=== PATIENT | female | born 1960 | race African-American/Black ===

== ENCOUNTER 2016-10-16 10:02 | Emergency (ER) | payer BC, MEDICARE ==
[~2016-10-16] VITALS: Ht 170.2 cm; Wt 81.6 kg
[~2016-10-16 10:02] MED LIST: ALBU2.5V5 NEB; ASPI325T8 PO; CEPH-264 PO; CRESTOR40 MG PO; DULO60CA6 PO; FENO145T PO; FLUT1DIS3 IH; IPRA3AMP IH; LOSA100T6 PO; METF-620 PO; METO25TA4 PO; MONT10TA9 PO; OMEP20CA5 PO; OMEP40CA5 PO; SITA100T PO; TRAM-48 PO
--- NOTE | 2016-10-16 10:22 | PHYS DOC ---
Past Medical History Past Medical History: Asthma, CAD, Diabetes-Type II, Hypertension Past Surgical History: Other Additional Past Surgical Histo: Back surgery, stents x2 Alcohol Use: Occasionally Drug Use: None, Marijuana Adult General Chief Complaint Chief Complaint: UPPER EXTREMITY PAIN HPI HPI Patient is a 56 year old female presenting to the emergency department for evaluation of right shoulder and elbow pain status post falling yesterday at approximately 7 PM. That one of her grandchildren who was running in front of her and she actually tripped over her grandchild and hit the wall with her shoulder and then fell down to the ground striking her elbow. She says it has been painful since that time but has not taken anything for pain. She says that the pain is achy. There is no deformity and she denies any weakness numbness or tingling. Review of Systems Review of Systems Constitutional: Denies fever or chills [] Cardiovascular: No additional information not addressed in HPI [] GI: Denies abdominal pain, nausea, vomiting, bloody stools or diarrhea [] Musculoskeletal: Denies back pain. + joint pain [] Integument: Denies abrasions/lacs Neurologic: Denies headache, focal weakness or sensory changes [] Current Medications Current Medications Current Medications Medications (Trade) Dose Ordered Sig/Carlton Start Time Stop Time Status Last Admin Dose Admin Ibuprofen (Motrin) 800 mg 1X ONCE 10/16/16 10:30 10/16/16 10:31 DC 10/16/16 10:36 800 MG Oxycodone/ Acetaminophen (Percocet 5/325) 2 tab 1X ONCE 10/16/16 10:30 10/16/16 10:31 DC 10/16/16 10:35 2 TAB Allergies Allergies Allergies Coded Allergies Type Severity Reaction Last Updated Verified No Known Drug Allergies 07/23/15 No Physical Exam Physical Exam Constitutional: Well developed, well nourished, no acute distress, non-toxic appearance. [] HENT: Normocephalic, atraumatic, bilateral external ears normal, oropharynx moist, no oral exudates, nose normal. [] Eyes: PERRLA, EOMI, conjunctiva normal, no discharge. [] Neck: Normal range of motion, no tenderness, supple, no stridor. [] Cardiovascular:Heart rate regular rhythm, no murmur [] Lungs & Thorax: Bilateral breath sounds clear to auscultation [] Abdomen: Bowel sounds normal, soft, no tenderness, no masses, no pulsatile masses. [] Skin: Warm, dry, no erythema, no rash. [] Extremities: Pain to palpation of right shoulder and right elbow but there is no deformity. She has limited range of motion due to pain. She is neurovascularly intact distally. Neurologic: Alert and oriented X 3, normal motor function, normal sensory function, no focal deficits noted. [] Current Patient Data Vital Signs Vital Signs Date Time Temp Pulse Resp B/P (MAP) Pulse Ox O2 Delivery O2 Flow Rate FiO2 10/16/16 10:07 98.3 66 12 98 Room Air 98.3 EKG EKG [] Radiology/Procedures Radiology/Procedures Indication: Injury to the right elbow. Time of exam 10:28 AM 3 views of the right elbow were obtained. The alignment is normal. No fracture, dislocation or effusion is detected. Impression: No acute bony abnormality is detected. DICTATED and SIGNED BY: CYNDIE LINCOLN MD DATE: 10/16/16 1035 Indication: Fall and injury to the right shoulder. Time of exam 10:28 AM The glenohumeral and acromioclavicular alignment are normal. The acromiohumeral space is normal. No fracture or dislocation is seen. Impression: No acute bony abnormality is detected. DICTATED and SIGNED BY: CYNDIE LINCOLN MD DATE: 10/16/16 1036 Course & Med Decision Making Course & Med Decision Making Patient's physical exam is quite unremarkable and her x-rays are negative as well status post mechanical fall so she'll be treated with NSAIDs rice and short course of [place]. Patient aware and agreeable with plan. Dragon Disclaimer Dragon Disclaimer This electronic medical record was generated, in whole or in part, using a voice recognition dictation system. Departure Departure Impression: Primary Impression: Shoulder sprain Additional Impression: Elbow strain Disposition: 01 HOME, SELF-CARE Condition: GOOD Referrals: LESTER RAMIREZ CLAM GROWER (PCP) Patient Instructions: Shoulder Sprain Additional Instructions: TAKE 400MG OF IBUPROFEN EVERY 6 HOURS AND THE NORCO FOR BREAKTHROUGH PAIN. REST YOUR ARM, PUT ICE ON IT, ELEVATE IT. FOLLOW WITH PCP IF NOT IMPROVED LATER THIS WEEK. THANK YOU! Scripts Hydrocodone/Apap 5-325 (NORCO 5-325 TABLET) 1 Each Tablet 1 TAB PO PRN Q6HRS Y for PAIN, #10 TAB 0 Refills Prov: POPPY ORTEGA DO 10/16/16 Problem Qualifiers Primary Impression: Shoulder sprain Encounter type: initial encounter Shoulder sprain type: unspecified sprain Laterality: right Qualified Codes: S43.401A - Unspecified sprain of right shoulder joint, initial encounter POPPY ORTEGA DO Oct 16, 2016 10:22
[2016-10-16] MEDS ORDERED: IBUPROFEN 800 MG TABLET. PO ONE (10:30)
[2016-10-16] MEDS ORDERED: oxyCODONE/APAP 5/325 1 TAB TABLET PO ONE (10:30)
--- NOTE | 2016-10-16 10:38 | RAD ---
Indication: Injury to the right elbow. Time of exam 10:28 AM 3 views of the right elbow were obtained. The alignment is normal. No fracture, dislocation or effusion is detected. Impression: No acute bony abnormality is detected.
--- NOTE | 2016-10-16 10:39 | RAD ---
Indication: Fall and injury to the right shoulder. Time of exam 10:28 AM The glenohumeral and acromioclavicular alignment are normal. The acromiohumeral space is normal. No fracture or dislocation is seen. Impression: No acute bony abnormality is detected.
[2016-10-16] MEDS ORDERED: HYDR-971 PO (10:44)
[2016-10-16 11:00] VITALS: BP 178/93
== END 2016-10-16 11:02 | disposition home or self-care (01) ==
LOC: ER 10:02
DX: S43.401A Unspecified sprain of right shoulder joint, initial encounter (principal); S46.911A Strain of unspecified muscle, fascia and tendon at shoulder and upper arm level, right arm, initial encounter; J45.909 Unspecified asthma, uncomplicated; F12.10 Cannabis abuse, uncomplicated; I25.10 Atherosclerotic heart disease of native coronary artery without angina pectoris; E11.9 Type 2 diabetes mellitus without complications; I10 Essential (primary) hypertension; W18.39XA Other fall on same level, initial encounter; Y93.02 Activity, running; Y92.89 Other specified places as the place of occurrence of the external cause; Y99.8 Other external cause status
CPT/HCPCS: 73030; 73080; 99284

== ENCOUNTER → 2017-07-31 | Outpatient (CLI) | payer BC, MEDICARE | END | disposition home or self-care (01) | LOC: US 07:12 | DX: I25.10 Atherosclerotic heart disease of native coronary artery without angina pectoris (principal); I08.1 Rheumatic disorders of both mitral and tricuspid valves; I27.20 Pulmonary hypertension, unspecified; I10 Essential (primary) hypertension; M79.605 Pain in left leg; M79.604 Pain in right leg | CPT/HCPCS: 93306; 93925 ==

== ENCOUNTER 2018-02-19 14:14 | Inpatient (IN) | payer BC, MEDICARE ==
[~2018-02-19] VITALS: Ht 170.2 cm; Wt 83.9 kg
[2018-02-19] VITALS (9 sets, daily range): BP systolic 103–227; BP diastolic 49–115
[~2018-02-19 14:14] MED LIST changes: -AMLO10TA6 PO; -CLOP75TA PO; -EVOL140S SQ; -GABA-586 PO; -HYDR-2869 PO; -INSU100I13 SQ; -LOSARTAN POTASSIUM 50 MG TABLET. PO ONE; -METO50TA6 PO; -OMEG1CAP6 PO; -REGADENOSON 0.4 MG/5 ML DISP.SYRIN. IV ONE; -TIZA4TAB PO
[2018-02-19] MEDS ORDERED: amLODIPine BESYLATE 5 MG TABLET PO ONE (14:45)
[2018-02-19] MEDS ORDERED: cloNIDine HCL 0.1 MG TABLET PO ONE (14:45)
[2018-02-19 15:11] LABS: BASO # 0.1 x10^3/uL (0.0-0.2); BASO % 1 % (0-3); EOS # 0.1 x10^3/uL (0.0-0.7); EOS % 1 % (0-3); HEMATOCRIT 41.7 % (36.0-47.0); HEMOGLOBIN 14.6 g/dL (12.0-15.5); LYMPH % 19 % (24-48); MEAN CORPUSCULAR HEMOGLOBIN 32 pg (25-35); MEAN CORPUSCULAR HGB CONC 35 g/dL (31-37); MEAN CORPUSCULAR VOLUME 92 fL (79-100); MONO # 0.5 x10^3/uL (0.0-1.1); MONO % 5 % (0-9); NEUT # 7.7 x10^3uL (1.8-7.7); NEUT % 73 % (31-73); PLATELET COUNT 366 x10^3/uL (140-400); RED BLOOD COUNT 4.53 x10^6/uL (3.50-5.40); RED CELL DISTRIBUTION WIDTH 13.2 % (11.5-14.5); WHITE BLOOD COUNT 10.5 x10^3/uL (4.0-11.0)
--- NOTE | 2018-02-19 15:13 | EKG ---
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
[2018-02-19 15:23] LABS: CREATININE 0.9 mg/dL (0.6-1.0); GFR 78.1; POTASSIUM 3.6 mmol/L (3.5-5.1)
[2018-02-19 15:28] LABS: ALBUMIN 3.7 g/dL (3.4-5.0); ALBUMIN/GLOBULIN RATIO 0.9 (1.0-1.7); TOTAL BILIRUBIN 0.3 mg/dL (0.2-1.0)
[2018-02-19] MEDS ORDERED: LABETALOL 20 MG/4 ML DISP.SYRIN. IVP ONE (15:30)
--- NOTE | 2018-02-19 16:52 | PHYS DOC ---
Past Medical History Past Medical History: Diabetes-Type II, High Cholesterol, Hypertension, MT Past Surgical History: Other Additional Past Surgical Histo: CARDIAC STENTS Alcohol Use: Occasionally Drug Use: None Adult General Chief Complaint Chief Complaint: HYPERTENSION HPI HPI Patient is a 57 year old female who is referred to the ER for blood pressure. Patient was getting a stress test today patient tells me that she was referred by for a which she tells me his routine stress test due to her prior heart attack. She says she is not having any chest pain no shortness of breath no headache no numbness tingling or weakness she actually feels fine at the blood pressure was 230 systolic so she was referred to the emergency room. Patient says that she ran out of one of her blood pressure medications otherwise no other exacerbating or alleviating factors. Symptoms are now unchanged Review of Systems Review of Systems Constitutional: Denies fever or chills [] GI: Denies abdominal pain, nausea, vomiting, bloody stools or diarrhea [] : Denies dysuria or hematuria [] Musculoskeletal: Denies back pain or joint pain [] Integument: Denies rash or skin lesions [] Neurologic: Denies headache, focal weakness or sensory changes [] Endocrine: Denies polyuria or polydipsia [] All other systems were reviewed and found to be within normal limits, except as documented in this note. Current Medications Current Medications Current Medications Medications (Trade) Dose Ordered Sig/Carlton Start Time Stop Time Status Last Admin Dose Admin Amlodipine Besylate (Norvasc) 10 mg 1X ONCE 02/19/18 14:45 02/19/18 14:46 DC 02/19/18 15:07 10 MG Clonidine HCl (Catapres) 0.1 mg 1X ONCE 02/19/18 14:45 02/19/18 14:46 DC 02/19/18 15:06 0.1 MG Labetalol HCl (Normodyne Iv Push) 20 mg 1X ONCE 02/19/18 15:30 02/19/18 15:31 DC 02/19/18 15:36 20 MG Allergies Allergies Allergies Coded Allergies Type Severity Reaction Last Updated Verified No Known Drug Allergies 07/23/15 No Physical Exam Physical Exam Constitutional: Well developed, well nourished, no acute distress, non-toxic appearance. [] HENT: Normocephalic, atraumatic, bilateral external ears normal, oropharynx moist, no oral exudates, nose normal. [] Eyes: PERRLA, EOMI, conjunctiva normal, no discharge. [] Neck: Normal range of motion, no tenderness, supple, no stridor. [] Cardiovascular:Heart rate regular rhythm, no murmur [] Lungs & Thorax: Bilateral breath sounds clear to auscultation [] Abdomen: Bowel sounds normal, soft, no tenderness, no masses, no pulsatile masses. [] Skin: Warm, dry, no erythema, no rash. [] Back: No tenderness, no CVA tenderness. [] Extremities: No tenderness, no cyanosis, no clubbing, ROM intact, no edema. [] Neurologic: Alert and oriented X 3, normal motor function, normal sensory function, no focal deficits noted. [] Psychologic: Affect normal, judgement normal, mood normal. [] Current Patient Data Vital Signs Vital Signs Date Time Temp Pulse Resp B/P (MAP) Pulse Ox O2 Delivery O2 Flow Rate FiO2 02/19/18 15:37 70 18 99 02/19/18 15:36 254/144 02/19/18 14:29 98.2 Room Air 98.2 Lab Values Laboratory Tests Test 02/19/18 15:02 White Blood Count 10.5 x10^3/uL (4.0-11.0) Red Blood Count 4.53 x10^6/uL (3.50-5.40) Hemoglobin 14.6 g/dL (12.0-15.5) Hematocrit 41.7 % (36.0-47.0) Mean Corpuscular Volume 92 fL (79-100) Mean Corpuscular Hemoglobin 32 pg (25-35) Mean Corpuscular Hemoglobin Concent 35 g/dL (31-37) Red Cell Distribution Width 13.2 % (11.5-14.5) Platelet Count 366 x10^3/uL (140-400) Neutrophils (%) (Auto) 73 % (31-73) Lymphocytes (%) (Auto) 19 % (24-48) L Monocytes (%) (Auto) 5 % (0-9) Eosinophils (%) (Auto) 1 % (0-3) Basophils (%) (Auto) 1 % (0-3) Neutrophils # (Auto) 7.7 x10^3uL (1.8-7.7) Lymphocytes # (Auto) 2.0 x10^3/uL (1.0-4.8) Monocytes # (Auto) 0.5 x10^3/uL (0.0-1.1) Eosinophils # (Auto) 0.1 x10^3/uL (0.0-0.7) Basophils # (Auto) 0.1 x10^3/uL (0.0-0.2) Sodium Level 141 mmol/L (136-145) Potassium Level 3.6 mmol/L (3.5-5.1) Chloride Level 102 mmol/L (98-107) Carbon Dioxide Level 26 mmol/L (21-32) Anion Gap 13 (6-14) Blood Urea Nitrogen 9 mg/dL (7-20) Creatinine 0.9 mg/dL (0.6-1.0) Estimated GFR (Cockcroft-Gault) 78.1 BUN/Creatinine Ratio 10 (6-20) Glucose Level 243 mg/dL (70-99) H Calcium Level 10.0 mg/dL (8.5-10.1) Total Bilirubin 0.3 mg/dL (0.2-1.0) Aspartate Amino Transferase (AST) 36 U/L (15-37) Alanine Aminotransferase (ALT) 37 U/L (14-59) Alkaline Phosphatase 82 U/L (46-116) Troponin I Quantitative < 0.017 ng/mL (0.000-0.055) Total Protein 8.0 g/dL (6.4-8.2) Albumin 3.7 g/dL (3.4-5.0) Albumin/Globulin Ratio 0.9 (1.0-1.7) L Laboratory Tests 02/19/18 15:02 Laboratory Tests 02/19/18 15:02 EKG EKG [] Interpretation Time: EKG shows a sinus rhythm rate of 62 there are T-wave inversions in V4 through V6 compared to previous EKG noted March 16, 2017 these changes are markedly improved. No STEMI is seen Radiology/Procedures Radiology/Procedures [] Course & Med Decision Making Course & Med Decision Making Pertinent Labs and Imaging studies reviewed. (See chart for details) []57 yo f with cc of elevated bp up to 250/140. Patient came from stress test but has no symptoms she is not having any chest pain or shortness of breath troponin is negative I tried oral agents they really did not touch the blood pressure so added ideations with improvement at this time to 210 systolic given the severe elevation and lack of response to oral agents in the emergency room I have consulted with Dr. Marli wheeler admitted to the hospitalist service for blood pressure control and cardiology consultation. Dragon Disclaimer Dragon Disclaimer This electronic medical record was generated, in whole or in part, using a voice recognition dictation system. Departure Departure Impression: Primary Impression: Hypertensive urgency Disposition: ADMITTED INPATIENT Admitting Physician: Fátima Munoz Condition: STABLE Referrals: LETSER RAMIREZ NP (PCP) VI ARANA MD Feb 19, 2018 16:52
[2018-02-19] MEDS ORDERED: METF10007 PO (18:18)
[2018-02-19] MEDS ORDERED: GABA-586 PO (18:18)
[2018-02-19] MEDS ORDERED: CLOP75TA PO (18:18)
[2018-02-19] MEDS ORDERED: TIZA4TAB PO (18:18)
[2018-02-19] MEDS ORDERED: INSU100V13 SQ (18:18)
[2018-02-19] MEDS: MONTELUKAST SODIUM 10 MG TABLET. PO SCH (20:49)
[2018-02-19] MEDS: ATORVASTATIN CALCIUM 40 MG TABLET. PO SCH (20:50)
[2018-02-19] MEDS: GABAPENTIN 300 MG CAPSULE. PO SCH (20:50)
[2018-02-19] MEDS: tiZANidine 4 MG TABLET. PO SCH (20:50)
[2018-02-19] MEDS: INSULIN GLARGINE 300 UNITS/3 ML INSULN.PEN. SQ SCH (20:57)
[2018-02-19] MEDS ORDERED: METOPROLOL TART IMMED RELEASE 25 MG TABLET. PO SCH (21:00)
[2018-02-19] MEDS: diphenhydrAMINE HCL 25 MG CAPSULE PO PRN (21:32)
[2018-02-19] MEDS: ACETAMINOPHEN 325 MG TABLET. PO PRN (21:32)
--- NOTE | 2018-02-19 22:39 | HP ---
ADMIT DATE: 02/19/2018 CHIEF COMPLAINT: Hypertension. HISTORY OF PRESENT ILLNESS: The patient is a pleasant 57-year-old female who was undergoing a stress test earlier today. While she was getting the stress test, they noted her pressure was high. She was told to go to the ER. When she hit the ER sure enough her pressure was 250/150. I have discussed the case with the ER physician. We are going to start some IV antihypertensives and consult Cardiology. PAST MEDICAL HISTORY: Hypertension, noncompliance, coronary disease, myocardial infarction, cardiac stents, diabetes. ALLERGIES: None. FAMILY HISTORY: Coronary disease. SOCIAL HISTORY: She does not drink, smoke or take drugs. MEDICATIONS: Reviewed. Please refer to the MRAD. REVIEW OF SYSTEMS: GENERAL: No history of weight change, weakness or fevers. SKIN: No bruising, hair changes or rashes. EYES: No blurred, double or loss of vision. NOSE AND THROAT: No history of nosebleeds, hoarseness or sore throat. HEART: No history of palpitations, chest pain or shortness of breath on exertion. LUNGS: Denies cough, hemoptysis, wheezing or shortness of breath. GASTROINTESTINAL: Denies changes in appetite, nausea, vomiting, diarrhea or constipation. GENITOURINARY: No history of frequency, urgency, hesitancy or nocturia. NEUROLOGIC: She complains of headache. PSYCHIATRIC: No history of panic, anxiety or depression. ENDOCRINE: No history of heat or cold intolerance, polyuria or polydipsia. EXTREMITIES: Denies muscle weakness, joint pain, pain on walking or stiffness. PHYSICAL EXAMINATION: VITAL SIGNS: Temperature afebrile, pulse 80, respirations 18, blood pressure was as high as 254/144. We have now got it down to 221/115. GENERAL: She is alert, cooperative. Her family is present. HEART: Normal S1, S2. LUNGS: Clear. ABDOMEN: Soft. EXTREMITIES: No edema. SKIN: No rash. ENDOCRINE: No thyromegaly. LYMPHATICS: No cervical nodes. HEMATOPOIETIC: No bruising. LABORATORY DATA: Hematology is normal. Electrolytes are normal. ASSESSMENT AND PLAN: Malignant hypertension. The patient has been admitted. We will start IV Lasix, IV Cardizem. Consult Cardiology, serial enzymes, serial EKGs, cardiac monitoring, home meds. MARLENE HINSON DO DR: Zana JOB#: [id number] / [id number]
[2018-02-20] VITALS (29 sets, daily range): BP systolic 119–197; BP diastolic 60–101
[2018-02-20] MEDS ORDERED: ACETAMINOPHEN/CODEINE 300/30MG TABLET. PO PRN (07:45)
[2018-02-20] MEDS ORDERED: ACETAMINOPHEN 500 MG TABLET PO PRN (07:45)
[2018-02-20] MEDS ORDERED: DEXTROSE 50% 25 GM / 50ML DISP.SYRIN. IV PRN (07:45)
[2018-02-20] MEDS ORDERED: ONDANSETRON ODT 4 MG TAB.RAPDIS. PO PRN (07:45)
[2018-02-20] MEDS ORDERED: ONDANSETRON PF 4 MG/2 ML VIAL. IV PRN (07:45)
[2018-02-20] MEDS ORDERED: metFORMIN 500 MG TABLET PO SCH (08:00)
--- NOTE | 2018-02-20 08:30 | PDOC2 ---
ELLIS CHISHOLM DEPARTMENT STORE SALESPERSON 02/20/18 0830: CARDIAC CONSULT DATE OF CONSULT Date of Consult DATE: 02/20/18 TIME: 08:18 REASON FOR CONSULT Reason for Consult: Hypertensive urgency REFERRING PHYSICIAN Referring Physician: Catina SOURCE Source: Chart review, Patient HISTORY OF PRESENT ILLNESS HISTORY OF PRESENT ILLNESS This is pleasant 57 yo female admitted for complains of chest pain and high BP. She had a stress test yesterday since she has been having exertional CP and MCLEAN when she was seen recently in cardiology office. Her SBP was in the 200s and she has missed her losartan in about 2 months since she ran out. She has CAD and stents in the past and otherwise she has been taking her other medications including ASA and plavix. She does not have any routine exercise and does not really follow her DM diet. She does take statin but take fenofibrate and repatha. Upon admission she was started on cardene which she is off now. Denies any palpitations, nausea or vomiting. Presently she is sitting up in chair without any complaints and her BP is better. At this time her stress test wa noted to be abnormal. PAST MEDICAL HISTORY Past Medical History Cardiovascular: CAD, HTN, Hyperlipidemia Pulmonary: Asthma, COPD CENTRAL NERVOUS SYSTEM: Other (No pertinent history) GI: GERD Psych: Anxiety Musculoskeletal: low back pain, Osteoarthritis Rheumatologic: No pertinent hx Infectious disease: No pertinent hx ENT: Allergic Rhinitis Renal/: No pertinent hx Endocrine: Diabetes (2) Dermatology: No pertinent hx PAST SURGICAL HISTORY Past Surgical History s/p PCI/stents x 2 in 2009; lumbar laminectomy, PCI 2017 FAMILY HISTORY Family History: Heart Disease SOCIAL HISTORY Social History Smoke: quit ALCOHOL: occasional Drugs: Marijuana yes, cocaine she denies Lives: with Family CURRENT MEDICATIONS CURRENT MEDICATIONS Current Medications Medications (Trade) Dose Ordered Sig/Carlton Route PRN Reason Start Time Stop Time Status Last Admin Dose Admin Amlodipine Besylate (Norvasc) 10 mg 1X ONCE PO 02/19/18 14:45 02/19/18 14:46 DC 02/19/18 15:07 Clonidine HCl (Catapres) 0.1 mg 1X ONCE PO 02/19/18 14:45 02/19/18 14:46 DC 02/19/18 15:06 Labetalol HCl (Normodyne Iv Push) 20 mg 1X ONCE IVP 02/19/18 15:30 02/19/18 15:31 DC 02/19/18 15:36 Nicardipine HCl 50 mg/Sodium Chloride 270 ml @ 27 mls/hr CONT PRN IV SEE I/O RECORD 02/19/18 17:45 02/19/18 23:01 Metoprolol Tartrate (Lopressor) 25 mg BID PO 02/19/18 21:00 02/19/18 20:49 Gabapentin (Neurontin) 300 mg TID PO 02/19/18 21:00 02/19/18 20:50 Insulin Glargine (Lantus) 10 units QHS SQ 02/19/18 21:00 02/19/18 20:57 Montelukast Sodium (Singulair) 10 mg QHS PO 02/19/18 21:00 02/19/18 20:49 Atorvastatin Calcium (Lipitor) 80 mg QHS PO 02/19/18 21:00 02/19/18 20:50 Tizanidine HCl (Zanaflex) 4 mg TID PO 02/19/18 21:00 02/19/18 20:50 Acetaminophen (Tylenol) 325 mg PRN QHS PRN PO MILD PAIN / TEMP 02/19/18 21:15 02/19/18 21:32 Diphenhydramine HCl (Benadryl) 25 mg PRN QHS PRN PO SLEEP 02/19/18 21:15 02/19/18 21:32 ALLERGIES ALLERGIES: Coded Allergies: No Known Drug Allergies (Unverified , 07/23/15) ROS Review of System 14 point ROS evaluated with pertinent positives noted per HPI PHYSICAL EXAM General: Alert, Oriented X3, Cooperative, No acute distress HEENT: Atraumatic, Mucous membr. moist/pink Lungs: Clear to auscultation, Normal air movement Heart: Regular rate (SR), Normal S1, Normal S2, Other (2/6 systolic murmur to LLs border) Abdomen: Soft, No tenderness Extremities: No cyanosis, No edema Skin: No breakdown, No significant lesion Neuro: Normal speech, Sensation intact Psych/Mental Status: Mental status NL, Mood NL MUSCULOSKELETAL: Osteoarthritic changes both hands VITALS VITALS Vital Signs Date Time Temp Pulse Resp B/P (MAP) Pulse Ox O2 Delivery O2 Flow Rate FiO2 02/20/18 07:35 Room Air 02/20/18 07:00 68 18 177/90 (119) 97 02/20/18 04:00 98.4 98.4 LABS Lab: Laboratory Tests Test 02/19/18 15:02 02/19/18 16:55 02/19/18 19:10 02/19/18 20:53 White Blood Count 10.5 x10^3/uL (4.0-11.0) Red Blood Count 4.53 x10^6/uL (3.50-5.40) Hemoglobin 14.6 g/dL (12.0-15.5) Hematocrit 41.7 % (36.0-47.0) Mean Corpuscular Volume 92 fL (79-100) Mean Corpuscular Hemoglobin 32 pg (25-35) Mean Corpuscular Hemoglobin Concent 35 g/dL (31-37) Red Cell Distribution Width 13.2 % (11.5-14.5) Platelet Count 366 x10^3/uL (140-400) Neutrophils (%) (Auto) 73 % (31-73) Lymphocytes (%) (Auto) 19 % (24-48) Monocytes (%) (Auto) 5 % (0-9) Eosinophils (%) (Auto) 1 % (0-3) Basophils (%) (Auto) 1 % (0-3) Neutrophils # (Auto) 7.7 x10^3uL (1.8-7.7) Lymphocytes # (Auto) 2.0 x10^3/uL (1.0-4.8) Monocytes # (Auto) 0.5 x10^3/uL (0.0-1.1) Eosinophils # (Auto) 0.1 x10^3/uL (0.0-0.7) Basophils # (Auto) 0.1 x10^3/uL (0.0-0.2) Sodium Level 141 mmol/L (136-145) Potassium Level 3.6 mmol/L (3.5-5.1) Chloride Level 102 mmol/L (98-107) Carbon Dioxide Level 26 mmol/L (21-32) Anion Gap 13 (6-14) Blood Urea Nitrogen 9 mg/dL (7-20) Creatinine 0.9 mg/dL (0.6-1.0) Estimated GFR (Cockcroft-Gault) 78.1 BUN/Creatinine Ratio 10 (6-20) Glucose Level 243 mg/dL (70-99) Calcium Level 10.0 mg/dL (8.5-10.1) Total Bilirubin 0.3 mg/dL (0.2-1.0) Aspartate Amino Transf (AST/SGOT) 36 U/L (15-37) Alanine Aminotransferase (ALT/SGPT) 37 U/L (14-59) Alkaline Phosphatase 82 U/L (46-116) Troponin I Quantitative < 0.017 ng/mL (0.000-0.055) < 0.017 ng/mL (0.000-0.055) Total Protein 8.0 g/dL (6.4-8.2) Albumin 3.7 g/dL (3.4-5.0) Albumin/Globulin Ratio 0.9 (1.0-1.7) Group A Streptococcus Rapid Negative (NEGATIVE) Glucose (Fingerstick) 245 mg/dL (70-99) Test 02/19/18 22:10 02/20/18 05:37 Troponin I Quantitative < 0.017 ng/mL (0.000-0.055) Glucose (Fingerstick) 208 mg/dL (70-99) ECHOCARDIOGRAM ECHOCARDIOGRAM <Conclusion> The left ventricular systolic function is normal. The ejection fraction is estimated at 55-60%. There is normal LV segmental wall motion. Trace to mild mitral regurgitation. Mild tricuspid regurgitation. There is mild pulmonary hypertension. The PA pressure was estimated at 34 mmHg. There is no evidence of significant pericardial effusion. DATE: 07/31/17 1032 STRESS TEST STRESS TEST Conclusion 1. Abnormal resting EKG with ST segment changes with exertion that are suggestive but not diagnostic of ischemia. 2. Nuclear imaging suggests a small area of reversible ischemia in the inferior wall. 3. Normal left ventricular systolic function with an ejection fraction of 69%. 4. Moderate to moderately high risk Lexiscan nuclear stress test suggestive of reversible ischemia in the inferior wall. 5. Of note the patient has had uncontrolled hypertension which can affect the accuracy of the test. DATE: 02/19/18 1435 HEART CATH HEART CATH Conclusion 1. Two-vessel coronary artery disease. 2. Successful context PCI/stents placement to bifurcation lesion involving the left anterior descending artery/diagonal branch. 3. Successful PCI/stent placement to the right coronary artery. Recommendations 1. Aspirin 325 mg daily 2. Plavix 75 mg daily for preferably 1 year 3. Cardiovascular risk factor modification. DATE: 03/17/17 1230 ASSESSMENT/PLAN ASSESSMENT/PLAN 1. Accelerated HTN: 2 months off losartan 2. Chest pain UA features/abnormal MPI 3. CAD: multiple stents with latest as above. report 4. DM2: BG uncontrolled 5. HLP 6. COPD 7. Suspect CKD2 Recommendations 1. DC cardene, restart losartan and metoprolol. Hydralazine PRN 2. LHC today, discussed risks and benefits and agreeable to proceed. Hold metformin for 48 hours post LHC. 3. No allergy to statin. DC home fenofibrate and start on statin. Continue with home repatha 4. ASA/plavix. 5. Marijuana cessation and discussed compliance. BLANCA CANALES MD 02/20/18 1524: CARDIAC CONSULT ASSESSMENT/PLAN ASSESSMENT/PLAN Patient seen and examined. Agree with NEWSSTAND VENDOR's assessment and plan. Accelerated hypertension secondary to noncompliance Resume losartan in addition to metoprolol and stopped Cardene infusion Chest pain with typical features concerning for unstable angina and Lexiscan nuclear stress test positive for inferior wall ischemia Plan for cardiac catheterization and possible angioplasty Thank you for your consultation ELLIS CHISHOLM APRN Feb 20, 2018 08:30 BLANCA CANALES MD Feb 20, 2018 15:24
[2018-02-20] MEDS: DULoxetine HCL 30 MG CAPSULE.DR PO SCH (08:38)
[2018-02-20] MEDS: FENOFIBRATE,MICRONIZED 134 MG CAPSULE PO SCH (08:38)
[2018-02-20] MEDS: GABAPENTIN 300 MG CAPSULE. PO SCH ×3 (08:38→20:34)
--- NOTE | 2018-02-20 08:38 | PDOC ---
PROGRESS NOTES Chief Complaint Chief Complaint Hypertensive urgency Dyslipidemia on statin Diabetes on insulin History of Present Illness History of Present Illness Nicardipine drip off for one and half hours and systolic is 170s, patient asymptomatic Patient has been nothing by mouth for either cardiac tests today She was undergoing the stress test, claims after the dye, her blood pressure shot up She is currently asymptomatic She admits she ran out of losartan for 2 months PLAN: Maintain nothing by mouth until cardiac Rounds Home meds have reconciled including losartan and other meds Sliding scale insulin high-dose Okay to transfer out of ICU when blood pressure is better, and okay with cardiology Vitals Vitals Vital Signs Date Time Temp Pulse Resp B/P (MAP) Pulse Ox O2 Delivery O2 Flow Rate FiO2 02/20/18 07:35 Room Air 02/20/18 07:00 68 18 177/90 (119) 97 02/20/18 04:00 98.4 98.4 Physical Exam General: Alert, Oriented X3, Cooperative, No acute distress Heart: Regular rate, Normal S1, Normal S2, No murmurs Lungs: Clear, Other Abdomen: Normal bowel sounds, Soft, No tenderness Extremities: No clubbing, No cyanosis, No edema Skin: No rashes, No breakdown, No significant lesion Labs LABS Laboratory Tests Test 02/19/18 15:02 02/19/18 16:55 02/19/18 19:10 02/19/18 20:53 White Blood Count 10.5 x10^3/uL (4.0-11.0) Red Blood Count 4.53 x10^6/uL (3.50-5.40) Hemoglobin 14.6 g/dL (12.0-15.5) Hematocrit 41.7 % (36.0-47.0) Mean Corpuscular Volume 92 fL (79-100) Mean Corpuscular Hemoglobin 32 pg (25-35) Mean Corpuscular Hemoglobin Concent 35 g/dL (31-37) Red Cell Distribution Width 13.2 % (11.5-14.5) Platelet Count 366 x10^3/uL (140-400) Neutrophils (%) (Auto) 73 % (31-73) Lymphocytes (%) (Auto) 19 % (24-48) Monocytes (%) (Auto) 5 % (0-9) Eosinophils (%) (Auto) 1 % (0-3) Basophils (%) (Auto) 1 % (0-3) Neutrophils # (Auto) 7.7 x10^3uL (1.8-7.7) Lymphocytes # (Auto) 2.0 x10^3/uL (1.0-4.8) Monocytes # (Auto) 0.5 x10^3/uL (0.0-1.1) Eosinophils # (Auto) 0.1 x10^3/uL (0.0-0.7) Basophils # (Auto) 0.1 x10^3/uL (0.0-0.2) Sodium Level 141 mmol/L (136-145) Potassium Level 3.6 mmol/L (3.5-5.1) Chloride Level 102 mmol/L (98-107) Carbon Dioxide Level 26 mmol/L (21-32) Anion Gap 13 (6-14) Blood Urea Nitrogen 9 mg/dL (7-20) Creatinine 0.9 mg/dL (0.6-1.0) Estimated GFR (Cockcroft-Gault) 78.1 BUN/Creatinine Ratio 10 (6-20) Glucose Level 243 mg/dL (70-99) Calcium Level 10.0 mg/dL (8.5-10.1) Total Bilirubin 0.3 mg/dL (0.2-1.0) Aspartate Amino Transf (AST/SGOT) 36 U/L (15-37) Alanine Aminotransferase (ALT/SGPT) 37 U/L (14-59) Alkaline Phosphatase 82 U/L (46-116) Troponin I Quantitative < 0.017 ng/mL (0.000-0.055) < 0.017 ng/mL (0.000-0.055) Total Protein 8.0 g/dL (6.4-8.2) Albumin 3.7 g/dL (3.4-5.0) Albumin/Globulin Ratio 0.9 (1.0-1.7) Group A Streptococcus Rapid Negative (NEGATIVE) Glucose (Fingerstick) 245 mg/dL (70-99) Test 02/19/18 22:10 02/20/18 05:37 02/20/18 08:25 Troponin I Quantitative < 0.017 ng/mL (0.000-0.055) Glucose (Fingerstick) 208 mg/dL (70-99) 232 mg/dL (70-99) Review of Systems Review of Systems A 14 point ROS was completed with the following noted as positive: Other systems reviewed and negative. \CONSTITUTIONAL: No fever or chills EYES: No recent changes SKIN: No rash or itching CARDIOVASCULAR: No chest pain, syncope, palpitations, or edema RESPIRATORY: No SOB or cough GASTROINTESTINAL: No nausea, vomiting or abdominal pain NEUROLOGICAL: No headaches or weakness ENDOCRINE: No cold or heat intolerance GENITOURINARY: No urgency or frequency of urination MUSCULOSKELETAL: No back pain or joint pain LYMPHATICS: No enlarged lymph nodes PSYCHIATRIC: No anxiety or depression Assessment and Plan Assessmemt and Plan Problems Medical Problems: (1) Hypertensive urgency Status: Acute Comment Review of Relevant I have reviewed the following items jd (where applicable) has been applied. Labs Laboratory Tests Test 02/19/18 15:02 02/19/18 16:55 02/19/18 19:10 02/19/18 20:53 White Blood Count 10.5 x10^3/uL (4.0-11.0) Red Blood Count 4.53 x10^6/uL (3.50-5.40) Hemoglobin 14.6 g/dL (12.0-15.5) Hematocrit 41.7 % (36.0-47.0) Mean Corpuscular Volume 92 fL (79-100) Mean Corpuscular Hemoglobin 32 pg (25-35) Mean Corpuscular Hemoglobin Concent 35 g/dL (31-37) Red Cell Distribution Width 13.2 % (11.5-14.5) Platelet Count 366 x10^3/uL (140-400) Neutrophils (%) (Auto) 73 % (31-73) Lymphocytes (%) (Auto) 19 % (24-48) Monocytes (%) (Auto) 5 % (0-9) Eosinophils (%) (Auto) 1 % (0-3) Basophils (%) (Auto) 1 % (0-3) Neutrophils # (Auto) 7.7 x10^3uL (1.8-7.7) Lymphocytes # (Auto) 2.0 x10^3/uL (1.0-4.8) Monocytes # (Auto) 0.5 x10^3/uL (0.0-1.1) Eosinophils # (Auto) 0.1 x10^3/uL (0.0-0.7) Basophils # (Auto) 0.1 x10^3/uL (0.0-0.2) Sodium Level 141 mmol/L (136-145) Potassium Level 3.6 mmol/L (3.5-5.1) Chloride Level 102 mmol/L (98-107) Carbon Dioxide Level 26 mmol/L (21-32) Anion Gap 13 (6-14) Blood Urea Nitrogen 9 mg/dL (7-20) Creatinine 0.9 mg/dL (0.6-1.0) Estimated GFR (Cockcroft-Gault) 78.1 BUN/Creatinine Ratio 10 (6-20) Glucose Level 243 mg/dL (70-99) Calcium Level 10.0 mg/dL (8.5-10.1) Total Bilirubin 0.3 mg/dL (0.2-1.0) Aspartate Amino Transf (AST/SGOT) 36 U/L (15-37) Alanine Aminotransferase (ALT/SGPT) 37 U/L (14-59) Alkaline Phosphatase 82 U/L (46-116) Troponin I Quantitative < 0.017 ng/mL (0.000-0.055) < 0.017 ng/mL (0.000-0.055) Total Protein 8.0 g/dL (6.4-8.2) Albumin 3.7 g/dL (3.4-5.0) Albumin/Globulin Ratio 0.9 (1.0-1.7) Group A Streptococcus Rapid Negative (NEGATIVE) Glucose (Fingerstick) 245 mg/dL (70-99) Test 02/19/18 22:10 02/20/18 05:37 02/20/18 08:25 Troponin I Quantitative < 0.017 ng/mL (0.000-0.055) Glucose (Fingerstick) 208 mg/dL (70-99) 232 mg/dL (70-99) Laboratory Tests Test 02/19/18 15:02 02/19/18 16:55 02/19/18 19:10 02/19/18 20:53 White Blood Count 10.5 x10^3/uL (4.0-11.0) Red Blood Count 4.53 x10^6/uL (3.50-5.40) Hemoglobin 14.6 g/dL (12.0-15.5) Hematocrit 41.7 % (36.0-47.0) Mean Corpuscular Volume 92 fL (79-100) Mean Corpuscular Hemoglobin 32 pg (25-35) Mean Corpuscular Hemoglobin Concent 35 g/dL (31-37) Red Cell Distribution Width 13.2 % (11.5-14.5) Platelet Count 366 x10^3/uL (140-400) Neutrophils (%) (Auto) 73 % (31-73) Lymphocytes (%) (Auto) 19 % (24-48) Monocytes (%) (Auto) 5 % (0-9) Eosinophils (%) (Auto) 1 % (0-3) Basophils (%) (Auto) 1 % (0-3) Neutrophils # (Auto) 7.7 x10^3uL (1.8-7.7) Lymphocytes # (Auto) 2.0 x10^3/uL (1.0-4.8) Monocytes # (Auto) 0.5 x10^3/uL (0.0-1.1) Eosinophils # (Auto) 0.1 x10^3/uL (0.0-0.7) Basophils # (Auto) 0.1 x10^3/uL (0.0-0.2) Sodium Level 141 mmol/L (136-145) Potassium Level 3.6 mmol/L (3.5-5.1) Chloride Level 102 mmol/L (98-107) Carbon Dioxide Level 26 mmol/L (21-32) Anion Gap 13 (6-14) Blood Urea Nitrogen 9 mg/dL (7-20) Creatinine 0.9 mg/dL (0.6-1.0) Estimated GFR (Cockcroft-Gault) 78.1 BUN/Creatinine Ratio 10 (6-20) Glucose Level 243 mg/dL (70-99) Calcium Level 10.0 mg/dL (8.5-10.1) Total Bilirubin 0.3 mg/dL (0.2-1.0) Aspartate Amino Transf (AST/SGOT) 36 U/L (15-37) Alanine Aminotransferase (ALT/SGPT) 37 U/L (14-59) Alkaline Phosphatase 82 U/L (46-116) Troponin I Quantitative < 0.017 ng/mL (0.000-0.055) < 0.017 ng/mL (0.000-0.055) Total Protein 8.0 g/dL (6.4-8.2) Albumin 3.7 g/dL (3.4-5.0) Albumin/Globulin Ratio 0.9 (1.0-1.7) Group A Streptococcus Rapid Negative (NEGATIVE) Glucose (Fingerstick) 245 mg/dL (70-99) Test 02/19/18 22:10 02/20/18 05:37 02/20/18 08:25 Troponin I Quantitative < 0.017 ng/mL (0.000-0.055) Glucose (Fingerstick) 208 mg/dL (70-99) 232 mg/dL (70-99) Medications Current Medications Amlodipine Besylate (Norvasc) 10 mg 1X ONCE PO Last administered on 02/19/18at 15:07; Start 02/19/18 at 14:45; Stop 02/19/18 at 14:46; Status DC Clonidine HCl (Catapres) 0.1 mg 1X ONCE PO Last administered on 02/19/18at 15: 06; Start 02/19/18 at 14:45; Stop 02/19/18 at 14:46; Status DC Labetalol HCl (Normodyne Iv Push) 20 mg 1X ONCE IVP Last administered on at 15:36; Start 02/19/18 at 15:30; Stop 02/19/18 at 15:31; Status DC Labetalol HCl (Normodyne Iv Push) 20 mg PRN Q3HRS PRN IVP HYPERTENSION, SEE COMMENTS; Start 02/19/18 at 16:15 Nicardipine HCl 50 mg/Sodium Chloride 270 ml @ 27 mls/hr CONT PRN IV SEE I/O RECORD Last administered on 02/19/18at 23:01; Start 02/19/18 at 17:45 Aspirin (Christina Aspirin) 325 mg DAILY PO ; Start 02/20/18 at 09:00 Clopidogrel Bisulfate (Plavix) 75 mg DAILY PO ; Start 02/20/18 at 09:00 Furosemide (Lasix) 40 mg DAILY PO ; Start 02/20/18 at 09:00 Metoprolol Tartrate (Lopressor) 25 mg BID PO Last administered on 02/19/18at 20: 49; Start 02/19/18 at 21:00 Duloxetine HCl (Cymbalta) 60 mg DAILY PO ; Start 02/20/18 at 09:00 Fenofibrate (Lofibra) 134 mg DAILY PO ; Start 02/20/18 at 09:00 Gabapentin (Neurontin) 300 mg TID PO Last administered on 02/19/18at 20:50; Start 02/19/18 at 21:00 Insulin Glargine (Lantus) 10 units QHS SQ Last administered on 02/19/18at 20:57 ; Start 02/19/18 at 21:00 Losartan Potassium (Cozaar) 100 mg DAILY PO ; Start 02/20/18 at 09:00 Metformin HCl (Glucophage) 1,000 mg BIDWMEALS PO ; Start 02/20/18 at 08:00 Non-Formulary Medication (Metformin Hcl ) 1,000 mg BIDWMEALS PO ; Start at 08:00; Status UNV Montelukast Sodium (Singulair) 10 mg QHS PO Last administered on 02/19/18at 20: 49; Start 02/19/18 at 21:00 Pantoprazole Sodium (Protonix) 40 mg DAILYAC PO ; Start 02/20/18 at 07:30 Potassium Chloride (Klor-Con) 20 meq DAILYWBKFT PO ; Start 02/20/18 at 08:00 Atorvastatin Calcium (Lipitor) 80 mg QHS PO Last administered on 02/19/18at 20: 50; Start 02/19/18 at 21:00 Linagliptin (Tradjenta) 5 mg DAILY PO ; Start 02/20/18 at 09:00 Tizanidine HCl (Zanaflex) 4 mg TID PO Last administered on 02/19/18at 20:50; Start 02/19/18 at 21:00 Acetaminophen (Tylenol) 325 mg PRN QHS PRN PO MILD PAIN / TEMP Last administered on 02/19/18 21:32; Start 02/19/18 at 21:15 Diphenhydramine HCl (Benadryl) 25 mg PRN QHS PRN PO SLEEP Last administered on 02/19/18at 21:32; Start 02/19/18 at 21:15 Acetaminophen (Tylenol) 500 mg PRN Q6HRS PRN PO MILD PAIN / TEMP; Start at 07:45 Acetaminophen/ Codeine Phosphate (Tylenol #3) 1 tab PRN Q6HRS PRN PO PAIN; Start 02/20/18 at 07:45 Ondansetron HCl (Zofran) 4 mg PRN Q6HRS PRN IV NAUSEA/VOMITING; Start 02/20/18 at 07:45 Ondansetron HCl (Zofran Odt) 4 mg PRN Q6HRS PRN PO NAUSEA/VOMITING; Start 02/20 at 07:45 Insulin Human Lispro (HumaLOG) 0-9 UNITS TIDWMEALS SQ ; Start 02/20/18 at 08:00 Dextrose (Dextrose 50%-Water Syringe) 12.5 gm PRN Q15MIN PRN IV SEE COMMENTS; Start 02/20/18 at 07:45 Metoprolol Tartrate (Lopressor) 50 mg BID PO ; Start 02/20/18 at 09:00 Clopidogrel Bisulfate (Plavix) 75 mg DAILYWBKFT PO ; Start 02/21/18 at 08:00 Aspirin (Ecotrin) 81 mg DAILYWBKFT PO ; Start 02/21/18 at 08:00; Status UNV Fenofibrate (Lofibra) 54 mg DAILY PO ; Start 02/20/18 at 09:00; Status UNV Losartan Potassium (Cozaar) 100 mg DAILY PO ; Start 02/20/18 at 09:00; Status UNV Hydralazine HCl (Apresoline) 50 mg PRN Q6HRS PRN PO ELEVATED BP, SEE COMMENTS; Start 02/20/18 at 08:30; Status UNV Active Scripts Active Omeprazole 40 Mg Capsule.dr 1 Cap PO DAILY Losartan Potassium 100 Mg Tablet 100 Mg PO DAILY Metoprolol Tartrate 25 Mg Tablet 1 Tab PO BID Crestor (Rosuvastatin Calcium) 40 Mg Tablet 40 Mg PO HS Metformin Hcl 1,000 Mg Tablet 1 Tab PO BID Tricor (Fenofibrate Nanocrystallized) 145 Mg Tablet 1 Tab PO DAILY Januvia (Sitagliptin Phosphate) 100 Mg Tablet 1 Tab PO DAILY Aspirin 325 Mg Tablet 1 Tab PO DAILY Cymbalta (Duloxetine Hcl) 60 Mg Capsule.dr 1 Cap PO DAILY Reported Levemir (Insulin Detemir) 100 Unit/1 Ml Vial 10 Unit SQ QHS Gabapentin 300 Mg Capsule 300 Mg PO TID Tizanidine Hcl 4 Mg Tablet 4 Mg PO TID Clopidogrel (Clopidogrel Bisulfate) 75 Mg Tablet 75 Mg PO DAILY Metformin Hcl 1,000 Mg Tablet 1,000 Mg PO BIDWMEALS Potassium Chloride 20 Meq Tablet.er 20 Meq PO DAILY Take one daily while taking Lasix Lasix (Furosemide) 40 Mg Tablet 1 Tab PO DAILY 30 Days Montelukast Sodium Tablet (Montelukast Sodium) 10 Mg Tablet 1 Tab PO DAILY Vitals/I & O Vital Sign - Last 24 Hours 02/19/18 02/19/18 02/19/18 02/19/18 14:29 14:58 15:06 15:07 Temp 98.2 98.2 Pulse 68 66 71 65 Resp 14 20 B/P (MAP) 248/115 (159) 250/119 250/119 Pulse Ox 98 94 O2 Delivery Room Air 02/19/18 02/19/18 02/19/18 02/19/18 15:24 15:36 15:37 15:47 Pulse 66 64 70 76 Resp 19 18 18 B/P (MAP) 254/144 Pulse Ox 99 99 98 02/19/18 02/19/18 02/19/18 02/19/18 15:57 16:07 16:17 16:27 Pulse 76 68 70 64 Resp 20 18 19 18 Pulse Ox 95 96 97 97 02/19/18 02/19/18 02/19/18 02/19/18 16:30 16:37 16:47 17:00 Temp 98.2 98.2 Pulse 60 70 64 64 Resp 17 16 17 16 B/P (MAP) 227/98 (141) Pulse Ox 96 98 100 99 O2 Delivery Room Air 02/19/18 02/19/18 02/19/18 02/19/18 17:45 18:00 18:12 18:15 Pulse 74 80 75 Resp 17 20 17 B/P (MAP) 221/115 (150) 202/101 (134) 186/88 (120) Pulse Ox 99 98 98 O2 Delivery Room Air Room Air Room Air Room Air 02/19/18 02/19/18 02/19/18 02/19/18 18:30 19:00 20:00 20:00 Temp 98.6 98.6 Pulse 78 72 70 Resp 19 21 23 B/P (MAP) 153/63 (93) 153/63 (93) 127/57 (80) Pulse Ox 93 93 95 O2 Delivery Room Air Room Air Room Air Room Air 02/19/18 02/19/18 02/19/18 02/20/18 20:49 21:00 22:00 00:00 Pulse 76 76 62 Resp 36 28 B/P (MAP) 168/78 168/78 (108) 103/49 (67) Pulse Ox 99 97 O2 Delivery Room Air Room Air Room Air 02/20/18 02/20/18 02/20/18 02/20/18 00:00 01:00 02:00 03:00 Temp 98.5 98.5 Pulse 57 58 60 58 Resp 12 18 19 18 B/P (MAP) 133/69 (90) 131/69 (89) 135/70 (91) 143/72 (95) Pulse Ox 95 96 96 98 O2 Delivery Room Air Room Air Room Air Room Air 02/20/18 02/20/18 02/20/18 02/20/18 04:00 04:00 05:00 06:00 Temp 98.4 98.4 Pulse 62 63 62 Resp 20 19 18 B/P (MAP) 167/96 (119) 156/69 (98) 157/95 (115) Pulse Ox 98 95 98 O2 Delivery Room Air Room Air Room Air Room Air 02/20/18 02/20/18 07:00 07:35 Pulse 68 Resp 18 B/P (MAP) 177/90 (119) Pulse Ox 97 O2 Delivery Room Air Room Air Intake and Output 02/19/18 02/19/18 02/20/18 15:00 23:00 07:00 Intake Total 240 ml 640 ml Output Total 0 ml Balance 240 ml 640 ml DELFIN RODAS MD Feb 20, 2018 08:38
[2018-02-20] MEDS: LINAGLIPTIN 5 MG TABLET PO SCH (08:41)
[2018-02-20] MEDS: CLOPIDOGREL BISULFATE 75 MG TABLET PO SCH (08:41)
[2018-02-20] MEDS: POTASSIUM CHLORIDE 20 MEQ TABLET.ER. PO SCH (08:41)
[2018-02-20] MEDS: tiZANidine 4 MG TABLET. PO SCH ×3 (08:42→20:34)
[2018-02-20] MEDS: PANTOPRAZOLE 40 MG TABLET.DR. PO SCH (08:42)
[2018-02-20] MEDS: LOSARTAN POTASSIUM 50 MG TABLET. PO SCH (08:42)
[2018-02-20] MEDS: FUROSEMIDE 40 MG TABLET. PO SCH (08:43)
[2018-02-20] MEDS: METOPROLOL TART IMMED RELEASE 50 MG TABLET. PO SCH ×2 (08:50→20:35)
[2018-02-20] MEDS: INSULIN LISPRO 300 UNITS/3 ML INSULN.PEN. SQ SCH ×3 (08:52→17:36)
[2018-02-20] MEDS ORDERED: FENOFIBRATE 54 MG TABLET. PO SCH (09:00)
[2018-02-20] MEDS ORDERED: ASPIRIN ENTERIC COATED 81 MG TABLET.DR. PO SCH (09:00)
[2018-02-20] MEDS ORDERED: LOSARTAN POTASSIUM 50 MG TABLET. PO SCH (09:00)
[2018-02-20] MEDS ORDERED: ASPIRIN 325 MG TABLET PO SCH (09:00)
[2018-02-20 09:25] LABS: CHOLESTEROL/HDL RATIO 6.6
[2018-02-20 09:44] LABS: BARBITURATES NEG (NEG); BENZODIAZEPINES NEG (NEG); CANNABINOIDS POS (NEG); COCAINE NEG (NEG); METHADONE NEG (NEG); OPIATES NEG (NEG); PHENCYCLIDINE NEG (NEG)
[2018-02-20 09:48] LABS: AMPHETAMINE/METHAMPHETAMINE NEG (NEG)
[2018-02-20] MEDS ORDERED: IODIXANOL 320 MG/ML 100 ML VIAL. ONE (13:32)
[2018-02-20] MEDS ORDERED: LIDOCAINE 1% PF 2 ML VIAL. ONE (13:32)
[2018-02-20] MEDS ORDERED: fentaNYL PF VIAL 100 MCG/2 ML VIAL ONE (14:24)
[2018-02-20] MEDS ORDERED: NITROGLYCERIN 200 MCG/2 ML SYRINGE FOR CATH/VASC LAB. ONE (14:25)
[2018-02-20] MEDS ORDERED: MIDAZOLAM HCL/PF 2 MG/2 ML VIAL. ONE (14:25)
[2018-02-20] MEDS ORDERED: VERAPAMIL 5 MG/2 ML VIAL. ONE (14:25)
[2018-02-20] MEDS ORDERED: HEPARIN for IV BOLUS 10,000 UNIT/10 ML VIAL. ONE (14:25)
[2018-02-20] MEDS ORDERED: BIVALIRUDIN 250 MG VIAL. IV ONE ×2 (14:51→15:00)
[2018-02-20] MEDS ORDERED: IODIXANOL 320 MG/ML 100 ML VIAL. IART ONE (15:00)
[2018-02-20] MEDS ORDERED: NITROGLYCERIN 200 MCG/2 ML SYRINGE FOR CATH/VASC LAB. IART ONE (15:00)
[2018-02-20] MEDS ORDERED: LIDOCAINE 1% PF 2 ML VIAL. INJ ONE (15:00)
[2018-02-20] MEDS ORDERED: HEPARIN for IV BOLUS 10,000 UNIT/10 ML VIAL. IART ONE (15:00)
[2018-02-20] MEDS ORDERED: VERAPAMIL 5 MG/2 ML VIAL. IART ONE (15:00)
[2018-02-20] MEDS ORDERED: fentaNYL PF VIAL 100 MCG/2 ML VIAL IV ONE (15:00)
[2018-02-20] MEDS ORDERED: MIDAZOLAM HCL/PF 2 MG/2 ML VIAL. IV ONE (15:00)
--- NOTE | 2018-02-20 15:22 | PDOC ---
MODERATE SEDATION ASSESSMENT RISKS/ALTERNATIVES Risks/Alternatives Risks and alternatives of this type of sedation and procedure discussed with: RISK/ALTERNATIVES: Patient H & P ON CHART H & P H & P on chart and reviewed for co-morbid conditions and appropriate labs. H&P ON CHART: Yes STATUS PREG STATUS ASSESSED: N/A MEDS/ALLERGIES REVIEWED Meds/Allergies Reviewed Medications and Allergies including time and route of recently administered narcotics and sedatives. MEDS/ALLERGIES REVIEWED: Yes ASA RATING ASA RATING: III AIRWAY ASSESSMENT Airway Assessment Airway patency, oral function limitations, presence of caps, crowns, dentures, partials, and ability to extend neck assessed. AIRWAY ASSESSMENT: Yes MALLAMPATI SCORE MALLAMPATI SCORE: II PRE-SEDATION ASSESSMENT PRE-SEDATION ASSESSMENT: Yes BLANCA CANALES MD Feb 20, 2018 15:22
[2018-02-20] MEDS ORDERED: ACETAMINOPHEN 325 MG TABLET. PO PRN (15:30)
[2018-02-20] MEDS ORDERED: NITROGLYCERIN SUBLINGUAL 0.4 MG BOTTLE OF 25. SL PRN (15:30)
--- NOTE | 2018-02-20 16:02 | CARD ---
MR#: [id number] Date of Study: 02/20/2018 Ordering Physician: BLANCA VILLAFANA, Referring Physician: MARLENE HINSON Tech: RT Bozena (R) [place] APPROVED REPORT Technologist: RT Bozena (R) [place] Nurse: Carlotta Barron R.N. Procedure(s) performed: 1. Left heart catheterization, selective coronary angiography and left ventr iculography via right transradial approach 2. Successful PCI/drug eluting stent placement to the right coronary artery Moderate sedation: 35 min INDICATION The indication(s) include : Unstable angina and positive stress test. PROCEDURE NARRATIVE After explaining the risks, benefits and alternative options, informed consent was obtained from maria luisa ent. Patient was brought to the cardiac Tow Motor Operator and right wrist was prepped and draped in the usual fashion after confirming a positive modified Albert's test. Arterial access was obtained in the righ t radial artery and a 6 [place] sheath was inserted. 6 [place] Antoine catheter was used to perform alyx ective angiography of the left and right coronary arteries. 6 [place] pigtail catheter was used to pe rform left ventriculography. The following findings were noted. FINDINGS 1. Hemodynamics: Left ventricular end-diastolic pressure of 11 mmHg. No pullback gradient across th e aortic valve. 2. Left ventriculography: Normal left ventricle systolic function with ejection fraction estimated at 60%. No significant mitral regurgitation seen. 3. Coronary angiography: a. The left main coronary artery arose from the left sinus of Valsalva, gave rise to the left anteri or descending and left circumflex arteries and did not show any significant stenosis. b. The left anterior descending artery showed patent previously placed stents in the mid and distal segments. There was a 40% bifurcation lesion noted in between the 2 stents and involving the ostium o f the diagonal branch. c. The left circumflex artery showed 30% stenosis involving a large second obtuse marginal branch. d. The right coronary artery was a large and dominant vessel arising from the right sinus of Valsalv a that showed 80% stenosis involving the midsegment and patent stent in the mid to distal segment. INTERVENTION The right coronary artery was engaged with a 6 [place] JR4 guide catheter and the stenosis in the mids egment was crossed with a 0.014 inch ServiceMesh guidewire. This was directly treated with a 3.5 x 12 mm resolute sloane drug-eluting stent. Follow-up angiography showed resolution of the stenosis to 0 % with JAMIA-3 distal flow. Patient tolerated the procedure well. Hemostasis was achieved using TR ban d. There were no immediate complications. Conclusion 1. 80% stenosis involving the midsegment of the right coronary artery. The previously placed stents in the right coronary and the left anterior descending arteries were patent. 2. Successful PCI/drug eluting stent placement to the right coronary artery. 3. Normal left ventricle systolic function with ejection fraction estimated at 60%. Recommendations 1. Aspirin 325 mg daily 2. Plavix 75 mg daily for preferably one year 3. Cardiovascular risk factor modification Signed by : Blanca Villafana, Electronically Approved : 02/20/2018 16:02:05
[2018-02-20] MEDS: IV 1/2 NORMAL SALINE 1,000 ML IV SCH (17:28)
[2018-02-20] MEDS: LABETALOL 20 MG/4 ML DISP.SYRIN. IVP PRN ×2 (18:29→18:35)
[2018-02-20] MEDS: MONTELUKAST SODIUM 10 MG TABLET. PO SCH (20:34)
[2018-02-20] MEDS: ATORVASTATIN CALCIUM 40 MG TABLET. PO SCH (20:34)
[2018-02-20] MEDS: INSULIN GLARGINE 300 UNITS/3 ML INSULN.PEN. SQ SCH (20:44)
[2018-02-20] MEDS ORDERED: EVOL140S SQ (20:54)
[2018-02-20] MEDS ORDERED: ATORVASTATIN CALCIUM 40 MG TABLET. PO SCH (21:00)
[2018-02-20] MEDS: ACETAMINOPHEN 325 MG TABLET. PO PRN (22:43)
[2018-02-20] MEDS: diphenhydrAMINE HCL 25 MG CAPSULE PO PRN (22:43)
[2018-02-21 03:00] VITALS: BP 191/91
[2018-02-21 03:30] VITALS: BP 191/91
[2018-02-21] MEDS: IV 1/2 NORMAL SALINE 1,000 ML IV SCH (03:31)
[2018-02-21 04:42] VITALS: BP 165/81
[2018-02-21] MEDS: PANTOPRAZOLE 40 MG TABLET.DR. PO SCH (06:11)
[2018-02-21 06:12] VITALS: BP 182/86
[2018-02-21] MEDS: LABETALOL 20 MG/4 ML DISP.SYRIN. IVP PRN (06:23)
[2018-02-21] MEDS ORDERED: CLOPIDOGREL BISULFATE 75 MG TABLET PO SCH (08:00)
[2018-02-21] MEDS ORDERED: ASPIRIN ENTERIC COATED 325 MG TABLET.DR. PO SCH (08:00)
[2018-02-21 08:04] VITALS: BP 173/88
[2018-02-21] MEDS: DULoxetine HCL 30 MG CAPSULE.DR PO SCH (08:34)
[2018-02-21] MEDS: GABAPENTIN 300 MG CAPSULE. PO SCH (08:34)
[2018-02-21] MEDS: LINAGLIPTIN 5 MG TABLET PO SCH (08:35)
[2018-02-21] MEDS: tiZANidine 4 MG TABLET. PO SCH (08:35)
[2018-02-21] MEDS: LOSARTAN POTASSIUM 50 MG TABLET. PO SCH (08:35)
[2018-02-21] MEDS: CLOPIDOGREL BISULFATE 75 MG TABLET PO SCH (08:35)
[2018-02-21] MEDS: FUROSEMIDE 40 MG TABLET. PO SCH (08:35)
[2018-02-21] MEDS: FENOFIBRATE,MICRONIZED 134 MG CAPSULE PO SCH (08:36)
[2018-02-21] MEDS: METOPROLOL TART IMMED RELEASE 50 MG TABLET. PO SCH (08:36)
[2018-02-21] MEDS: POTASSIUM CHLORIDE 20 MEQ TABLET.ER. PO SCH (08:36)
[2018-02-21] MEDS: INSULIN LISPRO 300 UNITS/3 ML INSULN.PEN. SQ SCH ×2 (08:43→12:37)
[2018-02-21] MEDS ORDERED: amLODIPine BESYLATE 10 MG TABLET PO SCH (09:00)
[2018-02-21 09:44] LABS: CALCIUM 10.1 mg/dL (8.5-10.1); CREATININE 0.8 mg/dL (0.6-1.0); GFR 89.1; MAGNESIUM 1.9 mg/dL (1.8-2.4); POTASSIUM 3.7 mmol/L (3.5-5.1)
--- NOTE | 2018-02-21 09:54 | PDOC ---
PROGRESS NOTES Chief Complaint Chief Complaint Hypertensive urgency Dyslipidemia on statin Diabetes on insulin, uncontrolled s/p LHC - CAD x 1 more stent (4 stents total now) - 02/20 History of Present Illness History of Present Illness Nicardipine drip off - out of ICU 02/20/18 The blood pressure still systolic 180s Patient asymptomatic Status post LHC and 02/20 and 1 stent deployed Patient wants to go home as it is [birth year] today Blood sugars also on the high side 250s-on Levemir 10 units subcutaneous daily at bedtime and pills throughout the day PLAN: Make hydralazine 50 by mouth 3 times a day scheduled Increase Levemir to 15 daily at bedtime Await cardiology Rounds Blood pressure still high Vitals Vitals Vital Signs Date Time Temp Pulse Resp B/P (MAP) Pulse Ox O2 Delivery O2 Flow Rate FiO2 02/21/18 08:36 66 02/21/18 08:35 173/88 02/21/18 06:12 97.6 16 98 Room Air 97.6 02/20/18 18:10 2.0 Physical Exam General: Alert, Oriented X3, Cooperative, No acute distress Heart: Regular rate (SR), Normal S1, Normal S2, Other (2/6 systolic murmur to LLs border) Lungs: Clear, Other Abdomen: Soft, No tenderness Extremities: No cyanosis, No edema Skin: No breakdown, No significant lesion Labs LABS Laboratory Tests Test 02/20/18 12:36 02/20/18 17:10 02/20/18 20:01 02/21/18 07:56 Glucose (Fingerstick) 182 mg/dL (70-99) 240 mg/dL (70-99) 188 mg/dL (70-99) 206 mg/dL (70-99) Test 02/21/18 08:55 Sodium Level 138 mmol/L (136-145) Potassium Level 3.7 mmol/L (3.5-5.1) Chloride Level 101 mmol/L (98-107) Carbon Dioxide Level 27 mmol/L (21-32) Anion Gap 10 (6-14) Blood Urea Nitrogen 10 mg/dL (7-20) Creatinine 0.8 mg/dL (0.6-1.0) Estimated GFR (Cockcroft-Gault) 89.1 Glucose Level 222 mg/dL (70-99) Calcium Level 10.1 mg/dL (8.5-10.1) Magnesium Level 1.9 mg/dL (1.8-2.4) Review of Systems Review of Systems A 14 point ROS was completed with the following noted as positive: Other systems reviewed and negative. \CONSTITUTIONAL: No fever or chills EYES: No recent changes SKIN: No rash or itching CARDIOVASCULAR: No chest pain, syncope, palpitations, or edema RESPIRATORY: No SOB or cough GASTROINTESTINAL: No nausea, vomiting or abdominal pain NEUROLOGICAL: No headaches or weakness ENDOCRINE: No cold or heat intolerance GENITOURINARY: No urgency or frequency of urination MUSCULOSKELETAL: No back pain or joint pain LYMPHATICS: No enlarged lymph nodes PSYCHIATRIC: No anxiety or depression Assessment and Plan Assessmemt and Plan Problems Medical Problems: (1) Hypertensive urgency Status: Acute Comment Review of Relevant I have reviewed the following items jd (where applicable) has been applied. Labs Laboratory Tests Test 02/19/18 15:02 02/19/18 16:55 02/19/18 17:38 02/19/18 19:10 White Blood Count 10.5 x10^3/uL (4.0-11.0) Red Blood Count 4.53 x10^6/uL (3.50-5.40) Hemoglobin 14.6 g/dL (12.0-15.5) Hematocrit 41.7 % (36.0-47.0) Mean Corpuscular Volume 92 fL (79-100) Mean Corpuscular Hemoglobin 32 pg (25-35) Mean Corpuscular Hemoglobin Concent 35 g/dL (31-37) Red Cell Distribution Width 13.2 % (11.5-14.5) Platelet Count 366 x10^3/uL (140-400) Neutrophils (%) (Auto) 73 % (31-73) Lymphocytes (%) (Auto) 19 % (24-48) Monocytes (%) (Auto) 5 % (0-9) Eosinophils (%) (Auto) 1 % (0-3) Basophils (%) (Auto) 1 % (0-3) Neutrophils # (Auto) 7.7 x10^3uL (1.8-7.7) Lymphocytes # (Auto) 2.0 x10^3/uL (1.0-4.8) Monocytes # (Auto) 0.5 x10^3/uL (0.0-1.1) Eosinophils # (Auto) 0.1 x10^3/uL (0.0-0.7) Basophils # (Auto) 0.1 x10^3/uL (0.0-0.2) Sodium Level 141 mmol/L (136-145) Potassium Level 3.6 mmol/L (3.5-5.1) Chloride Level 102 mmol/L (98-107) Carbon Dioxide Level 26 mmol/L (21-32) Anion Gap 13 (6-14) Blood Urea Nitrogen 9 mg/dL (7-20) Creatinine 0.9 mg/dL (0.6-1.0) Estimated GFR (Cockcroft-Gault) 78.1 BUN/Creatinine Ratio 10 (6-20) Glucose Level 243 mg/dL (70-99) Calcium Level 10.0 mg/dL (8.5-10.1) Total Bilirubin 0.3 mg/dL (0.2-1.0) Aspartate Amino Transf (AST/SGOT) 36 U/L (15-37) Alanine Aminotransferase (ALT/SGPT) 37 U/L (14-59) Alkaline Phosphatase 82 U/L (46-116) Troponin I Quantitative < 0.017 ng/mL (0.000-0.055) < 0.017 ng/mL (0.000-0.055) Total Protein 8.0 g/dL (6.4-8.2) Albumin 3.7 g/dL (3.4-5.0) Albumin/Globulin Ratio 0.9 (1.0-1.7) Group A Streptococcus Rapid Negative (NEGATIVE) Nasal Screen MRSA (PCR) Negative (Negative) Test 02/19/18 20:53 02/19/18 22:10 02/20/18 05:37 02/20/18 08:25 Glucose (Fingerstick) 245 mg/dL (70-99) 208 mg/dL (70-99) 232 mg/dL (70-99) Troponin I Quantitative < 0.017 ng/mL (0.000-0.055) Test 02/20/18 08:55 02/20/18 09:15 02/20/18 12:36 02/20/18 17:10 Triglycerides Level 338 mg/dL (0-150) Cholesterol Level 292 mg/dL (0-200) LDL Cholesterol, Calculated 180 mg/dL (0-100) VLDL Cholesterol, Calculated 68 mg/dL (0-40) Non-HDL Cholesterol Calculated 248 mg/dL (0-129) HDL Cholesterol 44 mg/dL (40-60) Cholesterol/HDL Ratio 6.6 Urine Opiates Screen Neg (NEG) Urine Methadone Screen Neg (NEG) Urine Barbiturates Neg (NEG) Urine Phencyclidine Screen Neg (NEG) Urine Amphetamine/Methamphetamine Neg (NEG) Urine Benzodiazepines Screen Neg (NEG) Urine Cocaine Screen Neg (NEG) Urine Cannabinoids Screen Pos (NEG) Urine Ethyl Alcohol Neg (NEG) Glucose (Fingerstick) 182 mg/dL (70-99) 240 mg/dL (70-99) Test 02/20/18 20:01 02/21/18 07:56 02/21/18 08:55 Glucose (Fingerstick) 188 mg/dL (70-99) 206 mg/dL (70-99) Sodium Level 138 mmol/L (136-145) Potassium Level 3.7 mmol/L (3.5-5.1) Chloride Level 101 mmol/L (98-107) Carbon Dioxide Level 27 mmol/L (21-32) Anion Gap 10 (6-14) Blood Urea Nitrogen 10 mg/dL (7-20) Creatinine 0.8 mg/dL (0.6-1.0) Estimated GFR (Cockcroft-Gault) 89.1 Glucose Level 222 mg/dL (70-99) Calcium Level 10.1 mg/dL (8.5-10.1) Magnesium Level 1.9 mg/dL (1.8-2.4) Laboratory Tests Test 02/20/18 12:36 02/20/18 17:10 02/20/18 20:01 02/21/18 07:56 Glucose (Fingerstick) 182 mg/dL (70-99) 240 mg/dL (70-99) 188 mg/dL (70-99) 206 mg/dL (70-99) Test 02/21/18 08:55 Sodium Level 138 mmol/L (136-145) Potassium Level 3.7 mmol/L (3.5-5.1) Chloride Level 101 mmol/L (98-107) Carbon Dioxide Level 27 mmol/L (21-32) Anion Gap 10 (6-14) Blood Urea Nitrogen 10 mg/dL (7-20) Creatinine 0.8 mg/dL (0.6-1.0) Estimated GFR (Cockcroft-Gault) 89.1 Glucose Level 222 mg/dL (70-99) Calcium Level 10.1 mg/dL (8.5-10.1) Magnesium Level 1.9 mg/dL (1.8-2.4) Medications Current Medications Amlodipine Besylate (Norvasc) 10 mg 1X ONCE PO Last administered on 02/19/18at 15:07; Start 02/19/18 at 14:45; Stop 02/19/18 at 14:46; Status DC Clonidine HCl (Catapres) 0.1 mg 1X ONCE PO Last administered on 02/19/18at 15: 06; Start 02/19/18 at 14:45; Stop 02/19/18 at 14:46; Status DC Labetalol HCl (Normodyne Iv Push) 20 mg 1X ONCE IVP Last administered on at 15:36; Start 02/19/18 at 15:30; Stop 02/19/18 at 15:31; Status DC Labetalol HCl (Normodyne Iv Push) 20 mg PRN Q3HRS PRN IVP HYPERTENSION, SEE COMMENTS Last administered on 02/21/18 06:23; Start 02/19/18 at 16:15 Nicardipine HCl 50 mg/Sodium Chloride 270 ml @ 27 mls/hr CONT PRN IV SEE I/O RECORD Last administered on 02/19/18at 23:01; Start 02/19/18 at 17:45; Stop 02/20 at 13:24; Status DC Aspirin (Christina Aspirin) 325 mg DAILY PO Last administered on 02/20/18at 08:41; Start 02/20/18 at 09:00; Stop 02/20/18 at 13:24; Status DC Clopidogrel Bisulfate (Plavix) 75 mg DAILY PO Last administered on 02/21/18at 08:35; Start 02/20/18 at 09:00 Furosemide (Lasix) 40 mg DAILY PO Last administered on 02/21/18at 08:35; Start 02/20/18 at 09:00 Metoprolol Tartrate (Lopressor) 25 mg BID PO Last administered on 02/19/18at 20: 49; Start 02/19/18 at 21:00; Stop 02/20/18 at 08:37; Status DC Duloxetine HCl (Cymbalta) 60 mg DAILY PO Last administered on 02/21/18 08:34 ; Start 02/20/18 at 09:00 Fenofibrate (Lofibra) 134 mg DAILY PO Last administered on 02/21/18at 08:36; Start 02/20/18 at 09:00 Gabapentin (Neurontin) 300 mg TID PO Last administered on 02/21/18 08:34; Start 02/19/18 at 21:00 Insulin Glargine (Lantus) 10 units QHS SQ Last administered on 02/20/18at 20:44 ; Start 02/19/18 at 21:00; Stop 02/21/18 at 08:37; Status DC Losartan Potassium (Cozaar) 100 mg DAILY PO Last administered on 02/21/18 08: 35; Start 02/20/18 at 09:00 Metformin HCl (Glucophage) 1,000 mg BIDWMEALS PO ; Start 02/20/18 at 08:00; Stop 02/20/18 at 12:46; Status DC Non-Formulary Medication (Metformin Hcl ) 1,000 mg BIDWMEALS PO ; Start at 08:00; Status UNV Montelukast Sodium (Singulair) 10 mg QHS PO Last administered on 02/20/18 20: 34; Start 02/19/18 at 21:00 Pantoprazole Sodium (Protonix) 40 mg DAILYAC PO Last administered on at 06:11; Start 02/20/18 at 07:30 Potassium Chloride (Klor-Con) 20 meq DAILYWBKFT PO Last administered on at 08:36; Start 02/20/18 at 08:00 Atorvastatin Calcium (Lipitor) 80 mg QHS PO Last administered on 02/20/18 20: 34; Start 02/19/18 at 21:00 Linagliptin (Tradjenta) 5 mg DAILY PO Last administered on 02/21/18at 08:35; Start 02/20/18 at 09:00 Tizanidine HCl (Zanaflex) 4 mg TID PO Last administered on 02/21/18 08:35; Start 02/19/18 at 21:00 Acetaminophen (Tylenol) 325 mg PRN QHS PRN PO MILD PAIN / TEMP/ INSOMNIA Last administered on 02/20/18at 22:43; Start 02/19/18 at 21:15 Diphenhydramine HCl (Benadryl) 25 mg PRN QHS PRN PO SLEEP Last administered on 02/20/18at 22:43; Start 02/19/18 at 21:15 Acetaminophen (Tylenol) 500 mg PRN Q6HRS PRN PO MILD PAIN / TEMP; Start at 07:45; Status Cancel Acetaminophen/ Codeine Phosphate (Tylenol #3) 1 tab PRN Q6HRS PRN PO PAIN MODERATE; Start 02/20/18 at 07:45 Ondansetron HCl (Zofran) 4 mg PRN Q6HRS PRN IV NAUSEA/VOMITING; Start 02/20/18 at 07:45 Ondansetron HCl (Zofran Odt) 4 mg PRN Q6HRS PRN PO NAUSEA/VOMITING; Start 02/20 at 07:45 Insulin Human Lispro (HumaLOG) 0-9 UNITS TIDWMEALS SQ Last administered on 03/01at 08:43; Start 02/20/18 at 08:00 Dextrose (Dextrose 50%-Water Syringe) 12.5 gm PRN Q15MIN PRN IV SEE COMMENTS; Start 02/20/18 at 07:45 Metoprolol Tartrate (Lopressor) 50 mg BID PO Last administered on 02/21/18at 08 :36; Start 02/20/18 at 09:00 Clopidogrel Bisulfate (Plavix) 75 mg DAILYWBKFT PO ; Start 02/21/18 at 08:00; Status Cancel Aspirin (Ecotrin) 81 mg DAILYWBKFT PO Last administered on 02/20/18at 08:50; Start 02/20/18 at 09:00; Stop 02/20/18 at 13:24; Status DC Fenofibrate (Lofibra) 54 mg DAILY PO ; Start 02/20/18 at 09:00; Stop 02/20/18 at 10:46; Status DC Losartan Potassium (Cozaar) 100 mg DAILY PO ; Start 02/20/18 at 09:00; Status Cancel Hydralazine HCl (Apresoline) 50 mg PRN Q6HRS PRN PO ELEVATED BP, SEE COMMENTS Last administered on 02/21/18at 03:30; Start 02/20/18 at 08:30; Stop 02/21/18 at 08:37; Status DC Atorvastatin Calcium (Lipitor) 40 mg QHS PO ; Start 02/20/18 at 21:00; Status UNV Aspirin (Ecotrin) 325 mg DAILYWBKFT PO Last administered on 02/21/18at 08:34; Start 02/21/18 at 08:00 Iodixanol (Visipaque 320) 100 ml STK-MED ONCE .ROUTE ; Start 02/20/18 at 13:32; Stop 02/20/18 at 13:33; Status DC Lidocaine HCl (Xylocaine-Mpf 1% 2ml Vial) 2 ml STK-MED ONCE .ROUTE ; Start 02/20 at 13:32; Stop 02/20/18 at 13:33; Status DC Heparin Sodium/ Sodium Chloride 500 ml @ As Directed STK-MED ONCE .ROUTE ; Start 02/20/18 at 13:33; Stop 02/20/18 at 13:34; Status DC Fentanyl Citrate (Fentanyl 2ml Vial) 100 mcg STK-MED ONCE .ROUTE ; Start at 14:24; Stop 02/20/18 at 14:25; Status DC Midazolam HCl (Versed) 2 mg STK-MED ONCE .ROUTE ; Start 02/20/18 at 14:25; Stop 02/20/18 at 14:26; Status DC Heparin Sodium (Porcine) (Heparin Sodium) 10,000 unit STK-MED ONCE .ROUTE ; Start 02/20/18 at 14:25; Stop 02/20/18 at 14:26; Status DC Verapamil HCl (Verapamil) 5 mg STK-MED ONCE .ROUTE ; Start 02/20/18 at 14:25; Stop 02/20/18 at 14:26; Status DC Nitroglycerin (Nitroglycerin) 200 mcg STK-MED ONCE .ROUTE ; Start 02/20/18 at 14 :25; Stop 02/20/18 at 14:26; Status DC Bivalirudin (Angiomax) 250 mg STK-MED ONCE IV ; Start 02/20/18 at 14:51; Stop 02/20/18 at 14:52; Status DC Nitroglycerin (Nitroglycerin) 200 mcg 1X ONCE IART Last administered on 15:07; Start 02/20/18 at 15:00; Stop 02/20/18 at 15:10; Status DC Verapamil HCl (Verapamil) 2.5 mg 1X ONCE IART Last administered on 02/20/18at 15:06; Start 02/20/18 at 15:00; Stop 02/20/18 at 15:10; Status DC Heparin Sodium (Porcine) (Heparin Sodium) 2,500 unit 1X ONCE IART Last administered on 02/20/18at 15:07; Start 02/20/18 at 15:00; Stop 02/20/18 at 15:10 ; Status DC Heparin Sodium/ Sodium Chloride (HEPARIN for ARTERIAL LINE FLUSH) 1,000 unit 1X ONCE IART Last administered on 02/20/18at 15:04; Start 02/20/18 at 15:00; Stop 02/20/18 at 15:10; Status DC Midazolam HCl (Versed) 2 mg 1X ONCE IV Last administered on 02/20/18 15:05; Start 02/20/18 at 15:00; Stop 02/20/18 at 15:10; Status DC Fentanyl Citrate (Fentanyl 2ml Vial) 50 mcg 1X ONCE IV Last administered on 15:05; Start 02/20/18 at 15:00; Stop 02/20/18 at 15:10; Status DC Iodixanol (Visipaque 320) 114 ml 1X ONCE IART Last administered on 02/20/18 15:07; Start 02/20/18 at 15:00; Stop 02/20/18 at 15:10; Status DC Bivalirudin (Angiomax) 250 mg 1X ONCE IV Last administered on 02/20/18at 15:06 ; Start 02/20/18 at 15:00; Stop 02/20/18 at 15:10; Status DC Lidocaine HCl (Xylocaine-Mpf 1% 2ml Vial) 1 ml 1X ONCE INJ Last administered on 02/20/18 15:06; Start 02/20/18 at 15:00; Stop 02/20/18 at 15:10; Status DC Sodium Chloride 1,000 ml @ 100 mls/hr Q10H IV Last administered on 02/20/18at 17:28; Start 02/20/18 at 15:22 Acetaminophen (Tylenol) 650 mg PRN Q6HRS PRN PO MILD PAIN / TEMP; Start at 15:30 Nitroglycerin (Nitrostat) 0.4 mg PRN Q5MIN PRN SL CHEST PAIN; Start 02/20/18 at 15:30 Amlodipine Besylate (Norvasc) 10 mg DAILY PO Last administered on 02/21/18at 08 :34; Start 02/21/18 at 09:00 Hydralazine HCl (Apresoline) 50 mg TID PO ; Start 02/21/18 at 09:00 Insulin Glargine (Lantus) 15 units QHS SQ ; Start 02/21/18 at 21:00 Active Scripts Active Omeprazole 40 Mg Capsule.dr 1 Cap PO DAILY Losartan Potassium 100 Mg Tablet 100 Mg PO DAILY Metoprolol Tartrate 25 Mg Tablet 1 Tab PO BID Crestor (Rosuvastatin Calcium) 40 Mg Tablet 40 Mg PO HS Metformin Hcl 1,000 Mg Tablet 1 Tab PO BID Tricor (Fenofibrate Nanocrystallized) 145 Mg Tablet 1 Tab PO DAILY Januvia (Sitagliptin Phosphate) 100 Mg Tablet 1 Tab PO DAILY Aspirin 325 Mg Tablet 1 Tab PO DAILY Cymbalta (Duloxetine Hcl) 60 Mg Capsule.dr 1 Cap PO DAILY Reported Repatha Syringe (Evolocumab) 140 Mg/1 Ml Syringe 140 Mg SQ WEEKLY Levemir (Insulin Detemir) 100 Unit/1 Ml Vial 10 Unit SQ QHS Gabapentin 300 Mg Capsule 300 Mg PO TID Tizanidine Hcl 4 Mg Tablet 4 Mg PO TID Clopidogrel (Clopidogrel Bisulfate) 75 Mg Tablet 75 Mg PO DAILY Metformin Hcl 1,000 Mg Tablet 1,000 Mg PO BIDWMEALS Potassium Chloride 20 Meq Tablet.er 20 Meq PO DAILY Take one daily while taking Lasix Lasix (Furosemide) 40 Mg Tablet 1 Tab PO DAILY 30 Days Montelukast Sodium Tablet (Montelukast Sodium) 10 Mg Tablet 1 Tab PO DAILY Vitals/I & O Vital Sign - Last 24 Hours 02/20/18 02/20/18 02/20/18 02/20/18 10:00 11:00 14:00 15:05 Temp 98.4 98.4 Pulse 54 57 64 Resp 18 18 18 15 B/P (MAP) 124/72 (89) 132/60 (84) 119/66 (83) Pulse Ox 98 98 98 99 O2 Delivery Room Air Room Air Room Air Nasal Cannula O2 Flow Rate 2.0 02/20/18 02/20/18 02/20/18 02/20/18 15:06 15:08 15:26 15:30 Temp 98.7 98.7 Pulse 55 54 54 55 Resp 15 B/P (MAP) 144/92 (109) Pulse Ox 98 98 96 O2 Delivery Nasal Cannula Room Air Room Air O2 Flow Rate 2.0 02/20/18 02/20/18 02/20/18 02/20/18 15:41 15:45 15:55 15:55 Pulse 61 60 61 Resp 16 16 B/P (MAP) 142/86 (104) 155/88 (110) Pulse Ox 96 96 96 O2 Delivery Room Air Room Air Room Air O2 Flow Rate 2.0 2.0 02/20/18 02/20/18 02/20/18 02/20/18 16:10 16:10 16:39 16:40 Pulse 60 63 59 B/P (MAP) 142/80 (100) Pulse Ox 96 96 96 O2 Delivery Room Air Room Air Room Air Room Air O2 Flow Rate 2.0 2.0 02/20/18 02/20/18 02/20/18 02/20/18 16:40 17:10 17:10 18:10 Pulse 59 58 58 66 B/P (MAP) 158/78 (104) 160/101 (120) Pulse Ox 96 96 96 O2 Delivery Room Air Room Air Room Air O2 Flow Rate 2.0 2.0 02/20/18 02/20/18 02/20/18 02/20/18 18:28 18:35 19:00 19:05 Temp 97.9 97.9 Pulse 66 66 63 Resp 18 B/P (MAP) 190/89 190/89 158/76 (103) Pulse Ox 98 O2 Delivery Room Air Room Air 02/20/18 02/20/18 02/20/18 02/20/18 19:16 20:35 21:15 22:35 Temp 98.2 98.2 Pulse 73 68 61 61 Resp 16 B/P (MAP) 178/81 (113) 165/78 171/88 (115) 167/75 (105) Pulse Ox 94 O2 Delivery Room Air 10/10/18 10/10/18 10/10/18 10/10/18 03:00 03:30 03:30 04:42 Temp 97.6 97.6 Pulse 54 64 55 55 Resp 16 B/P (MAP) 191/91 (124) 183/87 191/91 (124) 165/81 (109) Pulse Ox 98 O2 Delivery Room Air 02/21/18 02/21/18 02/21/18 02/21/18 06:12 06:23 08:04 08:34 Temp 97.6 97.6 Pulse 61 61 Resp 16 B/P (MAP) 182/86 (118) 182/86 173/88 (116) 173/88 Pulse Ox 98 O2 Delivery Room Air 02/21/18 02/21/18 08:35 08:36 Pulse 61 66 B/P (MAP) 173/88 Intake and Output 02/20/18 02/20/18 02/21/18 15:00 23:00 07:00 Intake Total 360 ml 240 ml Output Total 400 ml Balance -400 ml 360 ml 240 ml DELFIN RODAS MD Feb 21, 2018 09:54
[2018-02-21] MEDS ORDERED: OMEGA-3 FATTY ACIDS/FISH OIL 1,000 MG CAPSULE. PO SCH (10:00)
--- NOTE | 2018-02-21 10:45 | PDOC ---
CARDIO Progress Notes Date and Time Date of Service 02/21/2018 Time of Evaluation 1010 Subjective Subjective: No Chest Pain, No shortness of breath, No Palpitations Vitals Vitals Vital Signs Date Time Temp Pulse Resp B/P (MAP) Pulse Ox O2 Delivery O2 Flow Rate FiO2 02/21/18 08:36 66 02/21/18 08:35 173/88 02/21/18 08:00 Room Air 02/21/18 06:12 97.6 16 98 97.6 02/20/18 18:10 2.0 Weight Weight [ ] Input and Output Intake and Output Intake and Output 02/21/18 07:00 Intake Total 600 ml Output Total 400 ml Balance 200 ml Intake Oral 600 ml Output Urine Total 400 ml # Voids 3 Laboratory Labs Laboratory Tests Test 02/20/18 12:36 02/20/18 17:10 02/20/18 20:01 02/21/18 07:56 Glucose (Fingerstick) 182 mg/dL (70-99) 240 mg/dL (70-99) 188 mg/dL (70-99) 206 mg/dL (70-99) Test 02/21/18 08:55 Sodium Level 138 mmol/L (136-145) Potassium Level 3.7 mmol/L (3.5-5.1) Chloride Level 101 mmol/L (98-107) Carbon Dioxide Level 27 mmol/L (21-32) Anion Gap 10 (6-14) Blood Urea Nitrogen 10 mg/dL (7-20) Creatinine 0.8 mg/dL (0.6-1.0) Estimated GFR (Cockcroft-Gault) 89.1 Glucose Level 222 mg/dL (70-99) Calcium Level 10.1 mg/dL (8.5-10.1) Magnesium Level 1.9 mg/dL (1.8-2.4) Physical Exam HEENT: Neck Supple W Full Motion Chest: Symmetric LUNGS: Clear to Auscultation Heart: S1S2, RRR (SR) Abdomen: Soft N/T Extremities: No Edema, No Calf Tenderness Neurology: alert, oriented, follow commands Assessment Assessment 1. Accelerated HTN 2. Unstable angina: S/P PCI/DOMITILA to RCA, patent previously placed stents. EF 60% 3. CAD 4. DM2: per PCP 5. HLP 6. COPD: quit smoking 03/2017 7. Suspect CKD2 Recommendations 1. BP remains labile. Unable uptitrate BB due to episodes of bradycardia. Continue current metoprolol. Continue losartan and lasix. Add norvasc. 2. Continue home crestor at 40 mg. Stop fenofibrate Encouraged diet compliance. Dietitian consult. Continue with home repatha. Add fish oil to regimen. 3. ASA/plavix. Cardiac rehab. Encouraged home BP monitoring/diary and discussed parameters and when to call. 4. Marijuana cessation and discussed compliance. 5. Follow up in office in 3-4 weeks. ELLIS CHISHOLM APRN Feb 21, 2018 10:45
[2018-02-21 11:19] VITALS: BP 139/76
[2018-02-21] MEDS ORDERED: OMEG1CAP6 PO (11:51)
[2018-02-21] MEDS ORDERED: AMLO10TA6 PO (11:51)
[2018-02-21] MEDS ORDERED: LOSA100T7 PO (11:51)
[2018-02-21] MEDS ORDERED: INSU100I13 SQ (11:51)
[2018-02-21] MEDS ORDERED: HYDR-2869 PO (11:51)
[2018-02-21] MEDS ORDERED: METO50TA6 PO (11:51)
--- NOTE | 2018-02-21 11:53 | PDOC3 ---
Discharge Summary Visit Information Date of Admission: Feb 19, 2018 Date of Discharge: Feb 21, 2018 Admitting Diagnosis Comment: Hypertensive urgency Dyslipidemia on statin Diabetes on insulin, uncontrolled s/p LHC - CAD x 1 more stent (4 stents total now) - 02/20 Final Diagnosis Problems Medical Problems: (1) Hypertensive urgency Status: Acute Brief Hospital Course Allergies Allergies Coded Allergies Type Severity Reaction Last Updated Verified No Known Drug Allergies 07/23/15 No Vital Signs Vital Signs Date Time Temp Pulse Resp B/P (MAP) Pulse Ox O2 Delivery O2 Flow Rate FiO2 02/21/18 11:19 97.6 64 12 139/76 (97) 100 Room Air 97.6 02/20/18 18:10 2.0 Lab Results Laboratory Tests Test 02/19/18 15:02 02/19/18 16:55 02/19/18 17:38 02/19/18 19:10 White Blood Count 10.5 x10^3/uL (4.0-11.0) Red Blood Count 4.53 x10^6/uL (3.50-5.40) Hemoglobin 14.6 g/dL (12.0-15.5) Hematocrit 41.7 % (36.0-47.0) Mean Corpuscular Volume 92 fL (79-100) Mean Corpuscular Hemoglobin 32 pg (25-35) Mean Corpuscular Hemoglobin Concent 35 g/dL (31-37) Red Cell Distribution Width 13.2 % (11.5-14.5) Platelet Count 366 x10^3/uL (140-400) Neutrophils (%) (Auto) 73 % (31-73) Lymphocytes (%) (Auto) 19 % (24-48) Monocytes (%) (Auto) 5 % (0-9) Eosinophils (%) (Auto) 1 % (0-3) Basophils (%) (Auto) 1 % (0-3) Neutrophils # (Auto) 7.7 x10^3uL (1.8-7.7) Lymphocytes # (Auto) 2.0 x10^3/uL (1.0-4.8) Monocytes # (Auto) 0.5 x10^3/uL (0.0-1.1) Eosinophils # (Auto) 0.1 x10^3/uL (0.0-0.7) Basophils # (Auto) 0.1 x10^3/uL (0.0-0.2) Sodium Level 141 mmol/L (136-145) Potassium Level 3.6 mmol/L (3.5-5.1) Chloride Level 102 mmol/L (98-107) Carbon Dioxide Level 26 mmol/L (21-32) Anion Gap 13 (6-14) Blood Urea Nitrogen 9 mg/dL (7-20) Creatinine 0.9 mg/dL (0.6-1.0) Estimated GFR (Cockcroft-Gault) 78.1 BUN/Creatinine Ratio 10 (6-20) Glucose Level 243 mg/dL (70-99) Calcium Level 10.0 mg/dL (8.5-10.1) Total Bilirubin 0.3 mg/dL (0.2-1.0) Aspartate Amino Transf (AST/SGOT) 36 U/L (15-37) Alanine Aminotransferase (ALT/SGPT) 37 U/L (14-59) Alkaline Phosphatase 82 U/L (46-116) Troponin I Quantitative < 0.017 ng/mL (0.000-0.055) < 0.017 ng/mL (0.000-0.055) Total Protein 8.0 g/dL (6.4-8.2) Albumin 3.7 g/dL (3.4-5.0) Albumin/Globulin Ratio 0.9 (1.0-1.7) Group A Streptococcus Rapid Negative (NEGATIVE) Nasal Screen MRSA (PCR) Negative (Negative) Test 02/19/18 20:53 02/19/18 22:10 02/20/18 05:37 02/20/18 08:25 Glucose (Fingerstick) 245 mg/dL (70-99) 208 mg/dL (70-99) 232 mg/dL (70-99) Troponin I Quantitative < 0.017 ng/mL (0.000-0.055) Test 02/20/18 08:55 02/20/18 09:15 02/20/18 12:36 02/20/18 17:10 Triglycerides Level 338 mg/dL (0-150) Cholesterol Level 292 mg/dL (0-200) LDL Cholesterol, Calculated 180 mg/dL (0-100) VLDL Cholesterol, Calculated 68 mg/dL (0-40) Non-HDL Cholesterol Calculated 248 mg/dL (0-129) HDL Cholesterol 44 mg/dL (40-60) Cholesterol/HDL Ratio 6.6 Urine Opiates Screen Neg (NEG) Urine Methadone Screen Neg (NEG) Urine Barbiturates Neg (NEG) Urine Phencyclidine Screen Neg (NEG) Urine Amphetamine/Methamphetamine Neg (NEG) Urine Benzodiazepines Screen Neg (NEG) Urine Cocaine Screen Neg (NEG) Urine Cannabinoids Screen Pos (NEG) Urine Ethyl Alcohol Neg (NEG) Glucose (Fingerstick) 182 mg/dL (70-99) 240 mg/dL (70-99) Test 02/20/18 20:01 02/21/18 07:56 02/21/18 08:55 02/21/18 11:39 Glucose (Fingerstick) 188 mg/dL (70-99) 206 mg/dL (70-99) 187 mg/dL (70-99) Sodium Level 138 mmol/L (136-145) Potassium Level 3.7 mmol/L (3.5-5.1) Chloride Level 101 mmol/L (98-107) Carbon Dioxide Level 27 mmol/L (21-32) Anion Gap 10 (6-14) Blood Urea Nitrogen 10 mg/dL (7-20) Creatinine 0.8 mg/dL (0.6-1.0) Estimated GFR (Cockcroft-Gault) 89.1 Glucose Level 222 mg/dL (70-99) Calcium Level 10.1 mg/dL (8.5-10.1) Magnesium Level 1.9 mg/dL (1.8-2.4) Laboratory Tests Test 02/20/18 12:36 02/20/18 17:10 02/20/18 20:01 02/21/18 07:56 Glucose (Fingerstick) 182 mg/dL (70-99) 240 mg/dL (70-99) 188 mg/dL (70-99) 206 mg/dL (70-99) Test 02/21/18 08:55 02/21/18 11:39 Sodium Level 138 mmol/L (136-145) Potassium Level 3.7 mmol/L (3.5-5.1) Chloride Level 101 mmol/L (98-107) Carbon Dioxide Level 27 mmol/L (21-32) Anion Gap 10 (6-14) Blood Urea Nitrogen 10 mg/dL (7-20) Creatinine 0.8 mg/dL (0.6-1.0) Estimated GFR (Cockcroft-Gault) 89.1 Glucose Level 222 mg/dL (70-99) Calcium Level 10.1 mg/dL (8.5-10.1) Magnesium Level 1.9 mg/dL (1.8-2.4) Glucose (Fingerstick) 187 mg/dL (70-99) Brief Hospital Course Ms. Roach is a 58 old AA female admitted for chest pain with accelerated hypertension POA. She admitted that she ran out for 2 months of her losartan. She claims she takes rest of her medications including Levemir 10 units daily at bedtime. She underwent LHC needed 1 more stent. She now has a total of 4 stents. I have Rx'd her medications including needing to start Norvasc 10 PICC. Needed to start hydralazine 50 3 times a day. And increasing her beta tobias dose by cards, also I needed to inc her leveir to 15 qhs, Unknown [id number] Concults performed cardiology Procedures performed LH Time discharging to Notes today, 31 minutes greater than 50% DC education counseling and writing Rx'd Patient seen and examined Discharge Information Condition at Discharge: Improved, Stable Disposition/Orders: D/C to Home Scheduled Amlodipine Besylate (Amlodipine Besylate) 10 Mg Tablet, 10 MG PO DAILY for 30 Days, #30 Prescribed by: DELFIN RODAS on 02/21/18 1151 Aspirin (Aspirin) 325 Mg Tablet, 1 TAB PO DAILY, #30 Ref 5 Prescribed by: CAROLYN CABRERA on 06/11/16 1025 Last Action: Continued on 02/19/181818 by KAYLAN ZAVALETA Clopidogrel Bisulfate (Clopidogrel) 75 Mg Tablet, 75 MG PO DAILY for TO PREVENT BLOOD CLOTS, #30 Ref 0 (Reported) Entered as Reported by: KAYLAN ZAVALETA on 02/19/181817 Last Action: Continued on 02/19/181818 by KAYLAN ZAVALETA Duloxetine Hcl (Cymbalta) 60 Mg Capsule., 1 CAP PO DAILY, #30 Ref 3 Prescribed by: CAROLYN CABRERA on 06/11/16 1025 Last Action: Converted on 02/19/181818 by KAYLAN ZAVALETA Evolocumab (Repatha Syringe) 140 Mg/1 Ml Syringe, 140 MG SQ WEEKLY, (Reported) Entered as Reported by: Juan Pablo Benson on 02/20/182053 Last Taken: Unknown Dose on 02/12/18 Last Action: New Order on 02/20/182053 by Juan Pablo Benson Fenofibrate Nanocrystallized (Tricor) 145 Mg Tablet, 1 TAB PO DAILY, #30 Ref 1 Prescribed by: CAROLYN CABRERA on 06/11/16 1025 Last Action: Converted on 02/19/181818 by KAYLAN ZAVALETA Furosemide (Lasix) 40 Mg Tablet, 1 TAB PO DAILY for 30 Days, #30 Ref 1 (Reported ) Entered as Reported by: ALVA GOMES on 03/20/17 1544 Last Action: Continued on 02/19/181818 by KAYLAN ZAVALETA Gabapentin (Gabapentin) 300 Mg Capsule, 300 MG PO TID, (Reported) Entered as Reported by: KAYLAN ZAVALETA on 02/19/181817 Last Action: Converted on 02/19/181818 by KAYLAN ZAVALETA Hydralazine Hcl (Hydralazine Hcl) 50 Mg Tablet, 50 MG PO TID for 30 Days, #90 Prescribed by: DELFIN RODAS on 02/21/18 1151 Insulin Detemir (Levemir) 100 Unit/1 Ml Vial, 10 UNIT SQ QHS, (Reported) Entered as Reported by: KAYLAN ZAVALETA on 02/19/181817 Last Action: Converted on 02/19/181818 by KAYLAN ZAVALETA Insulin Glargine,Hum.rec.anlog (Lantus Solostar) 100 Unit/1 Ml Insuln.pen, 15 UNITS SQ QHS for 7 Days Prescribed by: DELFIN RODAS on 02/21/18 1151 Losartan Potassium (Losartan Potassium) 100 Mg Tablet, 100 MG PO DAILY for 30 Days, #30 Ref 1 Prescribed by: DELFIN RODAS on 02/21/18 1151 Metformin Hcl (Metformin Hcl) 1,000 Mg Tablet, 1 TAB PO BID, #60 Ref 1 Prescribed by: CAROLYN CABRERA on 06/11/16 1025 Last Action: Converted on 02/19/181818 by KAYLAN ZAVALETA Metformin Hcl (Metformin Hcl) 1,000 Mg Tablet, 1,000 MG PO BIDWMEALS, (Reported) Entered as Reported by: KAYLAN ZAVALETA on 10/8/18 1818 Last Action: Converted on 02/19/181818 by KAYLAN ZAVALETA Metoprolol Tartrate (Metoprolol Tartrate) 25 Mg Tablet, 1 TAB PO BID, #60 Ref 1 Prescribed by: CAROLYN CABRERA on 06/11/16 1025 Last Action: Continued on 02/19/181818 by KAYLAN ZAVALETA Metoprolol Tartrate (Metoprolol Tartrate) 50 Mg Tablet, 50 MG PO BID for 30 Days , #60 Prescribed by: DELFIN RODAS on 02/21/18 1151 Montelukast Sodium (Montelukast Sodium Tablet) 10 Mg Tablet, 1 TAB PO DAILY, # 30 Ref 5 (Reported) Entered as Reported by: SALENA SOW on 07/23/15 1317 Last Action: Converted on 02/19/181818 by KAYLAN ZAVALETA [place]-3 Fatty Acids/Fish Oil (Fish Oil 1,000 Mg Capsule) 1 Each Capsule, 1,000 MG PO BIDAFTMEAL for 30 Days Prescribed by: DELFIN RODAS on 02/21/18 1151 Omeprazole (Omeprazole) 40 Mg Capsule.dr, 1 CAP PO DAILY, #30 Ref 3 Prescribed by: CAROLYN CABRERA on 06/11/16 1025 Last Action: Converted on 02/19/181818 by KAYLAN ZAVALETA Potassium Chloride (Potassium Chloride) 20 Meq Tablet.er, 20 MEQ PO DAILY, #30 Ref 1 (Reported) Take one daily while taking Lasix Entered as Reported by: ALVA GOMES on 03/20/17 1544 Last Action: Converted on 02/19/181818 by KAYLAN ZAVALETA Rosuvastatin Calcium (Crestor) 40 Mg Tablet, 40 MG PO HS for FOR CHOLESTEROL, # 30 Ref 1 Prescribed by: CAROLYN CABRERA on 06/11/16 1025 Last Action: Converted on 02/19/181818 by KAYLAN ZAVALETA Sitagliptin Phosphate (Januvia) 100 Mg Tablet, 1 TAB PO DAILY, #30 Ref 5 Prescribed by: CAROLYN CABRERA on 06/11/16 1025 Last Action: Converted on 02/19/181818 by KAYLAN ZAVALETA Tizanidine Hcl (Tizanidine Hcl) 4 Mg Tablet, 4 MG PO TID, (Reported) Entered as Reported by: KAYLAN ZAVALETA on 02/19/181817 Last Action: Converted on 02/19/181818 by DELFIN BARTON MD Feb 21, 2018 11:53
[2018-02-21] MEDS ORDERED: INSULIN GLARGINE 300 UNITS/3 ML INSULN.PEN. SQ SCH (21:00)
== END 2018-02-21 14:02 | disposition home or self-care (01) | DRG 247 ==
LOC: ER 14:14 → 2 NORTH 15:40 → 1 WEST ICU 16:48 → 2 SOUTH 02-20 15:41
PROVIDERS: ADMIT Internal Medicine; ATTEND Internal Medicine
PROC: 027034Z Dilation of Coronary Artery, One Artery with Drug-eluting Intraluminal Device, Percutaneous Approach (ICD-10-PCS; principal; 2018-02-20)
PROC: 4A023N7 Measurement of Cardiac Sampling and Pressure, Left Heart, Percutaneous Approach (ICD-10-PCS; 2018-02-20)
PROC: B2111ZZ Fluoroscopy of Multiple Coronary Arteries using Low Osmolar Contrast (ICD-10-PCS; 2018-02-20)
PROC: B2151ZZ Fluoroscopy of Left Heart using Low Osmolar Contrast (ICD-10-PCS; 2018-02-20)
DX: I16.0 Hypertensive urgency (principal); I25.110 Atherosclerotic heart disease of native coronary artery with unstable angina pectoris; E11.65 Type 2 diabetes mellitus with hyperglycemia; E78.00 Pure hypercholesterolemia, unspecified; E78.5 Hyperlipidemia, unspecified; J44.9 Chronic obstructive pulmonary disease, unspecified; F41.9 Anxiety disorder, unspecified; K21.9 Gastro-esophageal reflux disease without esophagitis; I25.2 Old myocardial infarction; Z79.4 Long term (current) use of insulin; Z91.19 Patient's noncompliance with other medical treatment and regimen; Z95.5 Presence of coronary angioplasty implant and graft; Z79.82 Long term (current) use of aspirin; Z79.02 Long term (current) use of antithrombotics/antiplatelets; Z87.891 Personal history of nicotine dependence
CPT/HCPCS: 36415; 80048; 80053; 80061; 80307; 82962; 83735; 84484; 85025; 87070; 87641; 87880; 92928; 93005; 93458; 96374; 99152; 99153; C1769; C1874; C1887; C1892; J0583; J1644; J1815; J2250; J3010; J3490; J7050; Q0163; 99285-25; G0479; J7030

== ENCOUNTER → 2018-02-19 | Outpatient (CLI) | payer BC, MEDICARE ==
[2017-03-20 14:55] VITALS: BP 134/77
[~2018-02-19] MED LIST changes: +AMLO10TA6 PO; +CLOP75TA PO; +EVOL140S SQ; +FURO-68 PO; +GABA-586 PO; +HYDR-2869 PO; +HYDR-971 PO; +INSU100I13 SQ; +INSU100V13 SQ; -IPRA3AMP IH; +IPRA3AMP29 IH; -LOSA100T6 PO; +LOSA100T7 PO; -METF-620 PO; +METF10007 PO; +METO50TA6 PO; +OMEG1CAP6 PO; +POTA20TA82 PO; +TIZA4TAB PO
--- NOTE | 2018-02-19 11:43 | RAD ---
DATE: 02/19/2018 EXAM: MAMMO LANCE SCREENING BILATERAL HISTORY: Routine screening COMPARISON: 05/12/2014 This study was interpreted with the benefit of Computerized Aided Detection (CAD). Breast Density: HETERO The breast parenchyma is heterogenously dense, which could reduce sensitivity of mammography. Breast parenchyma level C. FINDINGS: 2-D and 3-D tomosynthesis imaging was performed in CC and MLO projections. On right CC tomosynthesis image #16, an 11 mm slightly lobulated is identified inferiomedial. No other suspicious breast densities are seen. Benign type calcification is present in the right. No suspicious microcalcifications are evident. IMPRESSION: Right breast nodule. Sonographic evaluation is suggested. BI-RADS CATEGORY: 0 INCOMPLETE: NEEDS ADDITIONAL IMAGING EVALUATION AND/OR PRIOR MAMMOGRAMS FOR COMPARISON. RECOMMENDED FOLLOW-UP: ADD ADDITIONAL IMAGING PQRS compliance statement: Patient information was entered into a reminder system with a target due date for the next mammogram. Mammography is a sensitive method for finding small breast cancers, but it does not detect them all and is not a substitute for careful clinical examination. A negative mammogram does not negate a clinically suspicious finding and should not result in delay in biopsying a clinically suspicious abnormality. "Our facility is accredited by the [employer] Mammography Program."
== END | disposition home or self-care (01) ==
LOC: MAMMO 09:43
PROVIDERS: ATTEND Nurse Practitioner
DX: Z12.31 Encounter for screening mammogram for malignant neoplasm of breast (principal)
CPT/HCPCS: 77063; 77067

== ENCOUNTER → 2018-02-19 | Outpatient (CLI) | payer BC, MEDICARE ==
[~2018-02-19] MED LIST changes: +LOSARTAN POTASSIUM 50 MG TABLET. PO ONE; +REGADENOSON 0.4 MG/5 ML DISP.SYRIN. IV ONE
[2018-02-19 13:30] VITALS: BP 225/118
--- NOTE | 2018-02-19 14:36 | RAD ---
MR#: [id number] Date of Study: 02/19/2018 Ordering Physician: CHERYL GONZALEZ, Referring Physician: LASHELL LOMBARDI Tech: RT Bo YoR) (N) APPROVED REPORT Test Type: Pharmacological Stress Nurse/Tech: Casie Thacker R.N. Test Indications: CAD follow up Cardiac History: TX x 2, stent x3, htn,asthma,DM Medications: See Electronic Medical Record Medical History: See Electronic Medical Record Resting ECG: SR w/ some ST depression in leads II,III,AVF Resting Heart Rate: 63 bpm Resting Blood Pressure: 186/102mmHg Pretest Chest Pain: No chest pain Nurse/Tech Notes S1S2, lungs CTA Consent: The procedure was explained to the patient in lay terms. Informed consent was witnessed. Francisco eout was entered into [employer]. History and Stress Test performed by RT Sanaz (R) (N) Pharm. Details Pharmacologic stress testing was performed using 0.4mg per 5ml of regadenoson given intravenously ove r 7-10 seconds. Stress Symptoms some SOB, nausea, diaphoretic. Continued to monitor pt's b/p due to continued elevation. called Emmanuelle BECERRIL. pt's b/p had gotten as high as 260/93. pt states that she has been out of her losartan for 2 m onths. we will have pt take her metoprolol and give her a dose of losartan and recheck b/p in 30minut es. if remains >200 will have her go to ER. POST EXERCISE Reason for Termination: Infusion complete Max HR: 113 bpm Max Blood Pressure: 236/105mmHg Blood Pressure response to exercise: Abnormal increase in blood pressure during rest Heart Rate response to exercise: wnl Chest Pain: No. Arrhythmia: No. INTERPRETATION Stress EKG Conclusion: The resting EKG shows a sinus rhythm with ST-T wave changes inferiorly and lat erally. With stress the EKG changes become more prominent. Abnormal resting EKG with stress EKG changes that are suggestive but not diagnostic of ischemia. Imaging Protocol IMAGE PROTOCOL: Rest Tc-99m/stress Tc-99m 1 day Rest: Stress: Viability: Radiopharm.Tc99m LetitglclGw25u Sestamibi Qfxd21oJg 33mCi Duration 13min. 13min. Img Date 02/19/2018 02/19/2018 Inj-Img Wgvw99xzc. 60min. Rest Admin Site:IV - Left AntecubitalAdministrator:Fortino Ling, RT (R)(N) Stress Admin Site: IV - Left AntecubitalAdministrator: BETTIE Maldonado STRESS DATA End Diast. Vol.108.0mlLVEDV index BSA57.0ml End Syst. Vol.34.0mlLVESV index BSA18.0ml Myocardial Vcnq570.0gEject. Pecrpatl63.0% Stress Scores Regional WT1.00Summed WT9.00 Regional WM0.00Summed WM6.00 LV Perfusion The stress scans show an inferior wall defect. The rest scans show a smaller inferior wall defect. Nuclear imaging shows a small area of possible reversible ischemia in the inferior wall. Wall Motion Left ventricular systolic function is normal with an ejection fraction of 69% and a TID of 1.23. LV Perf. Quant 17 Seg. SSS6.00 17 Seg. SRS2.00 17 Seg. SDS4.00 Stress Defect Extent (% LAD)0.00Rest Defect Extent (% LAD)0.00Rev. Defect Extent (% LAD)0.00 Stress Defect Extent (% LCX) 2.50Rest Defect Extent (% LCX)0.00Rev. Defect Extent (% LCX)0.00 Stress Defect Extent (% RCA)20.00Rest Defect Extent (% RCA)8.90Rev. Defect Extent (% RCA)2.20 Stress Defect Extent (% JONATHAN)7.20Rest Defect Extent (% JONATHAN)1.70Rev. Defect Extent (% JONATHAN)1.30 Conclusion 1. Abnormal resting EKG with ST segment changes with exertion that are suggestive but not diagnostic of ischemia. 2. Nuclear imaging suggests a small area of reversible ischemia in the inferior wall. 3. Normal left ventricular systolic function with an ejection fraction of 69%. 4. Moderate to moderately high risk Lexiscan nuclear stress test suggestive of reversible ischemia in the inferior wall. 5. Of note the patient has had uncontrolled hypertension which can affect the accuracy of the test. Signed by : Arturo Holguin MD Electronically Approved : 02/19/2018 14:35:31
== END | disposition home or self-care (01) ==
LOC: NM 11:03
PROVIDERS: ATTEND Internal Medicine Cardiovascular Disease
DX: I25.10 Atherosclerotic heart disease of native coronary artery without angina pectoris (principal); I13.0 Hypertensive heart and chronic kidney disease with heart failure and stage 1 through stage 4 chronic kidney disease, or unspecified chronic kidney disease; E11.22 Type 2 diabetes mellitus with diabetic chronic kidney disease; I50.9 Heart failure, unspecified; N18.9 Chronic kidney disease, unspecified; J45.909 Unspecified asthma, uncomplicated; I25.2 Old myocardial infarction
CPT/HCPCS: 78452; 93017; 96374; 96375; 96376; J2785

== ENCOUNTER → 2018-03-01 | Outpatient (CLI) | payer BC, MEDICARE ==
[2018-02-21 11:19] VITALS: BP 139/76
[~2018-03-01] MED LIST changes: +AMLO10TA6 PO; +CLOP75TA PO; +EVOL140S SQ; +GABA-586 PO; +HYDR-2869 PO; +INSU100I13 SQ; +METO50TA6 PO; +OMEG1CAP6 PO; +TIZA4TAB PO
--- NOTE | 2018-03-01 10:06 | RAD ---
Right breast ultrasound, 02/19/2018: History: Suspicious screening study The lower inner quadrant of the right breast was carefully scanned. At the 6:00 location approximately 1 cm from the nipple there is a small 4 x 5 x 9 mm anechoic structure compatible with a cyst. Its margins are smooth and it is wider than tall. No other abnormality was identified. No sonographic correlate could be established for the small nodule seen mammographically. In retrospect a similar opacity was probably present on 04/21/2014 mammograms, although less well seen on those 2-D images compared to the current 3-D study. IMPRESSION: 1. Small right periareolar cyst. 2. No sonographic correlate for the small nodular opacity seen mammographically. Follow-up right mammography with tomosynthesis in 6 months and bilateral mammograms in one year is suggested. BI-RADS 3-probably benign findings
== END | disposition home or self-care (01) ==
LOC: US 07:43
PROVIDERS: ATTEND Nurse Practitioner
DX: N60.01 Solitary cyst of right breast (principal)
CPT/HCPCS: 76641

== ENCOUNTER 2018-05-27 16:39 | Emergency (ER) | payer BC, MEDICARE ==
[~2018-05-27] VITALS: Ht 170.2 cm; Wt 81.6 kg
[~2018-05-27 16:39] MED LIST changes: -AMLO10TA6 PO; +AMLO10TA8 PO; -GABA-586 PO; +GABA300C18 PO; +HYDR-3164 PO; -HYDR-971 PO; +LOSA100T14 PO; -LOSA100T7 PO; +MONT10TA49 PO; -MONT10TA9 PO; -TIZA4TAB PO; +TIZA4TAB2 PO
[2018-05-27] MEDS ORDERED: IPRATRPIUM/ALBUTEROL 0.5/2.5MG 3 ML NEBU. NEB ONE (17:45)
[2018-05-27] MEDS ORDERED: cloNIDine HCL 0.1 MG TABLET PO ONE (17:45)
[2018-05-27] MEDS ORDERED: predniSONE 10 MG TABLET PO ONE (17:45)
[2018-05-27] MEDS ORDERED: ONDANSETRON ODT 4 MG TAB.RAPDIS. PO ONE (17:45)
--- NOTE | 2018-05-27 18:20 | RAD ---
CT CERVICAL SPINE INDICATION: FELL IN SHOWER TODAY. NECK PAIN
PREVIOUS COMPARISON: None Available. Technique: 2.5 mm contiguous axial images were obtained from the skull base through the cervicothoracic junction in both bone and soft tissue algorithm. Additional sagittal and coronal reconstructions were also performed. FINDINGS: Vertebral body height are maintained. Cervical lordosis is preserved. The lateral masses of C1 are aligned upon C2. No fractures identified. There is straightening of normal cervical lordosis. Moderate intervertebral disc height loss identified in cervical spine particularly at C5-C6 vertebral level. Moderate his identified formation identified C5-C6, C6-C7 vertebral levels. Mild disc bulges identified in the cervical spine throughout The paraspinous soft tissues are unremarkable. Visualized intracranial contents are unremarkable. Lung apices are clear. IMPRESSION: 1. No acute fracture of the cervical spine. Correlate clinically. 2. Moderate degenerative changes cervical spine most at C5-C6, C6-C7 vertebral levels. Electronically signed by: Pito Covington MD (05/27/2018 6:15 PM) [id number]
--- NOTE | 2018-05-27 18:32 | RAD ---
Bilateral rib study including PA chest 05/27/2018. Reason for exam: Pain after falling. Views of the right ribs show no apparent acute fracture. There is suggestion of a healed lateral sixth rib fracture. Views of the left ribs show no apparent fracture or other abnormality. The PA view of the chest shows no infiltrate or effusion. There is a calcified granuloma in the right lower lung. Heart size and pulmonary vascularity appear normal. IMPRESSION: No acute rib abnormality. Electronically signed by: Arturo Leal Jr., MD (05/27/2018 6:27 PM) [facility]
--- NOTE | 2018-05-27 18:42 | PHYS DOC ---
Past Medical History Past Medical History: Diabetes-Type II, High Cholesterol, Hypertension, [place] Past Surgical History: Other Additional Past Surgical Histo: Cardiac stents. Additional Information: Quit in March 2018. Alcohol Use: Occasionally Drug Use: None Adult General Chief Complaint Chief Complaint: MECHANICAL FALL HPI HPI Patient is a 58 year old female who presents with pain to her bilateral rib cage and cervical spine after she fell in the bathtub yesterday. She states that she went straight back. She denies loss of consciousness or any other injury. She denies paresthesias. She denies changes in vision or gait. She has also been having an asthma exacerbation. She has not used her respiratory medications at home today. Review of Systems Review of Systems Constitutional: Denies fever or chills [] Eyes: Denies change in visual acuity, redness, or eye pain [] HENT: Denies nasal congestion or sore throat [] Respiratory: See history of present illness Cardiovascular: No additional information not addressed in HPI [] GI: Denies abdominal pain, nausea, vomiting, bloody stools or diarrhea [] : Denies dysuria or hematuria [] Musculoskeletal: See history of present illness Integument: Denies rash or skin lesions [] Neurologic: Denies headache, focal weakness or sensory changes [] Endocrine: Denies polyuria or polydipsia [] All other systems were reviewed and found to be within normal limits, except as documented in this note. Current Medications Current Medications Current Medications Medications (Trade) Dose Ordered Sig/Carlton Start Time Stop Time Status Last Admin Dose Admin Albuterol/ Ipratropium (Duoneb) 3 ml 1X ONCE 05/27/18 17:45 05/27/18 17:46 DC 05/27/18 17:40 3 ML Clonidine HCl (Catapres) 0.1 mg 1X ONCE 05/27/18 17:45 05/27/18 17:46 DC 05/27/18 17:36 0.1 MG Ondansetron HCl (Zofran Odt) 4 mg 1X ONCE 05/27/18 17:45 05/27/18 17:46 DC 05/27/18 17:37 4 MG Prednisone (Prednisone) 50 mg 1X ONCE 05/27/18 17:45 05/27/18 17:46 DC 05/27/18 17:36 50 MG Allergies Allergies Allergies Coded Allergies Type Severity Reaction Last Updated Verified No Known Drug Allergies 07/23/15 No Physical Exam Physical Exam Constitutional: Well developed, well nourished, no acute distress, non-toxic appearance. [] HENT: Normocephalic, atraumatic, bilateral external ears normal, oropharynx moist, no oral exudates, nose normal. [] Eyes: PERRLA, EOMI, conjunctiva normal, no discharge. [] Neck: Normal range of motion, no tenderness, supple, no stridor. [] Cardiovascular:Heart rate regular rhythm, no murmur [] Lungs & Thorax: Bilateral breath sounds throughout with mild inspiratory wheezes noted to upper lobes Abdomen: Bowel sounds normal, soft, no tenderness, no masses, no pulsatile masses. [] Skin: Warm, dry, no erythema, no rash. [] Back: tenderness to cervical spine with no step-offs or deformities noted, no CVA tenderness. [] Extremities: No tenderness, no cyanosis, no clubbing, ROM intact, no edema. [] Neurologic: Alert and oriented X 3, normal motor function, normal sensory function, no focal deficits noted. [] Psychologic: Affect normal, judgement normal, mood normal. [] Current Patient Data Vital Signs Vital Signs Date Time Temp Pulse Resp B/P (MAP) Pulse Ox O2 Delivery O2 Flow Rate FiO2 05/27/18 19:05 20 96 05/27/18 17:42 Room Air 05/27/18 17:36 77 200/111 05/27/18 17:20 98.5 98.5 EKG EKG [] Radiology/Procedures Radiology/Procedures []PATIENT: JOSIAH TRAORE PACCOUNT: [id number]#: [id number] : 1960 LOCATION: ER AGE: 58 SEX: F EXAM STATUS: REG ER ORD. PHYSICIAN: DEYA COLLIER APRN REASON: fell in shower PROCEDURE: CT CERVICAL SPINE WO CONTRAST CT CERVICAL SPINE INDICATION: FELL IN SHOWER TODAY. NECK PAIN
PREVIOUS COMPARISON: None Available. Technique: 2.5 mm contiguous axial images were obtained from the skull base through the cervicothoracic junction in both bone and soft tissue algorithm. Additional sagittal and coronal reconstructions were also performed. FINDINGS: Vertebral body height are maintained. Cervical lordosis is preserved. The lateral masses of C1 are aligned upon C2. No fractures identified. There is straightening of normal cervical lordosis. Moderate intervertebral disc height loss identified in cervical spine particularly at C5-C6 vertebral level. Moderate his identified formation identified C5-C6, C6-C7 vertebral levels. Mild disc bulges identified in the cervical spine throughout The paraspinous soft tissues are unremarkable. Visualized intracranial contents are unremarkable. Lung apices are clear. IMPRESSION: 1. No acute fracture of the cervical spine. Correlate clinically. 2. Moderate degenerative changes cervical spine most at C5-C6, C6-C7 vertebral levels. Electronically signed by: Pito Covington MD (05/27/2018 6:15 PM) [facility] DICTATED and SIGNED BY: PITO COVINGTON MD DATE: 05/27/181810 PATIENT: JOSIAH TRAORE ACCOUNT: [id number] : 1960 LOCATION: ER AGE: 58 SEX: F EXAM STATUS: REG ER ORD. PHYSICIAN: DEYA COLLIER APRN REASON: fell in shower PROCEDURE: RIBS BILAT & PA CXR 4+V Bilateral rib study including PA chest 05/27/2018. Reason for exam: Pain after falling. Views of the right ribs show no apparent acute fracture. There is suggestion of a healed lateral sixth rib fracture. Views of the left ribs show no apparent fracture or other abnormality. The PA view of the chest shows no infiltrate or effusion. There is a calcified granuloma in the right lower lung. Heart size and pulmonary vascularity appear normal. IMPRESSION: No acute rib abnormality. Electronically signed by: Mushtaq Leal Jr., MD (05/27/2018 6:27 PM) [facility] DICTATED and SIGNED BY: MUSHTAQ LEAL Jr, MD DATE: 05/27/181824 Course & Med Decision Making Course & Med Decision Making Pertinent Labs and Imaging studies reviewed. (See chart for details) []The patient received a breathing treatment and prednisone in the emergency department with resolution of her wheezing. If she states that she feels much better following the treatment. Staff Physician Addendum: I was working in the ER during the course of this patient's visit. I was available for consultation as needed, but I was not directly involved in the care of this patient. Dragon Disclaimer Dragon Disclaimer This electronic medical record was generated, in whole or in part, using a voice recognition dictation system. Departure Departure Impression: Primary Impression: Asthma exacerbation Additional Impression: Contusion Disposition: 01 HOME, SELF-CARE Condition: STABLE Referrals: [facility] [employer] (PCP) Patient Instructions: Asthma, Adult, Contusion Additional Instructions: Take the medication as directed. You may take ibuprofen and Tylenol as well. Follow-up with your primary care provider in 4 days for recheck if not improving or return to the emergency department if worsening. Do not drive or operate heavy machinery while taking the pain medication. Scripts Tramadol Hcl (TRAMADOL HCL) 50 Mg Tablet 50 MG PO Q6HRS PRN for PAIN, #10 TAB Prov: DEYA COLLIER APRN 05/27/18 Prednisone (PREDNISONE) 50 Mg Tablet 1 TAB PO DAILY for asthma, #5 TAB Prov: DEYA COLLIER APRN 05/27/18 Problem Qualifiers DEYA COLLIER APRN May 27, 2018 18:42 VI ARANA MD May 29, 2018 06:22
[2018-05-27] MEDS ORDERED: PRED50TA PO (18:46)
[2018-05-27] MEDS ORDERED: TRAM50TA PO (18:46)
[2018-05-27 19:05] VITALS: BP 165/78
== END 2018-05-27 19:06 | disposition home or self-care (01) ==
LOC: ER 16:39
DX: S10.83XA Contusion of other specified part of neck, initial encounter (principal); S20.212A Contusion of left front wall of thorax, initial encounter; S20.211A Contusion of right front wall of thorax, initial encounter; J45.901 Unspecified asthma with (acute) exacerbation; E11.9 Type 2 diabetes mellitus without complications; E78.00 Pure hypercholesterolemia, unspecified; I10 Essential (primary) hypertension; I25.2 Old myocardial infarction; Z87.891 Personal history of nicotine dependence; W18.2XXA Fall in (into) shower or empty bathtub, initial encounter; Y93.89 Activity, other specified; Y92.89 Other specified places as the place of occurrence of the external cause; Y99.8 Other external cause status
CPT/HCPCS: 71111; 72125; 94640; 99284; J7512; J7620; Q0162

== ENCOUNTER → 2018-09-18 | Outpatient (CLI) | payer BC, MEDICARE, MEDICAID ==
[~2018-09-18] MED LIST changes: -MONT10TA49 PO; +MONT10TA9 PO; +PRED50TA PO; +TIZA4TAB PO; -TIZA4TAB2 PO; +TRAM50TA PO
--- NOTE | 2018-09-18 09:47 | RAD ---
DATE: 09/28/2018 EXAM: MAMMO LANCE DIAG RT HISTORY: 6 month follow-up COMPARISON: 02/19/2018 This study was interpreted with the benefit of Computerized Aided Detection (CAD). Breast Density: HETERO The breast parenchyma is heterogenously dense, which could reduce sensitivity of mammography. Breast parenchyma level C. FINDINGS: A small lobulated nodule is again noted anteromedially in the right breast on CC tomosynthesis images #16. It is unchanged since the previous study. No new or enlarging breast densities are seen. Benign type calcification is present. No suspicious microcalcifications have developed. IMPRESSION: Stable right mammograms. Bilateral mammography in 6 months is suggested. BI-RADS CATEGORY: 3 PROBABLY BENIGN FINDING(S)-SHORT INTERVAL FOLLOW-UP SUGGESTED RECOMMENDED FOLLOW-UP: 6M 6 MONTH FOLLOW-UP PQRS compliance statement: Patient information was entered into a reminder system with a target due date for the next mammogram. Mammography is a sensitive method for finding small breast cancers, but it does not detect them all and is not a substitute for careful clinical examination. A negative mammogram does not negate a clinically suspicious finding and should not result in delay in biopsying a clinically suspicious abnormality. "Our facility is accredited by the [employer] Mammography Program."
== END | disposition home or self-care (01) ==
LOC: MAMMO 08:26
PROVIDERS: ATTEND Nurse Practitioner
DX: N63.10 Unspecified lump in the right breast, unspecified quadrant (principal)
CPT/HCPCS: 77065; G0279; 77061

== ENCOUNTER → 2018-09-18 | Outpatient (CLI) | payer BC ==
--- NOTE | 2018-09-18 11:47 | RAD ---
MR#: [id number] Date of Study: 09/18/2018 Ordering Physician: BLANCA CANALES, Referring Physician: BLANCA CANALES, Tech: Giovanny Frye MBA, RDMS, RVT, RDCS, RTR APPROVED REPORT Patient Location: OUT-PATIENT Indications Claudication:Bilaterally VELOCITY AND DOPPLER WAVEFORM ANALYSIS RIGHT cm/secWaveformSeverity LEFT cm/secWaveform Severity dCFA 128.0BiphasicdCFA 191.0Biphasic Prof Fem Art. 91.0BiphasicProf Fem Art. 79.0Biphasic Fem Art Prox. 169.0TriphasicFem Art Prox. 179.0Triphasic Fem Art Mid. 184.0TriphasicFem Art Mid. 164.0Triphasic Fem Art Dist. 163.0TriphasicFem Art Dist. 178.0Triphasic Pop Art(Fossa) 97.0TriphasicPop Art(AK) 96.0Triphasic SPIRAL RUNNER Prox. 72.0MonophasicPTA Prox. 97.0Monophasic SPIRAL RUNNER Dist. 75.0MonophasicPTA Dist. 113.0Monophasic Per Art Mid. 72.0MonophasicPer Art Mid. 107.0Monophasic JOSE R Prox. 75.0MonophasicATA Prox. 42.0Biphasic DPA 105MonophasicDPA 92Monophasic Image Findings Grayscale images of the lower extremity arterial vessels do not reveal any significant obstructive pl aque. On the right the common femoral and superficial femoral artery velocities are mostly triphasic and bi phasic without any significant velocity acceleration. The popliteal artery velocities within normal l imits in a biphasic wave pattern. Below the knee there is three-vessel runoff with adequate velocitie s but in a monophasic wave pattern suggestive of diffuse adventitial disease but no focal intralumina l stenosis. On the left velocities are mildly elevated in the common femoral and superficial femoral arteries but overall less than 50% stenosis. There is mostly monophasic waveforms at the level of the popliteal a rtery and below the knee but there is three-vessel patency. Probable diffuse 50% stenosis involving t he posterior tibial and peroneal vessels. Probable 50% stenosis involving the anterior tibial artery. There is normal velocities noted at the level of the dorsalis pedis. Critical Notification Critical Value: No <Conclusion> 1. No focal high-grade obstruction noted bilaterally in the above knee vessels. 2. There is three-vessel runoff bilaterally below the knee with likely diffuse disease involving the left lower extremity but no focal high-grade stenosis identified. Signed by : Servando Alegre, Electronically Approved : 09/18/2018 11:46:50
== END | disposition home or self-care (01) ==
LOC: US 10:00
PROVIDERS: ATTEND Internal Medicine Cardiovascular Disease
DX: M79.604 Pain in right leg (principal); M79.605 Pain in left leg
CPT/HCPCS: 93925

== ENCOUNTER 2019-02-17 11:14 | Inpatient (IN) | payer MEDICARE, MEDICAID ==
[~2019-02-17] VITALS: Ht 170.2 cm; Wt 76.9 kg
[~2019-02-17 11:14] MED LIST changes: +MONT10TA49 PO; -MONT10TA9 PO; +OMEP40CA45 PO; -OMEP40CA5 PO; -TIZA4TAB PO; +TIZA4TAB2 PO
[2019-02-17] MEDS ORDERED: ONDANSETRON PF 4 MG/2 ML VIAL. IV ONE (11:30)
[2019-02-17] MEDS ORDERED: IV NORMAL SALINE 1000ML BAG 1,000 ML IV ONE (11:30)
[2019-02-17] MEDS ORDERED: ASPIRIN 325 MG TABLET PO ONE (11:30)
[2019-02-17] MEDS ORDERED: ALBUTEROL SULFATE 2.5 MG/3 ML NEBU. NEB ONE (11:30)
--- NOTE | 2019-02-17 11:57 | PHYS DOC ---
Past Medical History Past Medical History: Asthma, Diabetes-Type II, High Cholesterol, Hypertension, AR Past Surgical History: Other Additional Past Surgical Histo: Cardiac stents, BACK Alcohol Use: Occasionally Drug Use: Marijuana Adult General Chief Complaint Chief Complaint: CHEST PAIN HPI HPI Patient is a 58 year old AA female, accompanied by her , who presents to the emergency department with complaints of chest pain since last night. Patient states the pain is substernal and feels like pressure. She states she has had nausea, vomiting, diarrhea, and diaphoresis for the last 3 days. She also reports shortness of breath with the chest pain. Patient states she was a former smoker but quit smoking 4 years ago. She reports a history of 2 previous heart attacks, states that these symptoms are not similar to the symptoms that she had when she had her heart attacks. Patient states she has had 4 stents and takes Plavix, however she has been unable to take any of her medication for the last 2 days due to the nausea, vomiting, and diarrhea. She currently rates her pain a 10 out of 10 on the pain scale, there are no alleviating or exacerbating factors. Review of Systems Review of Systems Constitutional: Denies fever or chills [] Eyes: Denies change in visual acuity, redness, or eye pain [] HENT: Denies nasal congestion or sore throat [] Respiratory: Denies cough; reports SOA Cardiovascular: No additional information not addressed in HPI [] GI: See HPI : Denies dysuria or hematuria [] Musculoskeletal: Denies back pain or joint pain [] Integument: Denies rash or skin lesions [] Neurologic: Denies headache Complete systems were reviewed and found to be within normal limits, except as documented in this note. Current Medications Current Medications Current Medications Medications (Trade) Dose Ordered Sig/Carlton Start Time Stop Time Status Last Admin Dose Admin Albuterol Sulfate (Ventolin Neb Soln) 2.5 mg 1X ONCE 02/17/19 11:30 02/17/19 11:36 DC 02/17/19 11:44 2.5 MG Aspirin (Christina Aspirin) 325 mg 1X ONCE 02/17/19 11:30 02/17/19 11:36 DC 02/17/19 11:57 325 MG Heparin Sodium (Porcine) (Heparin Sodium) 1,950 unit PRN Q6HRS PRN 02/17/19 12:15 02/17/19 22:08 1,950 UNIT Heparin Sodium/ Dextrose 500 ml @ 0 mls/hr CONT PRN 02/17/19 12:15 02/17/19 13:35 18.5 MLS/HR Nitroglycerin (Nitrostat) 0.4 mg PRN Q5MIN PRN 02/17/19 11:30 02/17/19 13:05 0.4 MG Ondansetron HCl (Zofran) 4 mg 1X ONCE 02/17/19 11:30 02/17/19 11:36 DC 02/17/19 11:57 4 MG Sodium Chloride 1,000 ml @ 1,000 mls/hr 1X ONCE 02/17/19 11:30 02/17/19 12:29 DC 02/17/19 11:57 1,000 MLS/HR Allergies Allergies Allergies Coded Allergies Type Severity Reaction Last Updated Verified No Known Drug Allergies 07/23/15 No Physical Exam Physical Exam Constitutional: Well developed, well nourished, moderate distress, ill appearance. [] HENT: Normocephalic, atraumatic, bilateral external ears normal, oropharynx moist, no oral exudates, nose normal. [] Eyes: PERRLA, EOMI, conjunctiva normal, no discharge. [] Neck: Normal range of motion, no stridor. [] Cardiovascular:Heart rate regular rhythm, no murmur [] Lungs & Thorax: Bilateral breath sounds coarse with wheezes throughout all martin Abdomen: Bowel sounds normal, soft, LUQ and RUQ TTP, no guarding, no rebound tenderness, no masses, no pulsatile masses. [] Skin: Warm, diaphoretic, no erythema, no rash. [] Back: No tenderness Extremities: No cyanosis, ROM intact, no edema. [] Neurologic: Alert and oriented X 3, no focal deficits noted. [] Psychologic: Affect normal, judgement normal, mood normal. [] Current Patient Data Vital Signs Vital Signs Date Time Temp Pulse Resp B/P (MAP) Pulse Ox O2 Delivery O2 Flow Rate FiO2 02/17/19 13:00 98 16 185/97 (126) 92 Room Air 02/17/19 11:27 98.0 98.0 Lab Values Laboratory Tests Test 02/17/19 11:32 02/17/19 11:37 02/17/19 12:11 02/17/19 12:25 White Blood Count 10.7 x10^3/uL (4.0-11.0) Red Blood Count 4.78 x10^6/uL (3.50-5.40) Hemoglobin 15.7 g/dL (12.0-15.5) H Hematocrit 44.7 % (36.0-47.0) Mean Corpuscular Volume 94 fL (79-100) Mean Corpuscular Hemoglobin 33 pg (25-35) Mean Corpuscular Hemoglobin Concent 35 g/dL (31-37) Red Cell Distribution Width 13.0 % (11.5-14.5) Platelet Count 392 x10^3/uL (140-400) Neutrophils (%) (Auto) 81 % (31-73) H Lymphocytes (%) (Auto) 14 % (24-48) L Monocytes (%) (Auto) 5 % (0-9) Eosinophils (%) (Auto) 1 % (0-3) Basophils (%) (Auto) 1 % (0-3) Neutrophils # (Auto) 8.6 x10^3/uL (1.8-7.7) H Lymphocytes # (Auto) 1.5 x10^3/uL (1.0-4.8) Monocytes # (Auto) 0.5 x10^3/uL (0.0-1.1) Eosinophils # (Auto) 0.1 x10^3/uL (0.0-0.7) Basophils # (Auto) 0.1 x10^3/uL (0.0-0.2) POC Troponin I 0.00 ng/ml (<0.08) Sodium Level 141 mmol/L (136-145) Potassium Level 2.9 mmol/L (3.5-5.1) *L Chloride Level 101 mmol/L (98-107) Carbon Dioxide Level 26 mmol/L (21-32) Anion Gap 14 (6-14) Blood Urea Nitrogen 5 mg/dL (7-20) L Creatinine 0.7 mg/dL (0.6-1.0) Estimated GFR (Cockcroft-Gault) 104.0 BUN/Creatinine Ratio 7 (6-20) Glucose Level 304 mg/dL (70-99) H Calcium Level 9.7 mg/dL (8.5-10.1) Magnesium Level 1.8 mg/dL (1.8-2.4) Total Bilirubin 0.5 mg/dL (0.2-1.0) Aspartate Amino Transferase (AST) 20 U/L (15-37) Alanine Aminotransferase (ALT) 21 U/L (14-59) Alkaline Phosphatase 88 U/L (46-116) Total Protein 7.5 g/dL (6.4-8.2) Albumin 3.7 g/dL (3.4-5.0) Albumin/Globulin Ratio 1.0 (1.0-1.7) Creatine Kinase 53 U/L (26-192) Creatine Kinase MB (Mass) 0.7 ng/mL (0.0-3.6) Creatine Kinase MB Relative Index % (0-4) Test 02/17/19 12:37 Prothrombin Time 13.3 SEC (11.7-14.0) Prothrombin Time INR 1.0 (0.8-1.1) Activated Partial Thromboplast Time 27 SEC (24-38) Troponin I Quantitative < 0.017 ng/mL (0.000-0.055) Laboratory Tests 02/17/19 11:32 Laboratory Tests 02/17/19 12:11 EKG EKG 1124-SR with PACs, rate 89, no STEMI read by Dr. Leavitt[] Radiology/Procedures Radiology/Procedures PROCEDURE: CHEST AP ONLY AP portable chest radiograph 02/17/2019 Clinical History: Chest pain, shortness of breath and cough for one week. An AP erect portable digital radiograph of the chest was obtained. Comparison study is dated 03/16/2017. The cardiac silhouette is borderline enlarged. The thoracic aorta is tortuous. Atherosclerotic calcification thoracic aorta is seen. The ET and NG tube have been removed. A 1.5 cm nodular opacity is seen within the right lower lobe which appears more prominent when compared to the previous study. No acute pulmonary infiltrate is seen. No pneumothorax or pleural effusion is noted. Degenerative changes are seen involving the thoracic spine and both shoulders. IMPRESSION: 1. No acute pulmonary infiltrate is seen. 2. 1.5 cm nodular opacity is seen involving the right lower lobe.[] Course & Med Decision Making Course & Med Decision Making Pertinent Labs and Imaging studies reviewed. (See chart for details) dx: chest pain, nausea, vomiting, diarrhea, hypokalemia 1205- Spoke with Dr. McSweyn will admit patient to hospitalist and initiate CV heparin drip protocol 1320- Spoke with Dr. Bautista who is the admitting physician, and care was assumed following discussion of patient. Patient's vital signs stable. Patient remains afebrile, appears nontoxic, respirations even and unlabored. Patient will be admitted to the med/tele floor. Patient's case and plan of care also discussed with Dr.Kousha Torre Disclaimer Nicho Disclaimer This electronic medical record was generated, in whole or in part, using a voice recognition dictation system. Departure Departure Impression: Primary Impression: Chest pain Additional Impressions: Hypokalemia Nausea vomiting and diarrhea Disposition: ADMITTED INPATIENT Admitting Physician: KASANDRA (Lily) Referrals: LESTER RAMIREZ QUALITY CONTROL OPERATOR (PCP) Problem Qualifiers Primary Impression: Chest pain Chest pain type: unspecified Qualified Codes: R07.9 - Chest pain, unspecified JUNO PORTILLO [employer] ENGINE[employer] Feb 17, 2019 11:57
[2019-02-17] MEDS: NITROGLYCERIN SUBLINGUAL 0.4 MG BOTTLE OF 25. SL PRN ×3 (11:58→13:05)
--- NOTE | 2019-02-17 12:03 | RAD ---
AP portable chest radiograph 02/17/2019 Clinical History: Chest pain, shortness of breath and cough for one week. An AP erect portable digital radiograph of the chest was obtained. Comparison study is dated 03/16/2017. The cardiac silhouette is borderline enlarged. The thoracic aorta is tortuous. Atherosclerotic calcification thoracic aorta is seen. The ET and NG tube have been removed. A 1.5 cm nodular opacity is seen within the right lower lobe which appears more prominent when compared to the previous study. No acute pulmonary infiltrate is seen. No pneumothorax or pleural effusion is noted. Degenerative changes are seen involving the thoracic spine and both shoulders. IMPRESSION: 1. No acute pulmonary infiltrate is seen. 2. 1.5 cm nodular opacity is seen involving the right lower lobe. Electronically signed by: Fer Tate MD (02/17/2019 12:00 PM) [facility]
[2019-02-17 12:06] LABS: BASO # 0.1 x10^3/uL (0.0-0.2); BASO % 1 % (0-3); EOS # 0.1 x10^3/uL (0.0-0.7); EOS % 1 % (0-3); HEMATOCRIT 44.7 % (36.0-47.0); HEMOGLOBIN 15.7 g/dL (12.0-15.5); LYMPH # 1.5 x10^3/uL (1.0-4.8); LYMPH % 14 % (24-48); MEAN CORPUSCULAR HEMOGLOBIN 33 pg (25-35); MEAN CORPUSCULAR HGB CONC 35 g/dL (31-37); MEAN CORPUSCULAR VOLUME 94 fL (79-100); MONO # 0.5 x10^3/uL (0.0-1.1); MONO % 5 % (0-9); NEUT # 8.6 x10^3/uL (1.8-7.7); NEUT % 81 % (31-73); PLATELET COUNT 392 x10^3/uL (140-400); RED BLOOD COUNT 4.78 x10^6/uL (3.50-5.40); WHITE BLOOD COUNT 10.7 x10^3/uL (4.0-11.0)
[2019-02-17] MEDS ORDERED: HEPARIN 25,000UTS/500ML PREMIX 500 ML IV PRN (12:15)
[2019-02-17 13:06] LABS: ALBUMIN 3.7 g/dL (3.4-5.0); CALCIUM 9.7 mg/dL (8.5-10.1); CREATININE 0.7 mg/dL (0.6-1.0); MAGNESIUM 1.8 mg/dL (1.8-2.4); TOTAL BILIRUBIN 0.5 mg/dL (0.2-1.0); TOTAL PROTEIN 7.5 g/dL (6.4-8.2)
--- NOTE | 2019-02-17 13:06 | PDOC1 ---
History and Physical Date of Admission Date of Admission DATE: 02/17/19 TIME: 13:04 Identification/Chief Complaint Chief Complaint Vomiting Source Source: Patient History of Present Illness History of Present Illness Ms Roach is a 58 yo AA female w/ PMHx CAD s/p stents x2 2009 and x2 2016 and x1 to RCA 02/2018, HTN, HLD, asthma/COPD, GERD, Anxiety, chronic low back pain, allergic rhinitis, DM2 who presents to the emergency department with complaints of chest pain since last night. Patient states the pain is substernal and feels like pressure. She states she has had nausea, vomiting, diarrhea, and diaphoresis for the last 3 days. She also reports shortness of breath with the chest pain. She also endorses diffuse myalgias. She has been unable to take any of her medication for the last 2 days due to the nausea, vomiting, and diarrhea. She currently rates her pain a 10 out of 10 on the pain scale, there are no alleviating or exacerbating factors Labs significant for a potassium of 2.9 and glucose in the 304. Troponin negative. CXR shows 1.5 cm right sided nodule previously noted. BP on my evaluation is 225/105. Past Medical History Cardiovascular: CAD, HTN, Hyperlipidemia Pulmonary: Asthma, COPD CENTRAL NERVOUS SYSTEM: Other GI: GERD Psych: Anxiety Musculoskeletal: low back pain, Osteoarthritis Rheumatologic: No pertinent hx Infectious disease: No pertinent hx Renal/: No pertinent hx Endocrine: Diabetes Past Surgical History Past Surgical History: Other Family History Family History: Heart Disease Social History Smoke: Quit ALCOHOL: none Drugs: Marijuana Current Medications Current Medications Current Medications Aspirin (Christina Aspirin) 325 mg 1X ONCE PO Last administered on 02/17/19at 11:57; Start 02/17/19 at 11:30; Stop 02/17/19 at 11:36; Status DC Nitroglycerin (Nitrostat) 0.4 mg PRN Q5MIN PRN SL CHEST PAIN Last administered on 02/17/19at 12:41; Start 02/17/19 at 11:30 Albuterol Sulfate (Ventolin Neb Soln) 2.5 mg 1X ONCE NEB Last administered on 02/17/19at 11:44; Start 02/17/19 at 11:30; Stop 02/17/19 at 11:36; Status DC Ondansetron HCl (Zofran) 4 mg 1X ONCE IV Last administered on 02/17/19at 11:57; Start 02/17/19 at 11:30; Stop 02/17/19 at 11:36; Status DC Sodium Chloride 1,000 ml @ 1,000 mls/hr 1X ONCE IV Last administered on 02/17/19at 11:57; Start 02/17/19 at 11:30; Stop 02/17/19 at 12:29; Status DC Heparin Sodium/ Dextrose 500 ml @ 0 mls/hr CONT PRN IV PER PROTOCOL; Start 02/17/19 at 12:15 Heparin Sodium (Porcine) (Heparin Sodium) 1,950 unit PRN Q6HRS PRN IV FOR UFH LEVEL LESS THAN 0.2; Start 02/17/19 at 12:15 Active Scripts Active Tramadol Hcl 50 Mg Tablet 50 Mg PO Q6HRS PRN Prednisone 50 Mg Tablet 1 Tab PO DAILY Lantus Solostar (Insulin Glargine,Hum.rec.anlog) 100 Unit/1 Ml Insuln.pen 15 Units SQ QHS 7 Days Amlodipine Besylate 10 Mg Tablet 10 Mg PO DAILY 30 Days Metoprolol Tartrate 50 Mg Tablet 50 Mg PO BID 30 Days Fish Oil 1,000 Mg Capsule ([place]-3 Fatty Acids/Fish Oil) 1 Each Capsule 1,000 Mg PO BIDAFTMEAL 30 Days Losartan Potassium 100 Mg Tablet 100 Mg PO DAILY 30 Days Omeprazole 40 Mg Capsule.dr 1 Cap PO DAILY Metoprolol Tartrate 25 Mg Tablet 1 Tab PO BID Crestor (Rosuvastatin Calcium) 40 Mg Tablet 40 Mg PO HS Metformin Hcl 1,000 Mg Tablet 1 Tab PO BID Januvia (Sitagliptin Phosphate) 100 Mg Tablet 1 Tab PO DAILY Aspirin 325 Mg Tablet 1 Tab PO DAILY Cymbalta (Duloxetine Hcl) 60 Mg Capsule.dr 1 Cap PO DAILY Reported Repatha Syringe (Evolocumab) 140 Mg/1 Ml Syringe 140 Mg SQ WEEKLY Levemir (Insulin Detemir) 100 Unit/1 Ml Vial 10 Unit SQ QHS Gabapentin (Gabapentin) 300 Mg Capsule 300 Mg PO TID Tizanidine Hcl 4 Mg Tablet 4 Mg PO TID Clopidogrel (Clopidogrel Bisulfate) 75 Mg Tablet 75 Mg PO DAILY Metformin Hcl 1,000 Mg Tablet 1,000 Mg PO BIDWMEALS Potassium Chloride 20 Meq Tablet.er 20 Meq PO DAILY Take one daily while taking Lasix Lasix (Furosemide) 40 Mg Tablet 1 Tab PO DAILY 30 Days Montelukast Sodium Tablet (Montelukast Sodium) 10 Mg Tablet 1 Tab PO DAILY Allergies Allergies: Coded Allergies: No Known Drug Allergies (Unverified , 07/23/15) ROS General: YES: Chills, Fatigue, Malaise, Appetite; No: Night Sweats, Other PSYCHOLOGICAL ROS: YES: Anxiety; No: Behavioral Disorder, Concentration difficultie, Decreased libido, Depression, Disorientation, Hallucinations, Hostility, Irritablity, Memory difficulties, Mood Swings, Obsessive thoughts, Physical abuse, Sexual abuse, Sleep disturbances, Suicidal ideation, Other Eyes: Yes Itchy Eyes; No Blurry vision, No Decreased vision, No Double vision, No Dry eyes, No Excessive tearing, No Eye Pain, No Loss of vision, No Photophobia, No Scotomata, No Uses contacts, No Uses glasses, No Other HEENT: YES: Nasal congestion, Nasal discharge; No: Heacaches, Visual Changes, Hearing change, Oral lesions, Sinus pain, Sore Throat, Epistaxis, Sneezing, Snoring, Tinnitus, Vertigo, Vocal changes, Other ALLERGY AND IMMUNOLOGY: YES: Nasal Congestion, Post Nasal Drip, Seasonal Allergies; No: Hives, Insect Bite Sensitivity, Itchy/Watery Eyes, Other Hematological and Lymphatic: No: Bleeding Problems, Blood Clots, Blood Transfusions, Brusing, Night Sweats, Pallor, Swollen Lymph Nodes, Other ENDOCRINE: No: Breast Changes, Galactorrhea, Hair Pattern Changes, Hot Flashes, Malaise/lethargy, Mood Swings, Palpitations, Polydipsia/polyuria, Skin Changes, Temperature Intolerance, Unexpected Weight Changes, Other Breast: No New/Changing Breast Lumps, No Nipple changes, No Nipple discharge, No Other Respiratory: YES: Cough, Shortness of breath, SOB with excertion, Tachypnea, Wheezing; No: Hemoptysis, Orthopnea, Pleuritic Pain, Sputum Changes, Stridor, Other Cardiovascular: yes Chest Pain; No Palpitations, No Orthopnea, No Paroxysmal Noc. Dyspnea, No Edema, No Lt Headedness, No Other Gastrointestinal: Yes Nausea, Yes Vomiting, Yes Diarrhea; No Abdominal Pain, No Constipation, No Melena, No Hematochezia, No Other Genitourinary: No Dysuria, No Frequency, No Incontinence, No Hematuria, No Retention, No Discharge, No Urgency, No Pain, No Flank Pain, No Other, No , No , No , No , No , No , No Musculoskeletal: No Gait Disturbance, No Joint Pain, No Joint Stiffness, No Joint Swelling, No Muscle Pain, No Muscular Weakness, No Pain In:, No Swelling In:, No Other Neurological: No Behavorial Changes, No Bowel/Bladder ControlChng, No Confusion, No Dizziness, No Gait Disturbance, No Headaches, No Impaired Coord/balance, No Memory Loss, No Numbness/Tingling, No Seizures, No Speech Problems, No Tremors, No Visual Changes, No Weakness, No Other Skin: No Dry Skin, No Eczema, No Hair Changes, No Lumps, No Mole Changes, No Mottling, No Nail Changes, No Pruritus, No Rash, No Skin Lesion Changes, No Other, No Acne Physical Exam General: Alert, Oriented X3, Cooperative, No acute distress HEENT: Atraumatic, PERRLA, EOMI, Mucous membr. moist/pink Lungs: Other (Scattered wheezes) Heart: S1S2, RRR, no gallops, no murmurs Abdomen: Normal bowel sounds, Soft, No tenderness, No hepatosplenomegaly, No masses Rectal Exam: not examined Extremities: No clubbing, No cyanosis, No edema, Normal pulses, No tenderness/swelling Skin: No rashes, No breakdown, No significant lesion Neuro: Normal gait, Normal speech, Strength at 5/5 X4 ext, Normal tone, Sensation intact, Cranial nerves 3-12 NL, Reflexes 2+ Psych/Mental Status: Mental status NL, Mood NL Vitals Vitals Vital Signs Date Time Temp Pulse Resp B/P (MAP) Pulse Ox O2 Delivery O2 Flow Rate FiO2 02/17/19 12:41 98 187/83 02/17/19 11:46 95 Room Air 02/17/19 11:27 98.0 22 98.0 Labs Labs Laboratory Tests Test 02/17/19 11:32 02/17/19 11:37 White Blood Count 10.7 x10^3/uL (4.0-11.0) Red Blood Count 4.78 x10^6/uL (3.50-5.40) Hemoglobin 15.7 g/dL (12.0-15.5) Hematocrit 44.7 % (36.0-47.0) Mean Corpuscular Volume 94 fL (79-100) Mean Corpuscular Hemoglobin 33 pg (25-35) Mean Corpuscular Hemoglobin Concent 35 g/dL (31-37) Red Cell Distribution Width 13.0 % (11.5-14.5) Platelet Count 392 x10^3/uL (140-400) Neutrophils (%) (Auto) 81 % (31-73) Lymphocytes (%) (Auto) 14 % (24-48) Monocytes (%) (Auto) 5 % (0-9) Eosinophils (%) (Auto) 1 % (0-3) Basophils (%) (Auto) 1 % (0-3) Neutrophils # (Auto) 8.6 x10^3/uL (1.8-7.7) Lymphocytes # (Auto) 1.5 x10^3/uL (1.0-4.8) Monocytes # (Auto) 0.5 x10^3/uL (0.0-1.1) Eosinophils # (Auto) 0.1 x10^3/uL (0.0-0.7) Basophils # (Auto) 0.1 x10^3/uL (0.0-0.2) Bedside Troponin I 0.00 ng/ml (<0.08) Laboratory Tests Test 02/17/19 11:32 02/17/19 11:37 White Blood Count 10.7 x10^3/uL (4.0-11.0) Red Blood Count 4.78 x10^6/uL (3.50-5.40) Hemoglobin 15.7 g/dL (12.0-15.5) Hematocrit 44.7 % (36.0-47.0) Mean Corpuscular Volume 94 fL (79-100) Mean Corpuscular Hemoglobin 33 pg (25-35) Mean Corpuscular Hemoglobin Concent 35 g/dL (31-37) Red Cell Distribution Width 13.0 % (11.5-14.5) Platelet Count 392 x10^3/uL (140-400) Neutrophils (%) (Auto) 81 % (31-73) Lymphocytes (%) (Auto) 14 % (24-48) Monocytes (%) (Auto) 5 % (0-9) Eosinophils (%) (Auto) 1 % (0-3) Basophils (%) (Auto) 1 % (0-3) Neutrophils # (Auto) 8.6 x10^3/uL (1.8-7.7) Lymphocytes # (Auto) 1.5 x10^3/uL (1.0-4.8) Monocytes # (Auto) 0.5 x10^3/uL (0.0-1.1) Eosinophils # (Auto) 0.1 x10^3/uL (0.0-0.7) Basophils # (Auto) 0.1 x10^3/uL (0.0-0.2) Bedside Troponin I 0.00 ng/ml (<0.08) Images Images CXR - 1. No acute pulmonary infiltrate is seen. 2. 1.5 cm nodular opacity is seen involving the right lower lobe. VTE Prophylaxis Ordered VTE Prophylaxis Devices: Yes VTE Pharmacological Prophylaxi: Yes Assessment/Plan Assessment/Plan A/P: HTN urgency - will start on IV labetalol. Nausea control for her home med administration Nausea, vomiting, and diarrhea - could be gastroenteritis. Supportive care, anti-emetics Hypokalemia - will give IV, po, check mag. Trend Myalgias - could be cardia, electrolyte related, will check flu swab Chest pain - has some UA features/abnormal MPI previously. Will consult cardiology. They have advised heparin GTT CAD - multiple stents with latest 02/2018 to RCA as above DM2 - uncontrolled. Will place on basal bolus plus regimen HLD - on repatha. Will cont every monday COPD - with an acute exacerbation, will order nebs Pulmonary nodule - noted previously, counseled on f/u CT outpatient FEN - ADA diet PPX - heparin GTT FULL CODE Dispo - inpatient for chest pain/ACS KAELA CRAFT MD Feb 17, 2019 13:06
[2019-02-17 13:08] LABS: PROTHROMBIN TIME PATIENT 13.3 SEC (11.7-14.0)
[2019-02-17 13:12] LABS: POTASSIUM 2.9 mmol/L (3.5-5.1)
[2019-02-17 13:14] LABS: CREATINE KINASE 53 U/L (26-192)
[2019-02-17] MEDS ORDERED: ONDANSETRON PF 4 MG/2 ML VIAL. IV PRN ×2 (13:15→16:45)
[2019-02-17] MEDS: HEPARIN for IV BOLUS 10,000 UNIT/10 ML VIAL. IV PRN ×2 (13:29→22:08)
[2019-02-17 15:00] VITALS: BP 207/101
[2019-02-17 15:34] LABS: BILIRUBIN,URINE SMALL (NEG); CLARITY,URINE CLEAR; COLOR,URINE YELLOW; NITRITE,URINE NEGATIVE (NEG); PROTEIN,URINE 100 mg/dL (NEG-TRACE)
[2019-02-17 15:39] LABS: BARBITURATES NEG (NEG); BENZODIAZEPINES NEG (NEG); CANNABINOIDS POS (NEG); COCAINE NEG (NEG); METHADONE NEG (NEG); OPIATES NEG (NEG); PHENCYCLIDINE NEG (NEG)
[2019-02-17 15:41] LABS: AMPHETAMINE/METHAMPHETAMINE NEG (NEG)
[2019-02-17 15:44] LABS: BACTERIA,URINE FEW /HPF (0-FEW); RBC,URINE TNTC /HPF (0-2); SQUAMOUS EPITHELIAL CELL,UR MOD /LPF
[2019-02-17] MEDS ORDERED: LABETALOL 20 MG/4 ML DISP.SYRIN. IVP PRN (16:45)
[2019-02-17] MEDS ORDERED: MAGNESIUM SULFATE 2GM 50 ML IV ONE (17:00)
[2019-02-17] MEDS: OMEGA-3 FATTY ACIDS/FISH OIL 1,000 MG CAPSULE. PO SCH (17:15)
[2019-02-17] MEDS: traMADol 50 MG TABLET PO PRN (17:15)
[2019-02-17] MEDS: guaiFENesin DM 200MG/20MG 10 ML SYRUP PO PRN (17:15)
[2019-02-17] MEDS: amLODIPine BESYLATE 10 MG TABLET PO SCH (17:16)
[2019-02-17] MEDS: POTASSIUM CHLORIDE 10MEQ 100 ML IV SCH ×4 (17:22→20:00)
[2019-02-17 17:30] VITALS: BP 212/105
[2019-02-17] MEDS ORDERED: DEXTROSE 50% 25 GM / 50ML DISP.SYRIN. IV PRN (17:45)
[2019-02-17 19:12] VITALS: BP 219/152
[2019-02-17] MEDS ORDERED: MORPHINE SULFATE 2 MG/ML VIAL. IV PRN (19:45)
[2019-02-17] MEDS ORDERED: hydrALAZINE 20 MG/ML VIAL. IVP PRN (19:45)
[2019-02-17] MEDS: IPRATRPIUM/ALBUTEROL 0.5/2.5MG 3 ML NEBU. NEB SCH (20:00)
[2019-02-17 20:13] VITALS: BP 216/99
[2019-02-17] MEDS: ATORVASTATIN CALCIUM 40 MG TABLET. PO SCH (20:21)
[2019-02-17] MEDS: GABAPENTIN 300 MG CAPSULE. PO SCH (20:21)
[2019-02-17] MEDS: METOPROLOL TART IMMED RELEASE 50 MG TABLET. PO SCH (20:22)
[2019-02-17] MEDS: MONTELUKAST SODIUM 10 MG TABLET. PO SCH (20:22)
[2019-02-17 20:23] LABS: INFLUENZA A PATIENT NEGATIVE (NEGATIVE); INFLUENZA B PATIENT NEGATIVE (NEGATIVE)
[2019-02-17] MEDS: INSULIN LISPRO 300 UNITS/3 ML VIAL. SQ SCH (20:36)
[2019-02-17] MEDS: INSULIN GLARGINE SYRINGE. SQ SCH (20:37)
[2019-02-17 22:14] VITALS: BP 161/53
[2019-02-18] MEDS: traMADol 50 MG TABLET PO PRN ×2 (00:33→18:07)
[2019-02-18 02:38] VITALS: BP 178/88
[2019-02-18 05:02] LABS: HEMATOCRIT 42.7 % (36.0-47.0); HEMOGLOBIN 14.8 g/dL (12.0-15.5); RED BLOOD COUNT 4.55 x10^6/uL (3.50-5.40); WHITE BLOOD COUNT 10.2 x10^3/uL (4.0-11.0)
[2019-02-18 05:41] LABS: ANION GAP 15 (6-14); BLOOD UREA NITROGEN 7 mg/dL (7-20); CALCIUM 9.7 mg/dL (8.5-10.1); CARBON DIOXIDE 24 mmol/L (21-32); CHLORIDE 102 mmol/L (98-107); CHOLESTEROL 298 mg/dL (0-200); CREATININE 0.7 mg/dL (0.6-1.0); GLUCOSE 355 mg/dL (70-99); HDLC 41 mg/dL (40-60); MAGNESIUM 2.3 mg/dL (1.8-2.4); POTASSIUM 3.2 mmol/L (3.5-5.1); SODIUM 141 mmol/L (136-145); TRIGLYCERIDES 624 mg/dL (0-150); VLDLC 125 mg/dL (0-40)
[2019-02-18 05:44] LABS: CHOLESTEROL/HDL RATIO 7.3
[2019-02-18] MEDS ORDERED: POTASSIUM CHLORIDE 20 MEQ TABLET.ER. PO ONE (06:30)
[2019-02-18 07:00] VITALS: BP 181/86
--- NOTE | 2019-02-18 07:14 | EKG ---
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
[2019-02-18] MEDS: IPRATRPIUM/ALBUTEROL 0.5/2.5MG 3 ML NEBU. NEB SCH ×4 (07:23→19:58)
[2019-02-18] MEDS: DULoxetine HCL 30 MG CAPSULE.DR PO SCH (09:01)
[2019-02-18] MEDS: ASPIRIN 325 MG TABLET PO SCH (09:01)
[2019-02-18] MEDS: CLOPIDOGREL BISULFATE 75 MG TABLET PO SCH (09:01)
[2019-02-18] MEDS: METOPROLOL TART IMMED RELEASE 50 MG TABLET. PO SCH ×3 (09:02→21:17)
[2019-02-18] MEDS: GABAPENTIN 300 MG CAPSULE. PO SCH ×3 (09:02→21:16)
[2019-02-18] MEDS: amLODIPine BESYLATE 10 MG TABLET PO SCH (09:02)
[2019-02-18] MEDS: LOSARTAN POTASSIUM 50 MG TABLET. PO SCH (09:03)
[2019-02-18] MEDS: PANTOPRAZOLE 40 MG TABLET.DR. PO SCH (09:03)
[2019-02-18] MEDS: LINAGLIPTIN 5 MG TABLET PO SCH (09:03)
[2019-02-18] MEDS: guaiFENesin DM 200MG/20MG 10 ML SYRUP PO PRN ×2 (09:07→21:17)
[2019-02-18] MEDS: HEPARIN for IV BOLUS 10,000 UNIT/10 ML VIAL. IV PRN (09:16)
[2019-02-18] MEDS: INSULIN LISPRO 300 UNITS/3 ML VIAL. SQ SCH ×4 (09:16→21:29)
--- NOTE | 2019-02-18 09:30 | EKG ---
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
[2019-02-18 11:00] VITALS: BP 187/103
--- NOTE | 2019-02-18 11:24 | PDOC2 ---
SAUMYAKALEB TRIVEDI LORNE 02/18/19 1124: CARDIAC CONSULT DATE OF CONSULT Date of Consult DATE: 02/18/19 TIME: 11:15 REASON FOR CONSULT Reason for Consult: Chest pain Hypokalemia REFERRING PHYSICIAN Referring Physician: January Bang APRN SOURCE Source: Chart review, Patient HISTORY OF PRESENT ILLNESS HISTORY OF PRESENT ILLNESS This is a 58 yo female who presented secondary to chest pain, pressure, shortness of breath, and cough. Patient reports that she was around grandson a few weeks ago who had a cold/congestion/cough. A few days later, she developed that same. Has had persistent cough productive of green sputum and significant wheezing. Over the last couple of days, has noticed some pressure in her central chest that is worsened with coughing. No dizziness, diaphoresis, palpitations, or nausea/vomiting. PAST MEDICAL HISTORY Cardiovascular: CAD, HTN, Hyperlipidemia Pulmonary: Asthma GI: GERD Musculoskeletal: Osteoarthritis Endocrine: Diabetes PAST SURGICAL HISTORY Past Surgical History PCI/stent FAMILY HISTORY Family History: Diabetes, Hypertension SOCIAL HISTORY Smoke: Quit ALCOHOL: none Drugs: Marijuana Lives: with Family CURRENT MEDICATIONS CURRENT MEDICATIONS Current Medications Medications (Trade) Dose Ordered Sig/Carlton Route PRN Reason Start Time Stop Time Status Last Admin Dose Admin Aspirin (Christina Aspirin) 325 mg 1X ONCE PO 02/17/19 11:30 02/17/19 11:36 DC 02/17/19 11:57 Nitroglycerin (Nitrostat) 0.4 mg PRN Q5MIN PRN SL CHEST PAIN 02/17/19 11:30 02/17/19 13:05 Albuterol Sulfate (Ventolin Neb Soln) 2.5 mg 1X ONCE NEB 02/17/19 11:30 02/17/19 11:36 DC 02/17/19 11:44 Ondansetron HCl (Zofran) 4 mg 1X ONCE IV 02/17/19 11:30 02/17/19 11:36 DC 02/17/19 11:57 Sodium Chloride 1,000 ml @ 1,000 mls/hr 1X ONCE IV 02/17/19 11:30 02/17/19 12:29 DC 02/17/19 11:57 Heparin Sodium/ Dextrose 500 ml @ 0 mls/hr CONT PRN IV PER PROTOCOL 02/17/19 12:15 02/17/19 13:35 Heparin Sodium (Porcine) (Heparin Sodium) 1,950 unit PRN Q6HRS PRN IV FOR UFH LEVEL LESS THAN 0.2 02/17/19 12:15 02/18/19 09:16 Potassium Chloride/Water 100 ml @ 100 mls/hr Q1H IV 02/17/19 17:00 02/17/19 20:59 DC 02/17/19 18:32 Labetalol HCl (Normodyne Iv Push) 10 mg PRN Q4HRS PRN IVP HYPERTENSION 02/17/19 16:45 02/17/19 17:17 Amlodipine Besylate (Norvasc) 10 mg DAILY PO 02/17/19 17:00 02/18/19 09:02 Aspirin (Christina Aspirin) 325 mg DAILY PO 02/18/19 09:00 02/18/19 09:01 Clopidogrel Bisulfate (Plavix) 75 mg DAILY PO 02/18/19 09:00 02/18/19 09:01 Gabapentin (Neurontin) 300 mg TID PO 02/17/19 21:00 02/18/19 09:02 Metoprolol Tartrate (Lopressor) 50 mg BID PO 02/17/19 21:00 02/18/19 09:02 Montelukast Sodium (Singulair) 10 mg QHS PO 02/17/19 21:00 02/17/19 20:22 Fish Oil (Fish Oil) 1,000 mg BIDAFTMEAL PO 02/17/19 18:00 02/17/19 17:15 Tramadol HCl (Ultram) 50 mg PRN Q6HRS PRN PO PAIN 02/17/19 16:45 02/18/19 00:33 Duloxetine HCl (Cymbalta) 60 mg DAILY PO 02/18/19 09:00 02/18/19 09:01 Insulin Glargine (Lantus Syringe) 15 unit QHS SQ 02/17/19 21:00 02/17/19 20:37 Losartan Potassium (Cozaar) 100 mg DAILY PO 02/18/19 09:00 02/18/19 09:03 Pantoprazole Sodium (Protonix) 40 mg DAILYAC PO 02/18/19 07:30 02/18/19 09:03 Atorvastatin Calcium (Lipitor) 80 mg QHS PO 02/17/19 21:00 02/17/19 20:21 Linagliptin (Tradjenta) 5 mg DAILY PO 02/18/19 09:00 02/18/19 09:03 Guaifenesin (Robitussin Dm) 10 ml PRN Q6HRS PRN PO COUGH 02/17/19 16:45 02/18/19 09:07 Magnesium Sulfate 50 ml @ 25 mls/hr 1X ONCE IV 02/17/19 17:00 02/17/19 18:59 DC 02/17/19 17:21 Ondansetron HCl (Zofran) 4 mg PRN Q6HRS PRN IV NAUSEA/VOMITING 02/17/19 16:45 02/17/19 20:45 Albuterol/ Ipratropium (Duoneb) 3 ml RTQID NEB 02/17/19 20:00 02/18/19 07:23 Insulin Human Lispro (HumaLOG) 0-9 UNITS TIDACHC SQ 02/17/19 21:00 02/18/19 09:16 Morphine Sulfate (Morphine Sulfate) 2 mg PRN Q2HR PRN IV PAIN 02/17/19 19:45 02/17/19 20:23 Hydralazine HCl (Apresoline Inj) 10 mg PRN Q4HRS PRN IVP ELEVATED BP, SEE COMMENTS 02/17/19 19:45 02/17/19 20:22 Potassium Chloride (Klor-Con) 40 meq 1X ONCE PO 02/18/19 06:30 02/18/19 06:37 DC 02/18/19 06:43 ALLERGIES ALLERGIES: Coded Allergies: No Known Drug Allergies (Unverified , 07/23/15) ROS Review of System 14 point ROS conducted with pertinent positives noted above in HPI. PHYSICAL EXAM General: Alert, Oriented X3, Cooperative, No acute distress HEENT: Atraumatic, Mucous membr. moist/pink Lungs: Other (wheezing, rhonchi throughout ) Heart: Regular rate, Normal S1, Normal S2 Abdomen: Soft, No tenderness Extremities: No edema, Normal pulses Skin: No significant lesion Neuro: Normal speech, Sensation intact Psych/Mental Status: Mental status NL, Mood NL MUSCULOSKELETAL: Osteoarthritic changes both hands VITALS/I&O VITALS/I&O: Vital Signs Date Time Temp Pulse Resp B/P (MAP) Pulse Ox O2 Delivery O2 Flow Rate FiO2 02/18/19 09:03 80 181/86 02/18/19 08:00 Room Air 02/18/19 07:25 94 02/18/19 07:00 98.1 16 98.1 I & O 02/17/19 02/17/19 02/18/19 15:00 23:00 07:00 Intake Total 505 ml 540 ml Output Total 250 ml 750 ml Balance 255 ml -210 ml LABS Lab: Laboratory Tests Test 02/17/19 11:32 02/17/19 11:37 02/17/19 12:11 02/17/19 12:25 White Blood Count 10.7 x10^3/uL (4.0-11.0) Red Blood Count 4.78 x10^6/uL (3.50-5.40) Hemoglobin 15.7 g/dL (12.0-15.5) H Hematocrit 44.7 % (36.0-47.0) Mean Corpuscular Volume 94 fL (79-100) Mean Corpuscular Hemoglobin 33 pg (25-35) Mean Corpuscular Hemoglobin Concent 35 g/dL (31-37) Red Cell Distribution Width 13.0 % (11.5-14.5) Platelet Count 392 x10^3/uL (140-400) Neutrophils (%) (Auto) 81 % (31-73) H Lymphocytes (%) (Auto) 14 % (24-48) L Monocytes (%) (Auto) 5 % (0-9) Eosinophils (%) (Auto) 1 % (0-3) Basophils (%) (Auto) 1 % (0-3) Neutrophils # (Auto) 8.6 x10^3/uL (1.8-7.7) H Lymphocytes # (Auto) 1.5 x10^3/uL (1.0-4.8) Monocytes # (Auto) 0.5 x10^3/uL (0.0-1.1) Eosinophils # (Auto) 0.1 x10^3/uL (0.0-0.7) Basophils # (Auto) 0.1 x10^3/uL (0.0-0.2) POC Troponin I 0.00 ng/ml (<0.08) Sodium Level 141 mmol/L (136-145) Potassium Level 2.9 mmol/L (3.5-5.1) *L Chloride Level 101 mmol/L (98-107) Carbon Dioxide Level 26 mmol/L (21-32) Anion Gap 14 (6-14) Blood Urea Nitrogen 5 mg/dL (7-20) L Creatinine 0.7 mg/dL (0.6-1.0) Estimated GFR (Cockcroft-Gault) 104.0 BUN/Creatinine Ratio 7 (6-20) Glucose Level 304 mg/dL (70-99) H Calcium Level 9.7 mg/dL (8.5-10.1) Magnesium Level 1.8 mg/dL (1.8-2.4) Total Bilirubin 0.5 mg/dL (0.2-1.0) Aspartate Amino Transferase (AST) 20 U/L (15-37) Alanine Aminotransferase (ALT) 21 U/L (14-59) Alkaline Phosphatase 88 U/L (46-116) Total Protein 7.5 g/dL (6.4-8.2) Albumin 3.7 g/dL (3.4-5.0) Albumin/Globulin Ratio 1.0 (1.0-1.7) Creatine Kinase 53 U/L (26-192) Creatine Kinase MB (Mass) 0.7 ng/mL (0.0-3.6) Creatine Kinase MB Relative Index % (0-4) Test 02/17/19 12:37 02/17/19 15:00 02/17/19 16:14 02/17/19 18:45 Prothrombin Time 13.3 SEC (11.7-14.0) Prothrombin Time INR 1.0 (0.8-1.1) Activated Partial Thromboplast Time 27 SEC (24-38) Troponin I Quantitative < 0.017 ng/mL (0.000-0.055) < 0.017 ng/mL (0.000-0.055) Urine Collection Type Unknown Urine Color Yellow Urine Clarity Clear Urine pH 7.0 Urine Specific [place] 1.025 Urine Protein 100 mg/dL (NEG-TRACE) Urine Glucose (UA) 500 mg/dL (NEG) Urine Ketones (Stick) 15 mg/dL (NEG) Urine Blood Moderate (NEG) Urine Nitrite Negative (NEG) Urine Bilirubin Small (NEG) Urine Urobilinogen Dipstick 1.0 mg/dL (0.2 mg/dL) Urine Leukocyte Esterase Small (NEG) Urine RBC Tntc /HPF (0-2) Urine WBC 5-10 /HPF (0-4) Urine Squamous Epithelial Cells Mod /LPF Urine Bacteria Few /HPF (0-FEW) Urine Mucus Mod /LPF Urine Opiates Screen Neg (NEG) Urine Methadone Screen Neg (NEG) Urine Barbiturates Neg (NEG) Urine Phencyclidine Screen Neg (NEG) Urine Amphetamine/Methamphetamine Neg (NEG) Urine Benzodiazepines Screen Neg (NEG) Urine Cocaine Screen Neg (NEG) Urine Cannabinoids Screen Pos (NEG) Urine Ethyl Alcohol Neg (NEG) Glucose (Fingerstick) 249 mg/dL (70-99) H Test 02/17/19 19:45 02/17/19 20:25 02/17/19 21:10 02/18/19 04:00 Influenza Type A Antigen Negative (NEGATIVE) Influenza Type B Antigen Negative (NEGATIVE) Glucose (Fingerstick) 309 mg/dL (70-99) H Heparin Anti-Xa Act, Unfractionated < 0.10 IU/mL (0.30-0.70) L White Blood Count 10.2 x10^3/uL (4.0-11.0) Red Blood Count 4.55 x10^6/uL (3.50-5.40) Hemoglobin 14.8 g/dL (12.0-15.5) Hematocrit 42.7 % (36.0-47.0) Mean Corpuscular Volume 94 fL (79-100) Mean Corpuscular Hemoglobin 33 pg (25-35) Mean Corpuscular Hemoglobin Concent 35 g/dL (31-37) Red Cell Distribution Width 13.0 % (11.5-14.5) Platelet Count 364 x10^3/uL (140-400) Sodium Level 141 mmol/L (136-145) Potassium Level 3.2 mmol/L (3.5-5.1) L Chloride Level 102 mmol/L (98-107) Carbon Dioxide Level 24 mmol/L (21-32) Anion Gap 15 (6-14) H Blood Urea Nitrogen 7 mg/dL (7-20) Creatinine 0.7 mg/dL (0.6-1.0) Estimated GFR (Cockcroft-Gault) 104.0 Glucose Level 355 mg/dL (70-99) H Calcium Level 9.7 mg/dL (8.5-10.1) Magnesium Level 2.3 mg/dL (1.8-2.4) Triglycerides Level 624 mg/dL (0-150) H Cholesterol Level 298 mg/dL (0-200) H LDL Cholesterol, Calculated mg/dL (0-100) VLDL Cholesterol, Calculated 125 mg/dL (0-40) H Non-HDL Cholesterol Calculated 257 mg/dL (0-129) H HDL Cholesterol 41 mg/dL (40-60) Cholesterol/HDL Ratio 7.3 Test 02/18/19 04:40 02/18/19 07:34 02/18/19 07:53 Troponin I Quantitative < 0.017 ng/mL (0.000-0.055) Heparin Anti-Xa Act, Unfractionated 0.12 IU/mL (0.30-0.70) L Glucose (Fingerstick) 287 mg/dL (70-99) H Laboratory Tests 02/17/19 11:32 02/18/19 04:00 Laboratory Tests 02/17/19 12:11 02/18/19 04:00 ECHOCARDIOGRAM ECHOCARDIOGRAM <Conclusion> The left ventricular systolic function is normal. The ejection fraction is estimated at 55-60%. There is normal LV segmental wall motion. Trace to mild mitral regurgitation. Mild tricuspid regurgitation. There is mild pulmonary hypertension. The PA pressure was estimated at 34 mmHg. There is no evidence of significant pericardial effusion. DATE: 07/31/17 1032 STRESS TEST STRESS TEST Conclusion 1. Abnormal resting EKG with ST segment changes with exertion that are suggestive but not diagnostic of ischemia. 2. Nuclear imaging suggests a small area of reversible ischemia in the inferior wall. 3. Normal left ventricular systolic function with an ejection fraction of 69%. 4. Moderate to moderately high risk Lexiscan nuclear stress test suggestive of reversible ischemia in the inferior wall. 5. Of note the patient has had uncontrolled hypertension which can affect the accuracy of the test. DATE: 02/19/18 1435 HEART CATH HEART CATH FINDINGS 1. Hemodynamics: Left ventricular end-diastolic pressure of 11 mmHg. No pullback gradient across the aortic valve. 2. Left ventriculography: Normal left ventricle systolic function with ejection fraction estimated at 60%. No significant mitral regurgitation seen. 3. Coronary angiography: a. The left main coronary artery arose from the left sinus of Valsalva, gave rise to the left anterior descending and left circumflex arteries and did not show any significant stenosis. b. The left anterior descending artery showed patent previously placed stents in the mid and distal segments. There was a 40% bifurcation lesion noted in b etween the 2 stents and involving the ostium of the diagonal branch. c. The left circumflex artery showed 30% stenosis involving a large second obtuse marginal branch. d. The right coronary artery was a large and dominant vessel arising from the right sinus of Valsalva that showed 80% stenosis involving the midsegment and patent stent in the mid to distal segment. Conclusion 1. 80% stenosis involving the midsegment of the right coronary artery. The previously placed stents in the right coronary and the left anterior descending arteries were patent. 2. Successful PCI/drug eluting stent placement to the right coronary artery. 3. Normal left ventricle systolic function with ejection fraction estimated at 60%. Recommendations 1. Aspirin 325 mg daily 2. Plavix 75 mg daily for preferably one year 3. Cardiovascular risk factor modification DATE: 02/20/18 1602 ASSESSMENT/PLAN ASSESSMENT/PLAN 1. Chest pain, atypical. AMI ruled out. Most probably pleuritic in nature 2. CAD s/p PCI/stent to the RCA 3. Hypertension; elevated 4. Hyperlipidemia; statin, Repatha 5. Diabetes, II; as per PCP 6. Hypokalemia; replaced 7. Marijuana use; discussed/encouraged cessation Recommendations Discontinue heparin gtt Echo to assess LV systolic function Secondary prevention Supportive care. If echo WNL, may discharge from a CV standpoint and continue with outpatient MPI later this week as previously scheduled. BLANCA CANALES MD 02/18/192022: CARDIAC CONSULT ASSESSMENT/PLAN ASSESSMENT/PLAN Patient seen and examined. Agree with MANAGER CODING's assessment and plan. CP with atypical features and probably pleuritic CT ruled out Plan outpatient MPI to rule out ischemia as previously scheduled Thank you for your consultation KALEB KERNS APRN Feb 18, 2019 11:24 BLANCA CANALES MD Feb 18, 2019 20:23
[2019-02-18] MEDS: POTASSIUM CHLORIDE 20 MEQ TABLET.ER. PO SCH (12:06)
[2019-02-18] MEDS: OMEGA-3 FATTY ACIDS/FISH OIL 1,000 MG CAPSULE. PO SCH ×2 (12:06→18:05)
[2019-02-18] MEDS ORDERED: ANTI-COAG MONITOR BY PHARMACY. MC PRN (13:00)
[2019-02-18] MEDS ORDERED: guaiFENesin/CODEINE 100mg/10mg PO (13:34)
[2019-02-18] MEDS: guaiFENesin/CODEINE 100mg/10mg 5 ML LIQUID PO PRN (13:54)
--- NOTE | 2019-02-18 13:55 | PDOC ---
PROGRESS NOTES Chief Complaint Chief Complaint cough, burning pain, acute viral bronchitis, HTN urgency - s/p IV labetalol. Nausea, vomiting, and diarrhea - gastroenteritis. Hypokalemia - replaced Myalgias - viral Chest pain - bronchitis CAD - multiple stents with latest 02/2018 to RCA as above DM2 - uncontrolled. Will place on basal bolus plus regimen HLD - on atha. Will cont every monday COPD - with an acute exacerbation, will order nebs Pulmonary nodule - noted previously, counseled on f/u CT outpatient History of Present Illness History of Present Illness CV team has ordered echo, no ACS htn persists, with pulm complaint and cough, add codeine cough med cont current she is ambulatory, try to DC soon Vitals Vitals Vital Signs Date Time Temp Pulse Resp B/P (MAP) Pulse Ox O2 Delivery O2 Flow Rate FiO2 02/18/19 11:32 Room Air 02/18/19 11:00 98.1 76 16 187/103 (131) 96 98.1 Physical Exam General: Alert, Oriented X3, Cooperative, No acute distress Lungs: Clear, Other Abdomen: Normal bowel sounds, Soft, No tenderness, No hepatosplenomegaly, No masses Extremities: No clubbing, No cyanosis, No edema, Normal pulses, No tenderness/swelling Skin: No rashes, No breakdown, No significant lesion Labs LABS Laboratory Tests Test 02/17/19 15:00 02/17/19 16:14 02/17/19 18:45 02/17/19 19:45 Urine Collection Type Unknown Urine Color Yellow Urine Clarity Clear Urine pH 7.0 Urine Specific Ivel 1.025 Urine Protein 100 mg/dL (NEG-TRACE) Urine Glucose (UA) 500 mg/dL (NEG) Urine Ketones (Stick) 15 mg/dL (NEG) Urine Blood Moderate (NEG) Urine Nitrite Negative (NEG) Urine Bilirubin Small (NEG) Urine Urobilinogen Dipstick 1.0 mg/dL (0.2 mg/dL) Urine Leukocyte Esterase Small (NEG) Urine RBC Tntc /HPF (0-2) Urine WBC 5-10 /HPF (0-4) Urine Squamous Epithelial Cells Mod /LPF Urine Bacteria Few /HPF (0-FEW) Urine Mucus Mod /LPF Urine Opiates Screen Neg (NEG) Urine Methadone Screen Neg (NEG) Urine Barbiturates Neg (NEG) Urine Phencyclidine Screen Neg (NEG) Urine Amphetamine/Methamphetamine Neg (NEG) Urine Benzodiazepines Screen Neg (NEG) Urine Cocaine Screen Neg (NEG) Urine Cannabinoids Screen Pos (NEG) Urine Ethyl Alcohol Neg (NEG) Glucose (Fingerstick) 249 mg/dL (70-99) Troponin I Quantitative < 0.017 ng/mL (0.000-0.055) Influenza Type A Antigen Negative (NEGATIVE) Influenza Type B Antigen Negative (NEGATIVE) Test 02/17/19 20:25 02/17/19 21:10 02/18/19 04:00 02/18/19 04:40 Glucose (Fingerstick) 309 mg/dL (70-99) Heparin Anti-Xa Act, Unfractionated < 0.10 IU/mL (0.30-0.70) White Blood Count 10.2 x10^3/uL (4.0-11.0) Red Blood Count 4.55 x10^6/uL (3.50-5.40) Hemoglobin 14.8 g/dL (12.0-15.5) Hematocrit 42.7 % (36.0-47.0) Mean Corpuscular Volume 94 fL (79-100) Mean Corpuscular Hemoglobin 33 pg (25-35) Mean Corpuscular Hemoglobin Concent 35 g/dL (31-37) Red Cell Distribution Width 13.0 % (11.5-14.5) Platelet Count 364 x10^3/uL (140-400) Sodium Level 141 mmol/L (136-145) Potassium Level 3.2 mmol/L (3.5-5.1) Chloride Level 102 mmol/L (98-107) Carbon Dioxide Level 24 mmol/L (21-32) Anion Gap 15 (6-14) Blood Urea Nitrogen 7 mg/dL (7-20) Creatinine 0.7 mg/dL (0.6-1.0) Estimated GFR (Cockcroft-Gault) 104.0 Glucose Level 355 mg/dL (70-99) Calcium Level 9.7 mg/dL (8.5-10.1) Magnesium Level 2.3 mg/dL (1.8-2.4) Triglycerides Level 624 mg/dL (0-150) Cholesterol Level 298 mg/dL (0-200) LDL Cholesterol, Calculated mg/dL (0-100) VLDL Cholesterol, Calculated 125 mg/dL (0-40) Non-HDL Cholesterol Calculated 257 mg/dL (0-129) HDL Cholesterol 41 mg/dL (40-60) Cholesterol/HDL Ratio 7.3 Troponin I Quantitative < 0.017 ng/mL (0.000-0.055) Test 02/18/19 07:34 02/18/19 07:53 02/18/19 11:57 Heparin Anti-Xa Act, Unfractionated 0.12 IU/mL (0.30-0.70) Glucose (Fingerstick) 287 mg/dL (70-99) 209 mg/dL (70-99) Assessment and Plan Assessmemt and Plan Problems Medical Problems: (1) Chest pain Status: Acute (2) Hypokalemia Status: Acute (3) Nausea vomiting and diarrhea Status: Acute Comment Review of Relevant I have reviewed the following items jd (where applicable) has been applied. Labs Laboratory Tests Test 02/17/19 11:32 02/17/19 11:37 02/17/19 12:11 02/17/19 12:25 White Blood Count 10.7 x10^3/uL (4.0-11.0) Red Blood Count 4.78 x10^6/uL (3.50-5.40) Hemoglobin 15.7 g/dL (12.0-15.5) Hematocrit 44.7 % (36.0-47.0) Mean Corpuscular Volume 94 fL (79-100) Mean Corpuscular Hemoglobin 33 pg (25-35) Mean Corpuscular Hemoglobin Concent 35 g/dL (31-37) Red Cell Distribution Width 13.0 % (11.5-14.5) Platelet Count 392 x10^3/uL (140-400) Neutrophils (%) (Auto) 81 % (31-73) Lymphocytes (%) (Auto) 14 % (24-48) Monocytes (%) (Auto) 5 % (0-9) Eosinophils (%) (Auto) 1 % (0-3) Basophils (%) (Auto) 1 % (0-3) Neutrophils # (Auto) 8.6 x10^3/uL (1.8-7.7) Lymphocytes # (Auto) 1.5 x10^3/uL (1.0-4.8) Monocytes # (Auto) 0.5 x10^3/uL (0.0-1.1) Eosinophils # (Auto) 0.1 x10^3/uL (0.0-0.7) Basophils # (Auto) 0.1 x10^3/uL (0.0-0.2) Bedside Troponin I 0.00 ng/ml (<0.08) Sodium Level 141 mmol/L (136-145) Potassium Level 2.9 mmol/L (3.5-5.1) Chloride Level 101 mmol/L (98-107) Carbon Dioxide Level 26 mmol/L (21-32) Anion Gap 14 (6-14) Blood Urea Nitrogen 5 mg/dL (7-20) Creatinine 0.7 mg/dL (0.6-1.0) Estimated GFR (Cockcroft-Gault) 104.0 BUN/Creatinine Ratio 7 (6-20) Glucose Level 304 mg/dL (70-99) Calcium Level 9.7 mg/dL (8.5-10.1) Magnesium Level 1.8 mg/dL (1.8-2.4) Total Bilirubin 0.5 mg/dL (0.2-1.0) Aspartate Amino Transf (AST/SGOT) 20 U/L (15-37) Alanine Aminotransferase (ALT/SGPT) 21 U/L (14-59) Alkaline Phosphatase 88 U/L (46-116) Total Protein 7.5 g/dL (6.4-8.2) Albumin 3.7 g/dL (3.4-5.0) Albumin/Globulin Ratio 1.0 (1.0-1.7) Creatine Kinase 53 U/L (26-192) Creatine Kinase MB (Mass) 0.7 ng/mL (0.0-3.6) Creatine Kinase MB Relative Index % (0-4) Test 02/17/19 12:37 02/17/19 15:00 02/17/19 16:14 02/17/19 18:45 Prothrombin Time 13.3 SEC (11.7-14.0) Prothromb Time International Ratio 1.0 (0.8-1.1) Activated Partial Thromboplast Time 27 SEC (24-38) Troponin I Quantitative < 0.017 ng/mL (0.000-0.055) < 0.017 ng/mL (0.000-0.055) Urine Collection Type Unknown Urine Color Yellow Urine Clarity Clear Urine pH 7.0 Urine Specific Ivel 1.025 Urine Protein 100 mg/dL (NEG-TRACE) Urine Glucose (UA) 500 mg/dL (NEG) Urine Ketones (Stick) 15 mg/dL (NEG) Urine Blood Moderate (NEG) Urine Nitrite Negative (NEG) Urine Bilirubin Small (NEG) Urine Urobilinogen Dipstick 1.0 mg/dL (0.2 mg/dL) Urine Leukocyte Esterase Small (NEG) Urine RBC Tntc /HPF (0-2) Urine WBC 5-10 /HPF (0-4) Urine Squamous Epithelial Cells Mod /LPF Urine Bacteria Few /HPF (0-FEW) Urine Mucus Mod /LPF Urine Opiates Screen Neg (NEG) Urine Methadone Screen Neg (NEG) Urine Barbiturates Neg (NEG) Urine Phencyclidine Screen Neg (NEG) Urine Amphetamine/Methamphetamine Neg (NEG) Urine Benzodiazepines Screen Neg (NEG) Urine Cocaine Screen Neg (NEG) Urine Cannabinoids Screen Pos (NEG) Urine Ethyl Alcohol Neg (NEG) Glucose (Fingerstick) 249 mg/dL (70-99) Test 02/17/19 19:45 02/17/19 20:25 02/17/19 21:10 02/18/19 04:00 Influenza Type A Antigen Negative (NEGATIVE) Influenza Type B Antigen Negative (NEGATIVE) Glucose (Fingerstick) 309 mg/dL (70-99) Heparin Anti-Xa Act, Unfractionated < 0.10 IU/mL (0.30-0.70) White Blood Count 10.2 x10^3/uL (4.0-11.0) Red Blood Count 4.55 x10^6/uL (3.50-5.40) Hemoglobin 14.8 g/dL (12.0-15.5) Hematocrit 42.7 % (36.0-47.0) Mean Corpuscular Volume 94 fL (79-100) Mean Corpuscular Hemoglobin 33 pg (25-35) Mean Corpuscular Hemoglobin Concent 35 g/dL (31-37) Red Cell Distribution Width 13.0 % (11.5-14.5) Platelet Count 364 x10^3/uL (140-400) Sodium Level 141 mmol/L (136-145) Potassium Level 3.2 mmol/L (3.5-5.1) Chloride Level 102 mmol/L (98-107) Carbon Dioxide Level 24 mmol/L (21-32) Anion Gap 15 (6-14) Blood Urea Nitrogen 7 mg/dL (7-20) Creatinine 0.7 mg/dL (0.6-1.0) Estimated GFR (Cockcroft-Gault) 104.0 Glucose Level 355 mg/dL (70-99) Calcium Level 9.7 mg/dL (8.5-10.1) Magnesium Level 2.3 mg/dL (1.8-2.4) Triglycerides Level 624 mg/dL (0-150) Cholesterol Level 298 mg/dL (0-200) LDL Cholesterol, Calculated mg/dL (0-100) VLDL Cholesterol, Calculated 125 mg/dL (0-40) Non-HDL Cholesterol Calculated 257 mg/dL (0-129) HDL Cholesterol 41 mg/dL (40-60) Cholesterol/HDL Ratio 7.3 Test 02/18/19 04:40 02/18/19 07:34 02/18/19 07:53 02/18/19 11:57 Troponin I Quantitative < 0.017 ng/mL (0.000-0.055) Heparin Anti-Xa Act, Unfractionated 0.12 IU/mL (0.30-0.70) Glucose (Fingerstick) 287 mg/dL (70-99) 209 mg/dL (70-99) Laboratory Tests Test 02/17/19 15:00 02/17/19 16:14 02/17/19 18:45 02/17/19 19:45 Urine Collection Type Unknown Urine Color Yellow Urine Clarity Clear Urine pH 7.0 Urine Specific Ivel 1.025 Urine Protein 100 mg/dL (NEG-TRACE) Urine Glucose (UA) 500 mg/dL (NEG) Urine Ketones (Stick) 15 mg/dL (NEG) Urine Blood Moderate (NEG) Urine Nitrite Negative (NEG) Urine Bilirubin Small (NEG) Urine Urobilinogen Dipstick 1.0 mg/dL (0.2 mg/dL) Urine Leukocyte Esterase Small (NEG) Urine RBC Tntc /HPF (0-2) Urine WBC 5-10 /HPF (0-4) Urine Squamous Epithelial Cells Mod /LPF Urine Bacteria Few /HPF (0-FEW) Urine Mucus Mod /LPF Urine Opiates Screen Neg (NEG) Urine Methadone Screen Neg (NEG) Urine Barbiturates Neg (NEG) Urine Phencyclidine Screen Neg (NEG) Urine Amphetamine/Methamphetamine Neg (NEG) Urine Benzodiazepines Screen Neg (NEG) Urine Cocaine Screen Neg (NEG) Urine Cannabinoids Screen Pos (NEG) Urine Ethyl Alcohol Neg (NEG) Glucose (Fingerstick) 249 mg/dL (70-99) Troponin I Quantitative < 0.017 ng/mL (0.000-0.055) Influenza Type A Antigen Negative (NEGATIVE) Influenza Type B Antigen Negative (NEGATIVE) Test 02/17/19 20:25 02/17/19 21:10 02/18/19 04:00 02/18/19 04:40 Glucose (Fingerstick) 309 mg/dL (70-99) Heparin Anti-Xa Act, Unfractionated < 0.10 IU/mL (0.30-0.70) White Blood Count 10.2 x10^3/uL (4.0-11.0) Red Blood Count 4.55 x10^6/uL (3.50-5.40) Hemoglobin 14.8 g/dL (12.0-15.5) Hematocrit 42.7 % (36.0-47.0) Mean Corpuscular Volume 94 fL (79-100) Mean Corpuscular Hemoglobin 33 pg (25-35) Mean Corpuscular Hemoglobin Concent 35 g/dL (31-37) Red Cell Distribution Width 13.0 % (11.5-14.5) Platelet Count 364 x10^3/uL (140-400) Sodium Level 141 mmol/L (136-145) Potassium Level 3.2 mmol/L (3.5-5.1) Chloride Level 102 mmol/L (98-107) Carbon Dioxide Level 24 mmol/L (21-32) Anion Gap 15 (6-14) Blood Urea Nitrogen 7 mg/dL (7-20) Creatinine 0.7 mg/dL (0.6-1.0) Estimated GFR (Cockcroft-Gault) 104.0 Glucose Level 355 mg/dL (70-99) Calcium Level 9.7 mg/dL (8.5-10.1) Magnesium Level 2.3 mg/dL (1.8-2.4) Triglycerides Level 624 mg/dL (0-150) Cholesterol Level 298 mg/dL (0-200) LDL Cholesterol, Calculated mg/dL (0-100) VLDL Cholesterol, Calculated 125 mg/dL (0-40) Non-HDL Cholesterol Calculated 257 mg/dL (0-129) HDL Cholesterol 41 mg/dL (40-60) Cholesterol/HDL Ratio 7.3 Troponin I Quantitative < 0.017 ng/mL (0.000-0.055) Test 02/18/19 07:34 02/18/19 07:53 02/18/19 11:57 Heparin Anti-Xa Act, Unfractionated 0.12 IU/mL (0.30-0.70) Glucose (Fingerstick) 287 mg/dL (70-99) 209 mg/dL (70-99) Medications Current Medications Aspirin (Christina Aspirin) 325 mg 1X ONCE PO Last administered on 02/17/19 11:57; Start 02/17/19 at 11:30; Stop 02/17/19 at 11:36; Status DC Nitroglycerin (Nitrostat) 0.4 mg PRN Q5MIN PRN SL CHEST PAIN Last administered on 02/17/19at 13:05; Start 02/17/19 at 11:30 Albuterol Sulfate (Ventolin Neb Soln) 2.5 mg 1X ONCE NEB Last administered on 02/17/19at 11:44; Start 02/17/19 at 11:30; Stop 02/17/19 at 11:36; Status DC Ondansetron HCl (Zofran) 4 mg 1X ONCE IV Last administered on 02/17/19at 11:57; Start 02/17/19 at 11:30; Stop 02/17/19 at 11:36; Status DC Sodium Chloride 1,000 ml @ 1,000 mls/hr 1X ONCE IV Last administered on 02/17/19at 11:57; Start 02/17/19 at 11:30; Stop 02/17/19 at 12:29; Status DC Heparin Sodium/ Dextrose 500 ml @ 0 mls/hr CONT PRN IV PER PROTOCOL Last administered on 02/17/19at 13:35; Start 02/17/19 at 12:15 Heparin Sodium (Porcine) (Heparin Sodium) 1,950 unit PRN Q6HRS PRN IV FOR UFH LEVEL LESS THAN 0.2 Last administered on 02/18/19at 09:16; Start 02/17/19 at 12:15 Ondansetron HCl (Zofran) 4 mg PRN Q8HRS PRN IV NAUSEA/VOMITING; Start 02/17/19 at 13:15; Stop 02/17/19 at 16:44; Status DC Potassium Chloride/Water 100 ml @ 100 mls/hr Q1H IV Last administered on 02/17/19 18:32; Start 02/17/19 at 17:00; Stop 02/17/19 at 20:59; Status DC Labetalol HCl (Normodyne Iv Push) 10 mg PRN Q4HRS PRN IVP HYPERTENSION Last administered on 02/17/19 17:17; Start 02/17/19 at 16:45 Amlodipine Besylate (Norvasc) 10 mg DAILY PO Last administered on 02/18/19 09:02; Start 02/17/19 at 17:00 Aspirin (Christina Aspirin) 325 mg DAILY PO Last administered on 02/18/19 09:01; Start 02/18/19 at 09:00 Clopidogrel Bisulfate (Plavix) 75 mg DAILY PO Last administered on 02/18/19 09:01; Start 02/18/19 at 09:00 Gabapentin (Neurontin) 300 mg TID PO Last administered on 02/18/19 09:02; Start 02/17/19 at 21:00 Metoprolol Tartrate (Lopressor) 50 mg BID PO Last administered on 02/18/19 09:02; Start 02/17/19 at 21:00; Stop 02/18/19 at 13:28; Status DC Montelukast Sodium (Singulair) 10 mg QHS PO Last administered on 02/17/19 20:22; Start 02/17/19 at 21:00 Fish Oil (Fish Oil) 1,000 mg BIDAFTMEAL PO Last administered on 02/18/19 12:06; Start 02/17/19 at 18:00 Tramadol HCl (Ultram) 50 mg PRN Q6HRS PRN PO PAIN Last administered on 02/18/19 00:33; Start 02/17/19 at 16:45 Duloxetine HCl (Cymbalta) 60 mg DAILY PO Last administered on 02/18/19 09:01; Start 02/18/19 at 09:00 Non-Formulary Medication (Evolocumab (Repatha Syringe)) 140 mg Tu SQ ; Start 02/19/19 at 09:00; Status UNV Insulin Glargine (Lantus Syringe) 15 unit QHS SQ Last administered on 02/17/19 20:37; Start 02/17/19 at 21:00 Losartan Potassium (Cozaar) 100 mg DAILY PO Last administered on 02/18/19 09:03; Start 02/18/19 at 09:00 Pantoprazole Sodium (Protonix) 40 mg DAILYAC PO Last administered on 02/18/19 09:03; Start 02/18/19 at 07:30 Potassium Chloride (Klor-Con) 20 meq DAILYWBKFT PO Last administered on 02/18/19 12:06; Start 02/18/19 at 08:00 Atorvastatin Calcium (Lipitor) 80 mg QHS PO Last administered on 02/17/19 20:21; Start 02/17/19 at 21:00 Linagliptin (Tradjenta) 5 mg DAILY PO Last administered on 02/18/19 09:03; Start 02/18/19 at 09:00 Guaifenesin (Robitussin Dm) 10 ml PRN Q6HRS PRN PO COUGH Last administered on 02/18/19 09:07; Start 02/17/19 at 16:45 Magnesium Sulfate 50 ml @ 25 mls/hr 1X ONCE IV Last administered on 02/17/19 17:21; Start 02/17/19 at 17:00; Stop 02/17/19 at 18:59; Status DC Ondansetron HCl (Zofran) 4 mg PRN Q6HRS PRN IV NAUSEA/VOMITING Last administered on 02/17/19 20:45; Start 02/17/19 at 16:45 Albuterol/ Ipratropium (Duoneb) 3 ml RTQID NEB Last administered on 02/18/19 11:30; Start 02/17/19 at 20:00 Insulin Human Lispro (HumaLOG) 0-9 UNITS TIDACHC SQ Last administered on 02/18/19 09:16; Start 02/17/19 at 21:00 Dextrose (Dextrose 50%-Water Syringe) 12.5 gm PRN Q15MIN PRN IV SEE COMMENTS; Start 02/17/19 at 17:45 Morphine Sulfate (Morphine Sulfate) 2 mg PRN Q2HR PRN IV PAIN Last administered on 02/17/19at 20:23; Start 02/17/19 at 19:45 Hydralazine HCl (Apresoline Inj) 10 mg PRN Q4HRS PRN IVP ELEVATED BP, SEE COMMENTS Last administered on 02/17/19at 20:22; Start 02/17/19 at 19:45 Potassium Chloride (Klor-Con) 40 meq 1X ONCE PO Last administered on 02/18/19at 06:43; Start 02/18/19 at 06:30; Stop 02/18/19 at 06:37; Status DC Info (Anti-Coagulation Monitoring By Pharmacy) 1 each PRN DAILY PRN MC SEE COMMENTS; Start 02/18/19 at 13:00 Metoprolol Tartrate (Lopressor) 100 mg BID PO ; Start 02/18/19 at 14:00 Hydralazine HCl (Apresoline) 25 mg 1X ONCE PO ; Start 02/18/19 at 14:00; Stop 02/18/19 at 14:01 Guaifenesin/ Codeine Phosphate (Robitussin Ac) 10 ml PRN Q6HRS PRN PO COUGH; Start 02/18/19 at 13:45 Active Scripts Active [guaiFENesin/CODEINE 100mg/10mg] 5 ML Liquid 10 Ml PO PRN Q6HRS PRN Tramadol Hcl 50 Mg Tablet 50 Mg PO Q6HRS PRN Lantus Solostar (Insulin Glargine,Hum.rec.anlog) 100 Unit/1 Ml Insuln.pen 15 Units SQ QHS 7 Days Amlodipine Besylate 10 Mg Tablet 10 Mg PO DAILY 30 Days Metoprolol Tartrate 50 Mg Tablet 50 Mg PO BID 30 Days Fish Oil 1,000 Mg Capsule ([place]-3 Fatty Acids/Fish Oil) 1 Each Capsule 1,000 Mg PO BIDAFTMEAL 30 Days Losartan Potassium 100 Mg Tablet 100 Mg PO DAILY 30 Days Omeprazole 40 Mg Capsule.dr 1 Cap PO DAILY Crestor (Rosuvastatin Calcium) 40 Mg Tablet 40 Mg PO HS Januvia (Sitagliptin Phosphate) 100 Mg Tablet 1 Tab PO DAILY Aspirin 325 Mg Tablet 1 Tab PO DAILY Cymbalta (Duloxetine Hcl) 60 Mg Capsule.dr 1 Cap PO DAILY Reported Repatha Syringe (Evolocumab) 140 Mg/1 Ml Syringe 140 Mg SQ WEEKLY Gabapentin (Gabapentin) 300 Mg Capsule 300 Mg PO TID Tizanidine Hcl 4 Mg Tablet 4 Mg PO TID Clopidogrel (Clopidogrel Bisulfate) 75 Mg Tablet 75 Mg PO DAILY Metformin Hcl 1,000 Mg Tablet 1,000 Mg PO BIDWMEALS Potassium Chloride 20 Meq Tablet.er 20 Meq PO DAILY Take one daily while taking Lasix Lasix (Furosemide) 40 Mg Tablet 1 Tab PO DAILY 30 Days Montelukast Sodium Tablet (Montelukast Sodium) 10 Mg Tablet 1 Tab PO DAILY Vitals/I & O Vital Sign - Last 24 Hours 02/17/19 02/17/19 02/17/19 02/17/19 14:00 14:20 14:45 15:00 Temp 98.7 98.7 Pulse 94 96 85 Resp 15 15 16 B/P (MAP) 197/99 (131) 188/92 (124) 207/101 (136) Pulse Ox 94 96 92 O2 Delivery Room Air Room Air Room Air Room Air 02/17/19 02/17/19 02/17/19 02/17/19 17:15 17:16 17:17 17:30 Pulse 85 85 65 Resp 20 B/P (MAP) 225/105 225/105 212/105 (140) O2 Delivery Room Air Room Air 02/17/19 02/17/19 02/17/19 02/17/19 18:15 19:12 20:00 20:13 Temp 98.0 98.0 Pulse 79 82 Resp 20 20 B/P (MAP) 219/152 (174) 216/99 (138) Pulse Ox 92 94 O2 Delivery Room Air Room Air Room Air 02/17/19 02/17/19 02/17/19 02/17/19 20:22 20:22 20:23 20:53 Pulse 82 82 B/P (MAP) 216/99 216/99 Pulse Ox 94 94 O2 Delivery Room Air Room Air 02/17/19 02/18/19 02/18/19 02/18/19 22:14 00:33 01:33 02:38 Temp 98.0 98.1 98.0 98.1 Pulse 70 82 Resp 22 20 B/P (MAP) 161/53 (89) 178/88 (118) Pulse Ox 90 90 91 O2 Delivery Room Air Room Air Room Air Room Air 02/18/19 02/18/19 02/18/19 02/18/19 07:00 07:25 08:00 09:02 Temp 98.1 98.1 Pulse 80 80 Resp 16 B/P (MAP) 181/86 (117) 181/86 Pulse Ox 92 94 O2 Delivery Room Air Room Air Room Air 02/18/19 02/18/19 02/18/19 02/18/19 09:02 09:03 11:00 11:32 Temp 98.1 98.1 Pulse 80 80 76 Resp 16 B/P (MAP) 181/86 181/86 187/103 (131) Pulse Ox 96 O2 Delivery Room Air Room Air Intake and Output 02/17/19 02/17/19 02/18/19 14:59 22:59 06:59 Intake Total 505 ml 540 ml Output Total 250 ml 750 ml Balance 255 ml -210 ml CAROLYN CABRERA MD Feb 18, 2019 13:54
[2019-02-18] MEDS ORDERED: hydrALAZINE 25 MG TABLET PO ONE (14:00)
--- NOTE | 2019-02-18 14:23 | NUR ---
SS following for discharge planning. SS reviewed pt chart. Pt is from home and is currently on room air. Discharge order on the chart for home with self care.
--- NOTE | 2019-02-18 16:00 | PDOC3 ---
Discharge Summary Visit Information Date of Admission: Feb 17, 2019 Date of Discharge: Feb 18, 2019 Final Diagnosis cough, burning pain, acute viral bronchitis, HTN urgency - s/p IV labetalol. Nausea, vomiting, and diarrhea - gastroenteritis. Hypokalemia - replaced Myalgias - viral Chest pain - bronchitis CAD - multiple stents with latest 02/2018 to RCA as above DM2 - uncontrolled. Will place on basal bolus plus regimen HLD - on atha. Will cont every monday COPD - with an acute exacerbation, will order nebs Pulmonary nodule - noted previously, counseled on f/u CT outpatient Problems Medical Problems: (1) Chest pain Status: Acute (2) Hypokalemia Status: Acute (3) Nausea vomiting and diarrhea Status: Acute Brief Hospital Course Allergies Allergies Coded Allergies Type Severity Reaction Last Updated Verified No Known Drug Allergies 07/23/15 No Vital Signs Vital Signs Date Time Temp Pulse Resp B/P (MAP) Pulse Ox O2 Delivery O2 Flow Rate FiO2 02/18/19 14:11 80 177/85 02/18/19 11:32 Room Air 02/18/19 11:00 98.1 16 96 98.1 Lab Results Laboratory Tests Test 02/17/19 11:32 02/17/19 11:37 02/17/19 12:11 02/17/19 12:25 White Blood Count 10.7 x10^3/uL (4.0-11.0) Red Blood Count 4.78 x10^6/uL (3.50-5.40) Hemoglobin 15.7 g/dL (12.0-15.5) Hematocrit 44.7 % (36.0-47.0) Mean Corpuscular Volume 94 fL (79-100) Mean Corpuscular Hemoglobin 33 pg (25-35) Mean Corpuscular Hemoglobin Concent 35 g/dL (31-37) Red Cell Distribution Width 13.0 % (11.5-14.5) Platelet Count 392 x10^3/uL (140-400) Neutrophils (%) (Auto) 81 % (31-73) Lymphocytes (%) (Auto) 14 % (24-48) Monocytes (%) (Auto) 5 % (0-9) Eosinophils (%) (Auto) 1 % (0-3) Basophils (%) (Auto) 1 % (0-3) Neutrophils # (Auto) 8.6 x10^3/uL (1.8-7.7) Lymphocytes # (Auto) 1.5 x10^3/uL (1.0-4.8) Monocytes # (Auto) 0.5 x10^3/uL (0.0-1.1) Eosinophils # (Auto) 0.1 x10^3/uL (0.0-0.7) Basophils # (Auto) 0.1 x10^3/uL (0.0-0.2) Bedside Troponin I 0.00 ng/ml (<0.08) Sodium Level 141 mmol/L (136-145) Potassium Level 2.9 mmol/L (3.5-5.1) Chloride Level 101 mmol/L (98-107) Carbon Dioxide Level 26 mmol/L (21-32) Anion Gap 14 (6-14) Blood Urea Nitrogen 5 mg/dL (7-20) Creatinine 0.7 mg/dL (0.6-1.0) Estimated GFR (Cockcroft-Gault) 104.0 BUN/Creatinine Ratio 7 (6-20) Glucose Level 304 mg/dL (70-99) Calcium Level 9.7 mg/dL (8.5-10.1) Magnesium Level 1.8 mg/dL (1.8-2.4) Total Bilirubin 0.5 mg/dL (0.2-1.0) Aspartate Amino Transf (AST/SGOT) 20 U/L (15-37) Alanine Aminotransferase (ALT/SGPT) 21 U/L (14-59) Alkaline Phosphatase 88 U/L (46-116) Total Protein 7.5 g/dL (6.4-8.2) Albumin 3.7 g/dL (3.4-5.0) Albumin/Globulin Ratio 1.0 (1.0-1.7) Creatine Kinase 53 U/L (26-192) Creatine Kinase MB (Mass) 0.7 ng/mL (0.0-3.6) Creatine Kinase MB Relative Index % (0-4) Test 02/17/19 12:37 02/17/19 15:00 02/17/19 16:14 02/17/19 18:45 Prothrombin Time 13.3 SEC (11.7-14.0) Prothromb Time International Ratio 1.0 (0.8-1.1) Activated Partial Thromboplast Time 27 SEC (24-38) Troponin I Quantitative < 0.017 ng/mL (0.000-0.055) < 0.017 ng/mL (0.000-0.055) Urine Collection Type Unknown Urine Color Yellow Urine Clarity Clear Urine pH 7.0 Urine Specific [place] 1.025 Urine Protein 100 mg/dL (NEG-TRACE) Urine Glucose (UA) 500 mg/dL (NEG) Urine Ketones (Stick) 15 mg/dL (NEG) Urine Blood Moderate (NEG) Urine Nitrite Negative (NEG) Urine Bilirubin Small (NEG) Urine Urobilinogen Dipstick 1.0 mg/dL (0.2 mg/dL) Urine Leukocyte Esterase Small (NEG) Urine RBC Tntc /HPF (0-2) Urine WBC 5-10 /HPF (0-4) Urine Squamous Epithelial Cells Mod /LPF Urine Bacteria Few /HPF (0-FEW) Urine Mucus Mod /LPF Urine Opiates Screen Neg (NEG) Urine Methadone Screen Neg (NEG) Urine Barbiturates Neg (NEG) Urine Phencyclidine Screen Neg (NEG) Urine Amphetamine/Methamphetamine Neg (NEG) Urine Benzodiazepines Screen Neg (NEG) Urine Cocaine Screen Neg (NEG) Urine Cannabinoids Screen Pos (NEG) Urine Ethyl Alcohol Neg (NEG) Glucose (Fingerstick) 249 mg/dL (70-99) Test 02/17/19 19:45 02/17/19 20:25 02/17/19 21:10 02/18/19 04:00 Influenza Type A Antigen Negative (NEGATIVE) Influenza Type B Antigen Negative (NEGATIVE) Glucose (Fingerstick) 309 mg/dL (70-99) Heparin Anti-Xa Act, Unfractionated < 0.10 IU/mL (0.30-0.70) White Blood Count 10.2 x10^3/uL (4.0-11.0) Red Blood Count 4.55 x10^6/uL (3.50-5.40) Hemoglobin 14.8 g/dL (12.0-15.5) Hematocrit 42.7 % (36.0-47.0) Mean Corpuscular Volume 94 fL (79-100) Mean Corpuscular Hemoglobin 33 pg (25-35) Mean Corpuscular Hemoglobin Concent 35 g/dL (31-37) Red Cell Distribution Width 13.0 % (11.5-14.5) Platelet Count 364 x10^3/uL (140-400) Sodium Level 141 mmol/L (136-145) Potassium Level 3.2 mmol/L (3.5-5.1) Chloride Level 102 mmol/L (98-107) Carbon Dioxide Level 24 mmol/L (21-32) Anion Gap 15 (6-14) Blood Urea Nitrogen 7 mg/dL (7-20) Creatinine 0.7 mg/dL (0.6-1.0) Estimated GFR (Cockcroft-Gault) 104.0 Glucose Level 355 mg/dL (70-99) Calcium Level 9.7 mg/dL (8.5-10.1) Magnesium Level 2.3 mg/dL (1.8-2.4) Triglycerides Level 624 mg/dL (0-150) Cholesterol Level 298 mg/dL (0-200) LDL Cholesterol, Calculated mg/dL (0-100) VLDL Cholesterol, Calculated 125 mg/dL (0-40) Non-HDL Cholesterol Calculated 257 mg/dL (0-129) HDL Cholesterol 41 mg/dL (40-60) Cholesterol/HDL Ratio 7.3 Test 02/18/19 04:40 02/18/19 07:34 02/18/19 07:53 02/18/19 11:57 Troponin I Quantitative < 0.017 ng/mL (0.000-0.055) Heparin Anti-Xa Act, Unfractionated 0.12 IU/mL (0.30-0.70) Glucose (Fingerstick) 287 mg/dL (70-99) 209 mg/dL (70-99) Laboratory Tests Test 02/17/19 16:14 02/17/19 18:45 02/17/19 19:45 02/17/19 20:25 Glucose (Fingerstick) 249 mg/dL (70-99) 309 mg/dL (70-99) Troponin I Quantitative < 0.017 ng/mL (0.000-0.055) Influenza Type A Antigen Negative (NEGATIVE) Influenza Type B Antigen Negative (NEGATIVE) Test 02/17/19 21:10 02/18/19 04:00 02/18/19 04:40 02/18/19 07:34 Heparin Anti-Xa Act, Unfractionated < 0.10 IU/mL (0.30-0.70) 0.12 IU/mL (0.30-0.70) White Blood Count 10.2 x10^3/uL (4.0-11.0) Red Blood Count 4.55 x10^6/uL (3.50-5.40) Hemoglobin 14.8 g/dL (12.0-15.5) Hematocrit 42.7 % (36.0-47.0) Mean Corpuscular Volume 94 fL (79-100) Mean Corpuscular Hemoglobin 33 pg (25-35) Mean Corpuscular Hemoglobin Concent 35 g/dL (31-37) Red Cell Distribution Width 13.0 % (11.5-14.5) Platelet Count 364 x10^3/uL (140-400) Sodium Level 141 mmol/L (136-145) Potassium Level 3.2 mmol/L (3.5-5.1) Chloride Level 102 mmol/L (98-107) Carbon Dioxide Level 24 mmol/L (21-32) Anion Gap 15 (6-14) Blood Urea Nitrogen 7 mg/dL (7-20) Creatinine 0.7 mg/dL (0.6-1.0) Estimated GFR (Cockcroft-Gault) 104.0 Glucose Level 355 mg/dL (70-99) Calcium Level 9.7 mg/dL (8.5-10.1) Magnesium Level 2.3 mg/dL (1.8-2.4) Triglycerides Level 624 mg/dL (0-150) Cholesterol Level 298 mg/dL (0-200) LDL Cholesterol, Calculated mg/dL (0-100) VLDL Cholesterol, Calculated 125 mg/dL (0-40) Non-HDL Cholesterol Calculated 257 mg/dL (0-129) HDL Cholesterol 41 mg/dL (40-60) Cholesterol/HDL Ratio 7.3 Troponin I Quantitative < 0.017 ng/mL (0.000-0.055) Test 02/18/19 07:53 02/18/19 11:57 Glucose (Fingerstick) 287 mg/dL (70-99) 209 mg/dL (70-99) Brief Hospital Course Ms. Reed is a 58 old female, admit with new cough, burning chest pain, severe chest pain with cough, better with more aggresive anti-tussives CV team has ordered echo, no ACS htn persists, with pulm complaint and cough, add codeine cough med Discharge Information Condition at Discharge: Improved Follow Up: Weeks Disposition/Orders: D/C to Home Scheduled Amlodipine Besylate (Amlodipine Besylate) 10 Mg Tablet, 10 MG PO DAILY for 30 Days, #30 Prescribed by: DELFIN RODAS on 02/21/18 1151 Last Action: Continued on 02/17/191642 by KAELA CRAFT MD Aspirin (Aspirin) 325 Mg Tablet, 1 TAB PO DAILY, #30 Ref 5 Prescribed by: CAROLYN CABRERA on 06/11/16 1025 Last Action: Continued on 02/17/191642 by KAELA CRAFT MD Clopidogrel Bisulfate (Clopidogrel) 75 Mg Tablet, 75 MG PO DAILY for TO PREVENT BLOOD CLOTS, #30 Ref 0 (Reported) Entered as Reported by: KAYLAN ZAVALETA on 02/19/181817 Last Action: Continued on 02/17/191642 by KAELA CRAFT MD Duloxetine Hcl (Cymbalta) 60 Mg Capsule.dr, 1 CAP PO DAILY, #30 Ref 3 Prescribed by: CAROLYN CABRREA on 06/11/16 1025 Last Action: Converted on 02/17/191642 by KAELA CRAFT MD Evolocumab (Repatha Syringe) 140 Mg/1 Ml Syringe, 140 MG SQ WEEKLY, (Reported) Entered as Reported by: Juan Pablo Benson on 02/20/182053 Last Action: Converted on 02/17/191642 by KAELA CRAFT MD Furosemide (Lasix) 40 Mg Tablet, 1 TAB PO DAILY for 30 Days, #30 Ref 1 (Reported) Entered as Reported by: ALVA GOMES on 03/20/171543 Gabapentin (Gabapentin ) 300 Mg Capsule, 300 MG PO TID, (Reported) Entered as Reported by: KAYLAN ZAVALETA on 02/19/181817 Last Action: Continued on 02/17/191642 by KAELA CRAFT MD Insulin Glargine,Hum.rec.anlog (Lantus Solostar) 100 Unit/1 Ml Insuln.pen, 15 UNITS SQ QHS for 7 Days Prescribed by: DELFIN RODAS on 02/21/18 115 Last Action: Converted on 02/17/191642 by KAELA CRAFT MD Losartan Potassium (Losartan Potassium) 100 Mg Tablet, 100 MG PO DAILY for 30 Days, #30 Ref 1 Prescribed by: DELFIN RODAS on 02/21/181150 Last Action: Converted on 02/17/191642 by KAELA CRAFT MD Metformin Hcl (Metformin Hcl) 1,000 Mg Tablet, 1,000 MG PO BIDWMEALS, (Reported) Entered as Reported by: KAYLAN AZVALETA on 02/19/188 Metoprolol Tartrate (Metoprolol Tartrate) 50 Mg Tablet, 50 MG PO BID for 30 Days, #60 Prescribed by: DELFIN RODAS on 02/21/18 115 Last Action: Continued on 02/17/191642 by KAELA CRAFT MD Montelukast Sodium (Montelukast Sodium Tablet ) 10 Mg Tablet, 1 TAB PO DAILY, #30 Ref 5 (Reported) Entered as Reported by: SALENA SOW on 07/23/15 1317 Last Action: Continued on 02/17/191642 by KAELA CRAFT MD [place]-3 Fatty Acids/Fish Oil (Fish Oil 1,000 Mg Capsule) 1 Each Capsule, 1,000 MG PO BIDAFTMEAL for 30 Days Prescribed by: DELFIN RODAS on 02/21/18 115 Last Action: Continued on 02/17/191642 by KAELA CRAFT MD Omeprazole (Omeprazole) 40 Mg Capsule.dr, 1 CAP PO DAILY, #30 Ref 3 Prescribed by: CAROLYN CABRERA on 06/11/16 1025 Last Action: Converted on 02/17/191642 by KAELA CRAFT MD Potassium Chloride (Potassium Chloride) 20 Meq Tablet.er, 20 MEQ PO DAILY, #30 Ref 1 (Reported) Take one daily while taking Lasix Entered as Reported by: ALVA GOMES on 03/20/17 1544 Last Action: Converted on 02/17/191642 by KAELA CRAFT MD Rosuvastatin Calcium (Crestor) 40 Mg Tablet, 40 MG PO HS for FOR CHOLESTEROL, #30 Ref 1 Prescribed by: CAROLYN CABRERA on 06/11/16 1025 Last Action: Converted on 02/17/191642 by KAELA CRAFT MD Sitagliptin Phosphate (Januvia) 100 Mg Tablet, 1 TAB PO DAILY, #30 Ref 5 Prescribed by: CRAOLYN CABRERA on 06/11/16 1025 Last Action: Converted on 02/17/191642 by KAELA CRAFT MD Tizanidine Hcl (Tizanidine Hcl) 4 Mg Tablet, 4 MG PO TID, (Reported) Entered as Reported by: KAYLAN ZAVALETA on 02/19/18 1818 Scheduled PRN Tramadol Hcl (Tramadol Hcl) 50 Mg Tablet, 50 MG PO Q6HRS PRN for PAIN, #10 Prescribed by: DEYA COLLIER APRN on 05/27/18 1846 Last Action: Continued on 02/17/191642 by KAELA CRAFT MD [guaiFENesin/CODEINE 100mg/10mg] 5 ML LIQUID, 10 ML PO PRN Q6HRS PRN for COUGH, #60 Prescribed by: CAROLYN CABRERA on 02/18/19 1334 Patient Instructions Patient Instructions > 30 mn face to face CAROLYN CABRERA MD Feb 18, 2019 16:00
[2019-02-18 19:44] VITALS: BP 139/87
[2019-02-18] MEDS: MONTELUKAST SODIUM 10 MG TABLET. PO SCH (21:16)
[2019-02-18] MEDS: ATORVASTATIN CALCIUM 40 MG TABLET. PO SCH (21:16)
[2019-02-18] MEDS: INSULIN GLARGINE SYRINGE. SQ SCH (21:25)
[2019-02-18 23:05] VITALS: BP 140/88
[2019-02-19] MEDS: guaiFENesin/CODEINE 100mg/10mg 5 ML LIQUID PO PRN ×3 (01:50→16:11)
[2019-02-19 02:28] VITALS: BP 141/67
[2019-02-19 07:00] VITALS: BP 174/80
[2019-02-19] MEDS: IPRATRPIUM/ALBUTEROL 0.5/2.5MG 3 ML NEBU. NEB SCH ×3 (08:03→15:42)
[2019-02-19] MEDS: CLOPIDOGREL BISULFATE 75 MG TABLET PO SCH (08:47)
[2019-02-19] MEDS: METOPROLOL TART IMMED RELEASE 50 MG TABLET. PO SCH (08:47)
[2019-02-19] MEDS: ASPIRIN 325 MG TABLET PO SCH (08:47)
[2019-02-19] MEDS: LOSARTAN POTASSIUM 50 MG TABLET. PO SCH (08:47)
[2019-02-19] MEDS: LINAGLIPTIN 5 MG TABLET PO SCH (08:47)
[2019-02-19] MEDS: OMEGA-3 FATTY ACIDS/FISH OIL 1,000 MG CAPSULE. PO SCH (08:47)
[2019-02-19] MEDS: GABAPENTIN 300 MG CAPSULE. PO SCH ×2 (08:47→12:52)
[2019-02-19] MEDS: POTASSIUM CHLORIDE 20 MEQ TABLET.ER. PO SCH (08:48)
[2019-02-19] MEDS: PANTOPRAZOLE 40 MG TABLET.DR. PO SCH (08:48)
[2019-02-19] MEDS: DULoxetine HCL 30 MG CAPSULE.DR PO SCH (08:48)
[2019-02-19] MEDS: amLODIPine BESYLATE 10 MG TABLET PO SCH (08:48)
[2019-02-19] MEDS: INSULIN LISPRO 300 UNITS/3 ML VIAL. SQ SCH ×2 (08:53→12:56)
[2019-02-19] MEDS ORDERED: FLU VAX QS 2019-20 (36MOS+)/PF 0.5 ML SYRINGE. VAX IM ONE (09:00)
[2019-02-19] MEDS ORDERED: EVOLOCUMAB 140 MG SQ SCH (09:00)
[2019-02-19] MEDS ORDERED: ACETAMINOPHEN 325 MG TABLET. PO PRN (10:30)
[2019-02-19 11:00] VITALS: BP 155/72
--- NOTE | 2019-02-19 11:22 | PDOC ---
[employer] [facility] PROGRESS NOTE Chief Complaint Chief Complaint Cough HTN urgency Nausea, vomiting, and diarrhea Hypokalemia Myalgias Chest pain CAD DM2 HLD COPD Pulmonary nodule History of Present Illness History of Present Illness 02/19/19 Pt seen and examined Pt was wheezing and coughing throughout our visit this morning She has been feeling better and was consulted with pulm and they are fine with discharging and managing her respiratory conditions outpatient EF = 60% DW RN CV team has ordered echo, no ACS htn persists, with pulm complaint and cough, add codeine cough med cont current she is ambulatory, try to DC soon Vitals/I&O Vitals/I&O: Vital Signs Date Time Temp Pulse Resp B/P (MAP) Pulse Ox O2 Delivery O2 Flow Rate FiO2 02/19/19 11:00 97.8 57 16 155/72 (99) 94 Room Air 97.8 I & O 02/18/19 02/18/19 02/19/19 15:00 23:00 07:00 Intake Total 475 ml 300 ml 800 ml Output Total 250 ml Balance 225 ml 300 ml 800 ml Physical Exam General: Alert, Oriented X3, Cooperative, No acute distress Heart: Regular rate, Normal S1, Normal S2 Lungs: Clear, Other Abdomen: Soft, No tenderness Extremities: No edema, Normal pulses Skin: No significant lesion Labs Labs: Laboratory Tests Test 02/18/19 11:57 02/18/19 17:14 02/18/19 21:21 02/19/19 07:28 Glucose (Fingerstick) 209 mg/dL (70-99) 168 mg/dL (70-99) 208 mg/dL (70-99) 174 mg/dL (70-99) Review of Systems Review of Systems: Denies n/v/d Denies chest pain Assessment and Plan Assessmemt and Plan Problems Medical Problems: (1) Chest pain Status: Acute (2) Hypokalemia Status: Acute (3) Nausea vomiting and diarrhea Status: Acute Assessment Chest pain Hypokalemia N/v/d Htn CAD DM2 COPD Plan Outpatient follow up Cardiac monitoring ADA diet DVT prophylaxis Full code Discharge okyudy gibson pulm Comment Review of Relevant I have reviewed the following items jd (where applicable) has been applied. Medications: Current Medications Medications (Trade) Dose Ordered Sig/Carlton Route PRN Reason Start Time Stop Time Status Last Admin Dose Admin Metoprolol Tartrate (Lopressor) 100 mg BID PO 02/18/19 14:00 02/19/19 08:47 Hydralazine HCl (Apresoline) 25 mg 1X ONCE PO 02/18/19 14:00 02/18/19 14:01 DC 02/18/19 14:11 Guaifenesin/ Codeine Phosphate (Robitussin Ac) 10 ml PRN Q6HRS PRN PO COUGH 02/18/19 13:45 02/19/19 08:45 Influenza Virus Vaccine Quadrival (Afluria Quad 2018- (3yr Up) Syringe) 0.5 ml ONCE ONCE VAX IM 02/19/19 09:00 02/19/19 09:01 DC 02/19/19 10:18 Acetaminophen (Tylenol) 650 mg PRN Q6HRS PRN PO PAIN 02/19/19 10:30 02/19/19 10:51 MARLENE HINSON III DO Feb 19, 2019 11:22
--- NOTE | 2019-02-19 14:02 | CARD ---
MR#: [id number] Date of Study: 02/19/2019 Ordering Physician: KALEB KERNS, Referring Physician: KALEB KERNS, Tech: Terri Krause APPROVED REPORT EXAM: Two-dimensional and M-mode echocardiogram with Doppler and color Doppler. Other Information Quality : AverageHR: 58bpm INDICATION COPD Cardiac Disease: CAD Chest Pain RISK FACTORS Smoking 2D DIMENSIONS Left Atrium(2D)3.4 (1.6-4.0cm)IVSd1.9 (0.7-1.1cm) Aortic Root(2D)3.4 (2.0-3.7cm)LVDd5.0 (3.9-5.9cm) LVOT Diameter2.1 (1.8-2.4cm)PWd1.3 (0.7-1.1cm) LVDs3.1 (2.5-4.0cm)LVEF(%)75.0 (>50%) Aortic Valve AoV Peak Irvin.123.0cm/sAoV VTI26.9cm AO Peak GR.6.0mmHgLVOT Peak Irvin.105.8cm/s LVOT VTI 23.43cmAO Mean GR.4mmHg Mitral Valve MV E Qxkfyfez16.5cm/sMV DECEL [id number] MV A Iudkozte16.9cm/sMV [id number] E/A Ratio0.9MVA (PHT)2.95cm2 TDI E/Lateral E'9.7E/Medial E'10.7 Pulmonary Valve PV Peak Yyeijiaw66.1cm/sPV Peak Grad.3mmHg Tricuspid Valve TR P. Iknioujk229he/sTR Peak Gr.21mmHg Pulmonary Vein S1 Codtmnqk14.2cm/sD2 Jczossid67.7cm/s PVa [id number] LEFT VENTRICLE The left ventricle is normal size. There is moderate to severe concentric left ventricular hypertroph y. The left ventricular systolic function is normal and the ejection fraction is within normal range. The Ejection Fraction is >55%. There is normal LV segmental wall motion. Transmitral Doppler flow pa ttern is Grade I-abnormal relaxation pattern. RIGHT VENTRICLE The right ventricle is normal size. There is normal right ventricular wall thickness. The right ventr icular systolic function is normal. ATRIA The left atrium size is normal. The right atrium size is normal. The interatrial septum is intact wit h no evidence for an atrial septal defect or patent foramen ovale as noted on 2-D or Doppler imaging. AORTIC VALVE The aortic valve is thickened but opens well. Doppler and Color Flow revealed no significant aortic r egurgitation. There is no significant aortic valvular stenosis. MITRAL VALVE The mitral valve is normal in structure and function. There is no evidence of mitral valve prolapse. There is no mitral valve stenosis. Doppler and Color-flow revealed trace mitral regurgitation. TRICUSPID VALVE The tricuspid valve is normal in structure and function. Doppler and Color Flow revealed trace tricus pid regurgitation with an estimated PAP of 25 mmHg. There is no tricuspid valve stenosis. PULMONIC VALVE The pulmonic valve is not well visualized. Doppler and Color Flow revealed no pulmonic valvular regur gitation. There is no pulmonic valvular stenosis. GREAT VESSELS The aortic root is normal in size. The IVC is normal in size and collapses >50% with inspiration. PERICARDIAL EFFUSION There is no evidence of significant pericardial effusion. Critical Notification Critical Value: No <Conclusion> There is moderate to severe concentric left ventricular hypertrophy. The left ventricular systolic function is normal and the ejection fraction is within normal range. Th e Ejection Fraction is >55%. There is normal LV segmental wall motion. Signed by : Servando Alegre, Electronically Approved : 02/19/2019 14:02:27
[2019-02-19 15:20] VITALS: BP 131/74
[2019-02-19] MEDS ORDERED: METO100T7 PO (15:37)
--- NOTE | 2019-02-19 16:28 | NUR ---
Discharge Note: JOSIAH TRAORE [address] Discharge instructions and discharge home medications reviewed with Patient and a copy given. All questions have been answered and understanding verbalized.
--- NOTE | 2019-02-22 08:56 | DS ---
DATE OF DISCHARGE: 02/19/2019 ADMISSION DIAGNOSIS: Chest pain. DISCHARGE DIAGNOSES: Resolving atypical chest pain with bronchitis, resolving hypokalemia, and resolving nausea and vomiting. HOSPITAL COURSE: The patient is a pleasant 59-year-old female who presented with chest pain. She was also noted to be hypokalemic and had some nausea and vomiting. We did consult Pulmonary and Cardiology. Did serial enzymes, serial EKGs, and cardiac monitoring. We gave her IV antibiotics for her bronchitis. Over the next few days, she improved. We discharged to home with close outpatient followup. DISPOSITION: Home. ACTIVITY: As tolerated. DIET: Low sodium. MEDICATIONS: Please see the MRAD. TOTAL TIME: 33 minutes. MARLENE HINSON DO DR: LETI/saul JOB#: [id number] / [id number]
== END 2019-02-19 16:41 | disposition home or self-care (01) | DRG 641 ==
LOC: ER 11:14 → 2 SOUTH 13:04
PROVIDERS: ADMIT Internal Medicine; ATTEND Internal Medicine
DX: E87.6 Hypokalemia (principal); J44.1 Chronic obstructive pulmonary disease with (acute) exacerbation; J44.0 Chronic obstructive pulmonary disease with (acute) lower respiratory infection; J20.8 Acute bronchitis due to other specified organisms; I16.0 Hypertensive urgency; K52.9 Noninfective gastroenteritis and colitis, unspecified; E11.65 Type 2 diabetes mellitus with hyperglycemia; E78.00 Pure hypercholesterolemia, unspecified; E78.5 Hyperlipidemia, unspecified; F12.90 Cannabis use, unspecified, uncomplicated; F41.9 Anxiety disorder, unspecified; G89.29 Other chronic pain; I10 Essential (primary) hypertension; I25.10 Atherosclerotic heart disease of native coronary artery without angina pectoris; I25.2 Old myocardial infarction; K21.9 Gastro-esophageal reflux disease without esophagitis; Z79.02 Long term (current) use of antithrombotics/antiplatelets; Z82.49 Family history of ischemic heart disease and other diseases of the circulatory system; Z83.3 Family history of diabetes mellitus; Z87.891 Personal history of nicotine dependence; Z95.5 Presence of coronary angioplasty implant and graft; M19.90 Unspecified osteoarthritis, unspecified site
CPT/HCPCS: 36415; 71045; 80048; 80053; 80061; 80307; 81001; 82553; 82962; 83735; 84484; 85025; 85027; 85520; 85610; 85730; 87086; 87804; 90471; 90686; 93005; 93306; 94640; 94760; 96361; 96365; 96375; J0360; J1644; J1815; J2270; J2405; J3475; J3480; J3490; J7030; J7613; J7620; 99285-25; G0378

== ENCOUNTER → 2019-02-25 | Outpatient (CLI) | payer MEDICARE, MEDICAID ==
[2019-02-19 15:20] VITALS: BP 131/74
[~2019-02-25] MED LIST changes: +METO100T7 PO; +REGADENOSON 0.4 MG/5 ML DISP.SYRIN. IV ONE; +guaiFENesin/CODEINE 100mg/10mg PO
--- NOTE | 2019-02-25 14:28 | RAD ---
MR#: [id number] Date of Study: 02/25/2019 Ordering Physician: BLANCA CANALES, Referring Physician: LASHELL LOMBARDI Tech: BURAK Coleman, ERLIN (R) (N) APPROVED REPORT Test Type: Pharmacological Stress Nurse/Tech: Casie Thacker R.N. Test Indications: CAD Cardiac History: MN, stents,HTN, asthma Medications: See Electronic Medical Record Medical History: See Electronic Medical Record Resting ECG: SB w/ inverted T waves in leads AVL, V2. very slight elevation in AVR. ST depressi on in leads II,III, AVF, V4-V6 Resting Heart Rate: 57 bpm Resting Blood Pressure: 201/94mmHg Pretest Chest Pain: No chest pain Nurse/Tech Notes S1S2, lungs- wheezing throughout. congested cough. pt states that she is just getting over Bronchitis . Consent: The procedure was explained to the patient in lay terms. Informed consent was witnessed. Francisco eout was entered into [facility]. History and Stress Test performed by RT Bo YoR) (N) Pharm. Details Pharmacologic stress testing was performed using 0.4mg per 5ml of regadenoson given intravenously ove r 7-10 seconds. Stress Symptoms SOB, diaphoretic, nausea POST EXERCISE Reason for Termination: Infusion complete Max HR: 84 bpm Max Blood Pressure: 195/94mmHg Blood Pressure response to exercise: Normal blood pressure response during stress. Heart Rate response to exercise: wnl Chest Pain: No. Arrhythmia: No. ST Change: Yes. above noted abnormal ST changes deepened INTERPRETATION Stress EKG Conclusion: SR with LVH and repolarization. Imaging Protocol IMAGE PROTOCOL: Rest Tc-99m/stress Tc-99m 1 day Rest: Stress: Viability: Radiopharm.Tc99m CqjigirdbCm99n Sestamibi Ttte00aGz 32mCi Img Date 02/25/2019 02/25/2019 Inj-Img Urpu12wyg. 60min. Rest Admin Site:IV - Left AntecubitalAdministrator:RT Bo YoR)(N) Stress Admin Site: IV - Left AntecubitalAdministrator: Fortino Ling, RT (R)(N) STRESS DATA End Diast. Vol.93.0mlLVEDV index BSA50.0ml End Syst. Vol.31.0mlLVESV index BSA17.0ml Myocardial Xzlv298.0gEject. Fernxenk49.0% Stress Scores Regional WT1.00Summed WT14.00 Regional WM0.00Summed WM1.00 The rest and stress images show normal perfusion, normal contraction and thickening. LV Perf. Quant 17 Seg. SSS0.00 17 Seg. SRS0.00 17 Seg. SDS0.00 Stress Defect Extent (% LAD)0.00Rest Defect Extent (% LAD)0.00Rev. Defect Extent (% LAD)0.00 Stress Defect Extent (% LCX) 0.00Rest Defect Extent (% LCX)0.00Rev. Defect Extent (% LCX)0.00 Stress Defect Extent (% RCA)0.00Rest Defect Extent (% RCA)0.00Rev. Defect Extent (% RCA)0.00 Stress Defect Extent (% JONATHAN)0.00Rest Defect Extent (% JONATHAN)0.00Rev. Defect Extent (% JONATHAN)0.00 Other Information Quality:Average Risk Assessment: Low Risk Conclusion 1. No evidence of EKG changes with stress testing. Baseline EKG with SR and LVH with repolarization c hanges 2. Normal perfusion at stress/rest. 3. Low risk study. 4. EF > 60%. Signed by : Servando Alegre, Electronically Approved : 02/25/2019 14:28:01
== END | disposition home or self-care (01) ==
LOC: NM 08:14
PROVIDERS: ATTEND Internal Medicine Cardiovascular Disease
DX: I25.10 Atherosclerotic heart disease of native coronary artery without angina pectoris (principal); I10 Essential (primary) hypertension; J45.909 Unspecified asthma, uncomplicated; I25.2 Old myocardial infarction; Z95.5 Presence of coronary angioplasty implant and graft
CPT/HCPCS: 78452; 93017; A9500; J2785

== ENCOUNTER 2019-11-13 12:42 | Inpatient (IN) | payer MEDICARE, MEDICAID ==
[~2019-11-13] VITALS: Ht 170.2 cm; Wt 76.5 kg
[~2019-11-13 12:42] MED LIST changes: -EVOL140S SQ; +EVOL140S2 SQ; +POTA20TA4 PO; -POTA20TA82 PO; -REGADENOSON 0.4 MG/5 ML DISP.SYRIN. IV ONE
[2019-11-13] MEDS ORDERED: ONDANSETRON PF 4 MG/2 ML VIAL. ONE (12:44)
[2019-11-13] MEDS ORDERED: HEPARIN for IV BOLUS 10,000 UNIT/10 ML VIAL. ONE (12:45)
[2019-11-13] MEDS ORDERED: HEPARIN for ARTERIAL LINE 1,500 ML ONE (12:45)
[2019-11-13] MEDS ORDERED: LIDOCAINE 1% Multi-Dose 20 ML VIAL. ONE (12:45)
[2019-11-13] MEDS ORDERED: IODIXANOL 320 MG/ML 100 ML VIAL. ONE (12:45)
--- NOTE | 2019-11-13 12:55 | PHYS DOC ---
Past Medical History Past Medical History: Asthma, Diabetes-Type II, High Cholesterol, Hypertension, MA Past Surgical History: Other Additional Past Surgical Histo: Cardiac stents, BACK Smoking Status: Former Smoker Alcohol Use: Occasionally Drug Use: Marijuana General Adult HPI: HPI: 59 yo M PMH CAD (4 stents, on plavix), DM, HTN, and HLD sent to the ED brought in by EMS as a STEMI alert with concerns for ST elevations in V1 and V2. In ED patient states she woke up around 3:00 this morning with nausea and nonbloody nonbilious vomiting. Around 930 this morning complaints of bilateral upper chest pressure, diaphoresis and shortness of air, reports same symptoms from past MIs. EMS gave 324 chewable aspirin and 4 mg of Zofran. Reports her last MA was here 2 years ago. Admits to thc use, no cocaine use. Shortly after patient received IV Zofran her chest pain almost revolved and she was smiling, no longer in distress. Review of systems: No associated fever, chills, neck pain, headache, sore throat, cough, abdominal or back pain, leg swelling, rash, hemoptysis, or neurologic deficits. Heart Score: HEART Score for Chest Pain: HEART Score for Chest Pain Response (Comments) Value History Highly Suspicious [address] Depression 2 Age >45 - < 65 1 Risk Factors >3 Risk Factors or Hx CAD 2 Troponin < Normal Limit 0 Total 7 Risk Factors: Risk Factors: DM, Current or recent (<one month) smoker, HTN, HLP, family history of CAD, obesity. Risk Scores: Score 0 - 3: 2.5% MACE over next 6 weeks - Discharge Home Score 4 - 6: 20.3% MACE over next 6 weeks - Admit for Clinical Observation Score 7 - 10: 72.7% MACE over next 6 weeks - Early Invasive Strategies Allergies: Allergies: Allergies Coded Allergies Type Severity Reaction Last Updated Verified No Known Drug Allergies 07/23/15 No Physical Exam: PE: Constitutional: Diaphoretic, nauseous and dry heaving, hypertensive HENT: Normocephalic, atraumatic, bilateral external ears normal, oropharynx moist, no oral exudates, nose normal. [] Eyes:EOMI, conjunctiva normal, no discharge. [] Neck: Normal range of motion, no tenderness, supple, no stridor. [] Cardiovascular:Heart rate regular rhythm, no murmur [] Lungs & Thorax: Bilateral breath sounds clear to auscultation [] Abdomen: Bowel sounds normal, soft, no tenderness, no masses, no pulsatile masses. [] Skin: Warm, dry, no erythema, no rash. [] Back: No tenderness, no CVA tenderness. [] Extremities: No tenderness, no cyanosis, no clubbing, ROM intact, no edema. [] Neurologic: Alert and oriented X 3, normal motor function, normal sensory function, no focal deficits noted. [] Psychologic: Affect normal, judgement normal, mood normal. [] EKG: EKG: Prenotification EKG concerning for normal sinus rhythm at 82 bpm, no axis deviation, ST elevations V1 and V2 with reciprocal changes V3 through V6 and lead I, otherwise normal intervals EKG in ED with normal sinus rhythm at 69 bpm, no axis deviation, QTC 469, no significant ST elevations with T wave inversions V3 through V6, 1 and aVL Both EKGs compared with patient's EKG from February 2019, T wave inversions in V3 and V6 seen -similar to today's EKG although ST elevations in V1 and V2 are more pronounced Radiology/Procedures: Radiology/Procedures: IMAGING REPORT Signed PATIENT: JOSIAH TRAORE PACCOUNT: [id number] : 1960 LOCATION: ER AGE: 59 SEX: F EXAM STATUS: PRE ER ORD. PHYSICIAN: CHARLES MENDEZ DO REASON: cp PROCEDURE: PORTABLE CHEST 1V EXAM: CHEST 1 VIEW History: Chest pain COMPARISON: 02/17/2019 TECHNIQUE: Single portable radiograph of the chest FINDINGS: The cardiac silhouette is unremarkable. 1.5 cm nodule identified in the right lung base similar to prior exam. The costophrenic sulci are clear and well demarcated. IMPRESSION: 1.5 cm nodule identified in the right lung base. Consider follow-up CT chest. Electronically signed by: Pito Covington MD (11/13/2019 1:11 PM) [id number] DICTATED and SIGNED BY: PITO COVINGTON MD DATE: 11/13/19 1311 IMAGING REPORT Signed PATIENT: JOSIAH TRAORE PACCOUNT: [id number] : 1960 LOCATION: ER AGE: 59 SEX: F EXAM STATUS: REG ER ORD. PHYSICIAN: CHARLES MENDEZ DO REASON: cp, abd pain PROCEDURE: CT ANGIO CHEST ABD PELVIS CT ANGIO CHEST ABD PELVIS INDICATION: cp, abd pain COMPARISON STUDY: 01/13/2012. TECHNIQUE: Unenhanced axial images were obtained through the chest, abdomen, and pelvis. Following the uneventful administration of a bolus of intravenous contrast, 100 mL Omnipaque 350, thin section axial CT images were obtained through the chest, abdomen, and pelvis using the CT aorta protocol. Bilateral oblique thin section multiplanar reconstructions were obtained through the aorta. 3-D and MIP images were also obtained. PQRS compliance statement: One or more of the following individualized dose reduction techniques were utilized for this examination: 1. Automated exposure control 2. Adjustment of the mA and/or kV according to patient size 3. Use of iterative reconstruction technique FINDINGS: No mediastinal hemorrhage or periaortic fluid collection. No evidence of intramural hematoma. No evidence of aortic dissection or aneurysm. Mild aortic atherosclerotic disease. Left thyroid nodules measuring up to 1 cm, not requiring further evaluation based on size criteria. No axillary or supraclavicular lymphadenopathy. No mediastinal, hilar or retrocrural lymphadenopathy. Normal cardiac size. Coronary artery atherosclerotic disease. No pericardial effusion. The pulmonary arteries are within normal limits. No pulmonary mass or consolidation. Stable right lower lobe nodule with benign pattern central calcification. Normal central airways. The pleural spaces are normal. The liver, gallbladder, spleen, pancreas, and adrenal glands are unremarkable. There is no significant mesenteric or retroperitoneal adenopathy identified. There is no evidence of free intraperitoneal fluid or pneumoperitoneum. Mild colonic diverticulosis. Moderate right hydroureteronephrosis with a 1.1 x 0.7 x 1.6 cm calculus (AP by TV by CC) in the mid ureter. Additional nonobstructive bilateral renal calculi measuring up to 7 mm on the right and 3 mm on the left. Bladder is unremarkable. Retroflexed uterus. There is no significant pelvic ascites. No significant iliac or inguinal adenopathy is identified. Degenerative changes of the spine. IMPRESSION: 1. No aortic intramural hematoma, dissection, or aneurysm. 2. Moderate right hydroureteronephrosis with a 1.1 x 0.7 x 1.6 cm calculus in the mid ureter. 3. Additional bilateral nonobstructive renal calculi. 4. Colonic diverticulosis. Electronically signed by: Diane Delatorre MD (11/13/2019 2:41 PM) [id number] DICTATED and SIGNED BY: DIANE DELATORRE MD DATE: 11/13/19 1441 Impression: EMR was reviewed and patient had a pharmacological stress test in February 2019 with a EF above 60%, no ischemia. Dr. Stephens, wood patternmaker present in the ED and reviewed her case, stemi downgraded. Is recommending nitroglycerin drip for blood pressure, heparin bolus and heparin infusion. CTA chest/abdomen/pelvis with no dissection or aneurysm (pt reported right upper abdominal pain after morphine), right hydronephrosis with mid ureteral nephrolithiasis. Patient on nitro infusion for hypertensive urgency, possible nstemi although first troponin negative. WIll admit to tele-CV for further medical management. Patient agrees with this plan. Critical care time was 30 minutes which includes time at bedside, spent in discussion of patient's care with specialist and/or family members, with interpretation of laboratory and/or radiological studies and is exclusive of procedures. Course & Med Decision Making: Course & Med Decision Making Pertinent Labs and Imaging studies reviewed. (See chart for details) [] Dragon Disclaimer: Dragon Disclaimer: This electronic medical record was generated, in whole or in part, using a voice recognition dictation system. Departure Departure Impression: Primary Impression: Chest pain Additional Impressions: Hypokalemia Hypomagnesemia Hydronephrosis, right Hypertensive urgency Disposition: ADMITTED INPATIENT Admitting Physician: KASANDRA (Dr. Marx) Condition: GUARDED Referrals: LESTER RAMIREZ HIGH PRESSURE FIRER (PCP) Justicifation of Admission Dx: Justifications for Admission: Justification of Admission Dx: Yes Angina: Unstable Variant Hypertension: Symp at Rest MA: Acute NSTEMI CHARLES MENDEZ DO Nov 13, 2019 12:55
[2019-11-13] MEDS ORDERED: IV NORMAL SALINE 1000ML BAG 1,000 ML IV SCH (12:59)
[2019-11-13] MEDS ORDERED: MORPHINE SULFATE 4 MG/ML VIAL. IV/SQ PRN (13:00)
[2019-11-13] MEDS ORDERED: ONDANSETRON PF 4 MG/2 ML VIAL. IVP ONE (13:00)
[2019-11-13 13:13] LABS: BASO # 0.1 x10^3/uL (0.0-0.2); BASO % 1 % (0-3); EOS % 0 % (0-3); HEMATOCRIT 46.4 % (36.0-47.0); HEMOGLOBIN 16.4 g/dL (12.0-15.5); LYMPH # 1.8 x10^3/uL (1.0-4.8); LYMPH % 17 % (24-48); MEAN CORPUSCULAR HEMOGLOBIN 33 pg (25-35); MEAN CORPUSCULAR HGB CONC 35 g/dL (31-37); MEAN CORPUSCULAR VOLUME 93 fL (79-100); MONO # 0.3 x10^3/uL (0.0-1.1); MONO % 2 % (0-9); NEUT # 8.4 x10^3/uL (1.8-7.7); NEUT % 79 % (31-73); PLATELET COUNT 450 x10^3/uL (140-400); RED BLOOD COUNT 4.97 x10^6/uL (3.50-5.40); RED CELL DISTRIBUTION WIDTH 12.4 % (11.5-14.5); WHITE BLOOD COUNT 10.6 x10^3/uL (4.0-11.0)
--- NOTE | 2019-11-13 13:14 | RAD ---
EXAM: CHEST 1 VIEW History: Chest pain COMPARISON: 02/17/2019 TECHNIQUE: Single portable radiograph of the chest FINDINGS: The cardiac silhouette is unremarkable. 1.5 cm nodule identified in the right lung base similar to prior exam. The costophrenic sulci are clear and well demarcated. IMPRESSION: 1.5 cm nodule identified in the right lung base. Consider follow-up CT chest. Electronically signed by: Pito Covington MD (11/13/2019 1:11 PM) [id number]
[2019-11-13] MEDS ORDERED: NITROGLYCERIN PREMIX 250 ML IV ONE (13:15)
[2019-11-13] MEDS ORDERED: HEPARIN 25,000UTS/250ML PREMIX 250 ML IV ONE (13:15)
[2019-11-13] MEDS ORDERED: HEPARIN for IV BOLUS 10,000 UNIT/10 ML VIAL. IV ONE (13:15)
[2019-11-13] MEDS: NITROGLYCERIN SUBLINGUAL 0.4 MG BOTTLE OF 25. SL PRN ×3 (13:27→13:44)
[2019-11-13 13:29] LABS: CALCIUM 10.3 mg/dL (8.5-10.1); GFR 68.7; POTASSIUM 3.1 mmol/L (3.5-5.1)
[2019-11-13 13:34] LABS: ALBUMIN/GLOBULIN RATIO 0.9 (1.0-1.7); MAGNESIUM 1.4 mg/dL (1.8-2.4); TOTAL BILIRUBIN 0.3 mg/dL (0.2-1.0); TOTAL PROTEIN 8.5 g/dL (6.4-8.2)
[2019-11-13 13:36] LABS: PROTHROMBIN TIME PATIENT 12.9 SEC (11.7-14.0)
[2019-11-13] MEDS ORDERED: IOHEXOL 350 MG/ML 100 ML VIAL. IV ONE (13:45)
[2019-11-13] MEDS ORDERED: CONTRAST GIVEN. MC PRN (14:00)
--- NOTE | 2019-11-13 14:44 | RAD ---
CT ANGIO CHEST ABD PELVIS INDICATION: cp, abd pain COMPARISON STUDY: 01/13/2012. TECHNIQUE: Unenhanced axial images were obtained through the chest, abdomen, and pelvis. Following the uneventful administration of a bolus of intravenous contrast, 100 mL Omnipaque 350, thin section axial CT images were obtained through the chest, abdomen, and pelvis using the CT aorta protocol. Bilateral oblique thin section multiplanar reconstructions were obtained through the aorta. 3-D and MIP images were also obtained. PQRS compliance statement: One or more of the following individualized dose reduction techniques were utilized for this examination: 1. Automated exposure control 2. Adjustment of the mA and/or kV according to patient size 3. Use of iterative reconstruction technique FINDINGS: No mediastinal hemorrhage or periaortic fluid collection. No evidence of intramural hematoma. No evidence of aortic dissection or aneurysm. Mild aortic atherosclerotic disease. Left thyroid nodules measuring up to 1 cm, not requiring further evaluation based on size criteria. No axillary or supraclavicular lymphadenopathy. No mediastinal, hilar or retrocrural lymphadenopathy. Normal cardiac size. Coronary artery atherosclerotic disease. No pericardial effusion. The pulmonary arteries are within normal limits. No pulmonary mass or consolidation. Stable right lower lobe nodule with benign pattern central calcification. Normal central airways. The pleural spaces are normal. The liver, gallbladder, spleen, pancreas, and adrenal glands are unremarkable. There is no significant mesenteric or retroperitoneal adenopathy identified. There is no evidence of free intraperitoneal fluid or pneumoperitoneum. Mild colonic diverticulosis. Moderate right hydroureteronephrosis with a 1.1 x 0.7 x 1.6 cm calculus (AP by TV by CC) in the mid ureter. Additional nonobstructive bilateral renal calculi measuring up to 7 mm on the right and 3 mm on the left. Bladder is unremarkable. Retroflexed uterus. There is no significant pelvic ascites. No significant iliac or inguinal adenopathy is identified. Degenerative changes of the spine. IMPRESSION: 1. No aortic intramural hematoma, dissection, or aneurysm. 2. Moderate right hydroureteronephrosis with a 1.1 x 0.7 x 1.6 cm calculus in the mid ureter. 3. Additional bilateral nonobstructive renal calculi. 4. Colonic diverticulosis. Electronically signed by: Brandon Delatorre MD (11/13/2019 2:41 PM) [id number]
[2019-11-13] MEDS ORDERED: POTASSIUM CHLORIDE 20 MEQ TABLET.ER. PO ONE (15:00)
[2019-11-13] MEDS ORDERED: MAGNESIUM SULFATE 2GM 50 ML IV ONE (15:00)
--- NOTE | 2019-11-13 15:39 | PDOC2 ---
CONSULT Date of Consult Date of Consult DATE: 11/13/19 TIME: 15:30 Reason for Consult Reason for Consult: Abdominal and chest pressure, shortness of breath Referring Physician Referring Physician: Identification/Chief Complaint Chief Complaint Shortness of breath and nausea Source Source: Chart review, Patient History of Present Illness Reason for Visit: The patient is a 59-year-old female with a history of coronary disease and previous stenting who reports developing nausea and epigastric distress earlier today. This progressed to shortness of breath and she was brought emergently to the emergency room. Initially in the emergency room the patient appeared quite short of breath and dyspneic. She however was given Zofran and her symptoms largely resolved. Her EKG shows a sinus rhythm with lateral T wave depression. On review of previous EKGs this was quite similar. After initial treatment the patient denied chest pain but was mildly tender to palpation in the upper abdomen in the left lower quadrant. Troponin was normal at 0.017. White count was 10.6. The patient has a history of coronary disease with previous stenting. Most recent catheterization was approximately 2 years ago at which time a stent was placed to the right coronary artery. To previously placed stents in the left anterior descending were patent. Patient also also has a history of hypertension and hyperlipidemia and is followed through our office. Past Medical History Cardiovascular: CAD, HTN, Hyperlipidemia Pulmonary: Asthma CENTRAL NERVOUS SYSTEM: Other GI: GERD Psych: Anxiety Musculoskeletal: Osteoarthritis Rheumatologic: No pertinent hx Infectious disease: No pertinent hx Renal/: No pertinent hx Endocrine: Diabetes Past Surgical History Past Surgical History: Other (Coronary stents.) Family History Family History: Diabetes, Hypertension Social History Quit ALCOHOL: occassional Drugs: Marijuana Lives: with Family Current Problem List Problem List Problems Medical Problems: (1) Chest pain Status: Acute (2) Hydronephrosis, right Status: Acute (3) Hypokalemia Status: Acute (4) Hypomagnesemia Status: Acute Current Medications Current Medications Current Medications Nitroglycerin (Nitrostat) 0.4 mg PRN Q5MIN PRN SL CP RATING > 1/10 Last administered on 11/13/19at 13:44; Start 11/13/19 at 13:00; Stop 11/14/19 at 12:59 Morphine Sulfate (Morphine Sulfate) 4 mg PRN Q15MIN PRN IV/SQ PAIN GREATER THAN 3/10 Last administered on 11/13/19at 13:26; Start 11/13/19 at 13:00; Stop 11/14/19 at 12:59 Sodium Chloride 1,000 ml @ 100 mls/hr Q10H IV Last administered on 11/13/19at 13:19; Start 11/13/19 at 12:59; Stop 11/13/19 at 22:58 Ondansetron HCl (Zofran) 4 mg 1X ONCE IVP Last administered on 11/13/19at 13:19; Start 11/13/19 at 13:00; Stop 11/13/19 at 13:02; Status DC Heparin Sodium (Porcine) (Heparin Sodium) 4,000 unit 1X ONCE IV Last administered on 11/13/19at 13:22; Start 11/13/19 at 13:15; Stop 11/13/19 at 13:16; Status DC Heparin Sodium/ Dextrose 250 ml @ 9.36 mls/hr 1X ONCE IV Last administered on 11/13/19at 13:25; Start 11/13/19 at 13:15; Stop 11/14/19 at 15:57 Nitroglycerin/ Dextrose 250 ml @ 3 mls/hr 1X ONCE IV Last administered on 11/13/19at 14:19; Start 11/13/19 at 13:15; Stop 11/17/19 at 00:34 Iohexol (Omnipaque 350 Mg/ml) 100 ml 1X ONCE IV Last administered on 11/13/19at 14:08; Start 11/13/19 at 13:45; Stop 11/13/19 at 13:46; Status DC Info (CONTRAST GIVEN -- Rx MONITORING) 1 each PRN DAILY PRN MC SEE COMMENTS; Start 11/13/19 at 14:00; Stop 11/15/19 at 13:59 Ondansetron HCl (Zofran) 4 mg STK-MED ONCE .ROUTE ; Start 11/13/19 at 12:44; Stop 11/13/19 at 14:22; Status DC Heparin Sodium (Porcine) (Heparin Sodium) 10,000 unit STK-MED ONCE .ROUTE ; Start 11/13/19 at 12:45; Stop 11/13/19 at 14:22; Status DC Iodixanol (Visipaque 320) 100 ml STK-MED ONCE .ROUTE ; Start 11/13/19 at 12:45; Stop 11/13/19 at 14:22; Status DC Lidocaine HCl (Lidocaine 1% 20ml Vial) 20 ml STK-MED ONCE .ROUTE ; Start 11/13/19 at 12:45; Stop 11/13/19 at 14:22; Status DC Heparin Sodium/ Sodium Chloride 1,500 ml @ As Directed STK-MED ONCE .ROUTE ; Start 11/13/19 at 12:45; Stop 11/13/19 at 14:22; Status DC Potassium Chloride (Klor-Con) 40 meq 1X ONCE PO Last administered on 11/13/19at 15:26; Start 11/13/19 at 15:00; Stop 11/13/19 at 15:01; Status DC Magnesium Sulfate 50 ml @ 25 mls/hr 1X ONCE IV Last administered on 11/13/19at 15:25; Start 11/13/19 at 15:00; Stop 11/13/19 at 16:59 Active Scripts Active [guaiFENesin/CODEINE 100mg/10mg] 5 ML Liquid 10 Ml PO PRN Q6HRS PRN Tramadol Hcl 50 Mg Tablet 50 Mg PO Q6HRS PRN Lantus Solostar (Insulin Glargine,Hum.rec.anlog) 100 Unit/1 Ml Insuln.pen 15 Units SQ QHS 7 Days Amlodipine Besylate 10 Mg Tablet 10 Mg PO DAILY 30 Days Fish Oil 1,000 Mg Capsule ([place]-3 Fatty Acids/Fish Oil) 1 Each Capsule 1,000 Mg PO BIDAFTMEAL 30 Days Losartan Potassium 100 Mg Tablet 100 Mg PO DAILY 30 Days Omeprazole 40 Mg Capsule.dr 1 Cap PO DAILY Crestor (Rosuvastatin Calcium) 40 Mg Tablet 40 Mg PO HS Januvia (Sitagliptin Phosphate) 100 Mg Tablet 1 Tab PO DAILY Aspirin 325 Mg Tablet 1 Tab PO DAILY Cymbalta (Duloxetine Hcl) 60 Mg Capsule.dr 1 Cap PO DAILY Reported Metoprolol Tartrate 100 Mg Tablet 1 Tab PO BID Repatha Syringe (Evolocumab) 140 Mg/1 Ml Syringe 140 Mg SQ WEEKLY Gabapentin (Gabapentin) 300 Mg Capsule 300 Mg PO TID Tizanidine Hcl 4 Mg Tablet 4 Mg PO TID Clopidogrel (Clopidogrel Bisulfate) 75 Mg Tablet 75 Mg PO DAILY Metformin Hcl 1,000 Mg Tablet 1,000 Mg PO BIDWMEALS Potassium Chloride 20 Meq Tablet.er 20 Meq PO DAILY Take one daily while taking Lasix Lasix (Furosemide) 40 Mg Tablet 1 Tab PO DAILY 30 Days Montelukast Sodium Tablet (Montelukast Sodium) 10 Mg Tablet 1 Tab PO DAILY Allergies Allergies: Coded Allergies: No Known Drug Allergies (Unverified , 07/23/15) ROS General: YES: Fatigue Respiratory: YES: Shortness of breath Cardiovascular: yes Chest Pain Gastrointestinal: Yes Nausea, Yes Abdominal Pain Physical Exam General: mild distress HEENT: Atraumatic Lungs: Clear to auscultation Heart: Regular rate Abdomen: Other (Mild tenderness in the epigastric and left lower quadrants.) Vitals VITALS Vital Signs Date Time Temp Pulse Resp B/P (MAP) Pulse Ox O2 Delivery O2 Flow Rate FiO2 11/13/19 14:23 74 181/86 (117) 94 Room Air 11/13/19 13:26 16 2.0 11/13/19 12:42 97.6 97.6 Labs Labs Laboratory Tests Test 11/13/19 13:02 White Blood Count 10.6 x10^3/uL (4.0-11.0) Red Blood Count 4.97 x10^6/uL (3.50-5.40) Hemoglobin 16.4 g/dL (12.0-15.5) Hematocrit 46.4 % (36.0-47.0) Mean Corpuscular Volume 93 fL (79-100) Mean Corpuscular Hemoglobin 33 pg (25-35) Mean Corpuscular Hemoglobin Concent 35 g/dL (31-37) Red Cell Distribution Width 12.4 % (11.5-14.5) Platelet Count 450 x10^3/uL (140-400) Neutrophils (%) (Auto) 79 % (31-73) Lymphocytes (%) (Auto) 17 % (24-48) Monocytes (%) (Auto) 2 % (0-9) Eosinophils (%) (Auto) 0 % (0-3) Basophils (%) (Auto) 1 % (0-3) Neutrophils # (Auto) 8.4 x10^3/uL (1.8-7.7) Lymphocytes # (Auto) 1.8 x10^3/uL (1.0-4.8) Monocytes # (Auto) 0.3 x10^3/uL (0.0-1.1) Eosinophils # (Auto) 0.0 x10^3/uL (0.0-0.7) Basophils # (Auto) 0.1 x10^3/uL (0.0-0.2) Prothrombin Time 12.9 SEC (11.7-14.0) Prothromb Time International Ratio 1.0 (0.8-1.1) Sodium Level 136 mmol/L (136-145) Potassium Level 3.1 mmol/L (3.5-5.1) Chloride Level 96 mmol/L (98-107) Carbon Dioxide Level 26 mmol/L (21-32) Anion Gap 14 (6-14) Blood Urea Nitrogen 13 mg/dL (7-20) Creatinine 1.0 mg/dL (0.6-1.0) Estimated GFR (Cockcroft-Gault) 68.7 BUN/Creatinine Ratio 13 (6-20) Glucose Level 385 mg/dL (70-99) Calcium Level 10.3 mg/dL (8.5-10.1) Magnesium Level 1.4 mg/dL (1.8-2.4) Total Bilirubin 0.3 mg/dL (0.2-1.0) Aspartate Amino Transf (AST/SGOT) 34 U/L (15-37) Alanine Aminotransferase (ALT/SGPT) 27 U/L (14-59) Alkaline Phosphatase 85 U/L (46-116) Troponin I Quantitative < 0.017 ng/mL (0.000-0.055) JB-Efh-C-Type Natriuretic Peptide 37 pg/mL (0-124) Total Protein 8.5 g/dL (6.4-8.2) Albumin 4.0 g/dL (3.4-5.0) Albumin/Globulin Ratio 0.9 (1.0-1.7) Laboratory Tests Test 11/13/19 13:02 White Blood Count 10.6 x10^3/uL (4.0-11.0) Red Blood Count 4.97 x10^6/uL (3.50-5.40) Hemoglobin 16.4 g/dL (12.0-15.5) Hematocrit 46.4 % (36.0-47.0) Mean Corpuscular Volume 93 fL (79-100) Mean Corpuscular Hemoglobin 33 pg (25-35) Mean Corpuscular Hemoglobin Concent 35 g/dL (31-37) Red Cell Distribution Width 12.4 % (11.5-14.5) Platelet Count 450 x10^3/uL (140-400) Neutrophils (%) (Auto) 79 % (31-73) Lymphocytes (%) (Auto) 17 % (24-48) Monocytes (%) (Auto) 2 % (0-9) Eosinophils (%) (Auto) 0 % (0-3) Basophils (%) (Auto) 1 % (0-3) Neutrophils # (Auto) 8.4 x10^3/uL (1.8-7.7) Lymphocytes # (Auto) 1.8 x10^3/uL (1.0-4.8) Monocytes # (Auto) 0.3 x10^3/uL (0.0-1.1) Eosinophils # (Auto) 0.0 x10^3/uL (0.0-0.7) Basophils # (Auto) 0.1 x10^3/uL (0.0-0.2) Prothrombin Time 12.9 SEC (11.7-14.0) Prothromb Time International Ratio 1.0 (0.8-1.1) Sodium Level 136 mmol/L (136-145) Potassium Level 3.1 mmol/L (3.5-5.1) Chloride Level 96 mmol/L (98-107) Carbon Dioxide Level 26 mmol/L (21-32) Anion Gap 14 (6-14) Blood Urea Nitrogen 13 mg/dL (7-20) Creatinine 1.0 mg/dL (0.6-1.0) Estimated GFR (Cockcroft-Gault) 68.7 BUN/Creatinine Ratio 13 (6-20) Glucose Level 385 mg/dL (70-99) Calcium Level 10.3 mg/dL (8.5-10.1) Magnesium Level 1.4 mg/dL (1.8-2.4) Total Bilirubin 0.3 mg/dL (0.2-1.0) Aspartate Amino Transf (AST/SGOT) 34 U/L (15-37) Alanine Aminotransferase (ALT/SGPT) 27 U/L (14-59) Alkaline Phosphatase 85 U/L (46-116) Troponin I Quantitative < 0.017 ng/mL (0.000-0.055) GN-Eja-U-Type Natriuretic Peptide 37 pg/mL (0-124) Total Protein 8.5 g/dL (6.4-8.2) Albumin 4.0 g/dL (3.4-5.0) Albumin/Globulin Ratio 0.9 (1.0-1.7) Images Images Chest x-ray shows no acute changes. Assessment/Plan Assessment/Plan 1. Shortness of breath, abdominal discomfort, chest discomfort. The patient was initially quite short of breath on admission but this has resolved. Her chest pain has also largely resolved and is she is now complaining more of abdominal discomfort. Initial troponin is normal. EKG does show ST depression laterally this was present on a previous EKG. Initial CT results showed no acute abnormalities in the chest or abdomen. At this time will continue on heparin drip. Will control blood pressure with IV nitro. Will rule out for myocardial infarction. We will recheck an echocardiogram. 2. History of coronary disease. Most recent stenting 2 years ago as above. Continue as above. Will rule out for myocardial infarction. Will check an echo. 3. Abdominal discomfort as above. CT scan. Possible GI evaluation. 4. Hypertension. Significantly elevated on admission to greater than 200. Started on IV nitroglycerin. 5. Hyperlipidemia. Patient treated with PCSK9 inhibitors. Will check lab. 6. Diabetes mellitus. As per the primary service. Thank you for allowing us to participate in the care of your patient. MUSHTAQ PEREYRA MD Nov 13, 2019 15:39
--- NOTE | 2019-11-13 15:57 | EKG ---
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
[2019-11-13] MEDS ORDERED: traMADol 50 MG TABLET PO PRN (16:45)
[2019-11-13] MEDS ORDERED: guaiFENesin/CODEINE 100mg/10mg 5 ML LIQUID PO PRN (17:00)
[2019-11-13 18:00] VITALS: BP 193/91
[2019-11-13] MEDS: INSULIN GLARGINE SYRINGE. SQ SCH ×2 (18:45→23:45)
[2019-11-13] MEDS ORDERED: DEXTROSE 50% 25 GM / 50ML DISP.SYRIN. IV PRN (18:45)
--- NOTE | 2019-11-13 19:07 | PDOC1 ---
History and Physical Date of Admission Date of Admission DATE: 11/13/19 TIME: 19:04 History of Present Illness History of Present Illness Ms. Tran, huey 59 yo M PMH CAD (4 stents, on plavix), DM, HTN, and HLD sent to the ED brought in by EMS. She woke at 0300 with nausea and vomting an dpossible chest pain, She started as a code STEMI alert from EMS with concerns for ST elevations in V1 and V2. her EKG does have some changes, pt seen by Dr. Stephens in the ER urgently on presentation Shortly after patient received IV Zofran her chest pain almost revolved. she would like to try to eat some tonight, feels better Past Medical History Cardiovascular: CAD, HTN, Hyperlipidemia Pulmonary: Asthma CENTRAL NERVOUS SYSTEM: Other GI: GERD Psych: Anxiety Musculoskeletal: Osteoarthritis Rheumatologic: No pertinent hx Infectious disease: No pertinent hx Renal/: No pertinent hx Endocrine: Diabetes Past Surgical History Past Surgical History: Other (Coronary stents.) Family History Family History: Diabetes, Hypertension Social History Smoke: No ALCOHOL: occassional Drugs: Marijuana Current Problem List Problem List Problems Medical Problems: (1) Chest pain Status: Acute (2) Hydronephrosis, right Status: Acute (3) Hypertensive urgency Status: Acute (4) Hypokalemia Status: Acute (5) Hypomagnesemia Status: Acute Current Medications Current Medications Current Medications Nitroglycerin (Nitrostat) 0.4 mg PRN Q5MIN PRN SL CP RATING > 1/10 Last administered on 11/13/19at 13:44; Start 11/13/19 at 13:00; Stop 11/14/19 at 12:59 Morphine Sulfate (Morphine Sulfate) 4 mg PRN Q15MIN PRN IV/SQ PAIN GREATER THAN 3/10 Last administered on 11/13/19at 13:26; Start 11/13/19 at 13:00; Stop 11/14/19 at 12:59 Sodium Chloride 1,000 ml @ 100 mls/hr Q10H IV Last administered on 11/13/19at 13:19; Start 11/13/19 at 12:59; Stop 11/13/19 at 22:58 Ondansetron HCl (Zofran) 4 mg 1X ONCE IVP Last administered on 11/13/19at 13:19; Start 11/13/19 at 13:00; Stop 11/13/19 at 13:02; Status DC Heparin Sodium (Porcine) (Heparin Sodium) 4,000 unit 1X ONCE IV Last administered on 11/13/19at 13:22; Start 11/13/19 at 13:15; Stop 11/13/19 at 13:16; Status DC Heparin Sodium/ Dextrose 250 ml @ 9.36 mls/hr 1X ONCE IV Last administered on 11/13/19at 13:25; Start 11/13/19 at 13:15; Stop 11/14/19 at 15:57 Nitroglycerin/ Dextrose 250 ml @ 3 mls/hr 1X ONCE IV Last administered on 11/13/19at 14:19; Start 11/13/19 at 13:15; Stop 11/17/19 at 00:34 Iohexol (Omnipaque 350 Mg/ml) 100 ml 1X ONCE IV Last administered on 11/13/19at 14:08; Start 11/13/19 at 13:45; Stop 11/13/19 at 13:46; Status DC Info (CONTRAST GIVEN -- Rx MONITORING) 1 each PRN DAILY PRN MC SEE COMMENTS; Start 11/13/19 at 14:00; Stop 11/15/19 at 13:59 Ondansetron HCl (Zofran) 4 mg STK-MED ONCE .ROUTE ; Start 11/13/19 at 12:44; Stop 11/13/19 at 14:22; Status DC Heparin Sodium (Porcine) (Heparin Sodium) 10,000 unit STK-MED ONCE .ROUTE ; Start 11/13/19 at 12:45; Stop 11/13/19 at 14:22; Status DC Iodixanol (Visipaque 320) 100 ml STK-MED ONCE .ROUTE ; Start 11/13/19 at 12:45; Stop 11/13/19 at 14:22; Status DC Lidocaine HCl (Lidocaine 1% 20ml Vial) 20 ml STK-MED ONCE .ROUTE ; Start 11/13/19 at 12:45; Stop 11/13/19 at 14:22; Status DC Heparin Sodium/ Sodium Chloride 1,500 ml @ As Directed STK-MED ONCE .ROUTE ; Start 11/13/19 at 12:45; Stop 11/13/19 at 14:22; Status DC Potassium Chloride (Klor-Con) 40 meq 1X ONCE PO Last administered on 11/13/19at 15:26; Start 11/13/19 at 15:00; Stop 11/13/19 at 15:01; Status DC Magnesium Sulfate 50 ml @ 25 mls/hr 1X ONCE IV Last administered on 11/13/19at 15:25; Start 11/13/19 at 15:00; Stop 11/13/19 at 16:59; Status DC Amlodipine Besylate (Norvasc) 10 mg DAILY PO ; Start 11/14/19 at 09:00 Aspirin (Christina Aspirin) 325 mg DAILY PO ; Start 11/14/19 at 09:00 Clopidogrel Bisulfate (Plavix) 75 mg DAILY PO ; Start 11/14/19 at 09:00 Furosemide (Lasix) 40 mg DAILY PO ; Start 11/14/19 at 09:00 Gabapentin (Neurontin) 300 mg TID PO ; Start 11/13/19 at 21:00 Montelukast Sodium (Singulair) 10 mg DAILY PO ; Start 11/14/19 at 09:00 Fish Oil (Fish Oil) 1,000 mg BIDAFTMEAL PO ; Start 11/13/19 at 18:00 Potassium Chloride (Klor-Con) 20 meq DAILY PO ; Start 11/14/19 at 09:00 Tizanidine HCl (Zanaflex) 4 mg TID PO ; Start 11/13/19 at 21:00 Tramadol HCl (Ultram) 50 mg PRN Q6HRS PRN PO PAIN; Start 11/13/19 at 16:45 Duloxetine HCl (Cymbalta) 60 mg DAILY PO ; Start 11/14/19 at 09:00 Insulin Glargine (Lantus Syringe) 15 unit QHS SQ ; Start 11/13/19 at 21:00; Stop 11/13/19 at 18:33; Status DC Losartan Potassium (Cozaar) 100 mg DAILY PO ; Start 11/14/19 at 09:00 Metoprolol Tartrate (Lopressor) 100 mg BID PO ; Start 11/13/19 at 21:00 Pantoprazole Sodium (Protonix) 40 mg DAILYAC PO ; Start 11/14/19 at 07:30 Atorvastatin Calcium (Lipitor) 80 mg QHS PO ; Start 11/13/19 at 21:00 Linagliptin (Tradjenta) 5 mg DAILY PO ; Start 11/14/19 at 09:00 Guaifenesin/ Codeine Phosphate (Robitussin Ac) 10 ml PRN Q6HRS PRN PO COUGH; Start 11/13/19 at 17:00 Insulin Glargine (Lantus Syringe) 26 unit QHS SQ ; Start 11/13/19 at 18:45 Insulin Human Lispro (HumaLOG) 0-5 UNITS TIDWMEALS SQ ; Start 11/14/19 at 08:00 Dextrose (Dextrose 50%-Water Syringe) 12.5 gm PRN Q15MIN PRN IV SEE COMMENTS; Start 11/13/19 at 18:45 Active Scripts Active [guaiFENesin/CODEINE 100mg/10mg] 5 ML Liquid 10 Ml PO PRN Q6HRS PRN Tramadol Hcl 50 Mg Tablet 50 Mg PO Q6HRS PRN Lantus Solostar (Insulin Glargine,Hum.rec.anlog) 100 Unit/1 Ml Insuln.pen 15 Units SQ QHS 7 Days Amlodipine Besylate 10 Mg Tablet 10 Mg PO DAILY 30 Days Fish Oil 1,000 Mg Capsule (Nazareth-3 Fatty Acids/Fish Oil) 1 Each Capsule 1,000 Mg PO BIDAFTMEAL 30 Days Losartan Potassium 100 Mg Tablet 100 Mg PO DAILY 30 Days Omeprazole 40 Mg Capsule.dr 1 Cap PO DAILY Crestor (Rosuvastatin Calcium) 40 Mg Tablet 40 Mg PO HS Januvia (Sitagliptin Phosphate) 100 Mg Tablet 1 Tab PO DAILY Aspirin 325 Mg Tablet 1 Tab PO DAILY Cymbalta (Duloxetine Hcl) 60 Mg Capsule.dr 1 Cap PO DAILY Reported Metoprolol Tartrate 100 Mg Tablet 1 Tab PO BID Repatha Syringe (Evolocumab) 140 Mg/1 Ml Syringe 140 Mg SQ WEEKLY Gabapentin (Gabapentin) 300 Mg Capsule 300 Mg PO TID Tizanidine Hcl 4 Mg Tablet 4 Mg PO TID Clopidogrel (Clopidogrel Bisulfate) 75 Mg Tablet 75 Mg PO DAILY Metformin Hcl 1,000 Mg Tablet 1,000 Mg PO BIDWMEALS Potassium Chloride (Potassium Chloride) 20 Meq Tablet.er 20 Meq PO DAILY Take one daily while taking Lasix Lasix (Furosemide) 40 Mg Tablet 1 Tab PO DAILY 30 Days Montelukast Sodium Tablet (Montelukast Sodium) 10 Mg Tablet 1 Tab PO DAILY Allergies Allergies: Coded Allergies: No Known Drug Allergies (Unverified , 07/23/15) ROS Review of System No associated fever, chills, neck pain, headache, sore throat, cough, abdominal or back pain, leg swelling, rash, hemoptysis, or neurologic deficits. General: No: Chills, Night Sweats, Fatigue, Malaise, Appetite, Other PSYCHOLOGICAL ROS: No: Anxiety, Behavioral Disorder, Concentration difficultie, Decreased libido, Depression, Disorientation, Hallucinations, Hostility, Irritablity, Memory difficulties, Mood Swings, Obsessive thoughts, Physical abuse, Sexual abuse, Sleep disturbances, Suicidal ideation, Other Eyes: No Blurry vision, No Decreased vision, No Double vision, No Dry eyes, No Excessive tearing, No Eye Pain, No Itchy Eyes, No Loss of vision, No Photophobia, No Scotomata, No Uses contacts, No Uses glasses, No Other HEENT: No: Heacaches, Visual Changes, Hearing change, Nasal congestion, Nasal discharge, Oral lesions, Sinus pain, Sore Throat, Epistaxis, Sneezing, Snoring, Tinnitus, Vertigo, Vocal changes, Other Respiratory: No: Cough, Hemoptysis, Orthopnea, Pleuritic Pain, Shortness of breath, SOB with excertion, Sputum Changes, Stridor, Tachypnea, Wheezing, Other Cardiovascular: yes Chest Pain; No Palpitations, No Orthopnea, No Paroxysmal Noc. Dyspnea, No Edema, No Lt Headedness, No Other Gastrointestinal: Yes Nausea, Yes Vomiting, Yes Diarrhea; No Abdominal Pain, No Constipation, No Melena, No Hematochezia, No Other Genitourinary: No Dysuria, No Frequency, No Incontinence, No Hematuria, No Retention, No Discharge, No Urgency, No Pain, No Flank Pain, No Other, No , No , No , No , No , No , No Musculoskeletal: Yes Joint Pain (back), Yes Joint Stiffness; No Gait Disturbance, No Joint Swelling, No Muscle Pain, No Muscular Weakness, No Pain In:, No Swelling In:, No Other Neurological: No Behavorial Changes, No Bowel/Bladder ControlChng, No Con fusion, No Dizziness, No Gait Disturbance, No Headaches, No Impaired Coord/balance, No Memory Loss, No Numbness/Tingling, No Seizures, No Speech Problems, No Tremors, No Visual Changes, No Weakness, No Other Skin: No Dry Skin, No Eczema, No Hair Changes, No Lumps, No Mole Changes, No Mottling, No Nail Changes, No Pruritus, No Rash, No Skin Lesion Changes, No O ther, No Acne Physical Exam General: Alert, Oriented X3, Cooperative, No acute distress, mild distress HEENT: Atraumatic, PERRLA Lungs: Clear to auscultation Heart: S1S2, RRR Extremities: No clubbing, No edema, Normal pulses Skin: No rashes Neuro: Normal gait, Normal speech, Normal tone, Sensation intact Psych/Mental Status: Mental status NL, Mood NL Vitals Vitals Vital Signs Date Time Temp Pulse Resp B/P (MAP) Pulse Ox O2 Delivery O2 Flow Rate FiO2 11/13/19 18:09 Room Air 2.0 11/13/19 18:00 97.6 75 18 193/91 (125) 98 97.6 Labs Labs Laboratory Tests Test 11/13/19 13:02 11/13/19 17:18 White Blood Count 10.6 x10^3/uL (4.0-11.0) Red Blood Count 4.97 x10^6/uL (3.50-5.40) Hemoglobin 16.4 g/dL (12.0-15.5) Hematocrit 46.4 % (36.0-47.0) Mean Corpuscular Volume 93 fL (79-100) Mean Corpuscular Hemoglobin 33 pg (25-35) Mean Corpuscular Hemoglobin Concent 35 g/dL (31-37) Red Cell Distribution Width 12.4 % (11.5-14.5) Platelet Count 450 x10^3/uL (140-400) Neutrophils (%) (Auto) 79 % (31-73) Lymphocytes (%) (Auto) 17 % (24-48) Monocytes (%) (Auto) 2 % (0-9) Eosinophils (%) (Auto) 0 % (0-3) Basophils (%) (Auto) 1 % (0-3) Neutrophils # (Auto) 8.4 x10^3/uL (1.8-7.7) Lymphocytes # (Auto) 1.8 x10^3/uL (1.0-4.8) Monocytes # (Auto) 0.3 x10^3/uL (0.0-1.1) Eosinophils # (Auto) 0.0 x10^3/uL (0.0-0.7) Basophils # (Auto) 0.1 x10^3/uL (0.0-0.2) Prothrombin Time 12.9 SEC (11.7-14.0) Prothromb Time International Ratio 1.0 (0.8-1.1) Sodium Level 136 mmol/L (136-145) Potassium Level 3.1 mmol/L (3.5-5.1) Chloride Level 96 mmol/L (98-107) Carbon Dioxide Level 26 mmol/L (21-32) Anion Gap 14 (6-14) Blood Urea Nitrogen 13 mg/dL (7-20) Creatinine 1.0 mg/dL (0.6-1.0) Estimated GFR (Cockcroft-Gault) 68.7 BUN/Creatinine Ratio 13 (6-20) Glucose Level 385 mg/dL (70-99) Calcium Level 10.3 mg/dL (8.5-10.1) Magnesium Level 1.4 mg/dL (1.8-2.4) Total Bilirubin 0.3 mg/dL (0.2-1.0) Aspartate Amino Transf (AST/SGOT) 34 U/L (15-37) Alanine Aminotransferase (ALT/SGPT) 27 U/L (14-59) Alkaline Phosphatase 85 U/L (46-116) Troponin I Quantitative < 0.017 ng/mL (0.000-0.055) HO-Osk-V-Type Natriuretic Peptide 37 pg/mL (0-124) Total Protein 8.5 g/dL (6.4-8.2) Albumin 4.0 g/dL (3.4-5.0) Albumin/Globulin Ratio 0.9 (1.0-1.7) Glucose (Fingerstick) 262 mg/dL (70-99) Laboratory Tests Test 11/13/19 13:02 11/13/19 17:18 White Blood Count 10.6 x10^3/uL (4.0-11.0) Red Blood Count 4.97 x10^6/uL (3.50-5.40) Hemoglobin 16.4 g/dL (12.0-15.5) Hematocrit 46.4 % (36.0-47.0) Mean Corpuscular Volume 93 fL (79-100) Mean Corpuscular Hemoglobin 33 pg (25-35) Mean Corpuscular Hemoglobin Concent 35 g/dL (31-37) Red Cell Distribution Width 12.4 % (11.5-14.5) Platelet Count 450 x10^3/uL (140-400) Neutrophils (%) (Auto) 79 % (31-73) Lymphocytes (%) (Auto) 17 % (24-48) Monocytes (%) (Auto) 2 % (0-9) Eosinophils (%) (Auto) 0 % (0-3) Basophils (%) (Auto) 1 % (0-3) Neutrophils # (Auto) 8.4 x10^3/uL (1.8-7.7) Lymphocytes # (Auto) 1.8 x10^3/uL (1.0-4.8) Monocytes # (Auto) 0.3 x10^3/uL (0.0-1.1) Eosinophils # (Auto) 0.0 x10^3/uL (0.0-0.7) Basophils # (Auto) 0.1 x10^3/uL (0.0-0.2) Prothrombin Time 12.9 SEC (11.7-14.0) Prothromb Time International Ratio 1.0 (0.8-1.1) Sodium Level 136 mmol/L (136-145) Potassium Level 3.1 mmol/L (3.5-5.1) Chloride Level 96 mmol/L (98-107) Carbon Dioxide Level 26 mmol/L (21-32) Anion Gap 14 (6-14) Blood Urea Nitrogen 13 mg/dL (7-20) Creatinine 1.0 mg/dL (0.6-1.0) Estimated GFR (Cockcroft-Gault) 68.7 BUN/Creatinine Ratio 13 (6-20) Glucose Level 385 mg/dL (70-99) Calcium Level 10.3 mg/dL (8.5-10.1) Magnesium Level 1.4 mg/dL (1.8-2.4) Total Bilirubin 0.3 mg/dL (0.2-1.0) Aspartate Amino Transf (AST/SGOT) 34 U/L (15-37) Alanine Aminotransferase (ALT/SGPT) 27 U/L (14-59) Alkaline Phosphatase 85 U/L (46-116) Troponin I Quantitative < 0.017 ng/mL (0.000-0.055) RE-Svw-E-Type Natriuretic Peptide 37 pg/mL (0-124) Total Protein 8.5 g/dL (6.4-8.2) Albumin 4.0 g/dL (3.4-5.0) Albumin/Globulin Ratio 0.9 (1.0-1.7) Glucose (Fingerstick) 262 mg/dL (70-99) VTE Prophylaxis Ordered VTE Prophylaxis Devices: No VTE Pharmacological Prophylaxi: Yes Assessment/Plan Assessment/Plan nausea and vomiting, diarrhea, acute viral GI likely chest pain, marked hx of CAD, changes to EKG, r/o ACS, heparin gtt per CV consujlt Dm2, insulin, admit Justicifation of Admission Dx: Justifications for Admission: Justification of Admission Dx: Yes Angina: Unstable Variant Hypertension: Symp at Rest NE: Acute NSTEMI CAROLYN CABRERA MD Nov 13, 2019 19:07
[2019-11-13] MEDS: OMEGA-3 FATTY ACIDS/FISH OIL 1,000 MG CAPSULE. PO SCH (19:29)
[2019-11-13] MEDS: HEPARIN 25,000UTS/250ML PREMIX 250 ML IV PRN (19:33)
[2019-11-13] MEDS: tiZANidine 4 MG TABLET. PO SCH (21:00)
[2019-11-13] MEDS ORDERED: INSULIN GLARGINE SYRINGE. SQ SCH (21:00)
[2019-11-13] MEDS: METOPROLOL TART IMMED RELEASE 50 MG TABLET. PO SCH (21:37)
[2019-11-13] MEDS: GABAPENTIN 300 MG CAPSULE. PO SCH (21:38)
[2019-11-13] MEDS: ATORVASTATIN CALCIUM 40 MG TABLET. PO SCH (21:38)
[2019-11-13 23:00] VITALS: BP 189/90
[2019-11-13] MEDS: ONDANSETRON PF 4 MG/2 ML VIAL. IVP PRN (23:33)
[2019-11-14] MEDS ORDERED: amLODIPine BESYLATE 10 MG TABLET PO ONE (01:00)
[2019-11-14] MEDS: HEPARIN for IV BOLUS 10,000 UNIT/10 ML VIAL. IV PRN ×2 (02:02→08:19)
[2019-11-14] MEDS: HEPARIN 25,000UTS/250ML PREMIX 250 ML IV PRN (02:05)
[2019-11-14 03:19] VITALS: BP 158/49
[2019-11-14 07:00] VITALS: BP 191/77
[2019-11-14 07:11] LABS: BASO # 0.1 x10^3/uL (0.0-0.2); BASO % 1 % (0-3); EOS # 0.1 x10^3/uL (0.0-0.7); EOS % 1 % (0-3); HEMATOCRIT 45.5 % (36.0-47.0); HEMOGLOBIN 15.8 g/dL (12.0-15.5); LYMPH # 3.5 x10^3/uL (1.0-4.8); LYMPH % 36 % (24-48); MEAN CORPUSCULAR HEMOGLOBIN 33 pg (25-35); MEAN CORPUSCULAR HGB CONC 35 g/dL (31-37); MEAN CORPUSCULAR VOLUME 94 fL (79-100); MONO # 0.5 x10^3/uL (0.0-1.1); MONO % 5 % (0-9); NEUT # 5.5 x10^3/uL (1.8-7.7); NEUT % 57 % (31-73); PLATELET COUNT 422 x10^3/uL (140-400); RED BLOOD COUNT 4.85 x10^6/uL (3.50-5.40); RED CELL DISTRIBUTION WIDTH 12.5 % (11.5-14.5); WHITE BLOOD COUNT 9.7 x10^3/uL (4.0-11.0)
[2019-11-14 07:22] LABS: ANION GAP 10 (6-14); BLOOD UREA NITROGEN 10 mg/dL (7-20); CALCIUM 9.4 mg/dL (8.5-10.1); CARBON DIOXIDE 28 mmol/L (21-32); CHLORIDE 100 mmol/L (98-107); CHOLESTEROL 258 mg/dL (0-200); GFR 68.7; GLUCOSE 233 mg/dL (70-99); HDLC 47 mg/dL (40-60); SODIUM 138 mmol/L (136-145); TRIGLYCERIDES 571 mg/dL (0-150)
[2019-11-14 07:27] LABS: CHOLESTEROL/HDL RATIO 5.5; POTASSIUM 2.7 mmol/L (3.5-5.1)
[2019-11-14 07:29] LABS: VLDLC 114 mg/dL (0-40)
[2019-11-14] MEDS ORDERED: POTASSIUM CHLORIDE 20 MEQ TABLET.ER. PO ONE ×2 (08:15→09:00)
[2019-11-14] MEDS: ASPIRIN 325 MG TABLET PO SCH (08:25)
--- NOTE | 2019-11-14 08:25 | EKG ---
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
[2019-11-14] MEDS: LINAGLIPTIN 5 MG TABLET PO SCH (08:28)
[2019-11-14] MEDS: METOPROLOL TART IMMED RELEASE 50 MG TABLET. PO SCH ×2 (08:28→20:57)
[2019-11-14] MEDS: GABAPENTIN 300 MG CAPSULE. PO SCH ×3 (08:28→20:57)
[2019-11-14] MEDS: LOSARTAN POTASSIUM 50 MG TABLET. PO SCH (08:29)
[2019-11-14] MEDS: MONTELUKAST SODIUM 10 MG TABLET. PO SCH (08:29)
[2019-11-14] MEDS: DULoxetine HCL 30 MG CAPSULE.DR PO SCH (08:30)
[2019-11-14] MEDS: OMEGA-3 FATTY ACIDS/FISH OIL 1,000 MG CAPSULE. PO SCH ×2 (08:30→17:22)
[2019-11-14] MEDS: PANTOPRAZOLE 40 MG TABLET.DR. PO SCH (08:30)
[2019-11-14] MEDS: CLOPIDOGREL BISULFATE 75 MG TABLET PO SCH (08:31)
[2019-11-14] MEDS: tiZANidine 4 MG TABLET. PO SCH ×3 (08:31→20:57)
[2019-11-14] MEDS: amLODIPine BESYLATE 10 MG TABLET PO SCH (08:31)
[2019-11-14] MEDS: POTASSIUM CHLORIDE 10MEQ 100 ML IV SCH ×2 (08:38→10:38)
[2019-11-14] MEDS: INSULIN LISPRO 300 UNITS/3 ML VIAL. SQ SCH ×3 (08:41→17:23)
[2019-11-14] MEDS: POTASSIUM CHLORIDE 20 MEQ TABLET.ER. PO SCH (08:42)
[2019-11-14] MEDS ORDERED: FUROSEMIDE 40 MG TABLET. PO SCH (09:00)
[2019-11-14 10:53] VITALS: BP 101/61
[2019-11-14] MEDS ORDERED: LOPERAMIDE 2 MG CAPSULE PO PRN (11:30)
[2019-11-14] MEDS ORDERED: NICOTINE 21MG PATCH. TD PRN (11:30)
--- NOTE | 2019-11-14 11:30 | PDOC ---
PROGRESS NOTES Chief Complaint Chief Complaint nausea and vomiting, diarrhea, acute viral GI likely diarrhea for weeks, she reports black, but hgb is high chest pain, improved, Dm2, insulin, running high, A1c pending History of Present Illness History of Present Illness CV team von will consult GI, diarrhea is worse, she reports weeks of problmes, story is different than she gave me last night hypokalemia, hypomag, replace, Vitals Vitals Vital Signs Date Time Temp Pulse Resp B/P (MAP) Pulse Ox O2 Delivery O2 Flow Rate FiO2 11/14/19 10:53 97.9 61 16 101/61 (74) 99 Room Air 97.9 11/13/19 20:00 2.0 Physical Exam General: Alert, Oriented X3, Cooperative, No acute distress, mild distress Heart: Regular rate Lungs: Clear, Other Abdomen: Other (Mild tenderness in the epigastric and left lower quadrants.) Extremities: No clubbing, No edema, Normal pulses Skin: No rashes Labs LABS Laboratory Tests Test 11/13/19 13:02 11/13/19 17:18 11/13/19 21:15 11/13/19 23:38 White Blood Count 10.6 x10^3/uL (4.0-11.0) Red Blood Count 4.97 x10^6/uL (3.50-5.40) Hemoglobin 16.4 g/dL (12.0-15.5) Hematocrit 46.4 % (36.0-47.0) Mean Corpuscular Volume 93 fL (79-100) Mean Corpuscular Hemoglobin 33 pg (25-35) Mean Corpuscular Hemoglobin Concent 35 g/dL (31-37) Red Cell Distribution Width 12.4 % (11.5-14.5) Platelet Count 450 x10^3/uL (140-400) Neutrophils (%) (Auto) 79 % (31-73) Lymphocytes (%) (Auto) 17 % (24-48) Monocytes (%) (Auto) 2 % (0-9) Eosinophils (%) (Auto) 0 % (0-3) Basophils (%) (Auto) 1 % (0-3) Neutrophils # (Auto) 8.4 x10^3/uL (1.8-7.7) Lymphocytes # (Auto) 1.8 x10^3/uL (1.0-4.8) Monocytes # (Auto) 0.3 x10^3/uL (0.0-1.1) Eosinophils # (Auto) 0.0 x10^3/uL (0.0-0.7) Basophils # (Auto) 0.1 x10^3/uL (0.0-0.2) Prothrombin Time 12.9 SEC (11.7-14.0) Prothromb Time International Ratio 1.0 (0.8-1.1) Sodium Level 136 mmol/L (136-145) Potassium Level 3.1 mmol/L (3.5-5.1) Chloride Level 96 mmol/L (98-107) Carbon Dioxide Level 26 mmol/L (21-32) Anion Gap 14 (6-14) Blood Urea Nitrogen 13 mg/dL (7-20) Creatinine 1.0 mg/dL (0.6-1.0) Estimated GFR (Cockcroft-Gault) 68.7 BUN/Creatinine Ratio 13 (6-20) Glucose Level 385 mg/dL (70-99) Calcium Level 10.3 mg/dL (8.5-10.1) Magnesium Level 1.4 mg/dL (1.8-2.4) Total Bilirubin 0.3 mg/dL (0.2-1.0) Aspartate Amino Transf (AST/SGOT) 34 U/L (15-37) Alanine Aminotransferase (ALT/SGPT) 27 U/L (14-59) Alkaline Phosphatase 85 U/L (46-116) Troponin I Quantitative < 0.017 ng/mL (0.000-0.055) TH-Ymq-O-Type Natriuretic Peptide 37 pg/mL (0-124) Total Protein 8.5 g/dL (6.4-8.2) Albumin 4.0 g/dL (3.4-5.0) Albumin/Globulin Ratio 0.9 (1.0-1.7) Glucose (Fingerstick) 262 mg/dL (70-99) 187 mg/dL (70-99) Heparin Anti-Xa Act, Unfractionated < 0.10 IU/mL (0.30-0.70) Test 11/14/19 06:50 11/14/19 07:12 White Blood Count 9.7 x10^3/uL (4.0-11.0) Red Blood Count 4.85 x10^6/uL (3.50-5.40) Hemoglobin 15.8 g/dL (12.0-15.5) Hematocrit 45.5 % (36.0-47.0) Mean Corpuscular Volume 94 fL (79-100) Mean Corpuscular Hemoglobin 33 pg (25-35) Mean Corpuscular Hemoglobin Concent 35 g/dL (31-37) Red Cell Distribution Width 12.5 % (11.5-14.5) Platelet Count 422 x10^3/uL (140-400) Neutrophils (%) (Auto) 57 % (31-73) Lymphocytes (%) (Auto) 36 % (24-48) Monocytes (%) (Auto) 5 % (0-9) Eosinophils (%) (Auto) 1 % (0-3) Basophils (%) (Auto) 1 % (0-3) Neutrophils # (Auto) 5.5 x10^3/uL (1.8-7.7) Lymphocytes # (Auto) 3.5 x10^3/uL (1.0-4.8) Monocytes # (Auto) 0.5 x10^3/uL (0.0-1.1) Eosinophils # (Auto) 0.1 x10^3/uL (0.0-0.7) Basophils # (Auto) 0.1 x10^3/uL (0.0-0.2) Heparin Anti-Xa Act, Unfractionated 0.12 IU/mL (0.30-0.70) Sodium Level 138 mmol/L (136-145) Potassium Level 2.7 mmol/L (3.5-5.1) Chloride Level 100 mmol/L (98-107) Carbon Dioxide Level 28 mmol/L (21-32) Anion Gap 10 (6-14) Blood Urea Nitrogen 10 mg/dL (7-20) Creatinine 1.0 mg/dL (0.6-1.0) Estimated GFR (Cockcroft-Gault) 68.7 Glucose Level 233 mg/dL (70-99) Calcium Level 9.4 mg/dL (8.5-10.1) Magnesium Level 1.9 mg/dL (1.8-2.4) Troponin I Quantitative < 0.017 ng/mL (0.000-0.055) Triglycerides Level 571 mg/dL (0-150) Cholesterol Level 258 mg/dL (0-200) LDL Cholesterol, Calculated mg/dL (0-100) VLDL Cholesterol, Calculated 114 mg/dL (0-40) Non-HDL Cholesterol Calculated 211 mg/dL (0-129) HDL Cholesterol 47 mg/dL (40-60) Cholesterol/HDL Ratio 5.5 Glucose (Fingerstick) 279 mg/dL (70-99) Assessment and Plan Assessmemt and Plan Problems Medical Problems: (1) Chest pain Status: Acute (2) Hydronephrosis, right Status: Acute (3) Hypertensive urgency Status: Acute (4) Hypokalemia Status: Acute (5) Hypomagnesemia Status: Acute Comment Review of Relevant I have reviewed the following items jd (where applicable) has been applied. Labs Laboratory Tests Test 11/13/19 13:02 11/13/19 17:18 11/13/19 21:15 11/13/19 23:38 White Blood Count 10.6 x10^3/uL (4.0-11.0) Red Blood Count 4.97 x10^6/uL (3.50-5.40) Hemoglobin 16.4 g/dL (12.0-15.5) Hematocrit 46.4 % (36.0-47.0) Mean Corpuscular Volume 93 fL (79-100) Mean Corpuscular Hemoglobin 33 pg (25-35) Mean Corpuscular Hemoglobin Concent 35 g/dL (31-37) Red Cell Distribution Width 12.4 % (11.5-14.5) Platelet Count 450 x10^3/uL (140-400) Neutrophils (%) (Auto) 79 % (31-73) Lymphocytes (%) (Auto) 17 % (24-48) Monocytes (%) (Auto) 2 % (0-9) Eosinophils (%) (Auto) 0 % (0-3) Basophils (%) (Auto) 1 % (0-3) Neutrophils # (Auto) 8.4 x10^3/uL (1.8-7.7) Lymphocytes # (Auto) 1.8 x10^3/uL (1.0-4.8) Monocytes # (Auto) 0.3 x10^3/uL (0.0-1.1) Eosinophils # (Auto) 0.0 x10^3/uL (0.0-0.7) Basophils # (Auto) 0.1 x10^3/uL (0.0-0.2) Prothrombin Time 12.9 SEC (11.7-14.0) Prothromb Time International Ratio 1.0 (0.8-1.1) Sodium Level 136 mmol/L (136-145) Potassium Level 3.1 mmol/L (3.5-5.1) Chloride Level 96 mmol/L (98-107) Carbon Dioxide Level 26 mmol/L (21-32) Anion Gap 14 (6-14) Blood Urea Nitrogen 13 mg/dL (7-20) Creatinine 1.0 mg/dL (0.6-1.0) Estimated GFR (Cockcroft-Gault) 68.7 BUN/Creatinine Ratio 13 (6-20) Glucose Level 385 mg/dL (70-99) Calcium Level 10.3 mg/dL (8.5-10.1) Magnesium Level 1.4 mg/dL (1.8-2.4) Total Bilirubin 0.3 mg/dL (0.2-1.0) Aspartate Amino Transf (AST/SGOT) 34 U/L (15-37) Alanine Aminotransferase (ALT/SGPT) 27 U/L (14-59) Alkaline Phosphatase 85 U/L (46-116) Troponin I Quantitative < 0.017 ng/mL (0.000-0.055) GI-Oke-U-Type Natriuretic Peptide 37 pg/mL (0-124) Total Protein 8.5 g/dL (6.4-8.2) Albumin 4.0 g/dL (3.4-5.0) Albumin/Globulin Ratio 0.9 (1.0-1.7) Glucose (Fingerstick) 262 mg/dL (70-99) 187 mg/dL (70-99) Heparin Anti-Xa Act, Unfractionated < 0.10 IU/mL (0.30-0.70) Test 11/14/19 06:50 11/14/19 07:12 White Blood Count 9.7 x10^3/uL (4.0-11.0) Red Blood Count 4.85 x10^6/uL (3.50-5.40) Hemoglobin 15.8 g/dL (12.0-15.5) Hematocrit 45.5 % (36.0-47.0) Mean Corpuscular Volume 94 fL (79-100) Mean Corpuscular Hemoglobin 33 pg (25-35) Mean Corpuscular Hemoglobin Concent 35 g/dL (31-37) Red Cell Distribution Width 12.5 % (11.5-14.5) Platelet Count 422 x10^3/uL (140-400) Neutrophils (%) (Auto) 57 % (31-73) Lymphocytes (%) (Auto) 36 % (24-48) Monocytes (%) (Auto) 5 % (0-9) Eosinophils (%) (Auto) 1 % (0-3) Basophils (%) (Auto) 1 % (0-3) Neutrophils # (Auto) 5.5 x10^3/uL (1.8-7.7) Lymphocytes # (Auto) 3.5 x10^3/uL (1.0-4.8) Monocytes # (Auto) 0.5 x10^3/uL (0.0-1.1) Eosinophils # (Auto) 0.1 x10^3/uL (0.0-0.7) Basophils # (Auto) 0.1 x10^3/uL (0.0-0.2) Heparin Anti-Xa Act, Unfractionated 0.12 IU/mL (0.30-0.70) Sodium Level 138 mmol/L (136-145) Potassium Level 2.7 mmol/L (3.5-5.1) Chloride Level 100 mmol/L (98-107) Carbon Dioxide Level 28 mmol/L (21-32) Anion Gap 10 (6-14) Blood Urea Nitrogen 10 mg/dL (7-20) Creatinine 1.0 mg/dL (0.6-1.0) Estimated GFR (Cockcroft-Gault) 68.7 Glucose Level 233 mg/dL (70-99) Calcium Level 9.4 mg/dL (8.5-10.1) Magnesium Level 1.9 mg/dL (1.8-2.4) Troponin I Quantitative < 0.017 ng/mL (0.000-0.055) Triglycerides Level 571 mg/dL (0-150) Cholesterol Level 258 mg/dL (0-200) LDL Cholesterol, Calculated mg/dL (0-100) VLDL Cholesterol, Calculated 114 mg/dL (0-40) Non-HDL Cholesterol Calculated 211 mg/dL (0-129) HDL Cholesterol 47 mg/dL (40-60) Cholesterol/HDL Ratio 5.5 Glucose (Fingerstick) 279 mg/dL (70-99) Laboratory Tests Test 11/13/19 13:02 11/13/19 17:18 11/13/19 21:15 11/13/19 23:38 White Blood Count 10.6 x10^3/uL (4.0-11.0) Red Blood Count 4.97 x10^6/uL (3.50-5.40) Hemoglobin 16.4 g/dL (12.0-15.5) Hematocrit 46.4 % (36.0-47.0) Mean Corpuscular Volume 93 fL (79-100) Mean Corpuscular Hemoglobin 33 pg (25-35) Mean Corpuscular Hemoglobin Concent 35 g/dL (31-37) Red Cell Distribution Width 12.4 % (11.5-14.5) Platelet Count 450 x10^3/uL (140-400) Neutrophils (%) (Auto) 79 % (31-73) Lymphocytes (%) (Auto) 17 % (24-48) Monocytes (%) (Auto) 2 % (0-9) Eosinophils (%) (Auto) 0 % (0-3) Basophils (%) (Auto) 1 % (0-3) Neutrophils # (Auto) 8.4 x10^3/uL (1.8-7.7) Lymphocytes # (Auto) 1.8 x10^3/uL (1.0-4.8) Monocytes # (Auto) 0.3 x10^3/uL (0.0-1.1) Eosinophils # (Auto) 0.0 x10^3/uL (0.0-0.7) Basophils # (Auto) 0.1 x10^3/uL (0.0-0.2) Prothrombin Time 12.9 SEC (11.7-14.0) Prothromb Time International Ratio 1.0 (0.8-1.1) Sodium Level 136 mmol/L (136-145) Potassium Level 3.1 mmol/L (3.5-5.1) Chloride Level 96 mmol/L (98-107) Carbon Dioxide Level 26 mmol/L (21-32) Anion Gap 14 (6-14) Blood Urea Nitrogen 13 mg/dL (7-20) Creatinine 1.0 mg/dL (0.6-1.0) Estimated GFR (Cockcroft-Gault) 68.7 BUN/Creatinine Ratio 13 (6-20) Glucose Level 385 mg/dL (70-99) Calcium Level 10.3 mg/dL (8.5-10.1) Magnesium Level 1.4 mg/dL (1.8-2.4) Total Bilirubin 0.3 mg/dL (0.2-1.0) Aspartate Amino Transf (AST/SGOT) 34 U/L (15-37) Alanine Aminotransferase (ALT/SGPT) 27 U/L (14-59) Alkaline Phosphatase 85 U/L (46-116) Troponin I Quantitative < 0.017 ng/mL (0.000-0.055) QA-Pdi-Z-Type Natriuretic Peptide 37 pg/mL (0-124) Total Protein 8.5 g/dL (6.4-8.2) Albumin 4.0 g/dL (3.4-5.0) Albumin/Globulin Ratio 0.9 (1.0-1.7) Glucose (Fingerstick) 262 mg/dL (70-99) 187 mg/dL (70-99) Heparin Anti-Xa Act, Unfractionated < 0.10 IU/mL (0.30-0.70) Test 11/14/19 06:50 11/14/19 07:12 White Blood Count 9.7 x10^3/uL (4.0-11.0) Red Blood Count 4.85 x10^6/uL (3.50-5.40) Hemoglobin 15.8 g/dL (12.0-15.5) Hematocrit 45.5 % (36.0-47.0) Mean Corpuscular Volume 94 fL (79-100) Mean Corpuscular Hemoglobin 33 pg (25-35) Mean Corpuscular Hemoglobin Concent 35 g/dL (31-37) Red Cell Distribution Width 12.5 % (11.5-14.5) Platelet Count 422 x10^3/uL (140-400) Neutrophils (%) (Auto) 57 % (31-73) Lymphocytes (%) (Auto) 36 % (24-48) Monocytes (%) (Auto) 5 % (0-9) Eosinophils (%) (Auto) 1 % (0-3) Basophils (%) (Auto) 1 % (0-3) Neutrophils # (Auto) 5.5 x10^3/uL (1.8-7.7) Lymphocytes # (Auto) 3.5 x10^3/uL (1.0-4.8) Monocytes # (Auto) 0.5 x10^3/uL (0.0-1.1) Eosinophils # (Auto) 0.1 x10^3/uL (0.0-0.7) Basophils # (Auto) 0.1 x10^3/uL (0.0-0.2) Heparin Anti-Xa Act, Unfractionated 0.12 IU/mL (0.30-0.70) Sodium Level 138 mmol/L (136-145) Potassium Level 2.7 mmol/L (3.5-5.1) Chloride Level 100 mmol/L (98-107) Carbon Dioxide Level 28 mmol/L (21-32) Anion Gap 10 (6-14) Blood Urea Nitrogen 10 mg/dL (7-20) Creatinine 1.0 mg/dL (0.6-1.0) Estimated GFR (Cockcroft-Gault) 68.7 Glucose Level 233 mg/dL (70-99) Calcium Level 9.4 mg/dL (8.5-10.1) Magnesium Level 1.9 mg/dL (1.8-2.4) Troponin I Quantitative < 0.017 ng/mL (0.000-0.055) Triglycerides Level 571 mg/dL (0-150) Cholesterol Level 258 mg/dL (0-200) LDL Cholesterol, Calculated mg/dL (0-100) VLDL Cholesterol, Calculated 114 mg/dL (0-40) Non-HDL Cholesterol Calculated 211 mg/dL (0-129) HDL Cholesterol 47 mg/dL (40-60) Cholesterol/HDL Ratio 5.5 Glucose (Fingerstick) 279 mg/dL (70-99) Medications Current Medications Nitroglycerin (Nitrostat) 0.4 mg PRN Q5MIN PRN SL CP RATING > 05/24 Last administered on 11/13/19at 13:44; Start 11/13/19 at 13:00; Stop 11/14/19 at 12:59 Morphine Sulfate (Morphine Sulfate) 4 mg PRN Q15MIN PRN IV/SQ PAIN GREATER THAN 3/10 Last administered on 11/13/19at 13:26; Start 11/13/19 at 13:00; Stop 11/14/19 at 12:59 Sodium Chloride 1,000 ml @ 100 mls/hr Q10H IV Last administered on 11/13/19at 13:19; Start 11/13/19 at 12:59; Stop 11/13/19 at 22:58; Status DC Ondansetron HCl (Zofran) 4 mg 1X ONCE IVP Last administered on 11/13/19at 13:19; Start 11/13/19 at 13:00; Stop 11/13/19 at 13:02; Status DC Heparin Sodium (Porcine) (Heparin Sodium) 4,000 unit 1X ONCE IV Last administered on 11/13/19at 13:22; Start 11/13/19 at 13:15; Stop 11/13/19 at 13:16; Status DC Heparin Sodium/ Dextrose 250 ml @ 9.36 mls/hr 1X ONCE IV Last administered on 11/13/19at 13:25; Start 11/13/19 at 13:15; Stop 11/14/19 at 15:57 Nitroglycerin/ Dextrose 250 ml @ 3 mls/hr 1X ONCE IV Last administered on 11/13/19at 14:19; Start 11/13/19 at 13:15; Stop 11/17/19 at 00:34 Iohexol (Omnipaque 350 Mg/ml) 100 ml 1X ONCE IV Last administered on 11/13/19at 14:08; Start 11/13/19 at 13:45; Stop 11/13/19 at 13:46; Status DC Info (CONTRAST GIVEN -- Rx MONITORING) 1 each PRN DAILY PRN MC SEE COMMENTS; Start 11/13/19 at 14:00; Stop 11/15/19 at 13:59 Ondansetron HCl (Zofran) 4 mg STK-MED ONCE .ROUTE ; Start 11/13/19 at 12:44; Stop 11/13/19 at 14:22; Status DC Heparin Sodium (Porcine) (Heparin Sodium) 10,000 unit STK-MED ONCE .ROUTE ; Start 11/13/19 at 12:45; Stop 11/13/19 at 14:22; Status DC Iodixanol (Visipaque 320) 100 ml STK-MED ONCE .ROUTE ; Start 11/13/19 at 12:45; Stop 11/13/19 at 14:22; Status DC Lidocaine HCl (Lidocaine 1% 20ml Vial) 20 ml STK-MED ONCE .ROUTE ; Start 11/13/19 at 12:45; Stop 11/13/19 at 14:22; Status DC Heparin Sodium/ Sodium Chloride 1,500 ml @ As Directed STK-MED ONCE .ROUTE ; Start 11/13/19 at 12:45; Stop 11/13/19 at 14:22; Status DC Potassium Chloride (Klor-Con) 40 meq 1X ONCE PO Last administered on 11/13/19at 15:26; Start 11/13/19 at 15:00; Stop 11/13/19 at 15:01; Status DC Magnesium Sulfate 50 ml @ 25 mls/hr 1X ONCE IV Last administered on 11/13/19at 15:25; Start 11/13/19 at 15:00; Stop 11/13/19 at 16:59; Status DC Amlodipine Besylate (Norvasc) 10 mg DAILY PO Last administered on 11/14/19at 08:31; Start 11/14/19 at 09:00 Aspirin (Christina Aspirin) 325 mg DAILY PO Last administered on 11/14/19at 08:25; Start 11/14/19 at 09:00 Clopidogrel Bisulfate (Plavix) 75 mg DAILY PO Last administered on 11/14/19at 08:31; Start 11/14/19 at 09:00 Furosemide (Lasix) 40 mg DAILY PO Last administered on 11/14/19at 08:30; Start 11/14/19 at 09:00; Stop 11/14/19 at 11:20; Status DC Gabapentin (Neurontin) 300 mg TID PO Last administered on 11/14/19at 08:28; Start 11/13/19 at 21:00 Montelukast Sodium (Singulair) 10 mg DAILY PO Last administered on 11/14/19at 08:29; Start 11/14/19 at 09:00 Fish Oil (Fish Oil) 1,000 mg BIDAFTMEAL PO Last administered on 11/14/19at 08:30; Start 11/13/19 at 18:00 Potassium Chloride (Klor-Con) 20 meq DAILY PO ; Start 11/14/19 at 09:00 Tizanidine HCl (Zanaflex) 4 mg TID PO Last administered on 11/14/19at 08:31; Start 11/13/19 at 21:00 Tramadol HCl (Ultram) 50 mg PRN Q6HRS PRN PO PAIN; Start 11/13/19 at 16:45 Duloxetine HCl (Cymbalta) 60 mg DAILY PO Last administered on 11/14/19at 08:30; Start 11/14/19 at 09:00 Insulin Glargine (Lantus Syringe) 15 unit QHS SQ ; Start 11/13/19 at 21:00; Stop 11/13/19 at 18:33; Status DC Losartan Potassium (Cozaar) 100 mg DAILY PO Last administered on 11/14/19at 08:29; Start 11/14/19 at 09:00 Metoprolol Tartrate (Lopressor) 100 mg BID PO Last administered on 11/14/19at 08:28; Start 11/13/19 at 21:00 Pantoprazole Sodium (Protonix) 40 mg DAILYAC PO Last administered on 11/14/19at 08:30; Start 11/14/19 at 07:30 Atorvastatin Calcium (Lipitor) 80 mg QHS PO Last administered on 11/13/19at 21:38; Start 11/13/19 at 21:00 Linagliptin (Tradjenta) 5 mg DAILY PO Last administered on 11/14/19at 08:28; Start 11/14/19 at 09:00 Guaifenesin/ Codeine Phosphate (Robitussin Ac) 10 ml PRN Q6HRS PRN PO COUGH; Start 11/13/19 at 17:00 Insulin Glargine (Lantus Syringe) 26 unit QHS SQ Last administered on 11/13/19at 23:45; Start 11/13/19 at 18:45 Insulin Human Lispro (HumaLOG) 0-5 UNITS TIDWMEALS SQ Last administered on 11/14/19at 08:41; Start 11/14/19 at 08:00 Dextrose (Dextrose 50%-Water Syringe) 12.5 gm PRN Q15MIN PRN IV SEE COMMENTS; Start 11/13/19 at 18:45 Heparin Sodium/ Dextrose 250 ml @ 0 mls/hr CONT PRN IV PER PROTOCOL Last administered on 11/14/19at 02:05; Start 11/13/19 at 19:15 Heparin Sodium (Porcine) (Heparin Sodium) 1,800 unit PRN Q6HRS PRN IV FOR UFH LEVEL LESS THAN 0.2 Last administered on 11/14/19at 08:19; Start 11/13/19 at 19:15 Ondansetron HCl (Zofran) 4 mg PRN Q8HRS PRN IVP NAUSEA/VOMITING 1ST CHOICE Last administered on 11/13/19at 23:33; Start 11/13/19 at 23:00 Amlodipine Besylate (Norvasc) 10 mg 1X ONCE PO Last administered on 11/14/19at 02:00; Start 11/14/19 at 01:00; Stop 11/14/19 at 01:01; Status DC Potassium Chloride/Water 100 ml @ 100 mls/hr Q1H IV Last administered on 11/14/19at 10:38; Start 11/14/19 at 08:30; Stop 11/14/19 at 10:29; Status DC Potassium Chloride (Klor-Con) 40 meq 1X ONCE PO Last administered on 11/14/19at 08:24; Start 11/14/19 at 09:00; Stop 11/14/19 at 09:01; Status DC Potassium Chloride (Klor-Con) 40 meq 1X ONCE PO ; Start 11/14/19 at 08:15; Stop 11/14/19 at 08:16; Status UNV Magnesium Sulfate 100 ml @ 25 mls/hr 1X ONCE IV ; Start 11/14/19 at 12:00; Stop 11/14/19 at 15:59 Loperamide HCl (Imodium) 2 mg PRN Q1HR PRN PO DIARRHEA; Start 11/14/19 at 11:30 Nicotine (Nicoderm Cq 21mg) 1 patch PRN DAILY PRN TD SMOKING CESSATION; Start 11/14/19 at 11:30 Active Scripts Active [guaiFENesin/CODEINE 100mg/10mg] 5 ML Liquid 10 Ml PO PRN Q6HRS PRN Tramadol Hcl 50 Mg Tablet 50 Mg PO Q6HRS PRN Lantus Solostar (Insulin Glargine,Hum.rec.anlog) 100 Unit/1 Ml Insuln.pen 15 Units SQ QHS 7 Days Amlodipine Besylate 10 Mg Tablet 10 Mg PO DAILY 30 Days Fish Oil 1,000 Mg Capsule ([place]-3 Fatty Acids/Fish Oil) 1 Each Capsule 1,000 Mg PO BIDAFTMEAL 30 Days Losartan Potassium 100 Mg Tablet 100 Mg PO DAILY 30 Days Omeprazole 40 Mg Capsule.dr 1 Cap PO DAILY Crestor (Rosuvastatin Calcium) 40 Mg Tablet 40 Mg PO HS Januvia (Sitagliptin Phosphate) 100 Mg Tablet 1 Tab PO DAILY Aspirin 325 Mg Tablet 1 Tab PO DAILY Cymbalta (Duloxetine Hcl) 60 Mg Capsule.dr 1 Cap PO DAILY Reported Metoprolol Tartrate 100 Mg Tablet 1 Tab PO BID Repatha Syringe (Evolocumab) 140 Mg/1 Ml Syringe 140 Mg SQ WEEKLY Gabapentin (Gabapentin) 300 Mg Capsule 300 Mg PO TID Tizanidine Hcl 4 Mg Tablet 4 Mg PO TID Clopidogrel (Clopidogrel Bisulfate) 75 Mg Tablet 75 Mg PO DAILY Metformin Hcl 1,000 Mg Tablet 1,000 Mg PO BIDWMEALS Potassium Chloride (Potassium Chloride) 20 Meq Tablet.er 20 Meq PO DAILY Take one daily while taking Lasix Lasix (Furosemide) 40 Mg Tablet 1 Tab PO DAILY 30 Days Montelukast Sodium Tablet (Montelukast Sodium) 10 Mg Tablet 1 Tab PO DAILY Vitals/I & O Vital Sign - Last 24 Hours 11/13/19 11/13/19 11/13/19 11/13/19 12:42 12:48 13:06 13:21 Temp 97.6 97.6 Pulse 69 68 74 68 Resp 22 B/P (MAP) 196/107 (136) 196/107 (136) 221/122 (155) 211/122 (151) Pulse Ox 96 100 100 O2 Delivery Room Air Room Air Room Air Room Air 11/13/19 11/13/19 11/13/19 11/13/19 13:26 13:27 13:32 13:35 Pulse 77 88 80 Resp 16 B/P (MAP) 211/122 173/90 (117) 173/90 Pulse Ox 98 98 O2 Delivery Nasal Cannula Room Air O2 Flow Rate 2.0 11/13/19 11/13/19 11/13/19 11/13/19 13:36 13:41 13:44 13:51 Pulse 76 86 86 84 B/P (MAP) 179/97 (124) 185/93 (123) 185/93 174/83 (113) Pulse Ox 95 97 98 O2 Delivery Room Air Room Air Room Air 11/13/19 11/13/19 11/13/19 11/13/19 13:56 14:23 15:00 15:30 Pulse 74 75 85 Resp 18 B/P (MAP) 181/86 (117) 159/71 (100) 144/96 (112) Pulse Ox 98 94 94 93 O2 Delivery Room Air Room Air Room Air Room Air O2 Flow Rate 2.0 11/13/19 11/13/19 11/13/19 11/13/19 16:00 16:30 18:00 18:09 Temp 97.6 97.6 Pulse 72 76 75 Resp 18 B/P (MAP) 189/93 (125) 169/81 (110) 193/91 (125) Pulse Ox 98 95 98 O2 Delivery Room Air Room Air Room Air Room Air O2 Flow Rate 2.0 11/13/19 11/13/19 11/13/19 11/14/19 20:00 21:37 23:00 02:00 Temp 98.6 98.6 Pulse 75 69 69 Resp 18 B/P (MAP) 193/91 189/90 (123) 189/90 Pulse Ox 96 O2 Delivery Room Air Room Air O2 Flow Rate 2.0 11/14/19 11/14/19 11/14/19 11/14/19 03:19 07:00 08:28 08:29 Temp 98.3 98.4 98.3 98.4 Pulse 71 69 69 69 Resp 16 18 B/P (MAP) 158/49 (85) 191/77 (115) 191/71 191/71 Pulse Ox 98 97 O2 Delivery Room Air Room Air 11/14/19 11/14/19 08:31 10:53 Temp 97.9 97.9 Pulse 69 61 Resp 16 B/P (MAP) 191 101/61 (74) Pulse Ox 99 O2 Delivery Room Air Intake and Output 11/13/19 11/13/19 11/14/19 15:00 23:00 07:00 Intake Total 240 ml Output Total 200 ml Balance 40 ml Justicifation of Admission Dx: Justifications for Admission: Justification of Admission Dx: Yes Angina: Unstable Variant Hypertension: Symp at Rest AL: Acute NSTEMI CAROLYN CABRERA MD 2, 2020 11:30
--- NOTE | 2019-11-14 11:39 | CARD ---
MR#: [id number] Date of Study: 11/14/2019 Ordering Physician: MUSHTAQ PEREYRA, Referring Physician: MUSHTAQ PEREYRA, Tech: Deana Alex BIANKA APPROVED REPORT EXAM: Two-dimensional and M-mode echocardiogram with Doppler and color Doppler. Other Information Quality : Good INDICATION Cardiac Disease: CAD 2D DIMENSIONS RVDd2.5 (2.9-3.5cm)Left Atrium(2D)3.5 (1.6-4.0cm) IVSd1.9 (0.7-1.1cm)Aortic Root(2D)3.2 (2.0-3.7cm) LVDd4.4 (3.9-5.9cm)LVOT Diameter2.1 (1.8-2.4cm) PWd1.4 (0.7-1.1cm)LVDs3.1 (2.5-4.0cm) FS (%) 29.8 %SV50.5 ml LVEF(%)57.1 (>50%) Aortic Valve AoV Peak Irvin.98.7cm/sAoV VTI17.9cm AO Peak GR.3.9mmHgLVOT VTI 21.03cm AO Mean GR.2mmHgAVA (VTI)4.20cm2 Mitral Valve MV E Yoexrgvr04.9cm/sMV DECEL ZENL231na MV A Xhhkqgoz07.5cm/sE/A Ratio0.9 TDI Lateral E' P. V7.34cm/sMedial E' P. V5.21cm/s E/Lateral E'9.5E/Medial E'13.4 Tricuspid Valve TR P. Ytuvgkrg753pe/sRAP UEFOJPQH9vxUm TR Peak Gr.50zkUoNZQZ53yhNo Pulmonary Vein S1 Xcxjqahx02.1cm/sS2 Dysrmskr43.45cm/s D2 Ljudopfh02.5cm/s LEFT VENTRICLE The left ventricle is normal size. There is moderate concentric left ventricular hypertrophy. The lef t ventricular systolic function is normal. The ejection fraction is 55-60%. There is normal LV segmen don wall motion. Transmitral Doppler flow pattern is Grade I-abnormal relaxation pattern. RIGHT VENTRICLE The right ventricle is normal size. The right ventricular systolic function is normal. ATRIA The left atrium size is normal. The right atrium size is normal. The interatrial septum is intact wit h no evidence for an atrial septal defect or patent foramen ovale as noted on 2-D or Doppler imaging. AORTIC VALVE The aortic valve is calcified but opens well. Doppler and Color Flow revealed no significant aortic r egurgitation. There is no significant aortic valvular stenosis. MITRAL VALVE The mitral valve is calcified but opens well. Mitral annular calcification is mild. There is no evide nce of mitral valve prolapse. There is no mitral valve stenosis. Doppler and Color Flow revealed no m itral valve regurgitation noted. TRICUSPID VALVE The tricuspid valve is normal in structure and function. Doppler and Color Flow revealed mild tricusp id regurgitation. The PA pressure was estimated at 30 mmHg. There is no tricuspid valve stenosis. PULMONIC VALVE The pulmonary valve is normal in structure and function. Doppler and Color Flow revealed no pulmonic valvular regurgitation. There is no pulmonic valvular stenosis. GREAT VESSELS The aortic root is normal in size. The ascending aorta is normal in size. The IVC is normal in size a nd collapses >50% with inspiration. PERICARDIAL EFFUSION There is no evidence of significant pericardial effusion. Critical Notification Critical Value: No <Conclusion> The left ventricular systolic function is normal. The ejection fraction is 55-60%. There is normal LV segmental wall motion. Transmitral Doppler flow pattern is Grade I-abnormal relaxation pattern. Mild tricuspid regurgitation. The PA pressure was estimated at 30 mmHg. There is no evidence of significant pericardial effusion. Signed by : Darrin Villafana, Electronically Approved : 11/14/2019 11:38:41
[2019-11-14] MEDS ORDERED: MAGNESIUM SULFATE 4GM 100 ML IV ONE (12:00)
--- NOTE | 2019-11-14 13:14 | PDOC ---
CARDIO Progress Notes Date and Time Date of Service 11/14/2019 Time of Evaluation 1150 Subjective Subjective: No Chest Pain, No shortness of breath, No Palpitations, Other (complains of pain left hip above left iliac crest) Vitals Vitals Vital Signs Date Time Temp Pulse Resp B/P (MAP) Pulse Ox O2 Delivery O2 Flow Rate FiO2 11/14/19 10:53 97.9 61 16 101/61 (74) 99 Room Air 97.9 11/13/19 20:00 2.0 Weight Weight [ ] Input and Output Intake and Output Intake and Output 11/14/19 07:00 Intake Total 240 ml Output Total 200 ml Balance 40 ml Intake Oral 240 ml Output Urine Total 200 ml Laboratory Labs Laboratory Tests Test 11/13/19 13:02 11/13/19 17:18 11/13/19 21:15 11/13/19 23:38 White Blood Count 10.6 x10^3/uL (4.0-11.0) Red Blood Count 4.97 x10^6/uL (3.50-5.40) Hemoglobin 16.4 g/dL (12.0-15.5) Hematocrit 46.4 % (36.0-47.0) Mean Corpuscular Volume 93 fL (79-100) Mean Corpuscular Hemoglobin 33 pg (25-35) Mean Corpuscular Hemoglobin Concent 35 g/dL (31-37) Red Cell Distribution Width 12.4 % (11.5-14.5) Platelet Count 450 x10^3/uL (140-400) Neutrophils (%) (Auto) 79 % (31-73) Lymphocytes (%) (Auto) 17 % (24-48) Monocytes (%) (Auto) 2 % (0-9) Eosinophils (%) (Auto) 0 % (0-3) Basophils (%) (Auto) 1 % (0-3) Neutrophils # (Auto) 8.4 x10^3/uL (1.8-7.7) Lymphocytes # (Auto) 1.8 x10^3/uL (1.0-4.8) Monocytes # (Auto) 0.3 x10^3/uL (0.0-1.1) Eosinophils # (Auto) 0.0 x10^3/uL (0.0-0.7) Basophils # (Auto) 0.1 x10^3/uL (0.0-0.2) Prothrombin Time 12.9 SEC (11.7-14.0) Prothromb Time International Ratio 1.0 (0.8-1.1) Sodium Level 136 mmol/L (136-145) Potassium Level 3.1 mmol/L (3.5-5.1) Chloride Level 96 mmol/L (98-107) Carbon Dioxide Level 26 mmol/L (21-32) Anion Gap 14 (6-14) Blood Urea Nitrogen 13 mg/dL (7-20) Creatinine 1.0 mg/dL (0.6-1.0) Estimated GFR (Cockcroft-Gault) 68.7 BUN/Creatinine Ratio 13 (6-20) Glucose Level 385 mg/dL (70-99) Calcium Level 10.3 mg/dL (8.5-10.1) Magnesium Level 1.4 mg/dL (1.8-2.4) Total Bilirubin 0.3 mg/dL (0.2-1.0) Aspartate Amino Transf (AST/SGOT) 34 U/L (15-37) Alanine Aminotransferase (ALT/SGPT) 27 U/L (14-59) Alkaline Phosphatase 85 U/L (46-116) Troponin I Quantitative < 0.017 ng/mL (0.000-0.055) [id number]-Type Natriuretic Peptide 37 pg/mL (0-124) Total Protein 8.5 g/dL (6.4-8.2) Albumin 4.0 g/dL (3.4-5.0) Albumin/Globulin Ratio 0.9 (1.0-1.7) Glucose (Fingerstick) 262 mg/dL (70-99) 187 mg/dL (70-99) Heparin Anti-Xa Act, Unfractionated < 0.10 IU/mL (0.30-0.70) Test 11/14/19 06:50 11/14/19 07:12 11/14/19 12:20 White Blood Count 9.7 x10^3/uL (4.0-11.0) Red Blood Count 4.85 x10^6/uL (3.50-5.40) Hemoglobin 15.8 g/dL (12.0-15.5) Hematocrit 45.5 % (36.0-47.0) Mean Corpuscular Volume 94 fL (79-100) Mean Corpuscular Hemoglobin 33 pg (25-35) Mean Corpuscular Hemoglobin Concent 35 g/dL (31-37) Red Cell Distribution Width 12.5 % (11.5-14.5) Platelet Count 422 x10^3/uL (140-400) Neutrophils (%) (Auto) 57 % (31-73) Lymphocytes (%) (Auto) 36 % (24-48) Monocytes (%) (Auto) 5 % (0-9) Eosinophils (%) (Auto) 1 % (0-3) Basophils (%) (Auto) 1 % (0-3) Neutrophils # (Auto) 5.5 x10^3/uL (1.8-7.7) Lymphocytes # (Auto) 3.5 x10^3/uL (1.0-4.8) Monocytes # (Auto) 0.5 x10^3/uL (0.0-1.1) Eosinophils # (Auto) 0.1 x10^3/uL (0.0-0.7) Basophils # (Auto) 0.1 x10^3/uL (0.0-0.2) Heparin Anti-Xa Act, Unfractionated 0.12 IU/mL (0.30-0.70) Sodium Level 138 mmol/L (136-145) Potassium Level 2.7 mmol/L (3.5-5.1) Chloride Level 100 mmol/L (98-107) Carbon Dioxide Level 28 mmol/L (21-32) Anion Gap 10 (6-14) Blood Urea Nitrogen 10 mg/dL (7-20) Creatinine 1.0 mg/dL (0.6-1.0) Estimated GFR (Cockcroft-Gault) 68.7 Glucose Level 233 mg/dL (70-99) Calcium Level 9.4 mg/dL (8.5-10.1) Magnesium Level 1.9 mg/dL (1.8-2.4) Troponin I Quantitative < 0.017 ng/mL (0.000-0.055) Triglycerides Level 571 mg/dL (0-150) Cholesterol Level 258 mg/dL (0-200) LDL Cholesterol, Calculated mg/dL (0-100) VLDL Cholesterol, Calculated 114 mg/dL (0-40) Non-HDL Cholesterol Calculated 211 mg/dL (0-129) HDL Cholesterol 47 mg/dL (40-60) Cholesterol/HDL Ratio 5.5 Glucose (Fingerstick) 279 mg/dL (70-99) 208 mg/dL (70-99) Physical Exam HEENT: Neck Supple W Full Motion Chest: Symmetric LUNGS: Clear to Auscultation Heart: S1S2, RRR (SR) Abdomen: Soft N/T Extremities: No Calf Tenderness Neurology: alert, oriented, follow commands Assessment Assessment 1. Atypical CP: noncardiac. Trops nml, EKG no acute changes. EF and WM nml 2. Abd/Left flank pain: notable for renal/ureteral stones. GI following as well 3. Mechanical fall: no syncope occurred 2 weeks. fell to left side 4. HTN urgency: improved. pain was contributing 5. CAD: prior stents. clinically stable 6. DM2: uncontrolled 7. HLP: uncontrolled with high TG Recommendations 1. DC heparin. Follow up in January [address] Villafana with A1C and lipids prior to visit 2. Continue secondary prevention measures. DAPT. Replace K. Check UA 3. Continue home high dose crestor and PCSK9i and add vascepa. Recheck lipids in 6-8 weeks and will refer to a lipodologist if level remains elevated. Consult dietitian for strict cholesterol lowering diet. Encouraged exercise regimen. Pt does not check her BG at home and takes triple therapy including long acting insulin. Check A1C and discussed about Justicifation of Admission Dx: Justifications for Admission: Justification of Admission Dx: Yes Angina: Unstable Variant Hypertension: Symp at Rest MS: Acute NSTEMI ELLIS CHISHOLM [employer] Nov 14, 2019 13:14
--- NOTE | 2019-11-14 13:47 | PDOC2 ---
GI CONSULT Reason For Consult: diarrhea HPI: HPI: 59 y/o female seen w/ Dr. Landrum. Ill for ~2 weeks w/ diarrhea that is improving. "Black" - nurse saw more green stool earlier. Took Pepto-Bismol at home. Then last night had sweats, vomiting, and chest pain w/ radiation to back. To ER and admitted. Long h/o heartburn on omeprazole. No dysphagia. Has abdominal soreness. Some weight loss, possibly avoiding eating due to bloating. No chronic diarrhea - typically more on constipated side. No hematochezia or hematemesis. No previous EGD. Previous colonoscopy @ [facility] ~3 years ago reportedly normal. Diverticulosis on CT. No GB, liver, pancreas, or PUD history. PMH: PMH: CAD, HTN, HLD, asthma, GERD, OA, DM, nephrolithiasis PCI/stent FH: Family History: No pertinent hx (no GI cancers) Social History: Smoke: Quit ALCOHOL: occassional Drugs: Marijuana ROS: GEN: +sweats HEENT: Denies blurred vision, sore throat CV: +chest pain RESP: Denies shortness of air, cough GI: Per HPI : Denies hematuria, dysuria ENDO: +weight loss NEURO: Denies confusion, dizziness MSK: Denies weakness, joint pain/swelling SKIN: Denies jaundice, pruritus Vitals: Vitals: Vital Signs Date Time Temp Pulse Resp B/P (MAP) Pulse Ox O2 Delivery O2 Flow Rate FiO2 11/14/19 10:53 97.9 61 16 101/61 (74) 99 Room Air 97.9 11/13/19 20:00 2.0 Labs: Labs: Laboratory Tests Test 11/13/19 17:18 11/13/19 21:15 11/13/19 23:38 11/14/19 06:50 Glucose (Fingerstick) 262 mg/dL (70-99) 187 mg/dL (70-99) Heparin Anti-Xa Act, Unfractionated < 0.10 IU/mL (0.30-0.70) 0.12 IU/mL (0.30-0.70) White Blood Count 9.7 x10^3/uL (4.0-11.0) Red Blood Count 4.85 x10^6/uL (3.50-5.40) Hemoglobin 15.8 g/dL (12.0-15.5) Hematocrit 45.5 % (36.0-47.0) Mean Corpuscular Volume 94 fL (79-100) Mean Corpuscular Hemoglobin 33 pg (25-35) Mean Corpuscular Hemoglobin Concent 35 g/dL (31-37) Red Cell Distribution Width 12.5 % (11.5-14.5) Platelet Count 422 x10^3/uL (140-400) Neutrophils (%) (Auto) 57 % (31-73) Lymphocytes (%) (Auto) 36 % (24-48) Monocytes (%) (Auto) 5 % (0-9) Eosinophils (%) (Auto) 1 % (0-3) Basophils (%) (Auto) 1 % (0-3) Neutrophils # (Auto) 5.5 x10^3/uL (1.8-7.7) Lymphocytes # (Auto) 3.5 x10^3/uL (1.0-4.8) Monocytes # (Auto) 0.5 x10^3/uL (0.0-1.1) Eosinophils # (Auto) 0.1 x10^3/uL (0.0-0.7) Basophils # (Auto) 0.1 x10^3/uL (0.0-0.2) Sodium Level 138 mmol/L (136-145) Potassium Level 2.7 mmol/L (3.5-5.1) Chloride Level 100 mmol/L (98-107) Carbon Dioxide Level 28 mmol/L (21-32) Anion Gap 10 (6-14) Blood Urea Nitrogen 10 mg/dL (7-20) Creatinine 1.0 mg/dL (0.6-1.0) Estimated GFR (Cockcroft-Gault) 68.7 Glucose Level 233 mg/dL (70-99) Calcium Level 9.4 mg/dL (8.5-10.1) Magnesium Level 1.9 mg/dL (1.8-2.4) Troponin I Quantitative < 0.017 ng/mL (0.000-0.055) Triglycerides Level 571 mg/dL (0-150) Cholesterol Level 258 mg/dL (0-200) LDL Cholesterol, Calculated mg/dL (0-100) VLDL Cholesterol, Calculated 114 mg/dL (0-40) Non-HDL Cholesterol Calculated 211 mg/dL (0-129) HDL Cholesterol 47 mg/dL (40-60) Cholesterol/HDL Ratio 5.5 Test 11/14/19 07:12 11/14/19 12:20 Glucose (Fingerstick) 279 mg/dL (70-99) 208 mg/dL (70-99) Allergies: Coded Allergies: No Known Drug Allergies (Unverified , 07/23/15) Medications: Current Medications Medications (Trade) Dose Ordered Sig/Carlton Route PRN Reason Start Time Stop Time Status Last Admin Dose Admin Iohexol (Omnipaque 350 Mg/ml) 100 ml 1X ONCE IV 11/13/19 13:45 11/13/19 13:46 DC 11/13/19 14:08 Potassium Chloride (Klor-Con) 40 meq 1X ONCE PO 11/13/19 15:00 11/13/19 15:01 DC 11/13/19 15:26 Magnesium Sulfate 50 ml @ 25 mls/hr 1X ONCE IV 11/13/19 15:00 11/13/19 16:59 DC 11/13/19 15:25 Amlodipine Besylate (Norvasc) 10 mg DAILY PO 11/14/19 09:00 11/14/19 08:31 Aspirin (Christina Aspirin) 325 mg DAILY PO 11/14/19 09:00 11/14/19 08:25 Clopidogrel Bisulfate (Plavix) 75 mg DAILY PO 11/14/19 09:00 11/14/19 08:31 Furosemide (Lasix) 40 mg DAILY PO 11/14/19 09:00 11/14/19 11:20 DC 11/14/19 08:30 Gabapentin (Neurontin) 300 mg TID PO 11/13/19 21:00 11/14/19 08:28 Montelukast Sodium (Singulair) 10 mg DAILY PO 11/14/19 09:00 11/14/19 08:29 Fish Oil (Fish Oil) 1,000 mg BIDAFTMEAL PO 11/13/19 18:00 11/14/19 08:30 Tizanidine HCl (Zanaflex) 4 mg TID PO 11/13/19 21:00 11/14/19 08:31 Duloxetine HCl (Cymbalta) 60 mg DAILY PO 11/14/19 09:00 11/14/19 08:30 Losartan Potassium (Cozaar) 100 mg DAILY PO 11/14/19 09:00 11/14/19 08:29 Metoprolol Tartrate (Lopressor) 100 mg BID PO 11/13/19 21:00 11/14/19 08:28 Pantoprazole Sodium (Protonix) 40 mg DAILYAC PO 11/14/19 07:30 11/14/19 08:30 Atorvastatin Calcium (Lipitor) 80 mg QHS PO 11/13/19 21:00 11/13/19 21:38 Linagliptin (Tradjenta) 5 mg DAILY PO 11/14/19 09:00 11/14/19 08:28 Insulin Glargine (Lantus Syringe) 26 unit QHS SQ 11/13/19 18:45 11/13/19 23:45 Insulin Human Lispro (HumaLOG) 0-5 UNITS TIDWMEALS SQ 11/14/19 08:00 11/14/19 12:59 Heparin Sodium/ Dextrose 250 ml @ 0 mls/hr CONT PRN IV PER PROTOCOL 11/13/19 19:15 11/14/19 02:05 Heparin Sodium (Porcine) (Heparin Sodium) 1,800 unit PRN Q6HRS PRN IV FOR UFH LEVEL LESS THAN 0.2 11/13/19 19:15 11/14/19 08:19 Ondansetron HCl (Zofran) 4 mg PRN Q8HRS PRN IVP NAUSEA/VOMITING 1ST CHOICE 11/13/19 23:00 11/13/19 23:33 Amlodipine Besylate (Norvasc) 10 mg 1X ONCE PO 11/14/19 01:00 11/14/19 01:01 DC 11/14/19 02:00 Potassium Chloride/Water 100 ml @ 100 mls/hr Q1H IV 11/14/19 08:30 11/14/19 10:29 DC 11/14/19 10:38 Potassium Chloride (Klor-Con) 40 meq 1X ONCE PO 11/14/19 09:00 11/14/19 09:01 DC 11/14/19 08:24 Magnesium Sulfate 100 ml @ 25 mls/hr 1X ONCE IV 11/14/19 12:00 11/14/19 15:59 11/14/19 12:09 Imaging: Imaging: CXR IMPRESSION: 1.5 cm nodule identified in the right lung base. Consider follow-up CT chest. CTA C/A/P IMPRESSION: 1. No aortic intramural hematoma, dissection, or aneurysm. 2. Moderate right hydroureteronephrosis with a 1.1 x 0.7 x 1.6 cm calculus in the mid ureter. 3. Additional bilateral nonobstructive renal calculi. 4. Colonic diverticulosis. Echo <Conclusion> The left ventricular systolic function is normal. The ejection fraction is 55-60%. There is normal LV segmental wall motion. Transmitral Doppler flow pattern is Grade I-abnormal relaxation pattern. Mild tricuspid regurgitation. The PA pressure was estimated at 30 mmHg. There is no evidence of significant pericardial effusion. PE: GEN: NAD HEENT: Atraumatic, PERRL LUNGS: CTAB HEART: RRR ABD: NABS, S/ND, mild soreness throughout EXTREMITY: No edema SKIN: No rashes, no jaundice NEURO/PSYCH: A & O 3 A/P: A/P: Vomiting, diarrhea, chest pain Hypokalemia, hypomagnesemia GERD CRC screen - UTD Diverticulosis Abnormal CT - moderate right hydroureteronephrosis with a 1.1 x 0.7 x 1.6 cm calculus in the mid ureter - per Dr. Marx CAD, DM, h/o marijuana -- ?viral illness Diarrhea improving - "black" stool likely 2/2 Pepto - monitor. H/o GERD - continue PPI. Would benefit from EGD at some point - can pursue outpt. GUILLAUMET romario per GI. RELL KEENE Nov 14, 2019 13:47
[2019-11-14 14:29] LABS: BILIRUBIN,URINE NEGATIVE (NEG); CLARITY,URINE CLOUDY; COLOR,URINE YELLOW; NITRITE,URINE NEGATIVE (NEG); PH,URINE 6.5 (<5.0-8.0); PROTEIN,URINE NEGATIVE (NEG-TRACE); UROBILINOGEN,URINE 0.2 mg/dL (0.2 mg/dL)
--- NOTE | 2019-11-14 14:33 | NUR ---
SS following for discharge planning. SS reviewed pt chart and discussed with pt RN. Pt is from home and is currently on room air. SS will continue to follow for discharge planning.
[2019-11-14 14:38] LABS: BACTERIA,URINE MODERATE /HPF (0-FEW); SQUAMOUS EPITHELIAL CELL,UR MANY /LPF
[2019-11-14 14:51] VITALS: BP 134/74
[2019-11-14 19:38] VITALS: BP 159/98
[2019-11-14] MEDS: ATORVASTATIN CALCIUM 40 MG TABLET. PO SCH (20:57)
[2019-11-14] MEDS: INSULIN GLARGINE SYRINGE. SQ SCH (21:04)
[2019-11-14 22:24] VITALS: BP 123/59
[2019-11-15 01:08] LABS: HEMOGLOBIN A1C 8.9 % (4.8-5.6)
[2019-11-15 03:07] VITALS: BP 140/74
[2019-11-15 04:37] LABS: BASO # 0.1 x10^3/uL (0.0-0.2); BASO % 1 % (0-3); EOS # 0.1 x10^3/uL (0.0-0.7); EOS % 2 % (0-3); HEMATOCRIT 44.3 % (36.0-47.0); HEMOGLOBIN 15.6 g/dL (12.0-15.5); LYMPH % 36 % (24-48); MEAN CORPUSCULAR HEMOGLOBIN 33 pg (25-35); MEAN CORPUSCULAR HGB CONC 35 g/dL (31-37); MEAN CORPUSCULAR VOLUME 94 fL (79-100); MONO # 0.6 x10^3/uL (0.0-1.1); MONO % 7 % (0-9); NEUT # 4.4 x10^3/uL (1.8-7.7); NEUT % 54 % (31-73); PLATELET COUNT 388 x10^3/uL (140-400); RED BLOOD COUNT 4.69 x10^6/uL (3.50-5.40); RED CELL DISTRIBUTION WIDTH 12.5 % (11.5-14.5); WHITE BLOOD COUNT 8.2 x10^3/uL (4.0-11.0)
[2019-11-15 05:00] LABS: ALBUMIN 3.3 g/dL (3.4-5.0); ALBUMIN/GLOBULIN RATIO 0.8 (1.0-1.7); CALCIUM 9.1 mg/dL (8.5-10.1); CREATININE 0.8 mg/dL (0.6-1.0); GFR 88.8; TOTAL BILIRUBIN 0.4 mg/dL (0.2-1.0); TOTAL PROTEIN 7.3 g/dL (6.4-8.2)
[2019-11-15 05:06] LABS: POTASSIUM 2.9 mmol/L (3.5-5.1)
[2019-11-15 07:00] VITALS: BP 171/89
[2019-11-15] MEDS ORDERED: POTASSIUM CHLORIDE 20 MEQ TABLET.ER. PO ONE (07:00)
[2019-11-15] MEDS: PANTOPRAZOLE 40 MG TABLET.DR. PO SCH (07:37)
[2019-11-15] MEDS: POTASSIUM CHLORIDE 20 MEQ TABLET.ER. PO SCH (08:30)
[2019-11-15] MEDS: MONTELUKAST SODIUM 10 MG TABLET. PO SCH (08:30)
[2019-11-15] MEDS: CLOPIDOGREL BISULFATE 75 MG TABLET PO SCH (08:30)
[2019-11-15] MEDS: LINAGLIPTIN 5 MG TABLET PO SCH (08:30)
[2019-11-15] MEDS: OMEGA-3 FATTY ACIDS/FISH OIL 1,000 MG CAPSULE. PO SCH (08:31)
[2019-11-15] MEDS: ASPIRIN 325 MG TABLET PO SCH (08:31)
[2019-11-15] MEDS: DULoxetine HCL 30 MG CAPSULE.DR PO SCH (08:31)
[2019-11-15] MEDS: METOPROLOL TART IMMED RELEASE 50 MG TABLET. PO SCH (08:31)
[2019-11-15] MEDS: tiZANidine 4 MG TABLET. PO SCH ×2 (08:31→14:08)
[2019-11-15] MEDS: amLODIPine BESYLATE 10 MG TABLET PO SCH (08:31)
[2019-11-15] MEDS: GABAPENTIN 300 MG CAPSULE. PO SCH ×2 (08:31→14:08)
[2019-11-15] MEDS: ONDANSETRON PF 4 MG/2 ML VIAL. IVP PRN (08:32)
[2019-11-15] MEDS: LOSARTAN POTASSIUM 50 MG TABLET. PO SCH (08:32)
[2019-11-15] MEDS: INSULIN LISPRO 300 UNITS/3 ML VIAL. SQ SCH ×2 (08:48→12:07)
[2019-11-15 11:00] VITALS: BP 107/66
--- NOTE | 2019-11-15 12:00 | PDOC ---
G I PROGRESS NOTE Subjective Says feeling much better. Diarrhea much less. No N, V. Still poor appetite/afraid to eat. Physical Exam Lungs clear. RRR Abdomen soft, not tender nor distended. Review of Relevant I have reviewed the following items jd (where applicable) has been applied. Labs Laboratory Tests Test 11/13/19 13:02 11/13/19 17:18 11/13/19 21:15 11/13/19 23:38 White Blood Count 10.6 x10^3/uL (4.0-11.0) Red Blood Count 4.97 x10^6/uL (3.50-5.40) Hemoglobin 16.4 g/dL (12.0-15.5) Hematocrit 46.4 % (36.0-47.0) Mean Corpuscular Volume 93 fL (79-100) Mean Corpuscular Hemoglobin 33 pg (25-35) Mean Corpuscular Hemoglobin Concent 35 g/dL (31-37) Red Cell Distribution Width 12.4 % (11.5-14.5) Platelet Count 450 x10^3/uL (140-400) Neutrophils (%) (Auto) 79 % (31-73) Lymphocytes (%) (Auto) 17 % (24-48) Monocytes (%) (Auto) 2 % (0-9) Eosinophils (%) (Auto) 0 % (0-3) Basophils (%) (Auto) 1 % (0-3) Neutrophils # (Auto) 8.4 x10^3/uL (1.8-7.7) Lymphocytes # (Auto) 1.8 x10^3/uL (1.0-4.8) Monocytes # (Auto) 0.3 x10^3/uL (0.0-1.1) Eosinophils # (Auto) 0.0 x10^3/uL (0.0-0.7) Basophils # (Auto) 0.1 x10^3/uL (0.0-0.2) Prothrombin Time 12.9 SEC (11.7-14.0) Prothromb Time International Ratio 1.0 (0.8-1.1) Sodium Level 136 mmol/L (136-145) Potassium Level 3.1 mmol/L (3.5-5.1) Chloride Level 96 mmol/L (98-107) Carbon Dioxide Level 26 mmol/L (21-32) Anion Gap 14 (6-14) Blood Urea Nitrogen 13 mg/dL (7-20) Creatinine 1.0 mg/dL (0.6-1.0) Estimated GFR (Cockcroft-Gault) 68.7 BUN/Creatinine Ratio 13 (6-20) Glucose Level 385 mg/dL (70-99) Calcium Level 10.3 mg/dL (8.5-10.1) Magnesium Level 1.4 mg/dL (1.8-2.4) Total Bilirubin 0.3 mg/dL (0.2-1.0) Aspartate Amino Transf (AST/SGOT) 34 U/L (15-37) Alanine Aminotransferase (ALT/SGPT) 27 U/L (14-59) Alkaline Phosphatase 85 U/L (46-116) Troponin I Quantitative < 0.017 ng/mL (0.000-0.055) [id number]-Type Natriuretic Peptide 37 pg/mL (0-124) Total Protein 8.5 g/dL (6.4-8.2) Albumin 4.0 g/dL (3.4-5.0) Albumin/Globulin Ratio 0.9 (1.0-1.7) Glucose (Fingerstick) 262 mg/dL (70-99) 187 mg/dL (70-99) Heparin Anti-Xa Act, Unfractionated < 0.10 IU/mL (0.30-0.70) Test 11/14/19 06:50 11/14/19 07:12 11/14/19 12:20 11/14/19 12:45 White Blood Count 9.7 x10^3/uL (4.0-11.0) Red Blood Count 4.85 x10^6/uL (3.50-5.40) Hemoglobin 15.8 g/dL (12.0-15.5) Hematocrit 45.5 % (36.0-47.0) Mean Corpuscular Volume 94 fL (79-100) Mean Corpuscular Hemoglobin 33 pg (25-35) Mean Corpuscular Hemoglobin Concent 35 g/dL (31-37) Red Cell Distribution Width 12.5 % (11.5-14.5) Platelet Count 422 x10^3/uL (140-400) Neutrophils (%) (Auto) 57 % (31-73) Lymphocytes (%) (Auto) 36 % (24-48) Monocytes (%) (Auto) 5 % (0-9) Eosinophils (%) (Auto) 1 % (0-3) Basophils (%) (Auto) 1 % (0-3) Neutrophils # (Auto) 5.5 x10^3/uL (1.8-7.7) Lymphocytes # (Auto) 3.5 x10^3/uL (1.0-4.8) Monocytes # (Auto) 0.5 x10^3/uL (0.0-1.1) Eosinophils # (Auto) 0.1 x10^3/uL (0.0-0.7) Basophils # (Auto) 0.1 x10^3/uL (0.0-0.2) Heparin Anti-Xa Act, Unfractionated 0.12 IU/mL (0.30-0.70) Sodium Level 138 mmol/L (136-145) Potassium Level 2.7 mmol/L (3.5-5.1) Chloride Level 100 mmol/L (98-107) Carbon Dioxide Level 28 mmol/L (21-32) Anion Gap 10 (6-14) Blood Urea Nitrogen 10 mg/dL (7-20) Creatinine 1.0 mg/dL (0.6-1.0) Estimated GFR (Cockcroft-Gault) 68.7 Glucose Level 233 mg/dL (70-99) Hemoglobin A1c 8.9 % (4.8-5.6) Calcium Level 9.4 mg/dL (8.5-10.1) Magnesium Level 1.9 mg/dL (1.8-2.4) Troponin I Quantitative < 0.017 ng/mL (0.000-0.055) Triglycerides Level 571 mg/dL (0-150) Cholesterol Level 258 mg/dL (0-200) LDL Cholesterol, Calculated mg/dL (0-100) VLDL Cholesterol, Calculated 114 mg/dL (0-40) Non-HDL Cholesterol Calculated 211 mg/dL (0-129) HDL Cholesterol 47 mg/dL (40-60) Cholesterol/HDL Ratio 5.5 Glucose (Fingerstick) 279 mg/dL (70-99) 208 mg/dL (70-99) Clostridium difficile Toxin (PCR) Negative (NEGATIVE) Test 11/14/19 14:20 11/14/19 17:11 11/14/19 20:19 11/15/19 04:15 Urine Collection Type Unknown Urine Color Yellow Urine Clarity Cloudy Urine pH 6.5 (<5.0-8.0) Urine Specific Napoleon 1.010 (1.000-1.030) Urine Protein Negative mg/dL (NEG-TRACE) Urine Glucose (UA) Negative mg/dL (NEG) Urine Ketones (Stick) Negative mg/dL (NEG) Urine Blood Small (NEG) Urine Nitrite Negative (NEG) Urine Bilirubin Negative (NEG) Urine Urobilinogen Dipstick 0.2 mg/dL (0.2 mg/dL) Urine Leukocyte Esterase Moderate (NEG) Urine RBC 6-10 /HPF (0-2) Urine WBC 11-20 /HPF (0-4) Urine Squamous Epithelial Cells Many /LPF Urine Bacteria Moderate /HPF (0-FEW) Urine Mucus Mod /LPF Glucose (Fingerstick) 228 mg/dL (70-99) 170 mg/dL (70-99) White Blood Count 8.2 x10^3/uL (4.0-11.0) Red Blood Count 4.69 x10^6/uL (3.50-5.40) Hemoglobin 15.6 g/dL (12.0-15.5) Hematocrit 44.3 % (36.0-47.0) Mean Corpuscular Volume 94 fL (79-100) Mean Corpuscular Hemoglobin 33 pg (25-35) Mean Corpuscular Hemoglobin Concent 35 g/dL (31-37) Red Cell Distribution Width 12.5 % (11.5-14.5) Platelet Count 388 x10^3/uL (140-400) Neutrophils (%) (Auto) 54 % (31-73) Lymphocytes (%) (Auto) 36 % (24-48) Monocytes (%) (Auto) 7 % (0-9) Eosinophils (%) (Auto) 2 % (0-3) Basophils (%) (Auto) 1 % (0-3) Neutrophils # (Auto) 4.4 x10^3/uL (1.8-7.7) Lymphocytes # (Auto) 3.0 x10^3/uL (1.0-4.8) Monocytes # (Auto) 0.6 x10^3/uL (0.0-1.1) Eosinophils # (Auto) 0.1 x10^3/uL (0.0-0.7) Basophils # (Auto) 0.1 x10^3/uL (0.0-0.2) Sodium Level 140 mmol/L (136-145) Potassium Level 2.9 mmol/L (3.5-5.1) Chloride Level 104 mmol/L (98-107) Carbon Dioxide Level 26 mmol/L (21-32) Anion Gap 10 (6-14) Blood Urea Nitrogen 10 mg/dL (7-20) Creatinine 0.8 mg/dL (0.6-1.0) Estimated GFR (Cockcroft-Gault) 88.8 BUN/Creatinine Ratio 13 (6-20) Glucose Level 186 mg/dL (70-99) Calcium Level 9.1 mg/dL (8.5-10.1) Total Bilirubin 0.4 mg/dL (0.2-1.0) Aspartate Amino Transf (AST/SGOT) 27 U/L (15-37) Alanine Aminotransferase (ALT/SGPT) 20 U/L (14-59) Alkaline Phosphatase 71 U/L (46-116) Total Protein 7.3 g/dL (6.4-8.2) Albumin 3.3 g/dL (3.4-5.0) Albumin/Globulin Ratio 0.8 (1.0-1.7) Test 11/15/19 08:07 11/15/19 11:46 Glucose (Fingerstick) 210 mg/dL (70-99) 193 mg/dL (70-99) Laboratory Tests Test 11/14/19 12:20 11/14/19 12:45 11/14/19 14:20 11/14/19 17:11 Glucose (Fingerstick) 208 mg/dL (70-99) 228 mg/dL (70-99) Clostridium difficile Toxin (PCR) Negative (NEGATIVE) Urine Collection Type Unknown Urine Color Yellow Urine Clarity Cloudy Urine pH 6.5 (<5.0-8.0) Urine Specific Napoleon 1.010 (1.000-1.030) Urine Protein Negative mg/dL (NEG-TRACE) Urine Glucose (UA) Negative mg/dL (NEG) Urine Ketones (Stick) Negative mg/dL (NEG) Urine Blood Small (NEG) Urine Nitrite Negative (NEG) Urine Bilirubin Negative (NEG) Urine Urobilinogen Dipstick 0.2 mg/dL (0.2 mg/dL) Urine Leukocyte Esterase Moderate (NEG) Urine RBC 6-10 /HPF (0-2) Urine WBC 11-20 /HPF (0-4) Urine Squamous Epithelial Cells Many /LPF Urine Bacteria Moderate /HPF (0-FEW) Urine Mucus Mod /LPF Test 11/14/19 20:19 11/15/19 04:15 11/15/19 08:07 11/15/19 11:46 Glucose (Fingerstick) 170 mg/dL (70-99) 210 mg/dL (70-99) 193 mg/dL (70-99) White Blood Count 8.2 x10^3/uL (4.0-11.0) Red Blood Count 4.69 x10^6/uL (3.50-5.40) Hemoglobin 15.6 g/dL (12.0-15.5) Hematocrit 44.3 % (36.0-47.0) Mean Corpuscular Volume 94 fL (79-100) Mean Corpuscular Hemoglobin 33 pg (25-35) Mean Corpuscular Hemoglobin Concent 35 g/dL (31-37) Red Cell Distribution Width 12.5 % (11.5-14.5) Platelet Count 388 x10^3/uL (140-400) Neutrophils (%) (Auto) 54 % (31-73) Lymphocytes (%) (Auto) 36 % (24-48) Monocytes (%) (Auto) 7 % (0-9) Eosinophils (%) (Auto) 2 % (0-3) Basophils (%) (Auto) 1 % (0-3) Neutrophils # (Auto) 4.4 x10^3/uL (1.8-7.7) Lymphocytes # (Auto) 3.0 x10^3/uL (1.0-4.8) Monocytes # (Auto) 0.6 x10^3/uL (0.0-1.1) Eosinophils # (Auto) 0.1 x10^3/uL (0.0-0.7) Basophils # (Auto) 0.1 x10^3/uL (0.0-0.2) Sodium Level 140 mmol/L (136-145) Potassium Level 2.9 mmol/L (3.5-5.1) Chloride Level 104 mmol/L (98-107) Carbon Dioxide Level 26 mmol/L (21-32) Anion Gap 10 (6-14) Blood Urea Nitrogen 10 mg/dL (7-20) Creatinine 0.8 mg/dL (0.6-1.0) Estimated GFR (Cockcroft-Gault) 88.8 BUN/Creatinine Ratio 13 (6-20) Glucose Level 186 mg/dL (70-99) Calcium Level 9.1 mg/dL (8.5-10.1) Total Bilirubin 0.4 mg/dL (0.2-1.0) Aspartate Amino Transf (AST/SGOT) 27 U/L (15-37) Alanine Aminotransferase (ALT/SGPT) 20 U/L (14-59) Alkaline Phosphatase 71 U/L (46-116) Total Protein 7.3 g/dL (6.4-8.2) Albumin 3.3 g/dL (3.4-5.0) Albumin/Globulin Ratio 0.8 (1.0-1.7) Vitals/I & O Vital Sign - Last 24 Hours 11/14/19 11/14/19 11/14/19 11/14/19 14:51 19:38 20:00 20:57 Temp 97.7 98.3 97.7 98.3 Pulse 61 59 59 Resp 18 18 B/P (MAP) 134/74 (94) 159/98 (118) 159/98 Pulse Ox 98 97 O2 Delivery Room Air Room Air Nasal Cannula O2 Flow Rate 2.0 11/14/19 11/15/19 11/15/19 11/15/19 22:24 03:07 07:00 08:00 Temp 99.1 99.0 97.6 99.1 99.0 97.6 Pulse 58 51 57 Resp 20 18 18 B/P (MAP) 123/59 (80) 140/74 (96) 171/89 (116) Pulse Ox 98 97 95 O2 Delivery Room Air Room Air Room Air Room Air 11/15/19 11/15/19 11/15/19 11/15/19 08:31 08:31 08:32 11:00 Temp 98.5 98.5 Pulse 57 57 57 56 Resp 16 B/P (MAP) 171/89 171/89 171/89 107/66 (80) Pulse Ox 100 O2 Delivery Room Air Intake and Output 11/14/19 11/14/19 11/15/19 15:00 23:00 07:00 Intake Total 200 ml 620 ml 300 ml Output Total 150 ml Balance 200 ml 470 ml 300 ml Problem List Problems Medical Problems: (1) Chest pain Status: Acute (2) Hydronephrosis, right Status: Acute (3) Hypertensive urgency Status: Acute (4) Hypokalemia Status: Acute (5) Hypomagnesemia Status: Acute Assessment GERD-->chest pain. Likely precipitated by GI illness. Probable viral gastroenteritis. Seems better. Plan of Care Note Continue PPI, etc. Consider outpatient EGD. Seems OK to consider for discharge from GI standpoint. Off the weekend. Coverage available if needed. Justicifation of Admission Dx: Justifications for Admission: Justification of Admission Dx: Yes Angina: Unstable Variant Hypertension: Symp at Rest OK: Acute NSTEMI LEROY MILLER MD Nov 15, 2019 12:00
[2019-11-15] MEDS ORDERED: INSU100V8 SQ (14:04)
--- NOTE | 2019-11-15 14:07 | PDOC3 ---
Discharge Summary Visit Information Date of Admission: Nov 13, 2019 Date of Discharge: Nov 15, 2019 Final Diagnosis nausea and vomiting, diarrhea, acute viral GI likely diarrhea for weeks, tobacco use disorder hypokalemia hypomagnesemia chest pain, improved at DC, stable Dm2, insulin, poor control, A1c 8.9 Problems Medical Problems: (1) Chest pain Status: Acute (2) Hydronephrosis, right Status: Acute (3) Hypertensive urgency Status: Acute (4) Hypokalemia Status: Acute (5) Hypomagnesemia Status: Acute Brief Hospital Course Allergies Allergies Coded Allergies Type Severity Reaction Last Updated Verified No Known Drug Allergies 07/23/15 No Vital Signs Vital Signs Date Time Temp Pulse Resp B/P (MAP) Pulse Ox O2 Delivery O2 Flow Rate FiO2 11/15/19 11:00 98.5 56 16 107/66 (80) 100 Room Air 98.5 11/14/19 20:00 2.0 Lab Results Laboratory Tests Test 11/13/19 17:18 11/13/19 21:15 11/13/19 23:38 11/14/19 06:50 Glucose (Fingerstick) 262 mg/dL (70-99) 187 mg/dL (70-99) Heparin Anti-Xa Act, Unfractionated < 0.10 IU/mL (0.30-0.70) 0.12 IU/mL (0.30-0.70) White Blood Count 9.7 x10^3/uL (4.0-11.0) Red Blood Count 4.85 x10^6/uL (3.50-5.40) Hemoglobin 15.8 g/dL (12.0-15.5) Hematocrit 45.5 % (36.0-47.0) Mean Corpuscular Volume 94 fL (79-100) Mean Corpuscular Hemoglobin 33 pg (25-35) Mean Corpuscular Hemoglobin Concent 35 g/dL (31-37) Red Cell Distribution Width 12.5 % (11.5-14.5) Platelet Count 422 x10^3/uL (140-400) Neutrophils (%) (Auto) 57 % (31-73) Lymphocytes (%) (Auto) 36 % (24-48) Monocytes (%) (Auto) 5 % (0-9) Eosinophils (%) (Auto) 1 % (0-3) Basophils (%) (Auto) 1 % (0-3) Neutrophils # (Auto) 5.5 x10^3/uL (1.8-7.7) Lymphocytes # (Auto) 3.5 x10^3/uL (1.0-4.8) Monocytes # (Auto) 0.5 x10^3/uL (0.0-1.1) Eosinophils # (Auto) 0.1 x10^3/uL (0.0-0.7) Basophils # (Auto) 0.1 x10^3/uL (0.0-0.2) Sodium Level 138 mmol/L (136-145) Potassium Level 2.7 mmol/L (3.5-5.1) Chloride Level 100 mmol/L (98-107) Carbon Dioxide Level 28 mmol/L (21-32) Anion Gap 10 (6-14) Blood Urea Nitrogen 10 mg/dL (7-20) Creatinine 1.0 mg/dL (0.6-1.0) Estimated GFR (Cockcroft-Gault) 68.7 Glucose Level 233 mg/dL (70-99) Hemoglobin A1c 8.9 % (4.8-5.6) Calcium Level 9.4 mg/dL (8.5-10.1) Magnesium Level 1.9 mg/dL (1.8-2.4) Troponin I Quantitative < 0.017 ng/mL (0.000-0.055) Triglycerides Level 571 mg/dL (0-150) Cholesterol Level 258 mg/dL (0-200) LDL Cholesterol, Calculated mg/dL (0-100) VLDL Cholesterol, Calculated 114 mg/dL (0-40) Non-HDL Cholesterol Calculated 211 mg/dL (0-129) HDL Cholesterol 47 mg/dL (40-60) Cholesterol/HDL Ratio 5.5 Test 11/14/19 07:12 11/14/19 12:20 11/14/19 12:45 11/14/19 14:20 Glucose (Fingerstick) 279 mg/dL (70-99) 208 mg/dL (70-99) Clostridium difficile Toxin (PCR) Negative (NEGATIVE) Urine Collection Type Unknown Urine Color Yellow Urine Clarity Cloudy Urine pH 6.5 (<5.0-8.0) Urine Specific [place] 1.010 (1.000-1.030) Urine Protein Negative mg/dL (NEG-TRACE) Urine Glucose (UA) Negative mg/dL (NEG) Urine Ketones (Stick) Negative mg/dL (NEG) Urine Blood Small (NEG) Urine Nitrite Negative (NEG) Urine Bilirubin Negative (NEG) Urine Urobilinogen Dipstick 0.2 mg/dL (0.2 mg/dL) Urine Leukocyte Esterase Moderate (NEG) Urine RBC 6-10 /HPF (0-2) Urine WBC 11-20 /HPF (0-4) Urine Squamous Epithelial Cells Many /LPF Urine Bacteria Moderate /HPF (0-FEW) Urine Mucus Mod /LPF Test 11/14/19 17:11 11/14/19 20:19 11/15/19 04:15 11/15/19 08:07 Glucose (Fingerstick) 228 mg/dL (70-99) 170 mg/dL (70-99) 210 mg/dL (70-99) White Blood Count 8.2 x10^3/uL (4.0-11.0) Red Blood Count 4.69 x10^6/uL (3.50-5.40) Hemoglobin 15.6 g/dL (12.0-15.5) Hematocrit 44.3 % (36.0-47.0) Mean Corpuscular Volume 94 fL (79-100) Mean Corpuscular Hemoglobin 33 pg (25-35) Mean Corpuscular Hemoglobin Concent 35 g/dL (31-37) Red Cell Distribution Width 12.5 % (11.5-14.5) Platelet Count 388 x10^3/uL (140-400) Neutrophils (%) (Auto) 54 % (31-73) Lymphocytes (%) (Auto) 36 % (24-48) Monocytes (%) (Auto) 7 % (0-9) Eosinophils (%) (Auto) 2 % (0-3) Basophils (%) (Auto) 1 % (0-3) Neutrophils # (Auto) 4.4 x10^3/uL (1.8-7.7) Lymphocytes # (Auto) 3.0 x10^3/uL (1.0-4.8) Monocytes # (Auto) 0.6 x10^3/uL (0.0-1.1) Eosinophils # (Auto) 0.1 x10^3/uL (0.0-0.7) Basophils # (Auto) 0.1 x10^3/uL (0.0-0.2) Sodium Level 140 mmol/L (136-145) Potassium Level 2.9 mmol/L (3.5-5.1) Chloride Level 104 mmol/L (98-107) Carbon Dioxide Level 26 mmol/L (21-32) Anion Gap 10 (6-14) Blood Urea Nitrogen 10 mg/dL (7-20) Creatinine 0.8 mg/dL (0.6-1.0) Estimated GFR (Cockcroft-Gault) 88.8 BUN/Creatinine Ratio 13 (6-20) Glucose Level 186 mg/dL (70-99) Calcium Level 9.1 mg/dL (8.5-10.1) Total Bilirubin 0.4 mg/dL (0.2-1.0) Aspartate Amino Transf (AST/SGOT) 27 U/L (15-37) Alanine Aminotransferase (ALT/SGPT) 20 U/L (14-59) Alkaline Phosphatase 71 U/L (46-116) Total Protein 7.3 g/dL (6.4-8.2) Albumin 3.3 g/dL (3.4-5.0) Albumin/Globulin Ratio 0.8 (1.0-1.7) Test 11/15/19 11:46 Glucose (Fingerstick) 193 mg/dL (70-99) Laboratory Tests Test 11/14/19 14:20 11/14/19 17:11 11/14/19 20:19 11/15/19 04:15 Urine Collection Type Unknown Urine Color Yellow Urine Clarity Cloudy Urine pH 6.5 (<5.0-8.0) Urine Specific [place] 1.010 (1.000-1.030) Urine Protein Negative mg/dL (NEG-TRACE) Urine Glucose (UA) Negative mg/dL (NEG) Urine Ketones (Stick) Negative mg/dL (NEG) Urine Blood Small (NEG) Urine Nitrite Negative (NEG) Urine Bilirubin Negative (NEG) Urine Urobilinogen Dipstick 0.2 mg/dL (0.2 mg/dL) Urine Leukocyte Esterase Moderate (NEG) Urine RBC 6-10 /HPF (0-2) Urine WBC 11-20 /HPF (0-4) Urine Squamous Epithelial Cells Many /LPF Urine Bacteria Moderate /HPF (0-FEW) Urine Mucus Mod /LPF Glucose (Fingerstick) 228 mg/dL (70-99) 170 mg/dL (70-99) White Blood Count 8.2 x10^3/uL (4.0-11.0) Red Blood Count 4.69 x10^6/uL (3.50-5.40) Hemoglobin 15.6 g/dL (12.0-15.5) Hematocrit 44.3 % (36.0-47.0) Mean Corpuscular Volume 94 fL (79-100) Mean Corpuscular Hemoglobin 33 pg (25-35) Mean Corpuscular Hemoglobin Concent 35 g/dL (31-37) Red Cell Distribution Width 12.5 % (11.5-14.5) Platelet Count 388 x10^3/uL (140-400) Neutrophils (%) (Auto) 54 % (31-73) Lymphocytes (%) (Auto) 36 % (24-48) Monocytes (%) (Auto) 7 % (0-9) Eosinophils (%) (Auto) 2 % (0-3) Basophils (%) (Auto) 1 % (0-3) Neutrophils # (Auto) 4.4 x10^3/uL (1.8-7.7) Lymphocytes # (Auto) 3.0 x10^3/uL (1.0-4.8) Monocytes # (Auto) 0.6 x10^3/uL (0.0-1.1) Eosinophils # (Auto) 0.1 x10^3/uL (0.0-0.7) Basophils # (Auto) 0.1 x10^3/uL (0.0-0.2) Sodium Level 140 mmol/L (136-145) Potassium Level 2.9 mmol/L (3.5-5.1) Chloride Level 104 mmol/L (98-107) Carbon Dioxide Level 26 mmol/L (21-32) Anion Gap 10 (6-14) Blood Urea Nitrogen 10 mg/dL (7-20) Creatinine 0.8 mg/dL (0.6-1.0) Estimated GFR (Cockcroft-Gault) 88.8 BUN/Creatinine Ratio 13 (6-20) Glucose Level 186 mg/dL (70-99) Calcium Level 9.1 mg/dL (8.5-10.1) Total Bilirubin 0.4 mg/dL (0.2-1.0) Aspartate Amino Transf (AST/SGOT) 27 U/L (15-37) Alanine Aminotransferase (ALT/SGPT) 20 U/L (14-59) Alkaline Phosphatase 71 U/L (46-116) Total Protein 7.3 g/dL (6.4-8.2) Albumin 3.3 g/dL (3.4-5.0) Albumin/Globulin Ratio 0.8 (1.0-1.7) Test 11/15/19 08:07 11/15/19 11:46 Glucose (Fingerstick) 210 mg/dL (70-99) 193 mg/dL (70-99) Brief Hospital Course Ms. Reed is a 59 old admti with chest pain, then nausea and vomiting and diarrhea acute viral GI CV team eval and GI team, she was markedly improved at DC Discharge Information Condition at Discharge: Improved Follow Up: Weeks Disposition/Orders: D/C to Home Scheduled Amlodipine Besylate (Amlodipine Besylate) 10 Mg Tablet, 10 MG PO DAILY for 30 Days, #30 Prescribed by: DELFIN RODAS on 02/21/18 1151 Last Action: Continued on 11/13/191646 by CAROLYN CABRERA Aspirin (Aspirin) 325 Mg Tablet, 1 TAB PO DAILY, #30 Ref 5 Prescribed by: CAROLYN CABRERA on 06/11/16 1025 Last Action: Continued on 11/13/191646 by CAROLYN CABRERA Clopidogrel Bisulfate (Clopidogrel) 75 Mg Tablet, 75 MG PO DAILY for TO PREVENT BLOOD CLOTS, #30 Ref 0 (Reported) Entered as Reported by: KAYLAN ZAVALETA on 02/19/181817 Last Action: Continued on 11/13/191646 by CAROLYN CABRERA Duloxetine Hcl (Cymbalta) 60 Mg Capsule.dr, 1 CAP PO DAILY, #30 Ref 3 Prescribed by: CAROLYN CABRERA on 06/11/16 1025 Last Action: Converted on 11/13/191646 by CAROLYN CABRERA Evolocumab (Repatha Syringe) 140 Mg/1 Ml Syringe, 140 MG SQ WEEKLY, (Reported) Entered as Reported by: Juan Pablo Benson on 02/20/182053 Last Action: HELD on 11/13/191646 by CAROLYN CABRERA Furosemide (Lasix) 40 Mg Tablet, 1 TAB PO DAILY for 30 Days, #30 Ref 1 (Reported) Entered as Reported by: ALVA GOMES on 03/20/17 1544 Last Action: Continued on 11/13/191646 by CAROLYN CABRERA Gabapentin (Gabapentin ) 300 Mg Capsule, 300 MG PO TID, (Reported) Entered as Reported by: KAYLAN ZAVALETA on 02/19/181817 Last Action: Continued on 11/13/191646 by CAROLYN CABRERA Insulin Glargine,Hum.rec.anlog (Lantus Solostar) 100 Unit/1 Ml Insuln.pen, 15 UNITS SQ QHS for 7 Days Prescribed by: DELFIN RODAS on 02/21/18 115 Last Action: Converted on 11/13/191646 by CAROLYN CABRERA Losartan Potassium (Losartan Potassium) 100 Mg Tablet, 100 MG PO DAILY for 30 Days, #30 Ref 1 Prescribed by: DELFIN RODAS on 02/21/18 115 Last Action: Converted on 11/13/191646 by CAROLYN CABRERA Metformin Hcl (Metformin Hcl) 1,000 Mg Tablet, 1,000 MG PO BIDWMEALS, (Reported) Entered as Reported by: KAYLAN ZAVALETA on 02/19/181817 Last Action: HELD on 11/13/191646 by CAROLYN CABRERA Metoprolol Tartrate (Metoprolol Tartrate) 100 Mg Tablet, 1 TAB PO BID for HTN, #60 Ref 5 (Reported) Entered as Reported by: JONATHAN GREEN on 02/19/19 1537 Last Action: Converted on 11/13/191646 by CAROLYN CABRERA Montelukast Sodium (Montelukast Sodium Tablet ) 10 Mg Tablet, 1 TAB PO DAILY, #30 Ref 5 (Reported) Entered as Reported by: SALENA SOW on 07/23/15 1317 Last Action: Continued on 11/13/191646 by CAROLYN CABRERA Causey-3 Fatty Acids/Fish Oil (Fish Oil 1,000 Mg Capsule) 1 Each Capsule, 1,000 MG PO BIDAFTMEAL for 30 Days Prescribed by: DELFIN RODAS on 02/21/18 1151 Last Action: Continued on 11/13/191646 by CAROLYN CABRERA Omeprazole (Omeprazole) 40 Mg Capsule.dr, 1 CAP PO DAILY, #30 Ref 3 Prescribed by: CAROLYN CABRERA on 06/11/16 1025 Last Action: Converted on 11/13/191646 by CAROLYN CABRERA Potassium Chloride (Potassium Chloride ) 20 Meq Tablet.er, 20 MEQ PO DAILY, #30 Ref 1 (Reported) Take one daily while taking Lasix Entered as Reported by: ALVA GOMES on 03/20/17 1544 Last Action: Continued on 11/13/191646 by CAROLYN CABRERA Rosuvastatin Calcium (Crestor) 40 Mg Tablet, 40 MG PO HS for FOR CHOLESTEROL, #30 Ref 1 Prescribed by: CAROLYN CABRERA on 06/11/16 1025 Last Action: Converted on 11/13/191646 by CAROLYN CABRERA Sitagliptin Phosphate (Januvia) 100 Mg Tablet, 1 TAB PO DAILY, #30 Ref 5 Prescribed by: CAROLYN CABRERA on 06/11/16 1025 Last Action: Converted on 11/13/191646 by CAROLYN CABRERA Tizanidine Hcl (Tizanidine Hcl) 4 Mg Tablet, 4 MG PO TID, (Reported) Entered as Reported by: KAYLAN ZAVALETA on 02/19/18 1818 Last Action: Continued on 11/13/191646 by CAROLYN CABRERA Scheduled PRN Tramadol Hcl (Tramadol Hcl) 50 Mg Tablet, 50 MG PO Q6HRS PRN for PAIN, #10 Prescribed by: DEYA COLLIER APRN on 05/27/18 1846 Last Action: Continued on 11/13/191646 by CAROLYN CABRERA [guaiFENesin/CODEINE 100mg/10mg] 5 ML LIQUID, 10 ML PO PRN Q6HRS PRN for COUGH, #60 Prescribed by: CAROLYN CABRERA on 02/18/19 1334 Last Action: Converted on 11/13/191646 by CAROLYN CABREAR Patient Instructions Patient Instructions face to face discussed Justicifation of Admission Dx: Justifications for Admission: Justification of Admission Dx: Yes Angina: Unstable Variant Hypertension: Symp at Rest KS: Acute NSTEMI CAROLYN CABRERA MD Nov 15, 2019 14:07
[2019-11-15 15:00] VITALS: BP 113/63
[2019-11-15 15:47] LABS: CALCIUM 8.7 mg/dL (8.5-10.1); GFR 68.7; POTASSIUM 3.4 mmol/L (3.5-5.1)
--- NOTE | 2019-11-15 16:49 | NUR ---
Discharge Note: JOSIAH TRAORE [address] Discharge instructions and discharge home medications reviewed with Patient and a copy given. All questions have been answered and understanding verbalized. The following instructions and handouts were given: hypertension, insulin glargine Patient discharged to home with spouse via wheelchair
== END 2019-11-15 16:51 | disposition home or self-care (01) | DRG 392 ==
LOC: ER 12:42 → 2 SOUTH 14:57
PROVIDERS: ADMIT Internal Medicine; ATTEND Internal Medicine
DX: K21.9 Gastro-esophageal reflux disease without esophagitis (principal); N13.2 Hydronephrosis with renal and ureteral calculous obstruction; A08.4 Viral intestinal infection, unspecified; I16.0 Hypertensive urgency; E11.65 Type 2 diabetes mellitus with hyperglycemia; E78.00 Pure hypercholesterolemia, unspecified; E78.5 Hyperlipidemia, unspecified; E83.42 Hypomagnesemia; E87.6 Hypokalemia; I10 Essential (primary) hypertension; I25.10 Atherosclerotic heart disease of native coronary artery without angina pectoris; I25.2 Old myocardial infarction; J45.909 Unspecified asthma, uncomplicated; K57.30 Diverticulosis of large intestine without perforation or abscess without bleeding; F17.200 Nicotine dependence, unspecified, uncomplicated; F41.9 Anxiety disorder, unspecified; M19.90 Unspecified osteoarthritis, unspecified site; W18.30XA Fall on same level, unspecified, initial encounter; Y93.89 Activity, other specified; Y92.89 Other specified places as the place of occurrence of the external cause; Y99.8 Other external cause status; Z82.49 Family history of ischemic heart disease and other diseases of the circulatory system; Z83.3 Family history of diabetes mellitus; Z95.5 Presence of coronary angioplasty implant and graft
CPT/HCPCS: 36415; 71045; 71275; 74174; 80048; 80053; 80061; 81001; 82962; 83036; 83735; 83880; 84484; 85025; 85520; 85610; 87077; 87086; 87186; 87493; 93005; 93306; 96365; 96366; 96368; 96375; 99291; J1644; J1815; J2270; J2405; J3475; J3480; J3490; J7030; Q9967; G0378

== ENCOUNTER 2020-08-21 16:59 | Emergency (ER) | payer MEDICARE, MEDICAID ==
[~2020-08-21] VITALS: Ht 170.2 cm; Wt 73.0 kg
[~2020-08-21 16:59] MED LIST changes: +AMLO-187 PO; -AMLO10TA8 PO; +HYDR-2765 PO; +IBUP-1060 PO; +INSU100V8 SQ; +METH4TAB2 PO
[2020-08-21 17:15] VITALS: BP 161/91
--- NOTE | 2020-08-21 18:43 | PHYS DOC ---
Past Medical History Past Medical History: Asthma, Diabetes-Type II, High Cholesterol, Hypertension, [place] Past Surgical History: Other Additional Past Surgical Histo: Cardiac stents, BACK Smoking Status: Former Smoker Alcohol Use: Occasionally Drug Use: Marijuana General Adult EDM: Chief Complaint: UPPER EXTREMITY PAIN HPI: HPI: 60-year-old female presents to the emergency department with right extremity pain. Patient received second dose of Covid vaccine on left arm today 9 AM then went home to take a nap and awoke from constant, throbbing sharp 10 out of 10 pain in the right elbow radiating up and down right arm from her right shoulder to hand. Patient has PMHx Asthma, Diabetes-Type II, High Cholesterol, Hypertension, CAD (s/p RCA stent and LAD stent x2). Patient denies any traumatic or inciting event event. Patient denies any fever chills nausea vomiting diarrhea. Patient claimed to be hospitalized for 1 week for similar instance 1 month ago after her first dose of the vaccine which was given in her right arm and caused similar pain down the left side of her body-limitation of this hospitalization from 08/10/20 showed the hospitalization was for unstable angina and hypertensive urgency, but patient was advised to follow-up outpatient with MRI what was presumed to be nerve pain from cervical stenosis. Review of Systems: Review of Systems: Constitutional: Denies fever or chills Eyes: Denies redness or eye pain HENT: Denies nasal congestion or sore throat Respiratory: Denies cough or shortness of breath Cardiovascular: Denies chest pain or palpitations GI: Denies abdominal pain, nausea, or vomiting : Denies dysuria or hematuria Musculoskeletal: Right arm pain, denies weakness, denies limited range of motion, denies paresthesia Integument: Denies rash or skin lesions Neurologic: Denies headache, focal weakness or sensory changes Complete systems were reviewed and found to be within normal limits, except as documented in this note. Heart Score: C/O Chest Pain: N/A Risk Factors: Risk Factors: DM, Current or recent (<one month) smoker, HTN, HLP, family his tory of CAD, obesity. Risk Scores: Score 0 - 3: 2.5% MACE over next 6 weeks - Discharge Home Score 4 - 6: 20.3% MACE over next 6 weeks - Admit for Clinical Observation Score 7 - 10: 72.7% MACE over next 6 weeks - Early Invasive Strategies Family History: Family History: Denies relevant family history Allergies: Allergies: Allergies Coded Allergies Type Severity Reaction Last Updated Verified Iodinated Contrast Media Allergy Severe 08/05/20 Yes Physical Exam: PE: Constitutional: Well developed, well nourished, no acute distress, non-toxic appearance HENT: Normocephalic, atraumatic Eyes: conjunctiva normal, no discharge Neck: Normal range of motion, no tenderness, supple Lungs & Thorax: No respiratory distress, equal chest rise and fall. CTAB Abdomen: Soft, no tenderness Skin: Warm, dry, no erythema, no rash Back: No tenderness, no CVA tenderness Extremities: Pain in right arm from deltoid to hand- extremely tender to touch, no limited range of motion, slight weakness in hand [employer] of right hand Neurologic: Alert and oriented X 3, normal motor function, normal sensory function, no focal deficits noted Psychologic: Affect normal, judgment normal Current Patient Data: Vital Signs: Vital Signs Date Time Temp Pulse Resp B/P (MAP) Pulse Ox O2 Delivery O2 Flow Rate FiO2 08/21/20 17:15 98.7 96 16 161/91 (114) 99 Room Air 98.7 EKG: EKG: [] Radiology/Procedures: Radiology/Procedures: [] Course & Med Decision Making: Course & Med Decision Making Patient comes emergency department with pain in right arm after receiving second Covid vaccine and left arm this morning. Patient reports similar contralateral pain from her first Covid vaccine dose which required a hospitalization- which documentation from 08/10 indicates was for unstable angina and hypertensive urgency, but patient was told to follow-up for cervical MRI outpatient because of this pain. Nicho Disclaimer: Nicho Disclaimer: This electronic medical record was generated, in whole or in part, using a voice recognition dictation system. Departure Departure Impression: Primary Impression: Olecranon bursitis of right elbow Additional Impression: Hematoma Disposition: 01 DC HOME SELF CARE/HOMELESS Condition: STABLE Referrals: LESTER RAMIREZ NP (PCP) TANNER LINARES MD Patient Instructions: Arm Sling Use, [id number], Elastic Bandage and RICE, Hematoma, [id number], Olecranon Bursitis, [id number] Additional Instructions: ICE area of discomfort 20 min on then leave off next 20 mins. Repeat several times daily as needed for next few days. Drop arm out of sling at least 5x daily and performed "shoulder circles" 10x in one direction then 10x in opposite direction as directed in the ED. This helps prevent a "frozen shoulder". Scripts Hydrocodone Bit/Acetaminophen (HYDROCODONE-APAP 5-325 ) 1 Tab Tablet 0.5-1 TAB PO PRN Q6HRS PRN for PAIN, #10 TAB 0 Refills Prov: LEROY DEL TORO DO 08/21/20 Naproxen (NAPROXEN) 375 Mg Tablet 375 MG PO TID PRN PRN for PAIN, #30 TAB Prov: LEROY DEL TORO DO 08/21/20 LEROY DEL TORO DO Aug 21, 2020 18:43
[2020-08-21] MEDS: HYDROcodone/APAP 5/325MG 1 TAB TABLET PO ONE (19:15)
[2020-08-21] MEDS: DEXAMETHASONE 4 MG TABLET PO ONE (19:15)
--- NOTE | 2020-08-21 19:59 | RAD ---
3 views right elbow HISTORY: Pain and swelling AP lateral oblique views The visualized osseous structures appear normal. There is no displacement of the fat pad. IMPRESSION: No acute findings. Electronically signed by: Mg Ramos III, MD (08/21/2020 7:57 PM) [facility]
--- NOTE | 2020-08-21 20:26 | RAD ---
Right upper Extremity Venous Doppler Ultrasound History: Reason: pain/swelling, eval for DVT, eval soft tissue induration to prox hum / Spl. Instruc tions: / History: Comparison: None Procedure: Color flow, duplex, spectral analysis and 2D images are obtained with and without compress ion in the area of the deep and superficial venous structures of the upper , specifically the axillar y, brachials, radial and ulnar deep veins and the superficial basilic and cephalic veins. Color Doppl er and venous waveform analysis was also applied to the left jugular and subclavian vein. Findings: There is normal duplex flow, color flow and compressibility of all visualized vein segments. No evide nce of deep venous thrombus is present. Sonographic examination of the area of contrast lateral to the proximal humerus shows a nonvascular 1 .0 x 0.6 similar hypoattenuating area. Impression: Normal venous Doppler ultrasound with no evidence of DVT. Possible small hematoma causing palpable abnormality. Electronically signed by: Mg Ramos III, MD (08/21/2020 8:23 PM) [facility]
[2020-08-21] MEDS ORDERED: HYDR-2761 PO (20:51)
[2020-08-21] MEDS ORDERED: NAPR-695 PO (20:51)
== END 2020-08-21 21:02 | disposition home or self-care (01) ==
LOC: ER 16:59
DX: S50.01XA Contusion of right elbow, initial encounter (principal); M70.21 Olecranon bursitis, right elbow; M25.521 Pain in right elbow; J45.909 Unspecified asthma, uncomplicated; E11.9 Type 2 diabetes mellitus without complications; E78.00 Pure hypercholesterolemia, unspecified; I10 Essential (primary) hypertension; I25.2 Old myocardial infarction; F12.90 Cannabis use, unspecified, uncomplicated; Z87.891 Personal history of nicotine dependence; Z98.890 Other specified postprocedural states; Z91.041 Radiographic dye allergy status; X58.XXXA Exposure to other specified factors, initial encounter; Y93.89 Activity, other specified; Y92.89 Other specified places as the place of occurrence of the external cause; Y99.8 Other external cause status
CPT/HCPCS: 73080; 93971; 99284; A4565

== ENCOUNTER → 2020-12-28 | Outpatient (CLI) | payer MEDICARE, MEDICAID ==
[2020-09-06 14:29] VITALS: BP 144/67
[~2020-12-28] MED LIST changes: +HYDR-2761 PO; +HYDR-2769 PO; +NAPR-695 PO; -OMEP40CA45 PO; +OMEP40CA7 PO
--- NOTE | 2020-12-28 13:17 | RAD ---
CLINICAL INDICATION: JOSIAH TRAORE, who is 60 years of age, presents for further evaluatio n of a finding noted on her most recent screening mammographic examination. On that examination a mas s was reported within the right breast. COMPARISON: Prior mammographic imaging dating back to 02/19/2018 TECHNIQUE: Diagnostic views of the right breast and screening evaluation of the left breast was obtai artemio, utilizing digital technique. BREAST COMPOSITION: The breast tissue is heterogenously dense, which could obscure detection of small masses. MAMMOGRAM FINDINGS: The right breast mass is grossly stable in appearance. There are no suspicious masses, microcalcifica tions, or architectural distortion to suggest malignancy in the left breast. The visualized axilla appears unremarkable. IMPRESSION: 1. No mammographic evidence of malignancy in either breast. RECOMMENDATION: In the absence of new clinical symptoms or change in physical exam, annual screening mammography is r ecommended BIRADS 2: BENIGN Electronically signed by: Gee Luis MD (12/28/2020 1:14 PM) [id number]
== END ==
LOC: MAMMO 07:41
PROVIDERS: ATTEND Nurse Practitioner
DX: R92.2 Inconclusive mammogram (principal)
CPT/HCPCS: 77066; G0279; 77062

== ENCOUNTER → 2021-07-05 | Outpatient (CLI) | payer MEDICARE, MEDICAID ==
[2021-05-28 14:05] VITALS: BP 110/55
[~2021-07-05] MED LIST changes: +ALBU2.5V8 NEB; +DILT300C24 PO; -DULO60CA6 PO; +DULO60CA7 PO; +GUAI120L35 PO; +PRED-220 PO; +TIZA-75 PO; -TIZA4TAB2 PO
--- NOTE | 2021-07-06 07:41 | CARD ---
MR#: [id number] Date of Study: 07/05/2021 Ordering Physician: BLANCA CANALES, Referring Physician: BLANCA CANALES Tech: Olga Jackson [facility] APPROVED REPORT EXAM: Two-dimensional and M-mode echocardiogram with Doppler and color Doppler. Other Information Quality : AverageHR: 78bpm Rhythm : NSR INDICATION Dyspnea Cardiac Disease: CAD RISK FACTORS Hypertension Hyperlipidemia Diabetes 2D DIMENSIONS RVDd3.1 (2.9-3.5cm)Left Atrium(2D)3.8 (1.6-4.0cm) IVSd1.8 (0.7-1.1cm)Aortic Root(2D)3.2 (2.0-3.7cm) LVDd3.8 (3.9-5.9cm)LVOT Diameter2.3 (1.8-2.4cm) PWd1.7 (0.7-1.1cm)LVDs1.8 (2.5-4.0cm) FS (%) 52.4 %SV53.0 ml LVEF(%)84.1 (>50%) Aortic Valve AoV Peak Irvin.134.2cm/sAoV VTI28.7cm AO Peak GR.7.2mmHgLVOT Peak Irvin.129.7cm/s AO Mean GR.4mmHgAVA (VMAX)3.98cm2 Mitral Valve MV E Nponnoxj01.0cm/sMV DECEL [id number] MV A Bmpomurt882.1cm/sE/A Ratio0.9 Pulmonary Valve PV Peak Nqwbccmr81.9cm/s Tricuspid Valve TR P. Iufilnes048cn/sTR Peak Gr.41mmHg LEFT VENTRICLE The left ventricle is normal size. There is moderate to severe concentric left ventricular hypertroph y. The left ventricular systolic function is normal. Estimated ejection fraction 60-65%. There is no rmal LV segmental wall motion. Transmitral Doppler flow pattern is Grade I-abnormal relaxation patter n. RIGHT VENTRICLE The right ventricle is normal size. The right ventricle is mildly hypertrophied. The right ventricula r systolic function is normal. ATRIA The left atrium size is normal. The right atrium size is normal. The interatrial septum is intact wit h no evidence for an atrial septal defect or patent foramen ovale as noted on 2-D or Doppler imaging. AORTIC VALVE The aortic valve is normal in structure and function. Doppler and Color Flow revealed no significant aortic regurgitation. There is no significant aortic valvular stenosis. MITRAL VALVE The mitral valve is normal in structure and function. There is no evidence of mitral valve prolapse. There is no mitral valve stenosis. Doppler and Color Flow revealed no mitral valve regurgitation note d. TRICUSPID VALVE The tricuspid valve is normal in structure and function. Doppler and Color Flow revealed trace to mil d tricuspid regurgitation. Estimated PAP 30 mmHg. There is no tricuspid valve stenosis. PULMONIC VALVE The pulmonary valve is normal in structure and function. Doppler and Color Flow revealed no pulmonic valvular regurgitation. GREAT VESSELS The aortic root is normal in size. The ascending aorta is normal in size. The IVC is normal in size a nd collapses >50% with inspiration. PERICARDIAL EFFUSION There is no evidence of significant pericardial effusion. Critical Notification Critical Value: No <Conclusion> The left ventricular systolic function is normal. Estimated ejection fraction 60-65%. There is normal LV segmental wall motion. Transmitral Doppler flow pattern is Grade I-abnormal relaxation pattern. Trace to mild tricuspid regurgitation. Estimated PAP 30 mmHg. There is no evidence of significant pericardial effusion. Signed by : Blanca Canales, Electronically Approved : 07/06/2021 07:40:25
== END ==
LOC: ECHO 12:46
PROVIDERS: ATTEND Internal Medicine Cardiovascular Disease
DX: I07.1 Rheumatic tricuspid insufficiency (principal); I25.10 Atherosclerotic heart disease of native coronary artery without angina pectoris; R06.02 Shortness of breath
CPT/HCPCS: 93306; C8929